=== PATIENT | female | born 1930 | race Caucasian/White ===

== ENCOUNTER 2018-03-03 20:13 | Inpatient (IN) | payer MEDICARE, OTHER ==
[~2018-03-03] VITALS: Ht 157.5 cm; Wt 81.6 kg
[2018-03-03 20:43] VITALS: BP 120/80
[2018-03-03] MEDS ORDERED: Sodium Chloride 500ML 500 ML IV ONE (20:45)
[2018-03-03] MEDS ORDERED: Isovue-300 100ml vial INJ PRN (20:45)
[2018-03-03 20:56] LABS: APPEARANCE,URINE CLOUDY; BILIRUBIN, URINE NEGATIVE (NEGATIVE); COLOR,URINE AMBER; GLUCOSE, URINE (UA) NEGATIVE (NEGATIVE); KETONES,URINE NEGATIVE (NEGATIVE); LEUKOCYTE ESTERASE ,URINE 3+ (NEGATIVE); NITRITE,URINE POSITIVE (NEGATIVE); PH,URINE 6 (4.5-8.0); PROTEIN,URINE 2+ (NEGATIVE); UROBILINOGEN,URINE NORMAL MG/DL (0.0-1.0)
[2018-03-03] MEDS ORDERED: dilTIAZem HCl 25mg/5ml Inj IVP ONE (21:00)
[2018-03-03 21:02] LABS: BASOPHILS % (AUTO) 1.3 % (0.0-2.0); EOSINOPHILS % (AUTO) 1.5 % (0.0-3.0); HEMATOCRIT 43.7 % (37.0-47.0); HEMOGLOBIN 14.8 G/DL (12.0-16.0); LYMPHOCYTES % (AUTO) 21.9 % (20.0-45.0); MEAN CORPUSCULAR VOLUME 91 FL (80-99); MONOCYTES % (AUTO) 6.6 % (1.0-10.0); NEUTROPHILS % (AUTO) 68.8 % (45.0-75.0); PLATELET COUNT 196 K/UL (150-450); RED BLOOD COUNT 4.79 M/UL (4.20-5.40); RED CELL DISTRIBUTION WIDTH 12.8 % (11.6-14.8); WHITE BLOOD COUNT 8.6 K/UL (4.8-10.8)
[2018-03-03 21:11] LABS: ANION GAP 9 mmol/L (5-15); BLOOD UREA NITROGEN 23 mg/dL (7-18); CARBON DIOXIDE 26 MMOL/L (21-32); CHLORIDE 102 MMOL/L (98-107); CREATININE 0.6 MG/DL (0.55-1.30); POTASSIUM 5.1 MMOL/L (3.5-5.1); SODIUM 137 MMOL/L (136-145)
[2018-03-03] MEDS ORDERED: cefTRIAXone 1 GM in NS 55 ML IVPB ONE (21:15)
[2018-03-03 21:26] LABS: ALANINE AMINOTRANSFERASE 13 U/L (12-78); ALBUMIN 2.9 G/DL (3.4-5.0); ALBUMIN/GLOBULIN RATIO 0.6 (1.0-2.7); ALKALINE PHOSPHATASE 104 U/L (46-116); ASPARTATE AMINO TRANSFERASE 34 U/L (15-37); BILIRUBIN,TOTAL 0.4 MG/DL (0.2-1.0); CKMB 1.2 NG/ML (0.0-3.6); CREATINE KINASE 90 U/L (26-308)
[2018-03-03] MEDS ORDERED: LEVOTHYROXINE200 MCG ORAL (21:30)
[2018-03-03] MEDS ORDERED: DIGOXIN250 MCG ORAL (21:33)
[2018-03-03] MEDS ORDERED: DIGOXIN0.125 MG/2 ORAL (21:33)
[2018-03-03] MEDS ORDERED: MAGNESIUM400 M1 PO (21:33)
[2018-03-03] MEDS ORDERED: ACETAMINOPHEN80 M2 PO (21:36)
[2018-03-03] MEDS ORDERED: METFORMIN HCL5000 GM ORAL (21:40)
[2018-03-03] MEDS ORDERED: REMERON30 M1 ORAL (21:40)
[2018-03-03] MEDS ORDERED: sodium ORAL (21:40)
[2018-03-03] MEDS ORDERED: SIMVASTATIN5 MG ORAL (21:41)
[2018-03-03] MEDS ORDERED: ABILIFY2 MG ORAL (21:41)
[2018-03-03] MEDS ORDERED: xeralto (21:42)
[2018-03-03] MEDS ORDERED: Morphine Sulfate 2mg/ml Inj IVP PRN (21:45)
[2018-03-03] MEDS ORDERED: Miralax 17gm pkt ORAL PRN (21:45)
[2018-03-03] MEDS ORDERED: Albuterol/Ipratropium 3ml neb HHN PRN (21:45)
[2018-03-03 21:53] VITALS: BP 150/70
--- NOTE | 2018-03-03 22:07 | Emergency Room Report ---
History of Present Illness General Chief Complaint: Chest Pain Source: Patient, EMS Present Illness HPI Patient is a 88-year-old female brought in by EMS after the reported near syncopal episode. The patient was noted to be standing the and subsequently became pale and began trembling. Patient did not lose consciousness. Patient was the noted have increased chills. The patient prior history of atrial fibrillation and CVA. She is anticoagulated with Xarelto. The patient is also taking digoxin for heart failure. Allergies: Coded Allergies: No Known Allergies (Unverified , 03/03/18) Patient History Past Medical History: see triage record Last Menstrual Period: UNK Reviewed Nursing Documentation: PMH: Agreed; PSxH: Agreed Nursing Documentation-PMH Past Medical History: No History, Except For Hx Cardiac Problems: Yes - pacemaker Hx Hypertension: Yes Hx Diabetes: Yes Hx Cerebrovascular Accident: Yes - no deficits Review of Systems All Other Systems: limited - by mental status Physical Exam Vital Signs Date Time Temp Pulse Resp B/P (MAP) Pulse Ox O2 Delivery O2 Flow Rate FiO2 03/03/18 20:08 99.1 89 16 140/86 98 Room Air 99.1 03/03/18 20:41 2.0 97 Sp02 EP Interpretation: reviewed, normal General Appearance: normal inspection, alert, Chronically Ill Head: atraumatic ENT: normal voice, other - poor dentition Neck: normal inspection, full range of motion, supple, no bony tend Respiratory: normal inspection, lungs clear, no respiratory distress, no retraction, crackles Cardiovascular #1: no edema, tachycardia, irregularly irregular Gastrointestinal: soft, no guarding, hernia - umbilical Genitourinary: no CVA tenderness Musculoskeletal: normal inspection, back normal, normal range of motion Neurologic: normal inspection, alert, responsive, speech normal Psychiatric: normal inspection, judgement/insight normal, mood/affect normal Skin: normal inspection, normal color, no rash Medical Decision Making Diagnostic Impression: Primary Impression: Severe sepsis Additional Impressions: Urinary tract infection Atrial fibrillation ER Course Patient presented for near syncope. Differential diagnosis included was not limited to sepsis, pulmonary embolism, I aortic aneurysm, incarcerated hernia among others.Because of complexity of patient's case laboratory testing and imaging studies were ordered. The patient was noted to have prior history of atrial fibrillation. I EKG interpreted by me showed atrial fibrillation with rapid ventricular response with a rate of 123. CT the head read by radiology showed atrophic changes without evident acute intracranial hemorrhage or mass effect there is a 13 mm right frontal meningioma noted. The urinalysis showed evidence of urinary tract infection. Patient was noted to have a the umbilical hernia. CT the abdomen pelvis was ordered to evaluate for bowel obstruction. The patient was given IV fluids as well as IV antibiotics. Dr. Kody Oropeza was contacted for inpatient management Labs Test 03/03/18 20:25 03/03/18 21:44 White Blood Count 8.6 K/UL (4.8-10.8) Red Blood Count 4.79 M/UL (4.20-5.40) Hemoglobin 14.8 G/DL (12.0-16.0) Hematocrit 43.7 % (37.0-47.0) Mean Corpuscular Volume 91 FL (80-99) Mean Corpuscular Hemoglobin 31.0 PG (27.0-31.0) Mean Corpuscular Hemoglobin Concent 34.0 G/DL (32.0-36.0) Red Cell Distribution Width 12.8 % (11.6-14.8) Platelet Count 196 K/UL (150-450) Mean Platelet Volume 7.5 FL (6.5-10.1) Neutrophils (%) (Auto) 68.8 % (45.0-75.0) Lymphocytes (%) (Auto) 21.9 % (20.0-45.0) Monocytes (%) (Auto) 6.6 % (1.0-10.0) Eosinophils (%) (Auto) 1.5 % (0.0-3.0) Basophils (%) (Auto) 1.3 % (0.0-2.0) Prothrombin Time 11.0 SEC (9.30-11.50) Prothromb Time International Ratio 1.0 (0.9-1.1) Activated Partial Thromboplast Time 28 SEC (23-33) Urine Color Elicia Urine Appearance Cloudy Urine pH 6 (4.5-8.0) Urine Specific [place] 1.015 (1.005-1.035) Urine Protein 2+ (NEGATIVE) Urine Glucose (UA) Negative (NEGATIVE) Urine Ketones Negative (NEGATIVE) Urine Blood 1+ (NEGATIVE) Urine Nitrite Positive (NEGATIVE) Urine Bilirubin Negative (NEGATIVE) Urine Ictotest Negative (NEGATIVE) Urine Urobilinogen Normal MG/DL (0.0-1.0) Urine Leukocyte Esterase 3+ (NEGATIVE) Urine RBC 10-15 /HPF (0 - 2) Urine WBC Tntc /HPF (0 - 2) Urine Squamous Epithelial Cells Few /LPF (NONE/OCC) Urine Bacteria Many /HPF (NONE) Sodium Level 137 MMOL/L (136-145) Potassium Level 5.1 MMOL/L (3.5-5.1) Chloride Level 102 MMOL/L (98-107) Carbon Dioxide Level 26 MMOL/L (21-32) Anion Gap 9 mmol/L (5-15) Blood Urea Nitrogen 23 mg/dL (7-18) Creatinine 0.6 MG/DL (0.55-1.30) Estimat Glomerular Filtration Rate mL/min (>60) Glucose Level 181 MG/DL (74-106) Calcium Level 9.0 MG/DL (8.5-10.1) Total Bilirubin 0.4 MG/DL (0.2-1.0) Aspartate Amino Transf (AST/SGOT) 34 U/L (15-37) Alanine Aminotransferase (ALT/SGPT) 13 U/L (12-78) Alkaline Phosphatase 104 U/L (46-116) Total Creatine Kinase 90 U/L (26-308) Creatine Kinase MB 1.2 NG/ML (0.0-3.6) Creatine Kinase MB Relative Index 1.3 Troponin I 0.013 ng/mL (0.000-0.056) Pro-B-Type Natriuretic Peptide 541 pg/mL (0-125) Total Protein 7.6 G/DL (6.4-8.2) Albumin 2.9 G/DL (3.4-5.0) Globulin 4.7 g/dL Albumin/Globulin Ratio 0.6 (1.0-2.7) Last Vital Signs Date Time Temp Pulse Resp B/P (MAP) Pulse Ox O2 Delivery O2 Flow Rate FiO2 03/03/18 21:53 97.5 97 18 150/70 Room Air 98 97.5 03/03/18 20:43 2.0 03/03/18 20:08 98 Status: improved Disposition: ADMITTED INPATIENT Condition: Serious Referrals: NON PHYSICIAN (PCP) Bipin Fallon MD Mar 03, 2018 22:07
[2018-03-03 23:00] VITALS: BP 118/81
[2018-03-04] VITALS: BP 130/78
[2018-03-04] MEDS: Heparin 5000 units/ml inj SUBQ SCH ×2 (00:15→09:31)
[2018-03-04] MEDS ORDERED: Vancomycin 1 GM in D5W 275 ML IVPB SCH (00:30)
[2018-03-04 04:00] VITALS: BP 133/68
[2018-03-04 07:35] LABS: BASOPHILS % (AUTO) 1.6 % (0.0-2.0); EOSINOPHILS % (AUTO) 2.6 % (0.0-3.0); HEMATOCRIT 39.9 % (37.0-47.0); HEMOGLOBIN 13.4 G/DL (12.0-16.0); LYMPHOCYTES % (AUTO) 26.2 % (20.0-45.0); MEAN CORPUSCULAR VOLUME 88 FL (80-99); MONOCYTES % (AUTO) 8.2 % (1.0-10.0); NEUTROPHILS % (AUTO) 61.3 % (45.0-75.0); PLATELET COUNT 188 K/UL (150-450); RED BLOOD COUNT 4.53 M/UL (4.20-5.40); RED CELL DISTRIBUTION WIDTH 12.6 % (11.6-14.8); WHITE BLOOD COUNT 5.4 K/UL (4.8-10.8)
[2018-03-04 07:49] LABS: ALANINE AMINOTRANSFERASE 24 U/L (12-78); ALBUMIN 2.6 G/DL (3.4-5.0); ALBUMIN/GLOBULIN RATIO 0.6 (1.0-2.7); ALKALINE PHOSPHATASE 87 U/L (46-116); ANION GAP 7 mmol/L (5-15); ASPARTATE AMINO TRANSFERASE 19 U/L (15-37); BILIRUBIN,TOTAL 0.3 MG/DL (0.2-1.0); BLOOD UREA NITROGEN 17 mg/dL (7-18); CALCIUM 8.5 MG/DL (8.5-10.1); CARBON DIOXIDE 25 MMOL/L (21-32); CHLORIDE 103 MMOL/L (98-107); CREATININE 0.6 MG/DL (0.55-1.30); SODIUM 135 MMOL/L (136-145)
[2018-03-04 08:00] VITALS: BP 139/66
--- NOTE | 2018-03-04 09:19 | Diagnostic Imaging Report ---
Indication: Abdominal pain Technique: Continuous helical transaxial imaging of the abdomen and pelvis was obtained from the lung bases to the pubic symphysis during intravenous contrast administration. Coronal 2-D reformats were also obtained. Study obtained in a Siemens sensation [address] Automatic Exposure Control was utilized. Total Dose length Product (DLP): 830.[address] Dose Index Volume (CTDIvol): 17.05 mGy Comparison: None Findings: The appendix is identified and appears normal. There is a large ventral hernia containing part of the transverse colon. There is no transition or evidence of bowel obstruction secondary to the hernia. No inflammation identified. Diverticula noted throughout the colon. No evidence of acute diverticulitis. Mild basilar atelectasis demonstrated. Suspected tiny gallstone. Left renal cyst noted. Arterial vascular calcifications are present. There is no free fluid or free air. Tiny focus of air in the urinary bladder noted may be from recent Rothman placement. Correlate clinically. Mild L4-5 anterolisthesis and degenerative disc disease in the lower lumbar spine noted. Lower lumbar facet hypertrophy noted. Pins noted in the left hip from a previous fracture. IMPRESSION: Large ventral hernia with part of the colon in the hernia sac. No obstruction or inflammation identified. Correlate clinically. Probable tiny gallstone. Normal appendix Other incidental findings as above The CT scanner at [facility] is accredited by the [employer] and the scans are performed using dose optimization techniques as appropriate to a performed exam including Automatic Exposure control.
--- NOTE | 2018-03-04 09:24 | Diagnostic Imaging Report ---
Indication: Headache Technique: Contiguous 5 mm thick transaxial imaging of the head obtained in a Siemens Sensation [address] scanner. Soft tissue and bone windows generated. Automatic Exposure Control was utilized. Total Dose length Product (DLP): 1420.[address] Dose Index Volume (CTDIvol): 70.38 mGy Comparison: none Findings: There is moderate prominence of the ventricles, basal cisterns, and cerebral sulci consistent with atrophy. Moderate, nonspecific, white matter hypoattenuation is noted throughout the brain consistent with chronic small vessel disease. There is a small focus of cystic encephalomalacia in the left caudate region. There is a 1.3 cm osseous focus projecting off the inner table of the right frontal bone consistent with a ossified meningioma. There is no midline shift, edema, acute hemorrhage, mass effect, or abnormal extra-axial fluid collections. Bones and extra osseous soft tissues are unremarkable. Impression: No acute intracranial bleed, mass effect or edema. 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 Moderate atrophy of the brain. 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 The CT scanner at [facility] is accredited by the [employer] and the scans are performed using dose optimization techniques as appropriate to a performed exam including Automatic Exposure control.
[2018-03-04] MEDS: Digoxin 0.125mg tab ORAL SCH (09:26)
[2018-03-04] MEDS: Magnesium Oxide 400mg tab ORAL SCH ×3 (09:26→18:06)
--- NOTE | 2018-03-04 10:34 | Diagnostic Imaging Report ---
Indication: Dyspnea Comparison: None A single view chest radiograph was obtained. Findings: Cardiomediastinal appearance is enlarged but within normal limits for age. The lung volumes are low which is a consideration also. There is a pacemaker on the left. The lungs are clear. Pulmonary vascularity is appropriate. The diaphragmatic contour is smooth and costophrenic angles are sharp. No pleural effusions are identified. The bones are unremarkable. Impression: No acute findings
--- NOTE | 2018-03-04 10:42 | Consultation ---
History of Present Illness General Chief Complaint: Chest Pain Present Illness HPI 88-year-old female brought in by EMS after the reported near syncopal episode, the pt has hx of schizophrenia and depression. the pt has depressed mood delusional and yells through the day. the pt is on remeron and abilify the pt is able to answer the questions and is irish speaking. the pt was discussed about her current condition the daughter was in the room and the meds will be resumed. Allergies: Coded Allergies: No Known Allergies (Unverified , 03/03/18) Medication History Scheduled Acetaminophen (Acetaminophen), 80 MG PO ONCE, (Reported) Aripiprazole* (Abilify*), 2 MG ORAL DAILY, (Reported) Digoxin* (Digoxin*), 0.125 MG ORAL DAILY, (Reported) Digoxin* (Digoxin*), 0.25 MG ORAL DAILY, (Reported) Levothyroxine Sodium* (Levothyroxine Sodium), 25 MG ORAL EVERY OTHER DAY, ( Reported) Levothyroxine Sodium* (Levothyroxine Sodium), 50 MG ORAL EVERY OTHER DAY, ( Reported) Magnesium Oxide (Magnesium), 420 MG PO THREE TIMES A DAY, (Reported) Simvastatin (Zocor), Unknown Dose ORAL BEDTIME, (Reported) [sodium ], 1 GM ORAL THREE TIMES A DAY, (Reported) Miscellaneous Medications Metformin Hcl (Metformin Hcl), 500 MG ORAL, (Reported) Mirtazapine (Remeron), 35 MG ORAL, (Reported) [xeralto], (Reported) [xeralto], Unknown Dose, (Reported) Patient History Limited by: medical condition History Provided By: Patient, Medical Record Healthcare decision maker Resuscitation status Full Code Advanced Directive on File No Past Medical/Surgical History Past Medical/Surgical History: (1) Pacemaker (2) Chronic anticoagulation (3) History of CVA (cerebrovascular accident) (4) Acute encephalopathy (5) Ventral hernia (6) Chest pain (7) Atrial fibrillation (8) Urinary tract infection (9) Severe sepsis (10) Hypothyroidism (11) Diabetes mellitus Review of Systems Psychiatric: Reports: prior hx, anxiety, depressed feelings, emotional problems Physical Exam General Appearance: no apparent distress, alert Neurologic: oriented x 3, responsive, depressed affect Last 24 Hour Vital Signs Date Time Temp Pulse Resp B/P (MAP) Pulse Ox O2 Delivery O2 Flow Rate FiO2 03/04/18 09:26 101 03/04/18 08:00 97.9 101 20 139/66 (90) 96 97.9 03/04/18 04:00 90 03/04/18 04:00 97.7 94 20 133/68 (89) 98 97.7 03/04/18 00:00 102 03/04/18 00:00 97.7 99 20 130/78 (95) 97 97.7 03/03/18 23:38 Room Air 03/03/18 23:00 98.2 102 18 118/81 (93) 97 98.2 03/03/18 22:41 97.5 97 18 120/70 98 Room Air 2.0 98 97.5 03/03/18 21:53 97.5 97 18 150/70 Room Air 98 97.5 03/03/18 20:55 120 120/80 03/03/18 20:43 98.1 120 30 120/80 Nasal Cannula 2.0 98 98.1 03/03/18 20:41 120 30 Nasal Cannula 2.0 97 03/03/18 20:08 99.1 89 16 140/86 98 Room Air 99.1 Intake and Output 03/03/18 03/04/18 19:00 07:00 Intake Total 975 ml Output Total 30 ml Balance 945 ml Intake IV Total 975 ml Output Urine Total 30 ml # Voids 1 Laboratory Tests Test 03/03/18 20:25 03/03/18 21:44 03/04/18 07:00 White Blood Count 8.6 K/UL (4.8-10.8) 5.4 K/UL (4.8-10.8) Red Blood Count 4.79 M/UL (4.20-5.40) 4.53 M/UL (4.20-5.40) Hemoglobin 14.8 G/DL (12.0-16.0) 13.4 G/DL (12.0-16.0) Hematocrit 43.7 % (37.0-47.0) 39.9 % (37.0-47.0) Mean Corpuscular Volume 91 FL (80-99) 88 FL (80-99) Mean Corpuscular Hemoglobin 31.0 PG (27.0-31.0) 29.6 PG (27.0-31.0) Mean Corpuscular Hemoglobin Concent 34.0 G/DL (32.0-36.0) 33.6 G/DL (32.0-36.0) Red Cell Distribution Width 12.8 % (11.6-14.8) 12.6 % (11.6-14.8) Platelet Count 196 K/UL (150-450) 188 K/UL (150-450) Mean Platelet Volume 7.5 FL (6.5-10.1) 7.9 FL (6.5-10.1) Neutrophils (%) (Auto) 68.8 % (45.0-75.0) 61.3 % (45.0-75.0) Lymphocytes (%) (Auto) 21.9 % (20.0-45.0) 26.2 % (20.0-45.0) Monocytes (%) (Auto) 6.6 % (1.0-10.0) 8.2 % (1.0-10.0) Eosinophils (%) (Auto) 1.5 % (0.0-3.0) 2.6 % (0.0-3.0) Basophils (%) (Auto) 1.3 % (0.0-2.0) 1.6 % (0.0-2.0) Prothrombin Time 11.0 SEC (9.30-11.50) Prothromb Time International Ratio 1.0 (0.9-1.1) Activated Partial Thromboplast Time 28 SEC (23-33) Urine Color Elicia Urine Appearance Cloudy Urine pH 6 (4.5-8.0) Urine Specific [place] 1.015 (1.005-1.035) Urine Protein 2+ (NEGATIVE) H Urine Glucose (UA) Negative (NEGATIVE) Urine Ketones Negative (NEGATIVE) Urine Blood 1+ (NEGATIVE) H Urine Nitrite Positive (NEGATIVE) H Urine Bilirubin Negative (NEGATIVE) Urine Ictotest Negative (NEGATIVE) Urine Urobilinogen Normal MG/DL (0.0-1.0) Urine Leukocyte Esterase 3+ (NEGATIVE) H Urine RBC 10-15 /HPF (0 - 2) H Urine WBC Tntc /HPF (0 - 2) H Urine Squamous Epithelial Cells Few /LPF (NONE/OCC) Urine Bacteria Many /HPF (NONE) H Sodium Level 137 MMOL/L (136-145) 135 MMOL/L (136-145) L Potassium Level 5.1 MMOL/L (3.5-5.1) 4.0 MMOL/L (3.5-5.1) Chloride Level 102 MMOL/L (98-107) 103 MMOL/L (98-107) Carbon Dioxide Level 26 MMOL/L (21-32) 25 MMOL/L (21-32) Anion Gap 9 mmol/L (5-15) 7 mmol/L (5-15) Blood Urea Nitrogen 23 mg/dL (7-18) H 17 mg/dL (7-18) Creatinine 0.6 MG/DL (0.55-1.30) 0.6 MG/DL (0.55-1.30) Estimat Glomerular Filtration Rate mL/min (>60) mL/min (>60) Glucose Level 181 MG/DL (74-106) H 164 MG/DL (74-106) H Lactic Acid Level 5.10 mmol/L (0.4-2.0) H 3.10 mmol/L (0.66-2.22) H Calcium Level 9.0 MG/DL (8.5-10.1) 8.5 MG/DL (8.5-10.1) Magnesium Level 1.4 MG/DL (1.8-2.4) L Total Bilirubin 0.4 MG/DL (0.2-1.0) 0.3 MG/DL (0.2-1.0) Aspartate Amino Transf (AST/SGOT) 34 U/L (15-37) 19 U/L (15-37) Alanine Aminotransferase (ALT/SGPT) 13 U/L (12-78) 24 U/L (12-78) Alkaline Phosphatase 104 U/L (46-116) 87 U/L (46-116) Total Creatine Kinase 90 U/L (26-308) Creatine Kinase MB 1.2 NG/ML (0.0-3.6) Creatine Kinase MB Relative Index 1.3 Troponin I 0.013 ng/mL (0.000-0.056) Pro-B-Type Natriuretic Peptide 541 pg/mL (0-125) H Total Protein 7.6 G/DL (6.4-8.2) 6.8 G/DL (6.4-8.2) Albumin 2.9 G/DL (3.4-5.0) L 2.6 G/DL (3.4-5.0) L Globulin 4.7 g/dL 4.2 g/dL Albumin/Globulin Ratio 0.6 (1.0-2.7) L 0.6 (1.0-2.7) L Height (Feet): 5 Height (Inches): 2.00 Weight (Pounds): 180 Medications Current Medications Medications (Trade) Dose Ordered Sig/Genaro Route PRN Reason Start Time Stop Time Status Last Admin Dose Admin Acetaminophen (Tylenol) 650 mg Q4H PRN ORAL fever 03/03/18 21:45 04/02/18 21:44 Albuterol/ Ipratropium (Albuterol/ Ipratropium) 3 ml EVERY 4 HOURS PRN HHN Shortness of Breath 03/03/18 21:45 03/08/18 21:44 Aripiprazole (Abilify) 2 mg QHS ORAL 03/04/18 21:00 04/03/18 20:59 Atorvastatin Calcium (Lipitor) 10 mg BEDTIME ORAL 03/04/18 21:00 04/03/18 20:59 Cefepime HCl 2 gm/ Dextrose 110 ml @ 220 mls/hr Q24H IV 03/04/18 09:00 03/11/18 08:59 Dextrose (Dextrose 50%) 25 ml Q30M PRN IV Hypoglycemia 03/04/18 08:45 04/03/18 08:44 Dextrose (Dextrose 50%) 50 ml Q30M PRN IV Hypoglycemia 03/04/18 08:45 04/03/18 08:44 Digoxin (Lanoxin) 0.125 mg DAILY ORAL 03/04/18 09:00 04/03/18 08:59 03/04/18 09:26 Heparin Sodium (Porcine) (Heparin 5000 units/ml) 5,000 units EVERY 12 HOURS SUBQ 03/03/18 23:15 04/02/18 23:14 03/04/18 09:31 Insulin Aspart (NovoLOG) BEFORE MEALS AND HS SUBQ 03/04/18 11:30 04/03/18 11:29 Iopamidol (Isovue-300 100ml) 100 ml NOW PRN INJ Radiology Procedure 03/03/18 20:45 Levothyroxine Sodium (Synthroid) 25 mcg EVERY OTHER DAY@0630 ORAL 03/05/18 06:30 04/04/18 06:29 Levothyroxine Sodium (Synthroid) 50 mcg EVERY OTHER DAY@0630 ORAL 03/04/18 06:30 04/03/18 06:29 03/04/18 06:06 Magnesium Oxide (Mag-Ox 400mg) 400 mg THREE TIMES A DAY ORAL 03/04/18 09:00 04/03/18 08:59 03/04/18 09:26 Magnesium Sulfate 100 ml @ 100 mls/hr ONCE IVPB 03/04/18 10:00 03/04/18 11:00 03/04/18 09:47 Mirtazapine (Remeron) 7.5 mg DAILY@1400 ORAL 03/04/18 14:00 04/03/18 13:59 Mirtazapine (Remeron) 30 mg BEDTIME ORAL 03/04/18 21:00 04/03/18 20:59 Morphine Sulfate (Morphine Sulfate) 2 mg EVERY 4 HOURS PRN IVP Moderate Pain (Pain Scale 4-6) 03/03/18 21:45 03/10/18 21:44 Ondansetron HCl (Zofran) 4 mg Q6H PRN IVP Nausea & Vomiting 03/03/18 21:45 04/02/18 21:44 Polyethylene Glycol (Miralax) 17 gm DAILYPRN PRN ORAL Constipation 03/03/18 21:45 04/02/18 21:44 Rivaroxaban (Xarelto) 15 mg QHS ORAL 03/04/18 21:00 04/03/18 20:59 Temazepam (Restoril) 15 mg HSPRN PRN ORAL Insomnia 03/03/18 21:45 03/10/18 21:44 Vancomycin HCl 1 gm/Dextrose 275 ml @ 183.3 mls/ hr Q24H IVPB 03/04/18 00:30 03/09/18 00:29 03/04/18 00:15 Assessment/Plan Problem List: (1) Acute encephalopathy ICD Codes: G93.40 - Encephalopathy, unspecified SNOMED: [id number], [id number] Assessment/Plan schizophrenia mdd remeron 7.5 mg @ 1200 remeron 15mg @ 300 abilify 2mg qhs Vikram Jurado MD Mar 04, 2018 10:42
[2018-03-04] MEDS: Cefepime HCl 2 GM in D5W 110 ML IV SCH (10:51)
--- NOTE | 2018-03-04 11:26 | Consultation ---
History of Present Illness General Date patient seen: Mar 04, 2018 Chief Complaint: Chest Pain Present Illness HPI 88-year-old female with hx of DM, hypothyroid, Afib, pacemaker, CVA on anticoagulation brought in by EMS after the reported near syncopal episode. The patient was noted to be standing then she became pale and began trembling. Patient did not lose consciousness. Patient was the noted have increased chills. She was thought to have sepsis by UTI causing generalized weakness. Allergies: Coded Allergies: No Known Allergies (Unverified , 03/03/18) Medication History Scheduled Acetaminophen (Acetaminophen), 80 MG PO ONCE, (Reported) Aripiprazole* (Abilify*), 2 MG ORAL DAILY, (Reported) Digoxin* (Digoxin*), 0.125 MG ORAL DAILY, (Reported) Digoxin* (Digoxin*), 0.25 MG ORAL DAILY, (Reported) Levothyroxine Sodium* (Levothyroxine Sodium), 25 MG ORAL EVERY OTHER DAY, ( Reported) Levothyroxine Sodium* (Levothyroxine Sodium), 50 MG ORAL EVERY OTHER DAY, ( Reported) Magnesium Oxide (Magnesium), 420 MG PO THREE TIMES A DAY, (Reported) Simvastatin (Zocor), Unknown Dose ORAL BEDTIME, (Reported) [sodium ], 1 GM ORAL THREE TIMES A DAY, (Reported) Miscellaneous Medications Metformin Hcl (Metformin Hcl), 500 MG ORAL, (Reported) Mirtazapine (Remeron), 35 MG ORAL, (Reported) [xeralto], (Reported) [xeralto], Unknown Dose, (Reported) Patient History Healthcare decision maker Resuscitation status Full Code Advanced Directive on File No Past Medical/Surgical History Past Medical/Surgical History: (1) Pacemaker (2) History of CVA (cerebrovascular accident) (3) Chronic anticoagulation (4) Diabetes mellitus (5) Hypothyroidism (6) Atrial fibrillation Review of Systems Constitutional: Reports: chills, weakness All Other Systems: negative except mentioned in HPI Physical Exam General Appearance: WD/WN Lines, tubes and drains: peripheral HEENT: normocephalic, atraumatic Neck: non-tender, normal alignment, supple Respiratory/Chest: chest wall non-tender, lungs clear Breasts: no masses Cardiovascular/Chest: normal rate, regular rhythm Abdomen: normal bowel sounds, non tender Extremities: normal range of motion, normal inspection Last 24 Hour Vital Signs Date Time Temp Pulse Resp B/P (MAP) Pulse Ox O2 Delivery O2 Flow Rate FiO2 03/04/18 09:26 101 03/04/18 08:00 97.9 101 20 139/66 (90) 96 97.9 03/04/18 07:30 89 03/04/18 04:00 90 03/04/18 04:00 97.7 94 20 133/68 (89) 98 97.7 03/04/18 00:00 102 03/04/18 00:00 97.7 99 20 130/78 (95) 97 97.7 03/03/18 23:38 Room Air 03/03/18 23:00 98.2 102 18 118/81 (93) 97 98.2 03/03/18 22:41 97.5 97 18 120/70 98 Room Air 2.0 98 97.5 03/03/18 21:53 97.5 97 18 150/70 Room Air 98 97.5 03/03/18 20:55 120 120/80 03/03/18 20:43 98.1 120 30 120/80 Nasal Cannula 2.0 98 98.1 03/03/18 20:41 120 30 Nasal Cannula 2.0 97 03/03/18 20:08 99.1 89 16 140/86 98 Room Air 99.1 Intake and Output 03/03/18 03/04/18 19:00 07:00 Intake Total 975 ml Output Total 30 ml Balance 945 ml Intake IV Total 975 ml Output Urine Total 30 ml # Voids 1 Laboratory Tests Test 03/03/18 20:25 03/03/18 21:44 03/04/18 07:00 White Blood Count 8.6 K/UL (4.8-10.8) 5.4 K/UL (4.8-10.8) Red Blood Count 4.79 M/UL (4.20-5.40) 4.53 M/UL (4.20-5.40) Hemoglobin 14.8 G/DL (12.0-16.0) 13.4 G/DL (12.0-16.0) Hematocrit 43.7 % (37.0-47.0) 39.9 % (37.0-47.0) Mean Corpuscular Volume 91 FL (80-99) 88 FL (80-99) Mean Corpuscular Hemoglobin 31.0 PG (27.0-31.0) 29.6 PG (27.0-31.0) Mean Corpuscular Hemoglobin Concent 34.0 G/DL (32.0-36.0) 33.6 G/DL (32.0-36.0) Red Cell Distribution Width 12.8 % (11.6-14.8) 12.6 % (11.6-14.8) Platelet Count 196 K/UL (150-450) 188 K/UL (150-450) Mean Platelet Volume 7.5 FL (6.5-10.1) 7.9 FL (6.5-10.1) Neutrophils (%) (Auto) 68.8 % (45.0-75.0) 61.3 % (45.0-75.0) Lymphocytes (%) (Auto) 21.9 % (20.0-45.0) 26.2 % (20.0-45.0) Monocytes (%) (Auto) 6.6 % (1.0-10.0) 8.2 % (1.0-10.0) Eosinophils (%) (Auto) 1.5 % (0.0-3.0) 2.6 % (0.0-3.0) Basophils (%) (Auto) 1.3 % (0.0-2.0) 1.6 % (0.0-2.0) Prothrombin Time 11.0 SEC (9.30-11.50) Prothromb Time International Ratio 1.0 (0.9-1.1) Activated Partial Thromboplast Time 28 SEC (23-33) Urine Color Elicia Urine Appearance Cloudy Urine pH 6 (4.5-8.0) Urine Specific [place] 1.015 (1.005-1.035) Urine Protein 2+ (NEGATIVE) H Urine Glucose (UA) Negative (NEGATIVE) Urine Ketones Negative (NEGATIVE) Urine Blood 1+ (NEGATIVE) H Urine Nitrite Positive (NEGATIVE) H Urine Bilirubin Negative (NEGATIVE) Urine Ictotest Negative (NEGATIVE) Urine Urobilinogen Normal MG/DL (0.0-1.0) Urine Leukocyte Esterase 3+ (NEGATIVE) H Urine RBC 10-15 /HPF (0 - 2) H Urine WBC Tntc /HPF (0 - 2) H Urine Squamous Epithelial Cells Few /LPF (NONE/OCC) Urine Bacteria Many /HPF (NONE) H Sodium Level 137 MMOL/L (136-145) 135 MMOL/L (136-145) L Potassium Level 5.1 MMOL/L (3.5-5.1) 4.0 MMOL/L (3.5-5.1) Chloride Level 102 MMOL/L (98-107) 103 MMOL/L (98-107) Carbon Dioxide Level 26 MMOL/L (21-32) 25 MMOL/L (21-32) Anion Gap 9 mmol/L (5-15) 7 mmol/L (5-15) Blood Urea Nitrogen 23 mg/dL (7-18) H 17 mg/dL (7-18) Creatinine 0.6 MG/DL (0.55-1.30) 0.6 MG/DL (0.55-1.30) Estimat Glomerular Filtration Rate mL/min (>60) mL/min (>60) Glucose Level 181 MG/DL (74-106) H 164 MG/DL (74-106) H Lactic Acid Level 5.10 mmol/L (0.4-2.0) H 3.10 mmol/L (0.66-2.22) H Calcium Level 9.0 MG/DL (8.5-10.1) 8.5 MG/DL (8.5-10.1) Magnesium Level 1.4 MG/DL (1.8-2.4) L Total Bilirubin 0.4 MG/DL (0.2-1.0) 0.3 MG/DL (0.2-1.0) Aspartate Amino Transf (AST/SGOT) 34 U/L (15-37) 19 U/L (15-37) Alanine Aminotransferase (ALT/SGPT) 13 U/L (12-78) 24 U/L (12-78) Alkaline Phosphatase 104 U/L (46-116) 87 U/L (46-116) Total Creatine Kinase 90 U/L (26-308) Creatine Kinase MB 1.2 NG/ML (0.0-3.6) Creatine Kinase MB Relative Index 1.3 Troponin I 0.013 ng/mL (0.000-0.056) Pro-B-Type Natriuretic Peptide 541 pg/mL (0-125) H Total Protein 7.6 G/DL (6.4-8.2) 6.8 G/DL (6.4-8.2) Albumin 2.9 G/DL (3.4-5.0) L 2.6 G/DL (3.4-5.0) L Globulin 4.7 g/dL 4.2 g/dL Albumin/Globulin Ratio 0.6 (1.0-2.7) L 0.6 (1.0-2.7) L Height (Feet): 5 Height (Inches): 2.00 Weight (Pounds): 180 Medications Current Medications Medications (Trade) Dose Ordered Sig/Genaro Route PRN Reason Start Time Stop Time Status Last Admin Dose Admin Acetaminophen (Tylenol) 650 mg Q4H PRN ORAL fever 03/03/18 21:45 04/02/18 21:44 Albuterol/ Ipratropium (Albuterol/ Ipratropium) 3 ml EVERY 4 HOURS PRN HHN Shortness of Breath 03/03/18 21:45 03/08/18 21:44 Aripiprazole (Abilify) 2 mg QHS ORAL 03/04/18 21:00 04/03/18 20:59 Atorvastatin Calcium (Lipitor) 10 mg BEDTIME ORAL 03/04/18 21:00 04/03/18 20:59 Cefepime HCl 2 gm/ Dextrose 110 ml @ 220 mls/hr Q24H IV 03/04/18 09:00 03/11/18 08:59 03/04/18 10:51 Dextrose (Dextrose 50%) 25 ml Q30M PRN IV Hypoglycemia 03/04/18 08:45 04/03/18 08:44 Dextrose (Dextrose 50%) 50 ml Q30M PRN IV Hypoglycemia 03/04/18 08:45 04/03/18 08:44 Digoxin (Lanoxin) 0.125 mg DAILY ORAL 03/04/18 09:00 04/03/18 08:59 03/04/18 09:26 Heparin Sodium (Porcine) (Heparin 5000 units/ml) 5,000 units EVERY 12 HOURS SUBQ 03/03/18 23:15 04/02/18 23:14 03/04/18 09:31 Insulin Aspart (NovoLOG) BEFORE MEALS AND HS SUBQ 03/04/18 11:30 04/03/18 11:29 Iopamidol (Isovue-300 100ml) 100 ml NOW PRN INJ Radiology Procedure 03/03/18 20:45 Levothyroxine Sodium (Synthroid) 25 mcg EVERY OTHER DAY@0630 ORAL 03/05/18 06:30 04/04/18 06:29 Levothyroxine Sodium (Synthroid) 50 mcg EVERY OTHER DAY@0630 ORAL 03/04/18 06:30 04/03/18 06:29 03/04/18 06:06 Magnesium Oxide (Mag-Ox 400mg) 400 mg THREE TIMES A DAY ORAL 03/04/18 09:00 04/03/18 08:59 03/04/18 09:26 Mirtazapine (Remeron) 7.5 mg 1200 ORAL 03/04/18 12:00 04/03/18 11:59 Mirtazapine (Remeron) 30 mg 1500 ORAL 03/04/18 15:00 04/03/18 14:59 Morphine Sulfate (Morphine Sulfate) 2 mg EVERY 4 HOURS PRN IVP Moderate Pain (Pain Scale 4-6) 03/03/18 21:45 03/10/18 21:44 Ondansetron HCl (Zofran) 4 mg Q6H PRN IVP Nausea & Vomiting 03/03/18 21:45 04/02/18 21:44 Polyethylene Glycol (Miralax) 17 gm DAILYPRN PRN ORAL Constipation 03/03/18 21:45 04/02/18 21:44 Rivaroxaban (Xarelto) 15 mg QHS ORAL 03/04/18 21:00 04/03/18 20:59 Temazepam (Restoril) 15 mg HSPRN PRN ORAL Insomnia 03/03/18 21:45 03/10/18 21:44 Vancomycin HCl 1 gm/Dextrose 275 ml @ 183.3 mls/ hr Q24H IVPB 03/04/18 00:30 03/09/18 00:29 03/04/18 00:15 Assessment/Plan Problem List: (1) Severe sepsis ICD Codes: A41.9 - Sepsis, unspecified organism; R65.20 - Severe sepsis without septic shock SNOMED: 24803350 (2) Acute encephalopathy ICD Codes: G93.40 - Encephalopathy, unspecified SNOMED: 04795774, 995199836 (3) Urinary tract infection ICD Codes: N39.0 - Urinary tract infection, site not specified SNOMED: 35642729 (4) Atrial fibrillation ICD Codes: I48.91 - Unspecified atrial fibrillation SNOMED: 92176621 (5) Hypothyroidism ICD Codes: E03.9 - Hypothyroidism, unspecified SNOMED: 54182679 (6) Chronic anticoagulation ICD 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 SNOMED: 819443732 (7) Ventral hernia ICD Codes: K43.9 - Ventral hernia without obstruction or gangrene SNOMED: 538040583 (8) Pacemaker ICD Codes: Z95.0 - Presence of cardiac pacemaker SNOMED: 889280648 (9) History of CVA (cerebrovascular accident) ICD Codes: Z86.73 - Personal history of transient ischemic attack (TIA), and cerebral infarction without residual deficits SNOMED: 204963352 (10) Diabetes mellitus ICD Codes: E11.9 - Type 2 diabetes mellitus without complications SNOMED: 72387165 Assessment/Plan telemetry monitoring urine cultures iv abx monitor heart rate continue digoxin respiratory therapy d/w surgeon about ventral hernia dvt prophylaxis Zane Peña MD Mar 04, 2018 11:26
[2018-03-04 12:00] VITALS: BP 115/64
[2018-03-04] MEDS: NovoLOG Insulin Flexpen SUBQ SCH ×3 (12:10→20:40)
--- NOTE | 2018-03-04 12:13 | Consultation ---
History of Present Illness General Date patient seen: Mar 04, 2018 Chief Complaint: Chest Pain Present Illness HPI 88 y /o F with hx of HTN, s/p PPM, CVA 06/2017 w. no deficits, Afib on Xarelto, CHF presents to ED on 03/03 with near syncopal episode; became pale and trembling. Did not lose consciousness. +chills. Lactic acidosis Afebrile no leukocytosis endorses urinary frequency, no dysuria Allergies: Coded Allergies: No Known Allergies (Unverified , 03/03/18) Medication History Scheduled Acetaminophen (Acetaminophen), 80 MG PO ONCE, (Reported) Aripiprazole* (Abilify*), 2 MG ORAL DAILY, (Reported) Digoxin* (Digoxin*), 0.125 MG ORAL DAILY, (Reported) Digoxin* (Digoxin*), 0.25 MG ORAL DAILY, (Reported) Levothyroxine Sodium* (Levothyroxine Sodium), 25 MG ORAL EVERY OTHER DAY, ( Reported) Levothyroxine Sodium* (Levothyroxine Sodium), 50 MG ORAL EVERY OTHER DAY, ( Reported) Magnesium Oxide (Magnesium), 420 MG PO THREE TIMES A DAY, (Reported) Simvastatin (Zocor), Unknown Dose ORAL BEDTIME, (Reported) [sodium ], 1 GM ORAL THREE TIMES A DAY, (Reported) Miscellaneous Medications Metformin Hcl (Metformin Hcl), 500 MG ORAL, (Reported) Mirtazapine (Remeron), 35 MG ORAL, (Reported) [xeralto], (Reported) [xeralto], Unknown Dose, (Reported) Patient History Healthcare decision maker Resuscitation status Full Code Advanced Directive on File No Patient History Narrative Pmhx: as above Shx: reviewed Fhx: non contributory Review of Systems All Other Systems: negative except mentioned in HPI Physical Exam Physical Exam Narrative General Appearance: WD/WN Lines, tubes and drains: peripheral HEENT: normocephalic, atraumatic Neck: non-tender, normal alignment, supple Respiratory/Chest: chest wall non-tender, lungs clear Cardiovascular/Chest: normal rate, regular rhythm Abdomen: normal bowel sounds, non tender Extremities: normal range of motion, normal inspection Last 24 Hour Vital Signs Date Time Temp Pulse Resp B/P (MAP) Pulse Ox O2 Delivery O2 Flow Rate FiO2 03/04/18 09:26 101 03/04/18 08:20 Room Air 03/04/18 08:00 97.9 101 20 139/66 (90) 96 97.9 03/04/18 07:30 89 03/04/18 04:00 90 03/04/18 04:00 97.7 94 20 133/68 (89) 98 97.7 03/04/18 00:00 102 03/04/18 00:00 97.7 99 20 130/78 (95) 97 97.7 03/03/18 23:38 Room Air 03/03/18 23:00 98.2 102 18 118/81 (93) 97 98.2 03/03/18 22:41 97.5 97 18 120/70 98 Room Air 2.0 98 97.5 03/03/18 21:53 97.5 97 18 150/70 Room Air 98 97.5 03/03/18 20:55 120 120/80 03/03/18 20:43 98.1 120 30 120/80 Nasal Cannula 2.0 98 98.1 03/03/18 20:41 120 30 Nasal Cannula 2.0 97 03/03/18 20:08 99.1 89 16 140/86 98 Room Air 99.1 Intake and Output 03/03/18 03/04/18 19:00 07:00 Intake Total 975 ml Output Total 30 ml Balance 945 ml Intake IV Total 975 ml Output Urine Total 30 ml # Voids 1 Laboratory Tests Test 03/03/18 20:25 03/03/18 21:44 03/04/18 07:00 White Blood Count 8.6 K/UL (4.8-10.8) 5.4 K/UL (4.8-10.8) Red Blood Count 4.79 M/UL (4.20-5.40) 4.53 M/UL (4.20-5.40) Hemoglobin 14.8 G/DL (12.0-16.0) 13.4 G/DL (12.0-16.0) Hematocrit 43.7 % (37.0-47.0) 39.9 % (37.0-47.0) Mean Corpuscular Volume 91 FL (80-99) 88 FL (80-99) Mean Corpuscular Hemoglobin 31.0 PG (27.0-31.0) 29.6 PG (27.0-31.0) Mean Corpuscular Hemoglobin Concent 34.0 G/DL (32.0-36.0) 33.6 G/DL (32.0-36.0) Red Cell Distribution Width 12.8 % (11.6-14.8) 12.6 % (11.6-14.8) Platelet Count 196 K/UL (150-450) 188 K/UL (150-450) Mean Platelet Volume 7.5 FL (6.5-10.1) 7.9 FL (6.5-10.1) Neutrophils (%) (Auto) 68.8 % (45.0-75.0) 61.3 % (45.0-75.0) Lymphocytes (%) (Auto) 21.9 % (20.0-45.0) 26.2 % (20.0-45.0) Monocytes (%) (Auto) 6.6 % (1.0-10.0) 8.2 % (1.0-10.0) Eosinophils (%) (Auto) 1.5 % (0.0-3.0) 2.6 % (0.0-3.0) Basophils (%) (Auto) 1.3 % (0.0-2.0) 1.6 % (0.0-2.0) Prothrombin Time 11.0 SEC (9.30-11.50) Prothromb Time International Ratio 1.0 (0.9-1.1) Activated Partial Thromboplast Time 28 SEC (23-33) Urine Color Elicia Urine Appearance Cloudy Urine pH 6 (4.5-8.0) Urine Specific [place] 1.015 (1.005-1.035) Urine Protein 2+ (NEGATIVE) H Urine Glucose (UA) Negative (NEGATIVE) Urine Ketones Negative (NEGATIVE) Urine Blood 1+ (NEGATIVE) H Urine Nitrite Positive (NEGATIVE) H Urine Bilirubin Negative (NEGATIVE) Urine Ictotest Negative (NEGATIVE) Urine Urobilinogen Normal MG/DL (0.0-1.0) Urine Leukocyte Esterase 3+ (NEGATIVE) H Urine RBC 10-15 /HPF (0 - 2) H Urine WBC Tntc /HPF (0 - 2) H Urine Squamous Epithelial Cells Few /LPF (NONE/OCC) Urine Bacteria Many /HPF (NONE) H Sodium Level 137 MMOL/L (136-145) 135 MMOL/L (136-145) L Potassium Level 5.1 MMOL/L (3.5-5.1) 4.0 MMOL/L (3.5-5.1) Chloride Level 102 MMOL/L (98-107) 103 MMOL/L (98-107) Carbon Dioxide Level 26 MMOL/L (21-32) 25 MMOL/L (21-32) Anion Gap 9 mmol/L (5-15) 7 mmol/L (5-15) Blood Urea Nitrogen 23 mg/dL (7-18) H 17 mg/dL (7-18) Creatinine 0.6 MG/DL (0.55-1.30) 0.6 MG/DL (0.55-1.30) Estimat Glomerular Filtration Rate mL/min (>60) mL/min (>60) Glucose Level 181 MG/DL (74-106) H 164 MG/DL (74-106) H Lactic Acid Level 5.10 mmol/L (0.4-2.0) H 3.10 mmol/L (0.66-2.22) H Calcium Level 9.0 MG/DL (8.5-10.1) 8.5 MG/DL (8.5-10.1) Magnesium Level 1.4 MG/DL (1.8-2.4) L Total Bilirubin 0.4 MG/DL (0.2-1.0) 0.3 MG/DL (0.2-1.0) Aspartate Amino Transf (AST/SGOT) 34 U/L (15-37) 19 U/L (15-37) Alanine Aminotransferase (ALT/SGPT) 13 U/L (12-78) 24 U/L (12-78) Alkaline Phosphatase 104 U/L (46-116) 87 U/L (46-116) Total Creatine Kinase 90 U/L (26-308) Creatine Kinase MB 1.2 NG/ML (0.0-3.6) Creatine Kinase MB Relative Index 1.3 Troponin I 0.013 ng/mL (0.000-0.056) Pro-B-Type Natriuretic Peptide 541 pg/mL (0-125) H Total Protein 7.6 G/DL (6.4-8.2) 6.8 G/DL (6.4-8.2) Albumin 2.9 G/DL (3.4-5.0) L 2.6 G/DL (3.4-5.0) L Globulin 4.7 g/dL 4.2 g/dL Albumin/Globulin Ratio 0.6 (1.0-2.7) L 0.6 (1.0-2.7) L Height (Feet): 5 Height (Inches): 2.00 Weight (Pounds): 180 Medications Current Medications Medications (Trade) Dose Ordered Sig/Genaro Route PRN Reason Start Time Stop Time Status Last Admin Dose Admin Acetaminophen (Tylenol) 650 mg Q4H PRN ORAL fever 03/03/18 21:45 04/02/18 21:44 Albuterol/ Ipratropium (Albuterol/ Ipratropium) 3 ml EVERY 4 HOURS PRN HHN Shortness of Breath 03/03/18 21:45 03/08/18 21:44 Aripiprazole (Abilify) 2 mg QHS ORAL 03/04/18 21:00 04/03/18 20:59 Atorvastatin Calcium (Lipitor) 10 mg BEDTIME ORAL 03/04/18 21:00 04/03/18 20:59 Cefepime HCl 2 gm/ Dextrose 110 ml @ 220 mls/hr Q24H IV 03/04/18 09:00 03/11/18 08:59 03/04/18 10:51 Dextrose (Dextrose 50%) 25 ml Q30M PRN IV Hypoglycemia 03/04/18 08:45 04/03/18 08:44 Dextrose (Dextrose 50%) 50 ml Q30M PRN IV Hypoglycemia 03/04/18 08:45 04/03/18 08:44 Digoxin (Lanoxin) 0.125 mg DAILY ORAL 03/04/18 09:00 04/03/18 08:59 03/04/18 09:26 Heparin Sodium (Porcine) (Heparin 5000 units/ml) 5,000 units EVERY 12 HOURS SUBQ 03/03/18 23:15 04/02/18 23:14 03/04/18 09:31 Insulin Aspart (NovoLOG) BEFORE MEALS AND HS SUBQ 03/04/18 11:30 04/03/18 11:29 Iopamidol (Isovue-300 100ml) 100 ml NOW PRN INJ Radiology Procedure 03/03/18 20:45 Levothyroxine Sodium (Synthroid) 25 mcg EVERY OTHER DAY@0630 ORAL 03/05/18 06:30 04/04/18 06:29 Levothyroxine Sodium (Synthroid) 50 mcg EVERY OTHER DAY@0630 ORAL 03/04/18 06:30 04/03/18 06:29 03/04/18 06:06 Magnesium Oxide (Mag-Ox 400mg) 400 mg THREE TIMES A DAY ORAL 03/04/18 09:00 04/03/18 08:59 03/04/18 09:26 Mirtazapine (Remeron) 7.5 mg 1200 ORAL 03/04/18 12:00 04/03/18 11:59 Mirtazapine (Remeron) 30 mg 1500 ORAL 03/04/18 15:00 04/03/18 14:59 Morphine Sulfate (Morphine Sulfate) 2 mg EVERY 4 HOURS PRN IVP Moderate Pain (Pain Scale 4-6) 03/03/18 21:45 03/10/18 21:44 Ondansetron HCl (Zofran) 4 mg Q6H PRN IVP Nausea & Vomiting 03/03/18 21:45 04/02/18 21:44 Polyethylene Glycol (Miralax) 17 gm DAILYPRN PRN ORAL Constipation 03/03/18 21:45 04/02/18 21:44 Rivaroxaban (Xarelto) 15 mg QHS ORAL 03/04/18 21:00 04/03/18 20:59 Temazepam (Restoril) 15 mg HSPRN PRN ORAL Insomnia 03/03/18 21:45 03/10/18 21:44 Vancomycin HCl 1 gm/Dextrose 275 ml @ 183.3 mls/ hr Q24H IVPB 03/04/18 00:30 03/09/18 00:29 03/04/18 00:15 Assessment/Plan Assessment/Plan Abx: Ceftriaxone x1 03/03 IV Vancomycin 03/04- Cefepime 03/04- Assessment: Probable Sepsis- r/o bacteremia UTI (+frequency) -u/a wbc tntc, nit +, leuk +3; ucx p -Bcx p Lactic acidosis, improving Afebrile No leukocytosis -CXR: no acute disease -CT head: No acute intracranial bleed, mass effect or edema. 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 Moderate atrophy of the brain. 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 -CT abd/p: Large ventral hernia with part of the colon in the hernia sac. No obstruction or inflammation identified. Correlate clinically. Probable tiny gallstone. Normal appendix Near syncopal episode HTN s/p PPM CVA 06/2017 w. no deficits Afib on Xarelto CHF Plan: -D/c IV Vancomycin #1 -Continue Cefepime #1 (abx d#2) pending urine culture -f/u cx -Monitor CBC/CMP, temperatures Thank you for this consultation. Will continue to follow along with you. Discussed with SAHARA. Celeste Brown M.D. Mar 04, 2018 12:13
--- NOTE | 2018-03-04 14:30 | Consultation ---
History of Present Illness General Date patient seen: Mar 04, 2018 Chief Complaint: Chest Pain Reason for Consultation: ventral hernia Present Illness HPI 88 year old female with multiple medical comorbidities presented with syncopal episode. Upon admission noted to have abdominal pain and ventral / umbilical hernia. CT performed during work up and noted ventral hernia with colonic contents in hernia sac. surgery called to evaluate. patient seen, chart reviewed, patient examined. family at bedside. states has had hernia for many years. over past few years hernia has become larger. not usually symptomatic. no n/v/f/c. no obstructive symptoms. Allergies: Coded Allergies: No Known Allergies (Unverified , 03/03/18) Medication History Scheduled Acetaminophen (Acetaminophen), 80 MG PO ONCE, (Reported) Aripiprazole* (Abilify*), 2 MG ORAL DAILY, (Reported) Digoxin* (Digoxin*), 0.125 MG ORAL DAILY, (Reported) Digoxin* (Digoxin*), 0.25 MG ORAL DAILY, (Reported) Levothyroxine Sodium* (Levothyroxine Sodium), 25 MG ORAL EVERY OTHER DAY, ( Reported) Levothyroxine Sodium* (Levothyroxine Sodium), 50 MG ORAL EVERY OTHER DAY, ( Reported) Magnesium Oxide (Magnesium), 420 MG PO THREE TIMES A DAY, (Reported) Simvastatin (Zocor), Unknown Dose ORAL BEDTIME, (Reported) [sodium ], 1 GM ORAL THREE TIMES A DAY, (Reported) Miscellaneous Medications Metformin Hcl (Metformin Hcl), 500 MG ORAL, (Reported) Mirtazapine (Remeron), 35 MG ORAL, (Reported) [xeralto], (Reported) [xeralto], Unknown Dose, (Reported) Patient History History Provided By: Patient, Family Member, Medical Record, PMD Healthcare decision maker Resuscitation status Full Code Advanced Directive on File No Past Medical/Surgical History Past Medical/Surgical History: (1) Pacemaker (2) Chronic anticoagulation (3) History of CVA (cerebrovascular accident) (4) Acute encephalopathy (5) Ventral hernia (6) Chest pain (7) Atrial fibrillation (8) Urinary tract infection (9) Severe sepsis (10) Hypothyroidism (11) Diabetes mellitus Review of Systems All Other Systems: negative except mentioned in HPI Physical Exam General Appearance: no apparent distress Lines, tubes and drains: peripheral HEENT: mucous membranes moist Neck: normal inspection Respiratory/Chest: normal breath sounds, no respiratory distress, no accessory muscle use Cardiovascular/Chest: normal peripheral pulses, normal rate Abdomen: soft, no organomegaly, no mass, tender, hernia Extremities: non-tender Skin Exam: warm/dry Neurologic: alert, oriented x 3, responsive Last 24 Hour Vital Signs Date Time Temp Pulse Resp B/P (MAP) Pulse Ox O2 Delivery O2 Flow Rate FiO2 03/04/18 12:00 97.3 92 20 115/64 (81) 95 97.3 03/04/18 09:26 101 03/04/18 08:20 Room Air 03/04/18 08:00 97.9 101 20 139/66 (90) 96 97.9 03/04/18 07:30 89 03/04/18 04:00 90 03/04/18 04:00 97.7 94 20 133/68 (89) 98 97.7 03/04/18 00:00 102 03/04/18 00:00 97.7 99 20 130/78 (95) 97 97.7 03/03/18 23:38 Room Air 03/03/18 23:00 98.2 102 18 118/81 (93) 97 98.2 03/03/18 22:41 97.5 97 18 120/70 98 Room Air 2.0 98 97.5 03/03/18 21:53 97.5 97 18 150/70 Room Air 98 97.5 03/03/18 20:55 120 120/80 03/03/18 20:43 98.1 120 30 120/80 Nasal Cannula 2.0 98 98.1 03/03/18 20:41 120 30 Nasal Cannula 2.0 97 03/03/18 20:08 99.1 89 16 140/86 98 Room Air 99.1 Intake and Output 03/03/18 03/04/18 18:59 06:59 Intake Total 975 ml Output Total 30 ml Balance 945 ml Intake IV Total 975 ml Output Urine Total 30 ml # Voids 1 Laboratory Tests Test 03/03/18 20:25 03/03/18 21:44 03/04/18 07:00 White Blood Count 8.6 K/UL (4.8-10.8) 5.4 K/UL (4.8-10.8) Red Blood Count 4.79 M/UL (4.20-5.40) 4.53 M/UL (4.20-5.40) Hemoglobin 14.8 G/DL (12.0-16.0) 13.4 G/DL (12.0-16.0) Hematocrit 43.7 % (37.0-47.0) 39.9 % (37.0-47.0) Mean Corpuscular Volume 91 FL (80-99) 88 FL (80-99) Mean Corpuscular Hemoglobin 31.0 PG (27.0-31.0) 29.6 PG (27.0-31.0) Mean Corpuscular Hemoglobin Concent 34.0 G/DL (32.0-36.0) 33.6 G/DL (32.0-36.0) Red Cell Distribution Width 12.8 % (11.6-14.8) 12.6 % (11.6-14.8) Platelet Count 196 K/UL (150-450) 188 K/UL (150-450) Mean Platelet Volume 7.5 FL (6.5-10.1) 7.9 FL (6.5-10.1) Neutrophils (%) (Auto) 68.8 % (45.0-75.0) 61.3 % (45.0-75.0) Lymphocytes (%) (Auto) 21.9 % (20.0-45.0) 26.2 % (20.0-45.0) Monocytes (%) (Auto) 6.6 % (1.0-10.0) 8.2 % (1.0-10.0) Eosinophils (%) (Auto) 1.5 % (0.0-3.0) 2.6 % (0.0-3.0) Basophils (%) (Auto) 1.3 % (0.0-2.0) 1.6 % (0.0-2.0) Prothrombin Time 11.0 SEC (9.30-11.50) Prothromb Time International Ratio 1.0 (0.9-1.1) Activated Partial Thromboplast Time 28 SEC (23-33) Urine Color Elicia Urine Appearance Cloudy Urine pH 6 (4.5-8.0) Urine Specific [place] 1.015 (1.005-1.035) Urine Protein 2+ (NEGATIVE) H Urine Glucose (UA) Negative (NEGATIVE) Urine Ketones Negative (NEGATIVE) Urine Blood 1+ (NEGATIVE) H Urine Nitrite Positive (NEGATIVE) H Urine Bilirubin Negative (NEGATIVE) Urine Ictotest Negative (NEGATIVE) Urine Urobilinogen Normal MG/DL (0.0-1.0) Urine Leukocyte Esterase 3+ (NEGATIVE) H Urine RBC 10-15 /HPF (0 - 2) H Urine WBC Tntc /HPF (0 - 2) H Urine Squamous Epithelial Cells Few /LPF (NONE/OCC) Urine Bacteria Many /HPF (NONE) H Sodium Level 137 MMOL/L (136-145) 135 MMOL/L (136-145) L Potassium Level 5.1 MMOL/L (3.5-5.1) 4.0 MMOL/L (3.5-5.1) Chloride Level 102 MMOL/L (98-107) 103 MMOL/L (98-107) Carbon Dioxide Level 26 MMOL/L (21-32) 25 MMOL/L (21-32) Anion Gap 9 mmol/L (5-15) 7 mmol/L (5-15) Blood Urea Nitrogen 23 mg/dL (7-18) H 17 mg/dL (7-18) Creatinine 0.6 MG/DL (0.55-1.30) 0.6 MG/DL (0.55-1.30) Estimat Glomerular Filtration Rate mL/min (>60) mL/min (>60) Glucose Level 181 MG/DL (74-106) H 164 MG/DL (74-106) H Lactic Acid Level 5.10 mmol/L (0.4-2.0) H 3.10 mmol/L (0.66-2.22) H Calcium Level 9.0 MG/DL (8.5-10.1) 8.5 MG/DL (8.5-10.1) Magnesium Level 1.4 MG/DL (1.8-2.4) L Total Bilirubin 0.4 MG/DL (0.2-1.0) 0.3 MG/DL (0.2-1.0) Aspartate Amino Transf (AST/SGOT) 34 U/L (15-37) 19 U/L (15-37) Alanine Aminotransferase (ALT/SGPT) 13 U/L (12-78) 24 U/L (12-78) Alkaline Phosphatase 104 U/L (46-116) 87 U/L (46-116) Total Creatine Kinase 90 U/L (26-308) Creatine Kinase MB 1.2 NG/ML (0.0-3.6) Creatine Kinase MB Relative Index 1.3 Troponin I 0.013 ng/mL (0.000-0.056) Pro-B-Type Natriuretic Peptide 541 pg/mL (0-125) H Total Protein 7.6 G/DL (6.4-8.2) 6.8 G/DL (6.4-8.2) Albumin 2.9 G/DL (3.4-5.0) L 2.6 G/DL (3.4-5.0) L Globulin 4.7 g/dL 4.2 g/dL Albumin/Globulin Ratio 0.6 (1.0-2.7) L 0.6 (1.0-2.7) L Height (Feet): 5 Height (Inches): 2.00 Weight (Pounds): 180 Medications Current Medications Medications (Trade) Dose Ordered Sig/Genaro Route PRN Reason Start Time Stop Time Status Last Admin Dose Admin Acetaminophen (Tylenol) 650 mg Q4H PRN ORAL fever 03/03/18 21:45 04/02/18 21:44 Albuterol/ Ipratropium (Albuterol/ Ipratropium) 3 ml EVERY 4 HOURS PRN HHN Shortness of Breath 03/03/18 21:45 03/08/18 21:44 Aripiprazole (Abilify) 2 mg BEDTIME ORAL 03/04/18 21:00 04/03/18 20:59 Atorvastatin Calcium (Lipitor) 10 mg BEDTIME ORAL 03/04/18 21:00 04/03/18 20:59 Cefepime HCl 2 gm/ Dextrose 110 ml @ 220 mls/hr Q24H IV 03/04/18 09:00 03/11/18 08:59 03/04/18 10:51 Dextrose (Dextrose 50%) 25 ml Q30M PRN IV Hypoglycemia 03/04/18 08:45 04/03/18 08:44 Dextrose (Dextrose 50%) 50 ml Q30M PRN IV Hypoglycemia 03/04/18 08:45 04/03/18 08:44 Digoxin (Lanoxin) 0.125 mg DAILY ORAL 03/04/18 09:00 04/03/18 08:59 03/04/18 09:26 Heparin Sodium (Porcine) (Heparin 5000 units/ml) 5,000 units EVERY 12 HOURS SUBQ 03/03/18 23:15 04/02/18 23:14 03/04/18 09:31 Insulin Aspart (NovoLOG) BEFORE MEALS AND HS SUBQ 03/04/18 11:30 04/03/18 11:29 03/04/18 12:10 Iopamidol (Isovue-300 100ml) 100 ml NOW PRN INJ Radiology Procedure 03/03/18 20:45 Levothyroxine Sodium (Synthroid) 25 mcg EVERY OTHER DAY@0630 ORAL 03/05/18 06:30 04/04/18 06:29 Levothyroxine Sodium (Synthroid) 50 mcg EVERY OTHER DAY@0630 ORAL 03/04/18 06:30 04/03/18 06:29 03/04/18 06:06 Magnesium Oxide (Mag-Ox 400mg) 400 mg THREE TIMES A DAY ORAL 03/04/18 09:00 04/03/18 08:59 03/04/18 12:07 Mirtazapine (Remeron) 7.5 mg 1200 ORAL 03/04/18 12:00 04/03/18 11:59 03/04/18 12:07 Mirtazapine (Remeron) 30 mg 1500 ORAL 03/04/18 15:00 04/03/18 14:59 Morphine Sulfate (Morphine Sulfate) 2 mg EVERY 4 HOURS PRN IVP Moderate Pain (Pain Scale 4-6) 03/03/18 21:45 03/10/18 21:44 Ondansetron HCl (Zofran) 4 mg Q6H PRN IVP Nausea & Vomiting 03/03/18 21:45 04/02/18 21:44 Polyethylene Glycol (Miralax) 17 gm DAILYPRN PRN ORAL Constipation 03/03/18 21:45 04/02/18 21:44 Rivaroxaban (Xarelto) 15 mg QHS ORAL 03/04/18 21:00 04/03/18 20:59 Temazepam (Restoril) 15 mg HSPRN PRN ORAL Insomnia 03/03/18 21:45 03/10/18 21:44 Assessment/Plan Problem List: (1) Ventral hernia Assessment & Plan: 88F with large ventral hernia near umbilicus. able to reduce some bowel contents. mild tenderness. chronic. passing flatus. no n/v /f/c. discussed findings with patient and family. discussed surgery vs no surgery at this time would not recommend surgery during hospital stay unless obstructive or incarcerated. do recommend elective repair upon discharge. discussed with patient and family. she will see her pcp upon d/c and discuss. thank you for this consultation. will follow with recs. ICD Codes: K43.9 - Ventral hernia without obstruction or gangrene SNOMED: [id number] Qualifiers: Qualified Codes: K43.9 - Ventral hernia without obstruction or gangrene Status: stable Kota Sanches Mar 04, 2018 14:30
[2018-03-04] MEDS ORDERED: D5W 275ml ONE (15:34)
[2018-03-04] MEDS ORDERED: NS 275ml ONE (15:34)
[2018-03-04] MEDS ORDERED: Tubing IV Secondary IV ONE (15:34)
[2018-03-04 16:00] VITALS: BP 125/78
[2018-03-04] MEDS: Levodopa/Carbidopa 25/100 tab ORAL SCH (18:06)
--- NOTE | 2018-03-04 18:15 | History & Physical ---
History and Physical History & Physicial Dictated for Int Med-Dr Oropeza [id number]. Ag Fonseca MD Mar 04, 2018 18:15
[2018-03-04 20:00] VITALS: BP 112/73
[2018-03-04] MEDS: Xarelto 10mg tab ORAL SCH (20:36)
[2018-03-04] MEDS: ARIPiprazole 2mg tab ORAL SCH (20:36)
[2018-03-04] MEDS ORDERED: ARIPiprazole 2mg tab ORAL SCH (21:00)
--- NOTE | 2018-03-04 23:30 | History and Physical Report ---
DATE OF ADMISSION: 03/03/2018 DATE OF VISIT: 03/04/2018. CHIEF COMPLAINT: The patient is an 88-year-old female, presents with chief complaint of "I almost fainted." HISTORY OF PRESENT ILLNESS: The patient has a history of atrial fibrillation. The patient also has a history of diabetes. The patient was apparently on the toilet yesterday. The patient began to shake. The patient was helped to the bed by her son. The patient became very pale. The patient denies loss of consciousness. The patient presented to [facility]. The patient is admitted for near syncopal episode. REVIEW OF SYSTEMS: CONSTITUTIONAL: The patient denies weight loss or weight gain. The patient denies fevers or chills. HEENT: The patient denies ear or throat pain. The patient denies headache. CARDIOVASCULAR: The patient denies palpitations or chest pain. CHEST: The patient denies wheeze or shortness of breath. ABDOMINAL: The patient denies nausea, vomiting, or constipation. GENITOURINARY: The patient denies dysuria or increased frequency of urination. NEUROMUSCULAR: The patient complains of near syncopal episode as above. The patient denies seizures or generalized weakness. PAST MEDICAL HISTORY: Significant for: 1. Type 2 diabetes. 2. Hypertension. 3. Parkinson disease. 4. Atrial fibrillation. 5. History of cerebrovascular accident in June 2017. 6. Paranoid schizophrenia. PAST SURGICAL HISTORY: Significant for: 1. Pacemaker implantation in June 2017. 2. Left hip fracture open reduction and internal fixation. CURRENT MEDICATIONS: 1. Abilify 2 mg p.o. daily. 2. Digoxin 0.125 mg p.o. daily. 3. Levoxyl 0.025 mg p.o. daily. 4. Metformin 500 mg p.o. twice daily. 5. Mirtazapine 30 mg p.o. at bedtime. 6. Simvastatin 5 mg p.o. at bedtime. 7. Xarelto 20 mg p.o. daily. ALLERGIES: No known drug allergies. SOCIAL HISTORY: The patient is a and lives with her adult son. The patient denies tobacco or alcohol use. PHYSICAL EXAMINATION: VITAL SIGNS: Temperature 97.9, respirations 20, pulse 101, and blood pressure 139/66. GENERAL: The patient is a well-developed and well-nourished female, in no apparent distress. HEENT: Eyes, pupils equal and responsive to light and accommodation. Extraocular movements are intact. NECK: Supple without lymphadenopathy. CHEST: Lungs are clear to auscultation bilaterally without wheezes or rales. CARDIOVASCULAR: Regular rate. S1 and S2 are normal without murmurs, rubs, or gallops. ABDOMEN: Soft, nontender, and nondistended. Positive bowel sounds. No evidence of hepatosplenomegaly. Currently, no rebound or guarding noted. EXTREMITIES: Negative for clubbing, cyanosis, or edema. RECTAL/GENITAL: Refused. NEUROLOGIC: Cranial nerves II to XII are grossly intact without focal deficits. Motor strength is 5/5 bilaterally. Deep tendon reflexes are 2+ plantar. LABORATORY STUDIES: WBC 8.6, hemoglobin 14.8, hematocrit 43.7, and platelets 196,000. Sodium 137, potassium 5.1, chloride 102, CO2 26, BUN 23, creatinine 0.6, and glucose 181. BNP elevated at 541. Urinalysis showed positive nitrite, 1+ blood, 2+ protein with 10 to 15 RBCs and WBCs too numerous to count. ASSESSMENT: This is an 88-year-old female. 1. Near syncopal episode. 2. Chest pain. 3. Urinary tract infection. 4. Diabetes type 2. 5. Hypertension. 6. Parkinson disease. 7. Atrial fibrillation. 8. Cerebrovascular disease. 9. Paranoid schizophrenia. TREATMENT: 1. Chest pain/near syncope. Cardiology consultation has been obtained with Dr. Herman Garcia. We will follow recommendation of Cardiology. 2. Urinary tract infection. An Infectious Disease consultation has been obtained with Dr. Brown. The patient has been started empirically on cefepime. A urine culture is pending. 3. Diabetes type 2. A NovoLog sliding scale has been instituted. 4. Hypertension. The patient has been started on clonidine p.r.n. 5. Parkinson disease. 6. Atrial fibrillation. Continue Xarelto as above. 7. Cerebrovascular accident. 8. Paranoid schizophrenia. Continue Abilify and mirtazapine as above. Ag Fonseca M.D. DR: SARAH JOB#: [id number] CC:
[2018-03-05] VITALS: BP 133/82
[2018-03-05 04:00] VITALS: BP 113/66
--- NOTE | 2018-03-05 05:22 | Pulmonology Progress Note ---
Assessment/Plan Problems: (1) Severe sepsis (2) Acute encephalopathy (3) Urinary tract infection (4) Atrial fibrillation (5) Hypothyroidism (6) Chronic anticoagulation (7) Ventral hernia (8) Pacemaker (9) History of CVA (cerebrovascular accident) (10) Diabetes mellitus Assessment/Plan feeling better heart rate controlled urine cultures still pending continue abx monitor heart rate dvt prophylaxis. Subjective ROS Limited/Unobtainable: No Constitutional: Reports: no symptoms HEENT: Repors: no symptoms Respiratory: Reports: no symptoms Allergies: Coded Allergies: No Known Allergies (Unverified , 03/03/18) Objective Last 24 Hour Vital Signs Date Time Temp Pulse Resp B/P (MAP) Pulse Ox O2 Delivery O2 Flow Rate FiO2 03/05/18 04:00 93 03/05/18 00:00 98.3 107 18 133/82 (99) 95 98.3 03/05/18 00:00 94 03/04/18 21:00 Room Air 03/04/18 20:00 98.0 100 18 112/73 (86) 96 98.0 03/04/18 20:00 103 03/04/18 16:03 91 03/04/18 16:00 98.4 96 20 125/78 (94) 98.4 03/04/18 12:00 97.3 92 20 115/64 (81) 95 97.3 03/04/18 11:25 96 03/04/18 09:26 101 03/04/18 08:20 Room Air 03/04/18 08:00 97.9 101 20 139/66 (90) 96 97.9 03/04/18 07:30 89 Intake and Output 03/04/18 03/05/18 19:00 07:00 Intake Total 800 ml Balance 800 ml Intake Oral 800 ml # Voids 2 Objective General Appearance: WD/WN HEENT: normocephalic, atraumatic Respiratory/Chest: chest wall non-tender, lungs clear, normal breath sounds Cardiovascular: normal peripheral pulses, normal rate, irregular rhythm Abdomen: normal bowel sounds, no organomegaly Extremities: no clubbing Skin: no lesions Laboratory Tests 03/04/18 07:00: White Blood Count 5.4, Red Blood Count 4.53, Hemoglobin 13.4, Hematocrit 39.9, Mean Corpuscular Volume 88, Mean Corpuscular Hemoglobin 29.6, Mean Corpuscular Hemoglobin Concent 33.6, Red Cell Distribution Width 12.6, Platelet Count 188, Mean Platelet Volume 7.9, Neutrophils (%) (Auto) 61.3, Lymphocytes (%) (Auto) 26.2, Monocytes (%) (Auto) 8.2, Eosinophils (%) (Auto) 2.6, Basophils (%) (Auto ) 1.6, Sodium Level 135L, Potassium Level 4.0, Chloride Level 103, Carbon Dioxide Level 25, Anion Gap 7, Blood Urea Nitrogen 17, Creatinine 0.6, Estimat Glomerular Filtration Rate , Glucose Level 164H, Calcium Level 8.5, Total Bilirubin 0.3, Aspartate Amino Transf (AST/SGOT) 19, Alanine Aminotransferase ( ALT/SGPT) 24, Alkaline Phosphatase 87, Total Protein 6.8, Albumin 2.6L, Globulin 4.2, Albumin/Globulin Ratio 0.6L Current Medications Medications (Trade) Dose Ordered Sig/Genaro Route PRN Reason Start Time Stop Time Status Last Admin Dose Admin Acetaminophen (Tylenol) 650 mg Q4H PRN ORAL fever 03/03/18 21:45 04/02/18 21:44 Albuterol/ Ipratropium (Albuterol/ Ipratropium) 3 ml EVERY 4 HOURS PRN HHN Shortness of Breath 03/03/18 21:45 03/08/18 21:44 Aripiprazole (Abilify) 2 mg BEDTIME ORAL 03/04/18 21:00 04/03/18 20:59 03/04/18 20:36 Atorvastatin Calcium (Lipitor) 10 mg BEDTIME ORAL 03/04/18 21:00 04/03/18 20:59 03/04/18 20:36 Carbidopa/Levodopa (Sinemet 25/100) 1 tab Q8HR ORAL 03/04/18 18:00 04/03/18 17:59 03/04/18 18:06 Cefepime HCl 2 gm/ Dextrose 110 ml @ 220 mls/hr Q24H IV 03/04/18 09:00 03/11/18 08:59 03/04/18 10:51 Dextrose (Dextrose 50%) 25 ml Q30M PRN IV Hypoglycemia 03/04/18 08:45 04/03/18 08:44 Dextrose (Dextrose 50%) 50 ml Q30M PRN IV Hypoglycemia 03/04/18 08:45 04/03/18 08:44 Digoxin (Lanoxin) 0.125 mg DAILY ORAL 03/04/18 09:00 04/03/18 08:59 03/04/18 09:26 Insulin Aspart (NovoLOG) BEFORE MEALS AND HS SUBQ 03/04/18 11:30 04/03/18 11:29 03/04/18 20:40 Iopamidol (Isovue-300 100ml) 100 ml NOW PRN INJ Radiology Procedure 03/03/18 20:45 Levothyroxine Sodium (Synthroid) 25 mcg EVERY OTHER DAY@0630 ORAL 03/05/18 06:30 04/04/18 06:29 Levothyroxine Sodium (Synthroid) 50 mcg EVERY OTHER DAY@30 ORAL 03/04/18 06:30 04/03/18 06:29 03/04/18 06:06 Magnesium Oxide (Mag-Ox 400mg) 400 mg THREE TIMES A DAY ORAL 03/04/18 09:00 04/03/18 08:59 03/04/18 18:06 Mirtazapine (Remeron) 7.5 mg 1200 ORAL 03/04/18 12:00 04/03/18 11:59 03/04/18 12:07 Mirtazapine (Remeron) 30 mg 1500 ORAL 03/04/18 15:00 04/03/18 14:59 03/04/18 15:22 Morphine Sulfate (Morphine Sulfate) 2 mg EVERY 4 HOURS PRN IVP Moderate Pain (Pain Scale 4-6) 03/03/18 21:45 03/10/18 21:44 Ondansetron HCl (Zofran) 4 mg Q6H PRN IVP Nausea & Vomiting 03/03/18 21:45 04/02/18 21:44 Polyethylene Glycol (Miralax) 17 gm DAILYPRN PRN ORAL Constipation 03/03/18 21:45 04/02/18 21:44 Rivaroxaban (Xarelto) 15 mg QHS ORAL 03/04/18 21:00 04/03/18 20:59 03/04/18 20:36 Temazepam (Restoril) 15 mg HSPRN PRN ORAL Insomnia 03/03/18 21:45 03/10/18 21:44 Zane Peña MD Mar 05, 2018 05:22
[2018-03-05] MEDS: Levodopa/Carbidopa 25/100 tab ORAL SCH ×3 (06:26→21:05)
[2018-03-05] MEDS: NovoLOG Insulin Flexpen SUBQ SCH ×4 (06:27→21:02)
[2018-03-05] MEDS ORDERED: Levothyroxine 25mcg tab ORAL SCH (06:30)
[2018-03-05 07:25] LABS: BASOPHILS % (AUTO) 1.3 % (0.0-2.0); EOSINOPHILS % (AUTO) 2.7 % (0.0-3.0); HEMATOCRIT 40.9 % (37.0-47.0); HEMOGLOBIN 13.8 G/DL (12.0-16.0); LYMPHOCYTES % (AUTO) 24.4 % (20.0-45.0); MEAN CORPUSCULAR VOLUME 87 FL (80-99); NEUTROPHILS % (AUTO) 62.6 % (45.0-75.0); PLATELET COUNT 199 K/UL (150-450); RED BLOOD COUNT 4.68 M/UL (4.20-5.40); RED CELL DISTRIBUTION WIDTH 12.7 % (11.6-14.8); WHITE BLOOD COUNT 5.3 K/UL (4.8-10.8)
[2018-03-05 07:34] LABS: ALANINE AMINOTRANSFERASE 22 U/L (12-78); ALBUMIN 2.6 G/DL (3.4-5.0); ALBUMIN/GLOBULIN RATIO 0.6 (1.0-2.7); ALKALINE PHOSPHATASE 82 U/L (46-116); ANION GAP 7 mmol/L (5-15); ASPARTATE AMINO TRANSFERASE 19 U/L (15-37); BILIRUBIN,TOTAL 0.4 MG/DL (0.2-1.0); BLOOD UREA NITROGEN 17 mg/dL (7-18); CALCIUM 8.4 MG/DL (8.5-10.1); CARBON DIOXIDE 28 MMOL/L (21-32); CHLORIDE 103 MMOL/L (98-107); CREATININE 0.6 MG/DL (0.55-1.30); PHOSPHORUS 3.8 MG/DL (2.5-4.9); POTASSIUM 4.1 MMOL/L (3.5-5.1); SODIUM 138 MMOL/L (136-145)
--- NOTE | 2018-03-05 07:34 | Infectious Diseases Prog Note ---
Assessment/Plan Assessment/Plan Abx: Ceftriaxone x1 03/03 IV Vancomycin 03/04- Cefepime 03/04- Assessment: Probable Sepsis- r/o bacteremia UTI (+frequency) -u/a wbc tntc, nit +, leuk +3; ucx p -Bcx p Lactic acidosis, improving Afebrile No leukocytosis -CXR: no acute disease -CT head: No acute intracranial bleed, mass effect or edema. 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 Moderate atrophy of the brain. 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 -CT abd/p: Large ventral hernia with part of the colon in the hernia sac. No obstruction or inflammation identified. Correlate clinically. Probable tiny gallstone. Normal appendix Near syncopal episode HTN s/p PPM CVA 06/2017 w. no deficits Afib on Xarelto CHF Plan: - Cefepime #2/3-5 - pending urine culture - No urine Cx resulted as of yet. - 03/04 SP IV Vancomycin #1 -f/u cx -Monitor CBC/CMP, temperatures Will continue to follow along with you. Subjective Allergies: Coded Allergies: No Known Allergies (Unverified , 03/03/18) Subjective Patient Afebrile No Leukocytosis JEANNETTE Objective Vital Signs Last 24 Hour Vital Signs Date Time Temp Pulse Resp B/P (MAP) Pulse Ox O2 Delivery O2 Flow Rate FiO2 03/05/18 04:00 93 03/05/18 04:00 98.3 85 20 113/66 (82) 96 98.3 03/05/18 00:00 98.3 107 18 133/82 (99) 95 98.3 03/05/18 00:00 94 03/04/18 21:00 Room Air 03/04/18 20:00 98.0 100 18 112/73 (86) 96 98.0 03/04/18 20:00 103 03/04/18 16:03 91 03/04/18 16:00 98.4 96 20 125/78 (94) 98.4 03/04/18 12:00 97.3 92 20 115/64 (81) 95 97.3 03/04/18 11:25 96 03/04/18 09:26 101 03/04/18 08:20 Room Air 03/04/18 08:00 97.9 101 20 139/66 (90) 96 97.9 Height (Feet): 5 Height (Inches): 2.00 Weight (Pounds): 180 Objective General Appearance: NAD HEENT: normocephalic, atraumatic, MMM, EOMI Respiratory/Chest: chest wall non-tender, lungs clear Cardiovascular/Chest: normal rate, regular rhythm Abdomen: normal bowel sounds, non tender, Nondistended Laboratory Tests Test 03/05/18 06:50 White Blood Count Pending Red Blood Count Pending Hemoglobin Pending Hematocrit Pending Mean Corpuscular Volume Pending Mean Corpuscular Hemoglobin Pending Mean Corpuscular Hemoglobin Concent Pending Red Cell Distribution Width Pending Platelet Count Pending Mean Platelet Volume Pending Neutrophils (%) (Auto) Pending Lymphocytes (%) (Auto) Pending Monocytes (%) (Auto) Pending Eosinophils (%) (Auto) Pending Basophils (%) (Auto) Pending Erythrocyte Sedimentation Rate Pending Sodium Level Pending Potassium Level Pending Chloride Level Pending Carbon Dioxide Level Pending Blood Urea Nitrogen Pending Creatinine Pending Estimat Glomerular Filtration Rate Pending Glucose Level Pending Calcium Level Pending Phosphorus Level Pending Magnesium Level Pending Total Bilirubin Pending Aspartate Amino Transf (AST/SGOT) Pending Alanine Aminotransferase (ALT/SGPT) Pending Alkaline Phosphatase Pending Troponin I Pending Pro-B-Type Natriuretic Peptide Pending Total Protein Pending Albumin Pending Globulin Pending Current Medications Medications (Trade) Dose Ordered Sig/Genaro Route PRN Reason Start Time Stop Time Status Last Admin Dose Admin Acetaminophen (Tylenol) 650 mg Q4H PRN ORAL fever 03/03/18 21:45 04/02/18 21:44 Albuterol/ Ipratropium (Albuterol/ Ipratropium) 3 ml EVERY 4 HOURS PRN HHN Shortness of Breath 03/03/18 21:45 03/08/18 21:44 Aripiprazole (Abilify) 2 mg BEDTIME ORAL 03/04/18 21:00 04/03/18 20:59 03/04/18 20:36 Atorvastatin Calcium (Lipitor) 10 mg BEDTIME ORAL 03/04/18 21:00 04/03/18 20:59 03/04/18 20:36 Carbidopa/Levodopa (Sinemet 25/100) 1 tab Q8HR ORAL 03/04/18 18:00 04/03/18 17:59 03/05/18 06:26 Cefepime HCl 2 gm/ Dextrose 110 ml @ 220 mls/hr Q24H IV 03/04/18 09:00 03/11/18 08:59 03/04/18 10:51 Dextrose (Dextrose 50%) 25 ml Q30M PRN IV Hypoglycemia 03/04/18 08:45 04/03/18 08:44 Dextrose (Dextrose 50%) 50 ml Q30M PRN IV Hypoglycemia 03/04/18 08:45 04/03/18 08:44 Digoxin (Lanoxin) 0.125 mg DAILY ORAL 03/04/18 09:00 04/03/18 08:59 03/04/18 09:26 Insulin Aspart (NovoLOG) BEFORE MEALS AND HS SUBQ 03/04/18 11:30 04/03/18 11:29 03/05/18 06:27 Iopamidol (Isovue-300 100ml) 100 ml NOW PRN INJ Radiology Procedure 03/03/18 20:45 Levothyroxine Sodium (Synthroid) 25 mcg EVERY OTHER DAY@0630 ORAL 03/05/18 06:30 04/04/18 06:29 03/05/18 06:26 Levothyroxine Sodium (Synthroid) 50 mcg EVERY OTHER DAY@0630 ORAL 03/04/18 06:30 04/03/18 06:29 03/04/18 06:06 Magnesium Oxide (Mag-Ox 400mg) 400 mg THREE TIMES A DAY ORAL 03/04/18 09:00 04/03/18 08:59 03/04/18 18:06 Mirtazapine (Remeron) 7.5 mg 1200 ORAL 03/04/18 12:00 04/03/18 11:59 03/04/18 12:07 Mirtazapine (Remeron) 30 mg 1500 ORAL 03/04/18 15:00 04/03/18 14:59 03/04/18 15:22 Morphine Sulfate (Morphine Sulfate) 2 mg EVERY 4 HOURS PRN IVP Moderate Pain (Pain Scale 4-6) 03/03/18 21:45 03/10/18 21:44 Ondansetron HCl (Zofran) 4 mg Q6H PRN IVP Nausea & Vomiting 03/03/18 21:45 04/02/18 21:44 Polyethylene Glycol (Miralax) 17 gm DAILYPRN PRN ORAL Constipation 03/03/18 21:45 04/02/18 21:44 Rivaroxaban (Xarelto) 15 mg QHS ORAL 03/04/18 21:00 04/03/18 20:59 03/04/18 20:36 Temazepam (Restoril) 15 mg HSPRN PRN ORAL Insomnia 03/03/18 21:45 03/10/18 21:44 Perry Aiken MD Mar 05, 2018 07:34
[2018-03-05 08:00] VITALS: BP 106/70
[2018-03-05] MEDS: Magnesium Oxide 400mg tab ORAL SCH ×3 (09:48→18:23)
[2018-03-05] MEDS: Digoxin 0.125mg tab ORAL SCH (09:48)
[2018-03-05] MEDS: Cefepime HCl 2 GM in D5W 110 ML IV SCH (09:48)
[2018-03-05 12:00] VITALS: BP 108/53
--- NOTE | 2018-03-05 13:26 | General Surgery Progress Note ---
General Surgery-Progress Note Subjective Additional Comments no acute events. comfortable. mild abdominal discomfort. no obstructive symptoms. no n/v/f/c. tolerating diet. passing flatus. Objective Last 24 Hour Vital Signs Date Time Temp Pulse Resp B/P (MAP) Pulse Ox O2 Delivery O2 Flow Rate FiO2 03/05/18 12:00 96.9 96 19 108/53 (71) 96 96.9 03/05/18 09:48 95 03/05/18 08:20 Room Air 03/05/18 08:00 97.7 95 18 106/70 (82) 95 97.7 03/05/18 07:55 97 03/05/18 04:00 93 03/05/18 04:00 98.3 85 20 113/66 (82) 96 98.3 03/05/18 00:00 98.3 107 18 133/82 (99) 95 98.3 03/05/18 00:00 94 03/04/18 21:00 Room Air 03/04/18 20:00 98.0 100 18 112/73 (86) 96 98.0 03/04/18 20:00 103 03/04/18 16:03 91 03/04/18 16:00 98.4 96 20 125/78 (94) 98.4 I&O Intake and Output 03/04/18 03/05/18 19:00 07:00 Intake Total 800 ml 100 ml Balance 800 ml 100 ml Intake Oral 800 ml 100 ml # Voids 2 Drains: none Cardiovascular: RSR Respiratory: clear Abdomen: soft, flat, other - ventral hernia reducible. bowel contents noted Extremities: no cyanosis Laboratory Tests Test 03/05/18 06:50 White Blood Count 5.3 K/UL (4.8-10.8) Red Blood Count 4.68 M/UL (4.20-5.40) Hemoglobin 13.8 G/DL (12.0-16.0) Hematocrit 40.9 % (37.0-47.0) Mean Corpuscular Volume 87 FL (80-99) Mean Corpuscular Hemoglobin 29.5 PG (27.0-31.0) Mean Corpuscular Hemoglobin Concent 33.8 G/DL (32.0-36.0) Red Cell Distribution Width 12.7 % (11.6-14.8) Platelet Count 199 K/UL (150-450) Mean Platelet Volume 8.6 FL (6.5-10.1) Neutrophils (%) (Auto) 62.6 % (45.0-75.0) Lymphocytes (%) (Auto) 24.4 % (20.0-45.0) Monocytes (%) (Auto) 9.0 % (1.0-10.0) Eosinophils (%) (Auto) 2.7 % (0.0-3.0) Basophils (%) (Auto) 1.3 % (0.0-2.0) Erythrocyte Sedimentation Rate 46 MM/HR (0-30) H Sodium Level 138 MMOL/L (136-145) Potassium Level 4.1 MMOL/L (3.5-5.1) Chloride Level 103 MMOL/L (98-107) Carbon Dioxide Level 28 MMOL/L (21-32) Anion Gap 7 mmol/L (5-15) Blood Urea Nitrogen 17 mg/dL (7-18) Creatinine 0.6 MG/DL (0.55-1.30) Estimat Glomerular Filtration Rate mL/min (>60) Glucose Level 148 MG/DL (74-106) H Calcium Level 8.4 MG/DL (8.5-10.1) L Phosphorus Level 3.8 MG/DL (2.5-4.9) Magnesium Level 1.7 MG/DL (1.8-2.4) L Total Bilirubin 0.4 MG/DL (0.2-1.0) Aspartate Amino Transf (AST/SGOT) 19 U/L (15-37) Alanine Aminotransferase (ALT/SGPT) 22 U/L (12-78) Alkaline Phosphatase 82 U/L (46-116) Troponin I 0.021 ng/mL (0.000-0.056) Pro-B-Type Natriuretic Peptide 497 pg/mL (0-125) H Total Protein 6.7 G/DL (6.4-8.2) Albumin 2.6 G/DL (3.4-5.0) L Globulin 4.1 g/dL Albumin/Globulin Ratio 0.6 (1.0-2.7) L Plan Problems: (1) Ventral hernia Assessment & Plan: 88F with large ventral hernia near umbilicus. able to reduce some bowel contents. mild tenderness. chronic. passing flatus. no n/v /f/c. discussed findings with patient and family. discussed surgery vs no surgery at this time would not recommend surgery during hospital stay unless obstructive or incarcerated. do recommend elective repair upon discharge. discussed with patient and family. she will see her pcp upon d/c and discuss. thank you for this consultation. will follow with recs. Kota Sanches Mar 05, 2018 13:26
--- NOTE | 2018-03-05 15:06 | Internal Med Progress Note ---
Subjective Date of Service: Mar 05, 2018 Physician Name Fonseca,Ag Attending Physician Kody Oropeza MD Current Medications Medications (Trade) Dose Ordered Sig/Genaro Route PRN Reason Start Time Stop Time Status Last Admin Dose Admin Acetaminophen (Tylenol) 650 mg Q4H PRN ORAL fever 03/03/18 21:45 04/02/18 21:44 Albuterol/ Ipratropium (Albuterol/ Ipratropium) 3 ml EVERY 4 HOURS PRN HHN Shortness of Breath 03/03/18 21:45 03/08/18 21:44 Aripiprazole (Abilify) 2 mg BEDTIME ORAL 03/04/18 21:00 04/03/18 20:59 03/04/18 20:36 Atorvastatin Calcium (Lipitor) 10 mg BEDTIME ORAL 03/04/18 21:00 04/03/18 20:59 03/04/18 20:36 Carbidopa/Levodopa (Sinemet 25/100) 1 tab Q8HR ORAL 03/04/18 18:00 04/03/18 17:59 03/05/18 13:43 Cefepime HCl 2 gm/ Dextrose 110 ml @ 220 mls/hr Q24H IV 03/04/18 09:00 03/11/18 08:59 03/05/18 09:48 Dextrose (Dextrose 50%) 25 ml Q30M PRN IV Hypoglycemia 03/04/18 08:45 04/03/18 08:44 Dextrose (Dextrose 50%) 50 ml Q30M PRN IV Hypoglycemia 03/04/18 08:45 04/03/18 08:44 Digoxin (Lanoxin) 0.125 mg DAILY ORAL 03/04/18 09:00 04/03/18 08:59 03/05/18 09:48 Insulin Aspart (NovoLOG) BEFORE MEALS AND HS SUBQ 03/04/18 11:30 04/03/18 11:29 03/05/18 12:35 Iopamidol (Isovue-300 100ml) 100 ml NOW PRN INJ Radiology Procedure 03/03/18 20:45 Levothyroxine Sodium (Synthroid) 25 mcg EVERY OTHER DAY@0630 ORAL 03/05/18 06:30 04/04/18 06:29 03/05/18 06:26 Levothyroxine Sodium (Synthroid) 50 mcg EVERY OTHER DAY@0630 ORAL 03/04/18 06:30 04/03/18 06:29 03/04/18 06:06 Magnesium Oxide (Mag-Ox 400mg) 400 mg THREE TIMES A DAY ORAL 03/04/18 09:00 04/03/18 08:59 03/05/18 12:41 Mirtazapine (Remeron) 7.5 mg Q24H ORAL 03/06/18 12:00 04/05/18 11:59 Mirtazapine (Remeron) 30 mg Q24H ORAL 03/05/18 15:00 04/04/18 14:59 Morphine Sulfate (Morphine Sulfate) 2 mg EVERY 4 HOURS PRN IVP Moderate Pain (Pain Scale 4-6) 03/03/18 21:45 03/10/18 21:44 Ondansetron HCl (Zofran) 4 mg Q6H PRN IVP Nausea & Vomiting 03/03/18 21:45 04/02/18 21:44 Polyethylene Glycol (Miralax) 17 gm DAILYPRN PRN ORAL Constipation 03/03/18 21:45 04/02/18 21:44 Rivaroxaban (Xarelto) 15 mg QHS ORAL 03/04/18 21:00 04/03/18 20:59 03/04/18 20:36 Temazepam (Restoril) 15 mg HSPRN PRN ORAL Insomnia 03/03/18 21:45 03/10/18 21:44 Allergies: Coded Allergies: No Known Allergies (Unverified , 03/03/18) ROS Limited/Unobtainable: No Constitutional: Reports: no symptoms HEENT: Reports: no symptoms Cardiovascular: Reports: chest pain Respiratory: Reports: no symptoms Gastrointestinal/Abdominal: Reports: no symptoms Genitourinary: Reports: no symptoms Neurologic/Psychiatric: Reports: no symptoms Subjective 88 YO F admitted with chest pain and near syncope. Await cardiolgy consult. Cover for Int Enrike-Dr Oropeza Objective Last Vital Signs Date Time Temp Pulse Resp B/P (MAP) Pulse Ox O2 Delivery O2 Flow Rate FiO2 03/05/18 12:00 96.9 96 19 108/53 (71) 96 96.9 03/05/18 08:20 Room Air 03/03/18 22:41 2.0 98 Laboratory Tests Test 03/05/18 06:50 White Blood Count 5.3 K/UL (4.8-10.8) Red Blood Count 4.68 M/UL (4.20-5.40) Hemoglobin 13.8 G/DL (12.0-16.0) Hematocrit 40.9 % (37.0-47.0) Mean Corpuscular Volume 87 FL (80-99) Mean Corpuscular Hemoglobin 29.5 PG (27.0-31.0) Mean Corpuscular Hemoglobin Concent 33.8 G/DL (32.0-36.0) Red Cell Distribution Width 12.7 % (11.6-14.8) Platelet Count 199 K/UL (150-450) Mean Platelet Volume 8.6 FL (6.5-10.1) Neutrophils (%) (Auto) 62.6 % (45.0-75.0) Lymphocytes (%) (Auto) 24.4 % (20.0-45.0) Monocytes (%) (Auto) 9.0 % (1.0-10.0) Eosinophils (%) (Auto) 2.7 % (0.0-3.0) Basophils (%) (Auto) 1.3 % (0.0-2.0) Erythrocyte Sedimentation Rate 46 MM/HR (0-30) H Sodium Level 138 MMOL/L (136-145) Potassium Level 4.1 MMOL/L (3.5-5.1) Chloride Level 103 MMOL/L (98-107) Carbon Dioxide Level 28 MMOL/L (21-32) Anion Gap 7 mmol/L (5-15) Blood Urea Nitrogen 17 mg/dL (7-18) Creatinine 0.6 MG/DL (0.55-1.30) Estimat Glomerular Filtration Rate mL/min (>60) Glucose Level 148 MG/DL (74-106) H Calcium Level 8.4 MG/DL (8.5-10.1) L Phosphorus Level 3.8 MG/DL (2.5-4.9) Magnesium Level 1.7 MG/DL (1.8-2.4) L Total Bilirubin 0.4 MG/DL (0.2-1.0) Aspartate Amino Transf (AST/SGOT) 19 U/L (15-37) Alanine Aminotransferase (ALT/SGPT) 22 U/L (12-78) Alkaline Phosphatase 82 U/L (46-116) Troponin I 0.021 ng/mL (0.000-0.056) Pro-B-Type Natriuretic Peptide 497 pg/mL (0-125) H Total Protein 6.7 G/DL (6.4-8.2) Albumin 2.6 G/DL (3.4-5.0) L Globulin 4.1 g/dL Albumin/Globulin Ratio 0.6 (1.0-2.7) L Microbiology Date/Time Source Procedure Growth Status 03/04/18 07:00 Blood Blood Culture - Preliminary NO GROWTH AFTER 24 HOURS Resulted 03/04/18 06:50 Blood Blood Culture - Preliminary NO GROWTH AFTER 24 HOURS Resulted 03/03/18 20:25 Blood Blood Culture - Preliminary NO GROWTH AFTER 24 HOURS Resulted 03/03/18 20:25 Blood Blood Culture - Preliminary NO GROWTH AFTER 24 HOURS Resulted 03/03/18 20:25 Urine,Clean Catch Urine Culture - Preliminary Gram Negative Iron Resulted Intake and Output 03/04/18 03/05/18 19:00 07:00 Intake Total 800 ml 100 ml Balance 800 ml 100 ml Intake Oral 800 ml 100 ml # Voids 2 Objective PHYSICAL EXAMINATION: VITAL SIGNS: Temperature 97.9, respirations 20, pulse 101, and blood pressure 139/66. GENERAL: The patient is a well-developed and well-nourished female, in no apparent distress. HEENT: Eyes, pupils equal and responsive to light and accommodation. Extraocular movements are intact. NECK: Supple without lymphadenopathy. CHEST: Lungs are clear to auscultation bilaterally without wheezes or rales. CARDIOVASCULAR: Regular rate. S1 and S2 are normal without murmurs, rubs, or gallops. ABDOMEN: Soft, nontender, and nondistended. Positive bowel sounds. No evidence of hepatosplenomegaly. Currently, no rebound or guarding noted. EXTREMITIES: Negative for clubbing, cyanosis, or edema. RECTAL/GENITAL: Refused. NEUROLOGIC: Cranial nerves II to XII are grossly intact without focal deficits. Motor strength is 5/5 bilaterally. Deep tendon reflexes are 2+ plantar. Assessment/Plan Problem List: (1) Paranoid schizophrenia (2) Parkinsons disease Assessment & Plan: Continue sinemet (3) HTN (hypertension) (4) Near syncope (5) Chest pain Assessment & Plan: Troponin neg. Await cardiology consult (6) Urinary tract infection Assessment & Plan: Gram neg iron. Await ID and sens. Continue cefepime for now (7) Diabetes mellitus Assessment & Plan: Continue novolog sliding scale (8) Hypothyroidism Assessment & Plan: Continue synthroid (9) Atrial fibrillation (10) History of CVA (cerebrovascular accident) Ag Fonseca MD Mar 05, 2018 15:06
[2018-03-05 16:00] VITALS: BP 127/66
--- NOTE | 2018-03-05 18:09 | Cardiac Electrophysiology PN ---
Subjective Subjective [id number] Objective Last 24 Hour Vital Signs Date Time Temp Pulse Resp B/P (MAP) Pulse Ox O2 Delivery O2 Flow Rate FiO2 03/05/18 16:00 96.3 96 19 127/66 (86) 96 96.3 03/05/18 15:48 99 03/05/18 12:00 96.9 96 19 108/53 (71) 96 96.9 03/05/18 11:55 88 03/05/18 09:48 95 03/05/18 08:20 Room Air 03/05/18 08:00 97.7 95 18 106/70 (82) 95 97.7 03/05/18 07:55 97 03/05/18 04:00 93 03/05/18 04:00 98.3 85 20 113/66 (82) 96 98.3 03/05/18 00:00 98.3 107 18 133/82 (99) 95 98.3 03/05/18 00:00 94 03/04/18 21:00 Room Air 03/04/18 20:00 98.0 100 18 112/73 (86) 96 98.0 03/04/18 20:00 103 Intake and Output 03/04/18 03/05/18 19:00 07:00 Intake Total 800 ml 100 ml Balance 800 ml 100 ml Intake Oral 800 ml 100 ml # Voids 2 Laboratory Tests Test 03/05/18 06:50 White Blood Count 5.3 K/UL (4.8-10.8) Red Blood Count 4.68 M/UL (4.20-5.40) Hemoglobin 13.8 G/DL (12.0-16.0) Hematocrit 40.9 % (37.0-47.0) Mean Corpuscular Volume 87 FL (80-99) Mean Corpuscular Hemoglobin 29.5 PG (27.0-31.0) Mean Corpuscular Hemoglobin Concent 33.8 G/DL (32.0-36.0) Red Cell Distribution Width 12.7 % (11.6-14.8) Platelet Count 199 K/UL (150-450) Mean Platelet Volume 8.6 FL (6.5-10.1) Neutrophils (%) (Auto) 62.6 % (45.0-75.0) Lymphocytes (%) (Auto) 24.4 % (20.0-45.0) Monocytes (%) (Auto) 9.0 % (1.0-10.0) Eosinophils (%) (Auto) 2.7 % (0.0-3.0) Basophils (%) (Auto) 1.3 % (0.0-2.0) Erythrocyte Sedimentation Rate 46 MM/HR (0-30) H Sodium Level 138 MMOL/L (136-145) Potassium Level 4.1 MMOL/L (3.5-5.1) Chloride Level 103 MMOL/L (98-107) Carbon Dioxide Level 28 MMOL/L (21-32) Anion Gap 7 mmol/L (5-15) Blood Urea Nitrogen 17 mg/dL (7-18) Creatinine 0.6 MG/DL (0.55-1.30) Estimat Glomerular Filtration Rate mL/min (>60) Glucose Level 148 MG/DL (74-106) H Calcium Level 8.4 MG/DL (8.5-10.1) L Phosphorus Level 3.8 MG/DL (2.5-4.9) Magnesium Level 1.7 MG/DL (1.8-2.4) L Total Bilirubin 0.4 MG/DL (0.2-1.0) Aspartate Amino Transf (AST/SGOT) 19 U/L (15-37) Alanine Aminotransferase (ALT/SGPT) 22 U/L (12-78) Alkaline Phosphatase 82 U/L (46-116) Troponin I 0.021 ng/mL (0.000-0.056) Pro-B-Type Natriuretic Peptide 497 pg/mL (0-125) H Total Protein 6.7 G/DL (6.4-8.2) Albumin 2.6 G/DL (3.4-5.0) L Globulin 4.1 g/dL Albumin/Globulin Ratio 0.6 (1.0-2.7) L Microbiology Date/Time Source Procedure Growth Status 03/04/18 07:00 Blood Blood Culture - Preliminary NO GROWTH AFTER 24 HOURS Resulted 03/04/18 06:50 Blood Blood Culture - Preliminary NO GROWTH AFTER 24 HOURS Resulted 03/03/18 20:25 Blood Blood Culture - Preliminary NO GROWTH AFTER 24 HOURS Resulted 03/03/18 20:25 Blood Blood Culture - Preliminary NO GROWTH AFTER 24 HOURS Resulted 03/03/18 20:25 Urine,Clean Catch Urine Culture - Preliminary Gram Negative Iron Resulted Herman Garcia MD Mar 05, 2018 18:09
[2018-03-05 20:00] VITALS: BP 130/81
[2018-03-05] MEDS: ARIPiprazole 2mg tab ORAL SCH (21:00)
[2018-03-05] MEDS: Xarelto 10mg tab ORAL SCH (21:01)
[2018-03-05] MEDS: Metoprolol 25mg tab ORAL SCH (21:01)
--- NOTE | 2018-03-05 22:02 | Consultation ---
DATE OF CONSULTATION: 03/05/2018 CARDIOLOGY CONSULTATION CONSULTING PHYSICIAN: Herman Garcia M.D. REFERRING PHYSICIAN: Kody Oropeza M.D. REASON FOR CONSULTATION: Atrial fibrillation, rapid ventricular response as well as evaluation of the patient's pacemaker. HISTORY OF PRESENT ILLNESS: The patient is an 88-year-old lady with history of hypertension and history of pacemaker about 10 years ago, who underwent a pacemaker generator change in June of this year at [facility] by Dr. Jonatan Gilbert. She is on [employer] pacemaker. The patient presented to the emergency room with abdominal pain as well as episodes of syncope. The patient was found to be in atrial fibrillation, rapid ventricular response, and was admitted to telemetry unit. The patient also because of abdominal pain, underwent a CT that showed ventral hernia, colonic contents in the hernia sac. The patient was evaluated by Dr. Sanches from surgical perspective as well. At the time of my evaluation, the patient is comfortable. She denies any chest pain, palpitation, or shortness of breath. REVIEW OF SYSTEMS: Review of systems was negative other than what was mentioned in the history of present illness. PAST MEDICAL HISTORY: 1. Hypertension. 2. History of atrial fibrillation. 3. History of CVA. 4. Status post Medtronic pacemaker. 5. Ventral hernia. 6. History of hypothyroidism. 7. Diabetes. FAMILY HISTORY: Noncontributory. SOCIAL HISTORY: She lives at home with her family. Does not smoke or drink alcohol. PHYSICAL EXAMINATION: VITAL SIGNS: Blood pressure is 127/66, pulse 96, respirations 18, and she is afebrile. HEAD AND NECK: Showed no JVD or carotid bruits. LUNGS: Clear. CARDIOVASCULAR: Irregular S1 and S2 with no gallop or murmur. Pacemaker in left subclavian intact. ABDOMEN: Soft. EXTREMITIES: No pitting edema. LABORATORY DATA: Her labs show white count of 5.2, hemoglobin 13.8, hematocrit of 41 and platelet count is 199,000. Sodium is 138, potassium 4.1. BUN of 17, creatinine 0.2. Troponin is negative. Lactic acid is 3.1 and INR is 1. ASSESSMENT AND PLAN: 1. Atrial fibrillation, rapid ventricular response. Heart rate is better at this point. She is on Xarelto 50 mg daily for anticoagulation purposes. The patient is on digoxin 0.125 mg daily, I will get digoxin level. I will add metoprolol 25 mg b.i.d. to her medical regimen if the blood pressure allows. 2. Hypertension, continue metoprolol. 3. Hypothyroidism, on Synthroid. 4. Hyperlipidemia, on Zocor. 5. Status post Medtronic pacemaker that was recently interrogated showed normal function. 6. History of CVA. 7. History of encephalopathy. 8. Ventral hernia. Thank you very much, Dr. Oropeza, for allowing me to participate in the care of this patient. Please do not hesitate to contact me for any questions regarding my evaluation. Herman Garcia M.D. DR: TRU JOB#: [id number] CC:
--- NOTE | 2018-03-05 23:41 | General Progress Note ---
Assessment/Plan Problem List: (1) Acute encephalopathy ICD Codes: G93.40 - Encephalopathy, unspecified SNOMED: 65727405, [id number] Assessment/Plan schizophrenia mdd remeron 7.5 mg @ 1200 remeron 15mg @ 300 abilify 2mg qhs Subjective Date patient seen: Mar 05, 2018 Neurologic/Psychiatric: Reports: anxiety, depressed, emotional problems Allergies: Coded Allergies: No Known Allergies (Unverified , 03/03/18) Objective Last 24 Hour Vital Signs Date Time Temp Pulse Resp B/P (MAP) Pulse Ox O2 Delivery O2 Flow Rate FiO2 03/05/18 21:01 96 127/66 03/05/18 21:00 Room Air 03/05/18 20:00 98.1 106 18 130/81 (97) 94 98.1 03/05/18 20:00 106 03/05/18 16:00 96.3 96 19 127/66 (86) 96 96.3 03/05/18 15:48 99 03/05/18 12:00 96.9 96 19 108/53 (71) 96 96.9 03/05/18 11:55 88 03/05/18 09:48 95 03/05/18 08:20 Room Air 03/05/18 08:00 97.7 95 18 106/70 (82) 95 97.7 03/05/18 07:55 97 03/05/18 04:00 93 03/05/18 04:00 98.3 85 20 113/66 (82) 96 98.3 03/05/18 00:00 98.3 107 18 133/82 (99) 95 98.3 03/05/18 00:00 94 Intake and Output 03/04/18 03/05/18 19:00 07:00 Intake Total 800 ml 100 ml Balance 800 ml 100 ml Intake Oral 800 ml 100 ml # Voids 2 Laboratory Tests 03/05/18 06:50: White Blood Count 5.3, Red Blood Count 4.68, Hemoglobin 13.8, Hematocrit 40.9, Mean Corpuscular Volume 87, Mean Corpuscular Hemoglobin 29.5, Mean Corpuscular Hemoglobin Concent 33.8, Red Cell Distribution Width 12.7, Platelet Count 199, Mean Platelet Volume 8.6, Neutrophils (%) (Auto) 62.6, Lymphocytes (%) (Auto) 24.4, Monocytes (%) (Auto) 9.0, Eosinophils (%) (Auto) 2.7, Basophils (%) (Auto ) 1.3, Erythrocyte Sedimentation Rate 46H, Sodium Level 138, Potassium Level 4.1 , Chloride Level 103, Carbon Dioxide Level 28, Anion Gap 7, Blood Urea Nitrogen 17, Creatinine 0.6, Estimat Glomerular Filtration Rate , Glucose Level 148H, Calcium Level 8.4L, Phosphorus Level 3.8, Magnesium Level 1.7L, Total Bilirubin 0.4, Aspartate Amino Transf (AST/SGOT) 19, Alanine Aminotransferase (ALT/SGPT) 22, Alkaline Phosphatase 82, Troponin I 0.021, Pro-B-Type Natriuretic Peptide 497H, Total Protein 6.7, Albumin 2.6L, Globulin 4.1, Albumin/Globulin Ratio 0.6L Height (Feet): 5 Height (Inches): 2.00 Weight (Pounds): 180 General Appearance: no apparent distress, alert Neurologic: depressed affect Vikram Jurado MD Mar 05, 2018 23:41
[2018-03-06] VITALS: BP 109/65
[2018-03-06 04:00] VITALS: BP 108/81
[2018-03-06] MEDS: Levodopa/Carbidopa 25/100 tab ORAL SCH (06:38)
[2018-03-06] MEDS: NovoLOG Insulin Flexpen SUBQ SCH ×2 (06:39→12:08)
[2018-03-06 07:59] LABS: BASOPHILS % (AUTO) 1.5 % (0.0-2.0); EOSINOPHILS % (AUTO) 2.8 % (0.0-3.0); HEMATOCRIT 41.2 % (37.0-47.0); HEMOGLOBIN 13.9 G/DL (12.0-16.0); LYMPHOCYTES % (AUTO) 27.3 % (20.0-45.0); MEAN CORPUSCULAR VOLUME 88 FL (80-99); MONOCYTES % (AUTO) 7.3 % (1.0-10.0); NEUTROPHILS % (AUTO) 61.1 % (45.0-75.0); PLATELET COUNT 193 K/UL (150-450); RED CELL DISTRIBUTION WIDTH 12.5 % (11.6-14.8); WHITE BLOOD COUNT 5.4 K/UL (4.8-10.8)
[2018-03-06 08:00] VITALS: BP 118/66
[2018-03-06 08:25] LABS: ANION GAP 7 mmol/L (5-15); BLOOD UREA NITROGEN 21 mg/dL (7-18); CALCIUM 8.7 MG/DL (8.5-10.1); CARBON DIOXIDE 28 MMOL/L (21-32); CHLORIDE 103 MMOL/L (98-107); CREATININE 0.5 MG/DL (0.55-1.30); SODIUM 138 MMOL/L (136-145)
[2018-03-06] MEDS: Digoxin 0.125mg tab ORAL SCH (09:53)
[2018-03-06] MEDS: Magnesium Oxide 400mg tab ORAL SCH ×2 (09:53→12:06)
[2018-03-06] MEDS: Cefepime HCl 2 GM in D5W 110 ML IV SCH (09:54)
[2018-03-06] MEDS: Metoprolol 25mg tab ORAL SCH (09:55)
[2018-03-06 12:00] VITALS: BP 132/88
--- NOTE | 2018-03-06 12:34 | Internal Med Progress Note ---
Subjective Date of Service: Mar 06, 2018 Physician Name Fonseca,Ag Attending Physician Kody Oropeza MD Current Medications Medications (Trade) Dose Ordered Sig/Genaro Route PRN Reason Start Time Stop Time Status Last Admin Dose Admin Acetaminophen (Tylenol) 650 mg Q4H PRN ORAL fever 03/03/18 21:45 04/02/18 21:44 Albuterol/ Ipratropium (Albuterol/ Ipratropium) 3 ml EVERY 4 HOURS PRN HHN Shortness of Breath 03/03/18 21:45 03/08/18 21:44 Aripiprazole (Abilify) 2 mg BEDTIME ORAL 03/04/18 21:00 04/03/18 20:59 03/05/18 21:00 Atorvastatin Calcium (Lipitor) 10 mg BEDTIME ORAL 03/04/18 21:00 04/03/18 20:59 03/05/18 21:00 Carbidopa/Levodopa (Sinemet 25/100) 1 tab Q8HR ORAL 03/04/18 18:00 04/03/18 17:59 03/06/18 06:38 Ceftriaxone Sodium 1 gm/ Sodium Chloride 55 ml @ 110 mls/hr Q24H IVPB 03/07/18 09:00 03/14/18 08:59 Dextrose (Dextrose 50%) 25 ml Q30M PRN IV Hypoglycemia 03/04/18 08:45 04/03/18 08:44 Dextrose (Dextrose 50%) 50 ml Q30M PRN IV Hypoglycemia 03/04/18 08:45 04/03/18 08:44 Digoxin (Lanoxin) 0.125 mg DAILY ORAL 03/04/18 09:00 04/03/18 08:59 03/06/18 09:53 Insulin Aspart (NovoLOG) BEFORE MEALS AND HS SUBQ 03/04/18 11:30 04/03/18 11:29 03/06/18 12:08 Iopamidol (Isovue-300 100ml) 100 ml NOW PRN INJ Radiology Procedure 03/03/18 20:45 Levothyroxine Sodium (Synthroid) 25 mcg EVERY OTHER DAY@0630 ORAL 03/05/18 06:30 04/04/18 06:29 03/05/18 06:26 Levothyroxine Sodium (Synthroid) 50 mcg EVERY OTHER DAY@0630 ORAL 03/04/18 06:30 04/03/18 06:29 03/06/18 06:38 Magnesium Oxide (Mag-Ox 400mg) 400 mg THREE TIMES A DAY ORAL 03/04/18 09:00 04/03/18 08:59 03/06/18 12:06 Metoprolol Tartrate (Lopressor) 25 mg Q12HR ORAL 03/05/18 21:00 04/04/18 20:59 03/06/18 09:55 Mirtazapine (Remeron) 7.5 mg Q24H ORAL 03/06/18 12:00 04/05/18 11:59 03/06/18 12:06 Mirtazapine (Remeron) 30 mg Q24H ORAL 03/05/18 15:00 04/04/18 14:59 03/05/18 15:21 Morphine Sulfate (Morphine Sulfate) 2 mg EVERY 4 HOURS PRN IVP Moderate Pain (Pain Scale 4-6) 03/03/18 21:45 03/10/18 21:44 Ondansetron HCl (Zofran) 4 mg Q6H PRN IVP Nausea & Vomiting 03/03/18 21:45 04/02/18 21:44 Polyethylene Glycol (Miralax) 17 gm DAILYPRN PRN ORAL Constipation 03/03/18 21:45 04/02/18 21:44 Rivaroxaban (Xarelto) 15 mg QHS ORAL 03/04/18 21:00 04/03/18 20:59 03/05/18 21:01 Temazepam (Restoril) 15 mg HSPRN PRN ORAL Insomnia 03/03/18 21:45 03/10/18 21:44 Allergies: Coded Allergies: No Known Allergies (Unverified , 03/03/18) ROS Limited/Unobtainable: No Constitutional: Reports: no symptoms HEENT: Reports: no symptoms Cardiovascular: Reports: no symptoms Respiratory: Reports: no symptoms Gastrointestinal/Abdominal: Reports: no symptoms Genitourinary: Reports: no symptoms Neurologic/Psychiatric: Reports: no symptoms Subjective 88 YO F admitted with chest pain and near syncope. Cover for Int Enrike-Dr Oropeza. Patient son wants to take patient home Objective Last Vital Signs Date Time Temp Pulse Resp B/P (MAP) Pulse Ox O2 Delivery O2 Flow Rate FiO2 03/06/18 09:55 96 118/66 03/06/18 08:20 Room Air 03/06/18 08:00 97.3 19 99 97.3 03/03/18 22:41 2.0 98 Laboratory Tests Test 03/06/18 06:15 White Blood Count 5.4 K/UL (4.8-10.8) Red Blood Count 4.70 M/UL (4.20-5.40) Hemoglobin 13.9 G/DL (12.0-16.0) Hematocrit 41.2 % (37.0-47.0) Mean Corpuscular Volume 88 FL (80-99) Mean Corpuscular Hemoglobin 29.5 PG (27.0-31.0) Mean Corpuscular Hemoglobin Concent 33.6 G/DL (32.0-36.0) Red Cell Distribution Width 12.5 % (11.6-14.8) Platelet Count 193 K/UL (150-450) Mean Platelet Volume 7.9 FL (6.5-10.1) Neutrophils (%) (Auto) 61.1 % (45.0-75.0) Lymphocytes (%) (Auto) 27.3 % (20.0-45.0) Monocytes (%) (Auto) 7.3 % (1.0-10.0) Eosinophils (%) (Auto) 2.8 % (0.0-3.0) Basophils (%) (Auto) 1.5 % (0.0-2.0) Sodium Level 138 MMOL/L (136-145) Potassium Level 4.0 MMOL/L (3.5-5.1) Chloride Level 103 MMOL/L (98-107) Carbon Dioxide Level 28 MMOL/L (21-32) Anion Gap 7 mmol/L (5-15) Blood Urea Nitrogen 21 mg/dL (7-18) H Creatinine 0.5 MG/DL (0.55-1.30) L Estimat Glomerular Filtration Rate mL/min (>60) Glucose Level 147 MG/DL (74-106) H Calcium Level 8.7 MG/DL (8.5-10.1) Microbiology Date/Time Source Procedure Growth Status 03/04/18 07:00 Blood Blood Culture - Preliminary NO GROWTH AFTER 48 HOURS Resulted 03/04/18 06:50 Blood Blood Culture - Preliminary NO GROWTH AFTER 48 HOURS Resulted 03/03/18 20:25 Blood Blood Culture - Preliminary NO GROWTH AFTER 48 HOURS Resulted 03/03/18 20:25 Blood Blood Culture - Preliminary NO GROWTH AFTER 48 HOURS Resulted 03/03/18 20:25 Urine,Clean Catch Urine Culture - Final Escherichia Coli Complete Intake and Output 03/05/18 03/06/18 19:00 07:00 Intake Total 420 ml Balance 420 ml Intake Oral 420 ml # Voids 4 3 # Bowel Movements 1 Objective PHYSICAL EXAMINATION: VITAL SIGNS: Temperature 97.9, respirations 20, pulse 101, and blood pressure 139/66. GENERAL: The patient is a well-developed and well-nourished female, in no apparent distress. HEENT: Eyes, pupils equal and responsive to light and accommodation. Extraocular movements are intact. NECK: Supple without lymphadenopathy. CHEST: Lungs are clear to auscultation bilaterally without wheezes or rales. CARDIOVASCULAR: Regular rate. S1 and S2 are normal without murmurs, rubs, or gallops. ABDOMEN: Soft, nontender, and nondistended. Positive bowel sounds. No evidence of hepatosplenomegaly. Currently, no rebound or guarding noted. EXTREMITIES: Negative for clubbing, cyanosis, or edema. RECTAL/GENITAL: Refused. NEUROLOGIC: Cranial nerves II to XII are grossly intact without focal deficits. Motor strength is 5/5 bilaterally. Deep tendon reflexes are 2+ plantar. Assessment/Plan Problem List: (1) Paranoid schizophrenia (2) Parkinsons disease Assessment & Plan: Continue sinemet (3) HTN (hypertension) Assessment & Plan: Add lopressor per cardiology (4) Near syncope (5) Chest pain Assessment & Plan: Troponin neg. See cardiology consult (6) Urinary tract infection Assessment & Plan: E. Coli. Continue ceftriaxone (7) Diabetes mellitus Assessment & Plan: Continue novolog sliding scale (8) Hypothyroidism Assessment & Plan: Continue synthroid (9) Atrial fibrillation (10) History of CVA (cerebrovascular accident) Status: stable Assessment/Plan D/C home. F/U PCP this week Ag Fonseca MD Mar 06, 2018 12:34
[2018-03-06] MEDS ORDERED: LOPRESSOR25 M1 ORAL (12:43)
[2018-03-06] MEDS ORDERED: CIPRO500 MG/51 PO (12:43)
--- NOTE | 2018-03-06 12:47 | General Surgery Progress Note ---
General Surgery-Progress Note Subjective Additional Comments no abdominal pain. no n/v/f/c. tolerating diet. Objective Last 24 Hour Vital Signs Date Time Temp Pulse Resp B/P (MAP) Pulse Ox O2 Delivery O2 Flow Rate FiO2 03/06/18 09:55 96 118/66 03/06/18 09:53 96 03/06/18 08:20 Room Air 03/06/18 08:00 97.3 96 19 118/66 (83) 99 97.3 03/06/18 04:00 98.5 87 20 108/81 (90) 97 98.5 03/06/18 04:00 93 03/06/18 00:00 102 03/06/18 00:00 98.0 87 18 109/65 (80) 96 98.0 03/05/18 21:01 96 127/66 03/05/18 21:00 Room Air 03/05/18 20:00 98.1 106 18 130/81 (97) 94 98.1 03/05/18 20:00 106 03/05/18 16:00 96.3 96 19 127/66 (86) 96 96.3 03/05/18 15:48 99 I&O Intake and Output 03/05/18 03/06/18 19:00 07:00 Intake Total 420 ml Balance 420 ml Intake Oral 420 ml # Voids 4 3 # Bowel Movements 1 Cardiovascular: RSR Respiratory: clear Abdomen: soft, distended, non-tender, present bowel sounds, other - ventral hernia reducible Extremities: no cyanosis Laboratory Tests Test 03/06/18 06:15 White Blood Count 5.4 K/UL (4.8-10.8) Red Blood Count 4.70 M/UL (4.20-5.40) Hemoglobin 13.9 G/DL (12.0-16.0) Hematocrit 41.2 % (37.0-47.0) Mean Corpuscular Volume 88 FL (80-99) Mean Corpuscular Hemoglobin 29.5 PG (27.0-31.0) Mean Corpuscular Hemoglobin Concent 33.6 G/DL (32.0-36.0) Red Cell Distribution Width 12.5 % (11.6-14.8) Platelet Count 193 K/UL (150-450) Mean Platelet Volume 7.9 FL (6.5-10.1) Neutrophils (%) (Auto) 61.1 % (45.0-75.0) Lymphocytes (%) (Auto) 27.3 % (20.0-45.0) Monocytes (%) (Auto) 7.3 % (1.0-10.0) Eosinophils (%) (Auto) 2.8 % (0.0-3.0) Basophils (%) (Auto) 1.5 % (0.0-2.0) Sodium Level 138 MMOL/L (136-145) Potassium Level 4.0 MMOL/L (3.5-5.1) Chloride Level 103 MMOL/L (98-107) Carbon Dioxide Level 28 MMOL/L (21-32) Anion Gap 7 mmol/L (5-15) Blood Urea Nitrogen 21 mg/dL (7-18) H Creatinine 0.5 MG/DL (0.55-1.30) L Estimat Glomerular Filtration Rate mL/min (>60) Glucose Level 147 MG/DL (74-106) H Calcium Level 8.7 MG/DL (8.5-10.1) Plan Problems: (1) Ventral hernia Assessment & Plan: 88F with large ventral hernia near umbilicus. able to reduce some bowel contents. mild tenderness. chronic. passing flatus. no n/v /f/c. discussed findings with patient and family. discussed surgery vs no surgery at this time would not recommend surgery during hospital stay unless obstructive or incarcerated. do recommend elective repair upon discharge. discussed with patient and family. she will see her pcp upon d/c and discuss. thank you for this consultation. will follow with recs. Kota Sanches Mar 06, 2018 12:47
[2018-03-07] MEDS ORDERED: cefTRIAXone 1 GM in NS 55 ML IVPB SCH (09:00)
--- NOTE | 2018-03-07 11:16 | Cardiology Report ---
APPROVED REPORT EXAM: Two-dimensional and M-mode echocardiogram with Doppler and color Doppler. INDICATION Left ventricular function M-Mode DIMENSIONS IVSd1.7 (0.7-1.1cm)Left Atrium (MM)3.8 (1.6-4.0cm) LVDd3.1 (3.5-5.6cm)Aortic Root2.7 (2.0-3.7cm) PWd1.2 (0.7-1.1cm)Aortic Cusp Exc.1.5 (1.5-2.0cm) LVDs1.8 (2.5-4.0cm) PWs2.2 cm Technically difficult study due to poor acoustic windows. Study quality precludes accurate assessment of regional wall motion. Normal left ventricular chamber size, systolic function and wall motion. Left ventricular ejection fraction estimated to be 60-65 %. Mild left ventricular hypertrophy. Anterior Echo-free space, may be due to pericardial fat or effusion. All other cardiac chamber sizes are within normal limits. Focal aortic valve sclerosis with adequate cusp excursion. Thickened mitral valve leaflets with reduced excursion. Heavy posterior mitral annulus and moderate aortic root calcification. Pulmonic valve not well visualized. Normal tricuspid valve structure. IVC dilated at 2.2 cm with physiological collapse, suggestive of increased RA pressure. A color flow and spectral Doppler study was performed and revealed: Mild aortic insufficiency. No mitral regurgitation. Mitral P1/2 time of 83 m/s is compatible with a mitral valve area of 1.4 cm2 Peak mitral valve diastolic gradient of 10 mmHg and a mean gradient of 3 mmHg. Mitral valve pressure gradient maybe underestimated due to A-Fib. Left ventricular diastolic function could not be determined due to A-Fib. Mild to moderate tricuspid regurgitation. Tricuspid systolic velocities suggests peak right ventricular systolic pressure of 39 mmHg, consistent with mild pulmonary hypertension. Trace pulmonic regurgitation present.
--- NOTE | 2018-03-07 11:29 | Discharge Summary ---
Discharge Summary Discharge Summary _ DATE OF ADMISSION: 03/03/2018 DATE OF DISCHARGE: 03/06/2018 REASON FOR ADMISSION: 88 years old female with past medical history of Parkinson disease, atrial fibrillation on anticoagulation etc. elbow, CVA no deficit,, pacemaker, hypertension, diabetes mellitus, hypothyroidism, schizophrenia, was brought by paramedics after reported near syncope episode. Patient was standing but subsequently became pale and trampolining patient did not lose her consciousness. Patient reported increased chills. Patient was tachycardic but afebrile on presentation. Laboratory workup revealed no leukocytosis, stable hemoglobin and hematocrit . Stable electrolytes Glucose 164. Lactic acid-5.1 EKG revealed atrial fibrillation with rapid ventricular response with heart rate 123. CT of the head revealed no evidence of acute intracranial pathology. It demonstrated old left caudate infarct. 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 Moderate atrophy of the brain with evidence of chronic small vessel disease involving white matter tracts. Urinalysis with evidence of UTI. Chest x-ray revealed no acute cardiopulmonary pathology. CT of the abdomen and pelvis revealed large ventral hernia with part of the colon in the hernia sac. No obstruction or inflammation. Normal appendix. Patient admitted with diagnoses of probable sepsis, urinary tract infection, atrial fibrillation with rapid ventricular response, large ventral hernia. CONSULTANTS: sales order coordinator Dr. Garcia pulmonary Dr. Peña ID specialist Dr. Monsalve surgery Dr. Sanches psychiatrist [facility] COURSE: Patient admitted to telemetry floor. Troponin was negative. [employer] closely follow. Heart rate was controlled with digoxin and beta jonelle was added to existing regimen Anticoagulation with Xarelto continued. Heart rate stabilized. Carotid duplex revealed mild 30% stenosis of right internal carotid artery and minimal 20% stenosis of left internal carotid artery. Echocardiogram revealed preserved ejection fraction of 60-65%, no evidence of wall motion abnormality, right ventricular systolic pressure of 39 , consistent with mild pulmonary hypertension. Evidence of [id number] tricuspid regurgitation. Blood pressure was managed with beta jonelle and remained stable. Statin was continued. Patient had a Medtronic pacemaker, which recently was interrogated and showed normal functioning. Levothyroxine was continued. Blood culture were negative. Urine culture revealed Escherichia coli. Patient was on antibiotics as per ID recommendation and complete the course with oral antibiotics at home. Lactic acidosis resolved. Afebrile, no leukocytosis. Supplemental oxygen provided as needed to keep pulse oximetry above 92%. Pulmonary toilet was on standby as needed. Surgeon closely followed for ventral hernia. Surgeon was able to reduce some bowel contents. Mild tenderness on examination noted, however chronic . No nausea, no vomiting, no fever, no chills. Patient able to pass flatus and had bowel movement. Findings were discussed with patient and family. At this time surgeon did not recommend surgery, unless obstructive or incarcerated. Surgeon recommended elective repair . Patient will see her primary care physician to further discuss plans regarding elective surgery. Blood sugar was managed with sliding scale of insulin and remained stable. Sinemet was continued. Fall precautions maintained. Bowel regimen instituted. Psychiatrist seen and evaluated patient, and diagnosed patient with schizophrenia and major depressive disorder. Psychiatric medication regimen was optimized. Patient clinically improved: heart rate stable, blood pressure stable. Near syncope episode was likely provoked by o urinary tract infection and possible recurrent episode of atrial fibrillation with rapid ventricular response. Patient was stable for discharge home. FINAL DIAGNOSES: Urinary tract infection with Escherichia coli Probable sepsis Lactic acidosis- resolved Atrial fibrillation with rapid ventricular response Ventral hernia Near syncope episode- likely secondary to infectious process/UTI and possible recurrent episode of atrial fibrillation with rapid ventricular response Hypertension Acute encephalopathy Hypothyroidism Hyperlipidemia Diabetes mellitus Status post Medtronic pacemaker placement ( recent interrogation showed normal functioning) History of CVA Paranoid schizophrenia Parkinson disease Major depressive disorder DISCHARGE MEDICATIONS: See Medication Reconciliation list. DISCHARGE INSTRUCTIONS: Patient was discharged home . Follow up with primary care provider in one week to discuss and refer - regarding elective surgery /hernia repair . I have been assigned to dictate discharge summary for this account. I was not involved in the patient's management. Elif Castillo NP Mar 07, 2018 11:29
--- NOTE | 2018-03-07 23:21 | General Progress Note ---
Assessment/Plan Problem List: (1) Acute encephalopathy ICD Codes: G93.40 - Encephalopathy, unspecified SNOMED: [id number], [id number] Status: stable, progressing Assessment/Plan schizophrenia mdd remeron 7.5 mg @ 1200 remeron 15mg @ 300 abilify 2mg qhs Subjective Date patient seen: Mar 06, 2018 Neurologic/Psychiatric: Reports: anxiety, depressed, emotional problems Allergies: Coded Allergies: No Known Allergies (Unverified , 03/03/18) Objective Height (Feet): 5 Height (Inches): 2.00 Weight (Pounds): 180 General Appearance: alert, agitated Vikram Jurado MD Mar 07, 2018 23:21
== END 2018-03-06 14:10 | disposition home or self-care (01) | DRG 872 ==
LOC: EDBD 20:13 → EMR 20:40 → 2E 21:15 → EDBEDREQ 21:25 → 2E 03-05 10:56
DX: A41.9 Sepsis, unspecified organism (principal); N39.0 Urinary tract infection, site not specified; G93.40 Encephalopathy, unspecified; F20.0 Paranoid schizophrenia; R65.20 Severe sepsis without septic shock; B96.20 Unspecified Escherichia coli [E. coli] as the cause of diseases classified elsewhere; E11.9 Type 2 diabetes mellitus without complications; I10 Essential (primary) hypertension; G20 Parkinson's disease; I48.91 Unspecified atrial fibrillation; Z86.73 Personal history of transient ischemic attack (TIA), and cerebral infarction without residual deficits; Z95.0 Presence of cardiac pacemaker; Z79.01 Long term (current) use of anticoagulants; Z79.84 Long term (current) use of oral hypoglycemic drugs; E03.9 Hypothyroidism, unspecified; K43.9 Ventral hernia without obstruction or gangrene; E78.5 Hyperlipidemia, unspecified; F32.9 Major depressive disorder, single episode, unspecified
CPT/HCPCS: 36415; 70450; 71045; 74177; 80048; 80053; 81003; 82550; 82553; 82962; 83605; 83735; 83880; 84100; 84484; 85025; 85610; 85651; 85730; 87040; 87086; 87181; 93005; 93306; 93880; 96365; 96375; 99285; J1815

== ENCOUNTER 2019-06-29 20:37 | Emergency (ER) | payer MEDICARE, MEDICAID ==
[~2019-06-29] VITALS: Ht 157.5 cm; Wt 59.0 kg
[~2019-06-29 20:37] MED LIST: ABILIFY2 MG ORAL; ACETAMINOPHEN80 M2 PO; CIPRO500 MG/51 PO; DIGOXIN0.125 MG/2 ORAL; DIGOXIN250 MCG ORAL; LEVOTHYROXINE200 MCG ORAL; LOPRESSOR25 M1 ORAL; MAGNESIUM400 M1 PO; METFORMIN HCL5000 GM ORAL; REMERON30 M1 ORAL; SIMVASTATIN5 MG ORAL; sodium ORAL; xeralto
[2019-06-29 20:52] VITALS: BP 120/81
--- NOTE | 2019-06-29 21:06 | NUR ---
ED Nurse Note: Patient was BIBA from [facility] due to G-tube malfunctioning. Per patient care associate pt's G-tube cloged up today at 1700. Patient presented with tracheastomy, AAO x0, VSS at this time, patient has 1 preassure ulcer on sacral area.
--- NOTE | 2019-06-29 21:15 | NUR ---
ED Nurse Note: House superviser was called regarding 20 F G tube.
--- NOTE | 2019-06-29 21:40 | NUR ---
ED Nurse Note: G-tube was replaced by Dr. Fallon. 18 F, patient tolerated procedure well.
[2019-06-29] MEDS ORDERED: levETIRAcetam 500mg/5ml Liquid NG ONE (22:15)
--- NOTE | 2019-06-29 22:17 | Diagnostic Imaging Report ---
Indication: Abdominal pain Comparison: None Single view of the abdomen obtained Findings: There is contrast via gastrostomy tube noted within the stomach lumen. There is no extravasation. The balloon of the gastrostomy is within the distal body of the stomach. IMPRESSION: Gastrostomy in good position. No extravasation.
[2019-06-29] MEDS ORDERED: Topiramate 100mg tab GT ONE (22:30)
[2019-06-29] MEDS ORDERED: dilTIAZem HCl 90mg tab GT ONE (22:45)
[2019-06-29] MEDS ORDERED: Lacosamide 50mg tablet ORAL ONE (22:45)
[2019-06-29] MEDS ORDERED: Topiramate 25mg tab GT ONE (23:00)
[2019-06-29 23:45] VITALS: BP 155/88
--- NOTE | 2019-06-29 23:45 | NUR ---
ED Nurse Note: Patient was transfered back to [facility] via [employer] private transportation with all belongings. Daughter and son by bed side. Patient AAO x0, VSS at this time, skin is warm to touch.
--- NOTE | 2019-07-02 08:54 | Emergency Room Report ---
History of Present Illness General Chief Complaint: Malfunctioning Gastric Tube Source: Patient, EMS Present Illness HPI Patient is an 89-year-old female who presented after malfunctioning of gastrostomy tube. Patient was sent in from nursing facility with ambulance. She was noted to have clogging of the jejunal portion of her GJ tube. Patient had been chronically debilitated after stroke. She is tracheostomy dependent but does not require ventilation. Chronically being given medications for seizures due to CVA. Followed by Dr. Oropeza. Patient had recent had procedure to unclog her J-tube. Per family no prior history of gastroparesis or difficulty with feeding Allergies: Coded Allergies: No Known Allergies (Unverified , 03/03/18) Patient History Past Medical History: see triage record Last Menstrual Period: na Reviewed Nursing Documentation: PMH: Agreed; PSxH: Agreed Nursing Documentation-PMH Past Medical History: No History, Except For Hx Hypertension: Yes Hx Pacemaker: Yes - L chest Hx Diabetes: Yes Hx Cancer: No Hx Gastrointestinal Problems: No Hx Neurological Problems: Yes Hx Cerebrovascular Accident: Yes - no deficits Hx Parkinson's Disease: Yes Hx Seizures: Yes Review of Systems All Other Systems: negative except mentioned in HPI Physical Exam Vital Signs Date Time Temp Pulse Resp B/P (MAP) Pulse Ox O2 Delivery O2 Flow Rate FiO2 06/29/19 20:28 97.9 83 17 120/81 (94) 97 Room Air Sp02 EP Interpretation: reviewed, normal General Appearance: Chronically Ill Head: atraumatic ENT: normal ENT inspection, hearing grossly normal, normal voice Neck: normal inspection, supple, no bony tend, tracheotomy Respiratory: normal inspection, lungs clear, normal breath sounds, no respiratory distress, no retraction, no wheezing Cardiovascular #1: regular rate, rhythm, no edema Gastrointestinal: non tender, soft, no guarding, no hernia, other - GJ tube in place. Neurologic: motor weakness, normal inspection Psychiatric: mood/affect normal Skin: no rash Medical Decision Making Diagnostic Impression: Primary Impression: Gastrostomy tube dependent ER Course Patient presented for G-tube replacement. I contacted the patient's primary care physician. GJ tube was removed with gentle axial traction.There is some minimal bleeding noted at the stoma. This was well controlled with brief direct pressure. Gastrostomy tube was replaced with sterile technique and secured at 4 cm. Post procedure x-ray showed adequate gastrostomy tube placement. Patient tolerated well without complications. The patient was discharged back to care home via ambulance. Patient was return for persistent vomiting, other concerns. Last Vital Signs Date Time Temp Pulse Resp B/P (MAP) Pulse Ox O2 Delivery O2 Flow Rate FiO2 06/29/19 23:45 97.9 17 155/88 97 Room Air 06/29/19 23:16 69 Status: improved Disposition: [facility] Condition: Stable Referrals: Kody Oropeza MD (PCP) Patient Instructions: Gastrostomy Tube Home Guide, Adult Bipin Fallon MD Jul 02, 2019 08:54
== END 2019-06-29 23:45 | disposition home or self-care (01) ==
LOC: EDBD 20:37 → EMR 20:45
DX: K94.23 Gastrostomy malfunction (principal); I10 Essential (primary) hypertension; Z95.0 Presence of cardiac pacemaker; E11.9 Type 2 diabetes mellitus without complications; Z86.73 Personal history of transient ischemic attack (TIA), and cerebral infarction without residual deficits; G20 Parkinson's disease; G40.909 Epilepsy, unspecified, not intractable, without status epilepticus
CPT/HCPCS: 74018; 82962; 99284

== ENCOUNTER 2020-01-01 16:38 | Inpatient (IN) | payer MEDICARE, MEDICAID ==
[~2020-01-01] VITALS: Ht 157.5 cm; Wt 76.3 kg
[2020-01-01 16:45] VITALS: BP 104/49
[2020-01-01 17:15] VITALS: BP 82/53
[2020-01-01] MEDS ORDERED: Omnipaque-300 100ml vial INJ PRN (17:15)
[2020-01-01] MEDS ORDERED: Cefepime HCl 2 GM in NS 110 ML IV ONE (17:15)
[2020-01-01] MEDS ORDERED: Vancomycin 1 GM in NS 275 ML IV ONE (17:15)
[2020-01-01] MEDS ORDERED: SYNTHROID100 MCG ORAL (17:20)
[2020-01-01] MEDS ORDERED: PACERONE100 MG ORAL (17:20)
[2020-01-01] MEDS ORDERED: SINEMET 25-1001 EAC1 ORAL (17:22)
[2020-01-01] MEDS ORDERED: LEVETIRACETAM500 MG ORAL (17:22)
[2020-01-01] MEDS ORDERED: MIDODRINE HCL10 MG ORAL (17:22)
[2020-01-01] MEDS ORDERED: METOCLOPRAMIDE H5 M1 ORAL (17:22)
[2020-01-01] MEDS ORDERED: ELIQUIS2.5 MG PO (17:22)
[2020-01-01] MEDS ORDERED: TOPIRAMATE100 MG ORAL (17:25)
[2020-01-01] MEDS ORDERED: VITAMIN C500 M1 ORAL (17:25)
[2020-01-01] MEDS ORDERED: SPIRONOLACTONE100 MG ORAL (17:25)
[2020-01-01] MEDS ORDERED: FAMOTIDINE20 MG ORAL (17:25)
[2020-01-01] MEDS ORDERED: VIMPAT150 MG PO (17:25)
[2020-01-01] MEDS ORDERED: SENNA LAXATIVE8.6 MG PO (17:25)
[2020-01-01] MEDS ORDERED: METOPROLOL TART25 MG ORAL (17:25)
[2020-01-01] MEDS ORDERED: CARDIZEM30 M1 PO (17:25)
[2020-01-01 17:28] LABS: BASOPHILS % (AUTO) 1.5 % (0.0-2.0); EOSINOPHILS % (AUTO) 3.9 % (0.0-3.0); HEMATOCRIT 40.2 % (37.0-47.0); HEMOGLOBIN 13.2 G/DL (12.0-16.0); LYMPHOCYTES % (AUTO) 14.9 % (20.0-45.0); MEAN CORPUSCULAR VOLUME 99 FL (80-99); MONOCYTES % (AUTO) 8.1 % (1.0-10.0); NEUTROPHILS % (AUTO) 71.6 % (45.0-75.0); RED BLOOD COUNT 4.08 M/UL (4.20-5.40); RED CELL DISTRIBUTION WIDTH 13.9 % (11.6-14.8); WHITE BLOOD COUNT 10.4 K/UL (4.8-10.8)
[2020-01-01 17:29] LABS: PLATELET COUNT 205 K/UL (150-450)
[2020-01-01] MEDS ORDERED: HIBICLENS118 ML TP (17:29)
[2020-01-01] MEDS ORDERED: ZINC50 M2 ORAL (17:29)
[2020-01-01] MEDS ORDERED: VIBRAMYCIN100 MG GT (17:29)
[2020-01-01] MEDS ORDERED: IPRATROPIU0.2 MG/1 M HHN (17:29)
[2020-01-01] MEDS ORDERED: HUMALOG100 UNIT/4 SUBQ (17:29)
[2020-01-01] MEDS ORDERED: NOVOLIN N100 UNIT/1 SUBQ (17:29)
[2020-01-01] MEDS ORDERED: ACIDOPHILUS1 EAC6 PO (17:29)
[2020-01-01 17:30] VITALS: BP 116/70
[2020-01-01 18:00] VITALS: BP 118/63
--- NOTE | 2020-01-01 18:02 | Emergency Room Report ---
History of Present Illness General Chief Complaint: Malfunctioning Gastric Tube Source: Medical Record, EMS Present Illness HPI 89-year-old female chronically trach/PEG dependent, DM, HTN, CVA, PD brought in by ambulance for concern of G-tube malfunction/infection. 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 EMS said that SNF called 911 secondary to malodorous discharge from the G-tube. They are unclear of when it was placed. The patient's symptoms were gradual onset, severity was moderate, duration since unknown amount of days. Quality: abdominal discomfort Past medical history: Respiratory failure, G-tube dependence, DM HTN CVA , Parkinsons Past surgical history: Trach/PEG Smoking: Unable to determine Alcohol use: Unable to determine Drug use: Unable to determine Review of systems: Limited secondary to patient's clinical status 14 point Review of Systems is otherwise negative except per HPI Physical Exam: GENERAL: Awake_alert_ nontoxic, Spo2 100 % on ventilator FiO2 35% normal Chronically ill-appearing EYES: Pupils reactive. Conjunctiva clear. ENT: External nose and ear appear normal. Oropharynx clear. Head atraumatic. NECK: No thyromegaly. No midline tenderness. Trach in place, c/d/i, no discharge or bleeding. LUNGS: Coarse breath sounds bilaterally. No stridor. No rales. No wheezes. CARDIAC: Regular rate and rhythm. Normal radial pulses bilaterally. No significant pedal edema. ABDOMEN: Soft, nontender, and nondistended. No rebound/guarding. No hepatosplenomegaly. G-tube in place, epigastrium with surrounding cellulitis and serosanguineous drainage. No palpable crepitus No hard or tender ventral hernia MSK: Poor muscle tone, contractures with rigidity in extremities. Extremities without asymmetric deformity or swelling. NEUROLOGIC: Awake. Does not follow commands for motor and sensory exam. No truncal ataxia. GCS 2-4-2, protecting airway, intact gag reflex. Withdraws to pain in extremities, groans and opens eyes to sternal rub. SKIN: Warm and dry. No cyanosis or urticaria present. - COORDINATION OF CARE Case was discussed with: Patient , Patient's Physician Any labs and imaging that were ordered were interpreted as part of the medical decision making: Medical Decision Making/Plan: Differential diagnosis includes sepsis / severe sepsis /septic shock , G-tube malfunction, intra-abdominal abscess cellulitis UTI, pneumonia , viral syndrome , gastroenteritis, emergent abdominal infection, among others. On arrival, patient had soft BP. No fever or compensatory tachcyardia. Here in the ED, she had a critical BP of 82/53mmHg (MAP42) which was repeated several times. Abdominal exam demonstrated G-tube with surrounding cellulitis and serosanguineous discharge. Abdominal examination is otherwise non- peritoneal but with mild discomfort on palpation of LUQ. Septic workup was therefore initiated due to concern for sepsis due to malfunctioning/infected G tube. CT showed abdominal distention. Also showed ventral abdominal wall hernia containing a portion of the transverse colon. : GSx was consulted. Dr Sanches reviewed patient's results and CT. Does not recommend acute surgical intervention at this time. Will follow as inpatient in case clinical situation changes. For now recommends admission to hospital. I suspect that patient will need replacement of her G tube as well. Labs otherwise show: UA 1+ leukocyte. Not overly convincing for urosepsis. CXR shows trach in place. No dense lobar pneumonia or effusion. No pneumothorax Sepsis bundle initiated on arrival secondary to hypotension. Blood cultures, lactate drawn. Within normal limits Lactate was not elevated , patient was given 30 cc/kg IV fluids by bolus. Empiric antibiotics were started. Vanco and cefepime Patient will be admitted to the hospital for further care and evaluation. I spoke with Dr. Kaiden Lawrence, and reviewed the patients presentation, workup, results, and treatment. They will admit the patient for further care and evaluation, and assume care of the patient at this time. - CRITICAL CARE STATEMENT - Critical care performed 45 minutes) Time is exclusive of separately billable procedures. Time includes: direct patient care, patient reassessment, coordination of patient care, review of patient's medical records, medical consultation, family consultation regarding treatment decisions and documentation of patient care. Organ systems at risk: Cardiac / Circulatory. Allergies: Coded Allergies: No Known Allergies (Unverified , 03/03/18) COVID-19 Screening Contact w/high risk pt: No Experienced COVID-19 symptoms?: No COVID-19 Testing performed MANAGER DEVELOPMENT: No Patient History Last Menstrual Period: na Nursing Documentation-PMH Past Medical History: No History, Except For Hx Hypertension: Yes Hx Pacemaker: Yes - L chest Hx Diabetes: Yes Hx Cancer: No Hx Gastrointestinal Problems: No Hx Neurological Problems: Yes Hx Cerebrovascular Accident: Yes - no deficits Hx Parkinson's Disease: Yes Hx Seizures: Yes Physical Exam Vital Signs Date Time Temp Pulse Resp B/P (MAP) Pulse Ox O2 Delivery O2 Flow Rate FiO2 01/01/20 16:31 96.1 84 20 115/70 (85) 96 Ambu-Bag 15.0 01/01/20 17:01 35 Sp02 EP Interpretation: reviewed, normal Medical Decision Making Diagnostic Impression: Primary Impression: Hypotension Additional Impressions: Malfunction of gastrostomy tube Cellulitis Ventral hernia Gastrostomy tube dependent History of CVA (cerebrovascular accident) HTN (hypertension) Pacemaker Paranoid schizophrenia Parkinsons disease Hypothyroidism Diabetes mellitus EKG Diagnostic Results PA Scribe Ama 12-lead EKG (interpreted by me) Time: 1737 Indication: Rhythm analysis Tracing visualized and Interpreted by me. Rhythm: A. fib Rate: 92 bpm QTc: 452 Morphology: No_significant_ST_elevations_or_depressions, No STEMI Impression: A. fib, PVC, nonspecific ST changes Rhythm Strip Diag. Results Rhythm Strip Time: 18:01 EP Interpretation: yes Rate: 76 Rhythm: no ectopy - afib w PVC Chest X-Ray Diagnostic Results Chest X-Ray Diagnostic Results : CHANDANA Serrato Chest X-Ray: Views: 1 view(s) Indication: Possible sepsis Findings: Normal heart size. Mediastinum normal. No infiltrate. Impression: Trach. No pneumothorax. No pneumonia The X-ray(s) were independently viewed and interpreted contemporaneously Electronically signed by Maria Ines clark DO CT/MRI/US Diagnostic Results CT/MRI/US Diagnostic Results : Impression CT Abdomen Pelvis w/Contrast IMPRESSION: Abdominal distention could be a combination of patient body habitus and the presence of a ventral abdominal wall hernia that contains a portion of the transverse colon. There are no findings of bowel obstruction, or acute inflammation. Reevaluation Time: 18:02 Last Vital Signs Date Time Temp Pulse Resp B/P (MAP) Pulse Ox O2 Delivery O2 Flow Rate FiO2 01/01/20 17:01 80 14 35 01/01/20 16:31 96.1 115/70 (85) 96 Ambu-Bag 15.0 Status: improved Disposition: ADMITTED INPATIENT Admit Decision Time: 18:02 Condition: Stable Referrals: NON PHYSICIAN (PCP) Maria Ines Mak D.O. Jan 01, 2020 18:02
[2020-01-01 18:17] LABS: INR 1.1 (0.9-1.1)
[2020-01-01 18:31] LABS: ANION GAP 2 mmol/L (5-15); BLOOD UREA NITROGEN 34 mg/dL (7-18); CALCIUM 10.1 MG/DL (8.5-10.1); CARBON DIOXIDE 37 MMOL/L (21-32); CHLORIDE 101 MMOL/L (98-107); CREATININE 0.8 MG/DL (0.55-1.30); POTASSIUM 3.8 MMOL/L (3.5-5.1); SODIUM 140 MMOL/L (136-145)
[2020-01-01 18:44] LABS: APPEARANCE,URINE CLEAR; BILIRUBIN, URINE NEGATIVE (NEGATIVE); COLOR,URINE PALE YELLOW; GLUCOSE, URINE (UA) NEGATIVE (NEGATIVE); KETONES,URINE NEGATIVE (NEGATIVE); LEUKOCYTE ESTERASE ,URINE 1+ (NEGATIVE); NITRITE,URINE NEGATIVE (NEGATIVE); PH,URINE 6.5 (4.5-8.0); PROTEIN,URINE 1+ (NEGATIVE); UROBILINOGEN,URINE NORMAL MG/DL (0.0-1.0)
[2020-01-01 18:49] LABS: ALANINE AMINOTRANSFERASE 7 U/L (12-78); ALBUMIN 2.3 G/DL (3.4-5.0); ALBUMIN/GLOBULIN RATIO 0.5 (1.0-2.7); ALKALINE PHOSPHATASE 105 U/L (46-116); ASPARTATE AMINO TRANSFERASE 27 U/L (15-37); BILIRUBIN,TOTAL 0.2 MG/DL (0.2-1.0); CKMB 1.7 NG/ML (0.0-3.6); CREATINE KINASE 29 U/L (26-308)
[2020-01-01 19:17] VITALS: BP 129/95
[2020-01-01 19:20] VITALS: BP 129/95
[2020-01-01] MEDS ORDERED: Ipratropium 0.02% Inh Soln 2.5ml UD HHN PRN (19:30)
--- NOTE | 2020-01-01 20:17 | Diagnostic Imaging Report ---
EXAM: CT Abdomen and Pelvis With Intravenous Contrast CLINICAL HISTORY: ABD DIST TECHNIQUE: Axial computed tomography images of the abdomen and pelvis with intravenous contrast. CTDI is 11.9 mGy and DLP is 578.9 mGy-cm. One or more of the following dose reduction techniques were used: automated exposure control, adjustment of the mA and/or kV according to patient size, use of iterative reconstruction technique. COMPARISON: 03/03/18 CT abd pel FINDINGS: Lung bases: Minimal atelectatic changes. Otherwise unremarkable.. No mass. No consolidation. ABDOMEN: Liver: Unremarkable. No mass. Gallbladder and bile ducts: Unremarkable. No calcified stones. No ductal dilation. Pancreas: Unremarkable. No mass. No ductal dilation. Spleen: Unremarkable. No splenomegaly. Adrenals: Unremarkable. No mass. Kidneys and ureters: Kidneys show an inferior pole 1.8 cm cyst that does not require follow-up imaging. No hydronephrosis or hydroureter. No radiopaque stones identified. Stomach and bowel: Again evident is a ventral abdominal wall hernia containing a portion of the transverse colon. The hernia sac is 4.2 cm transverse and 3.9 cm craniocaudal. There is interval presence of a tract from a now since removed percutaneous gastrostomy. There is moderate stool throughout the large bowel with scattered colonic diverticuli. No findings of acute diverticulitis. PELVIS: Appendix: No findings to suggest acute appendicitis. Bladder: Unremarkable. No mass. Reproductive: Uterus is atrophic. ABDOMEN and PELVIS: Intraperitoneal space: Unremarkable. No free air. No significant fluid collection. Bones/joints: Bones show degenerative changes in the spine and fixation screws in the left femoral neck, similar to prior. No acute fracture. No dislocation. Soft tissues: See above. Vasculature: Abdominal aorta shows calcifications. No abdominal aortic aneurysm. Lymph nodes: Unremarkable. No enlarged lymph nodes. Tubes, lines and devices: Lung bases show left chest pacemaker. IMPRESSION: Abdominal distention could be a combination of patient body habitus and the presence of a ventral abdominal wall hernia that contains a portion of the transverse colon. There are no findings of bowel obstruction, or acute inflammation.
[2020-01-01] MEDS ORDERED: Doxycycline Monohydrate 100mg ORAL SCH ×2 (21:00)
[2020-01-01] MEDS ORDERED: levETIRAcetam 500mg/5ml Liquid GT SCH (21:00)
[2020-01-01] MEDS ORDERED: LORazepam Inj 2mg/ml 1ml IV PRN (21:45)
[2020-01-01] MEDS ORDERED: Levodopa/Carbidopa 25/100 tab GT SCH (22:00)
[2020-01-01] MEDS ORDERED: Amiodarone 200mg tab GT SCH (22:00)
--- NOTE | 2020-01-01 23:06 | Diagnostic Imaging Report ---
EXAM: XR Abdomen, 2 Views CLINICAL HISTORY: NGT TECHNIQUE: Frontal view of the abdomen/pelvis with upright view of the abdomen. COMPARISON: No relevant prior studies available. FINDINGS: Intraperitoneal space: No free air. Gastrointestinal tract: Unremarkable. No dilation. Bones/joints: Unremarkable. Tubes, lines and devices: Enteric tube terminates in the left upper quadrant abdomen. Left chest wall to chamber pacemaker. IMPRESSION: No acute findings in the abdomen or pelvis shown by x-ray. Enteric tube terminates in the left upper quadrant abdomen.
[2020-01-02] VITALS: BP 117/69
[2020-01-02] MEDS ORDERED: Doxycycline Monohydrate 100mg ORAL SCH
[2020-01-02] MEDS: Metoclopramide 10mg/10ml Liq GT SCH ×5 (00:12→23:41)
[2020-01-02] MEDS: Levodopa/Carbidopa 25/100 tab GT SCH ×4 (00:12→23:41)
[2020-01-02] MEDS: Amiodarone 200mg tab GT SCH ×4 (00:12→23:41)
[2020-01-02] MEDS: levETIRAcetam 500mg/5ml Liquid GT SCH ×3 (00:15→20:30)
--- NOTE | 2020-01-02 01:32 | History and Physical ---
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 Per chart review, the SNF caregivers started to notice malodorous discharge from G-tube although they were not able to quantify time period. They then called 911 to have patient be taken to ED. The patient upon arrival to ED was hypotensive with MAP in 40s requiring fluid boluses and she did respond with SBP improved from 80s to 100s. The patient's G- tube site appeared to have surrounding cellulitis and antibiotics were given. A CT abdomen was done to evaluate for source of sepsis and this showed a ventral abdominal wall hernia that contained a portion of the transverse colon. Given this, Surgery Dr. Sanches was consulted who did not recommend acute surgical procedure. The patient was then admitted for further evaluation of malfunctioning G-tube as well as sepsis. The patient at baseline has advanced dementia, trach dependent, with PEG placement, and not able to meaningfully participate in interview or questioning. Unable to obtain review of systems, PMH, past surgical, family history, or social history due to advanced dementia Allergies: Coded Allergies: No Known Allergies (Unverified , 03/03/18) COVID-19 Screening Contact w/high risk pt: No Recent Travel to affected area: No Experienced COVID-19 symptoms?: No Medication History Scheduled Amiodarone Hcl* (Pacerone*), 100 MG ORAL EVERY 8 HOURS, (Reported) Ascorbic Acid* (Vitamin C*), 500 MG ORAL DAILY, (Reported) Carbidopa/Levodopa 25-100 Mg* (Sinemet 25-100 Mg Tablet*), 1 TAB ORAL THREE TIMES A DAY, (Reported) Diltiazem Hcl* (Cardizem*), 30 MG PO QID, (Reported) Doxycycline Hyclate* (Vibramycin*), 100 MG ORAL EVERY 12 HOURS, (Reported) Famotidine* (Pepcid 20mg tablet*), 20 MG ORAL DAILY, (Reported) Levetiracetam* (Levetiracetam*), 750 MG ORAL TWICE A DAY, (Reported) Levothyroxine Sodium* (Synthroid*), 100 MCG ORAL DAILY, (Reported) Metoclopramide Hcl* (Metoclopramide Hcl*), 5 MG ORAL EVERY 6 HOURS, (Reported) Metoprolol Tartrate* (Metoprolol Tartrate*), 25 MG ORAL EVERY 12 HOURS, ( Reported) Midodrine* (Proamatine*), 10 MG ORAL THREE TIMES A DAY, (Reported) Nph, Human Insulin Isophane* (Novolin N*), 24 SUBQ BID, (Reported) Spironolactone* (Spironolactone*), 100 MG ORAL DAILY, (Reported) Topiramate* (Topamax*), 200 MG ORAL DAILY, (Reported) Scheduled PRN Ipratropium [place] 0.5MG/2.5ML (Ipratropium [place] 0.5MG/2.5ML), 0.5 MG HHN Q6H PRN for Shortness of Breath, (Reported) Miscellaneous Medications Apixaban (Eliquis), 2.5 MG PO, (Reported) Chlorhexidine Gluconate* (Hibiclens*), 118 ML TP, (Reported) Insulin Lispro (Humalog), 0 SUBQ, (Reported) Lacosamide (Vimpat), 150 MG PO, (Reported) Lactobacillus Acidophilus (Acidophilus), 1 EACH PO, (Reported) Sennosides (Senna Laxative), 8.6 MG PO, (Reported) Zinc Amino Acid Chelate (Zinc), 50 MG ORAL, (Reported) Discontinued Medications Acetaminophen (Acetaminophen), 80 MG PO ONCE, (Reported) Discontinued Reason: MD discontinued med Aripiprazole* (Abilify*), 2 MG ORAL DAILY, (Reported) Discontinued Reason: MD discontinued med Ciprofloxacin (Cipro), 500 MG PO BID Discontinued Reason: MD discontinued med Digoxin* (Digoxin*), 0.125 MG ORAL DAILY, (Reported) Discontinued Reason: MD discontinued med Levothyroxine Sodium* (Levothyroxine Sodium), 25 MG ORAL EVERY OTHER DAY, ( Reported) Discontinued Reason: MD discontinued med Levothyroxine Sodium* (Levothyroxine Sodium), 50 MG ORAL EVERY OTHER DAY, ( Reported) Discontinued Reason: MD discontinued med Magnesium Oxide (Magnesium), 420 MG PO THREE TIMES A DAY, (Reported) Discontinued Reason: MD discontinued med Metformin Hcl (Metformin Hcl), 500 MG ORAL, (Reported) Discontinued Reason: MD discontinued med Metoprolol Tartrate (Metoprolol Tartrate), 25 MG ORAL Q12HR Discontinued Reason: MD discontinued med Mirtazapine (Remeron), 35 MG ORAL, (Reported) Discontinued Reason: MD discontinued med Simvastatin (Zocor), Unknown Dose ORAL BEDTIME, (Reported) Discontinued Reason: MD discontinued med [sodium ], 1 GM ORAL THREE TIMES A DAY, (Reported) Discontinued Reason: MD discontinued med [xeralto], (Reported) Discontinued Reason: MD discontinued med [xeralto], Unknown Dose, (Reported) Discontinued Reason: MD discontinued med Patient History Limited by: other - Severe dementia History Provided By: Medical Record, EMS Healthcare decision maker N Resuscitation status Advanced Directive on File Review of Systems ROS Narrative Unable to obtain given severe advanced dementia Physical Exam General Appearance: lethargic Lines, tubes and drains: peripheral, trach, gtube - surrounding granular tissue with erythema and indurated skin HEENT: normocephalic, atraumatic, anicteric, PERRL Neck: non-tender, normal alignment, supple, normal inspection Respiratory/Chest: lungs clear, normal breath sounds, no respiratory distress Cardiovascular/Chest: normal rate, no gallop/murmur, no JVD, irregularly irregular Abdomen: non tender, soft, feeding tube Genitourinary/Rectal: gray Extremities: normal inspection, no calf tenderness, no edema Skin Exam: normal pigmentation, warm/dry Neurologic: aphasia, other - does not respond meaningfully to caregivers. moves extremities spontaneously Musculoskeletal: atrophy Last 24 Hour Vital Signs Date Time Temp Pulse Resp B/P (MAP) Pulse Ox O2 Delivery O2 Flow Rate FiO2 01/02/20 00:38 87 14 35 01/02/20 00:00 97.7 70 18 117/69 (85) 100 01/02/20 00:00 Mechanical Ventilator 01/01/20 23:55 85 01/01/20 22:38 84 14 35 01/01/20 21:05 Mechanical Ventilator 15.0 01/01/20 21:03 74 18 35 01/01/20 20:50 97.0 69 19 122/90 100 Mechanical Ventilator 15.0 35 01/01/20 19:20 96.5 75 18 129/95 100 Mechanical Ventilator 35 01/01/20 19:17 73 19 129/95 100 Mechanical Ventilator 35 01/01/20 19:15 80 16 35 01/01/20 18:00 98.3 72 20 118/63 100 Mechanical Ventilator 35 01/01/20 17:30 79 18 116/70 99 Mechanical Ventilator 35 01/01/20 17:15 81 15 82/53 100 Mechanical Ventilator 35 01/01/20 17:05 81 15 Mechanical Ventilator 50 01/01/20 17:01 80 14 35 01/01/20 16:45 79 18 104/49 100 Mechanical Ventilator 100 01/01/20 16:31 96.1 84 20 115/70 (85) 96 Ambu-Bag 15.0 Intake and Output 01/01/20 01/02/20 19:00 07:00 Intake Total 2110 ml 2183.3 ml Output Total 30 ml Balance 2080 ml 2183.3 ml Intake IV Total 2110 ml 2183.3 ml Output Urine Total 30 ml # Voids 2 # Bowel Movements 2 Laboratory Tests Test 01/01/20 16:55 01/01/20 17:47 01/01/20 17:56 01/01/20 19:21 White Blood Count 10.4 K/UL (4.8-10.8) Red Blood Count 4.08 M/UL (4.20-5.40) L Hemoglobin 13.2 G/DL (12.0-16.0) Hematocrit 40.2 % (37.0-47.0) Mean Corpuscular Volume 99 FL (80-99) Mean Corpuscular Hemoglobin 32.3 PG (27.0-31.0) H Mean Corpuscular Hemoglobin Concent 32.7 G/DL (32.0-36.0) Red Cell Distribution Width 13.9 % (11.6-14.8) Platelet Count 205 K/UL (150-450) Mean Platelet Volume 7.5 FL (6.5-10.1) Neutrophils (%) (Auto) 71.6 % (45.0-75.0) Lymphocytes (%) (Auto) 14.9 % (20.0-45.0) L Monocytes (%) (Auto) 8.1 % (1.0-10.0) Eosinophils (%) (Auto) 3.9 % (0.0-3.0) H Basophils (%) (Auto) 1.5 % (0.0-2.0) Prothrombin Time 12.0 SEC (9.30-11.50) H Prothromb Time International Ratio 1.1 (0.9-1.1) Activated Partial Thromboplast Time 26 SEC (23-33) Sodium Level 140 MMOL/L (136-145) Potassium Level 3.8 MMOL/L (3.5-5.1) Chloride Level 101 MMOL/L (98-107) Carbon Dioxide Level 37 MMOL/L (21-32) H Anion Gap 2 mmol/L (5-15) L Blood Urea Nitrogen 34 mg/dL (7-18) H Creatinine 0.8 MG/DL (0.55-1.30) Estimat Glomerular Filtration Rate > 60 mL/min (>60) Glucose Level 133 MG/DL (74-106) H Lactic Acid Level 1.20 mmol/L (0.4-2.0) Calcium Level 10.1 MG/DL (8.5-10.1) Total Bilirubin 0.2 MG/DL (0.2-1.0) Aspartate Amino Transf (AST/SGOT) 27 U/L (15-37) Alanine Aminotransferase (ALT/SGPT) 7 U/L (12-78) L Alkaline Phosphatase 105 U/L (46-116) Total Creatine Kinase 29 U/L (26-308) Creatine Kinase MB 1.7 NG/ML (0.0-3.6) Creatine Kinase MB Relative Index 5.8 Troponin I 0.012 ng/mL (0.000-0.056) Total Protein 7.2 G/DL (6.4-8.2) Albumin 2.3 G/DL (3.4-5.0) L Globulin 4.9 g/dL Albumin/Globulin Ratio 0.5 (1.0-2.7) L Lipase 155 U/L (73-393) Thyroid Stimulating Hormone (TSH) 6.494 uiU/mL (0.358-3.740) Urine Color Pale yellow Urine Appearance Clear Urine pH 6.5 (4.5-8.0) Urine Specific [place] 1.010 (1.005-1.035) Urine Protein 1+ (NEGATIVE) H Urine Glucose (UA) Negative (NEGATIVE) Urine Ketones Negative (NEGATIVE) Urine Blood Negative (NEGATIVE) Urine Nitrite Negative (NEGATIVE) Urine Bilirubin Negative (NEGATIVE) Urine Urobilinogen Normal MG/DL (0.0-1.0) Urine Leukocyte Esterase 1+ (NEGATIVE) H Urine RBC 0-2 /HPF (0 - 2) Urine WBC 0-2 /HPF (0 - 2) Urine Squamous Epithelial Cells Occasional /LPF Urine Bacteria Occasional /HPF (NONE) POC Whole Blood Glucose 94 MG/DL (74-106) Microbiology Date/Time Source Procedure Growth Status 01/01/20 17:56 Nasopharynx SARS-CoV-2 RdRp Gene Assay - Final Complete Height (Feet): 5 Height (Inches): 2.00 Weight (Pounds): 145 Medications Current Medications Medications (Trade) Dose Ordered Sig/Genaro Route PRN Reason Start Time Stop Time Status Last Admin Dose Admin Amiodarone HCl (Cordarone) 100 mg Q8H GT 01/02/20 00:00 04/01/20 00:00 01/02/20 00:12 Apixaban (Eliquis) 2.5 mg BID GT 01/02/20 09:00 04/01/20 08:59 Ascorbic Acid (Vitamin C) 500 mg DAILY GT 01/02/20 09:00 02/01/20 08:59 Carbidopa/Levodopa (Sinemet 25/100) 1 tab Q8H GT 01/02/20 00:00 02/01/20 00:00 01/02/20 00:12 Cefepime HCl 1 gm/ Dextrose 55 ml @ 110 mls/hr Q12HR@0600,1800 IVPB 01/02/20 06:00 01/09/20 05:59 Dextrose (Dextrose 50%) 25 ml Q30M PRN IV Hypoglycemia 01/01/20 19:30 03/31/20 19:29 Dextrose (Dextrose 50%) 50 ml Q30M PRN IV Hypoglycemia 01/01/20 19:30 03/31/20 19:29 Doxycycline Monohydrate (Doxycycline Monohydrate) 100 mg EVERY 12 HOURS ORAL 01/02/20 00:00 01/09/20 00:00 01/02/20 00:15 Famotidine (Pepcid) 20 mg DAILY GT 01/02/20 09:00 04/01/20 08:59 Iohexol (OMNIPAQUE-300 100ml) 100 ml NOW PRN INJ Radiology Procedure 01/01/20 17:15 01/03/20 17:10 Ipratropium [place] (Atrovent) 500 mcg Q6H PRN HHN Shortness of Breath 01/01/20 19:30 01/06/20 19:29 Levetiracetam (Keppra) 750 mg Q12HR GT 01/02/20 00:00 02/01/20 00:00 01/02/20 00:15 Levothyroxine Sodium (Synthroid) 100 mcg DAILY GT 01/02/20 09:00 02/01/20 08:59 Lorazepam (Ativan 2mg/ml 1ml) 1 mg DAILY PRN IV seizure activity 01/01/20 21:45 01/08/20 21:44 Metoclopramide HCl (Reglan) 5 mg EVERY 6 HOURS GT 01/02/20 00:00 02/01/20 00:00 01/02/20 00:12 Metronidazole 100 ml @ 100 mls/hr Q8H IVPB 01/02/20 01:00 01/09/20 00:59 01/02/20 01:11 Midodrine (Pro-Amatine) 10 mg THREE TIMES A DAY ORAL 01/02/20 09:00 04/01/20 08:59 Topiramate (Topamax) 200 mg DAILY GT 01/02/20 09:00 02/01/20 08:59 Vancomycin HCl (Vanco pharmacy to dose) 1 ea DAILY PRN MISC Per rx protocol 01/01/20 19:30 01/31/20 19:29 Vancomycin HCl 750 mg/Sodium Chloride 275 ml @ 183.333 mls/hr Q24H IVPB 01/02/20 18:00 01/07/20 17:59 Assessment/Plan Problem List: (1) Sepsis ICD Codes: A41.9 - Sepsis, unspecified organism SNOMED: 89471245 (2) Hypotension ICD Codes: I95.9 - Hypotension, unspecified SNOMED: 18468270 (3) Malfunction of gastrostomy tube ICD Codes: K94.23 - Gastrostomy malfunction SNOMED: 331432274 (4) Hypothyroidism ICD Codes: E03.9 - Hypothyroidism, unspecified SNOMED: 49255090 (5) Diabetes mellitus ICD Codes: E11.9 - Type 2 diabetes mellitus without complications SNOMED: 88045977 (6) Pacemaker ICD Codes: Z95.0 - Presence of cardiac pacemaker SNOMED: 261280998 (7) Parkinsons disease ICD Codes: G20 - Parkinson's disease SNOMED: 16050476 (8) Paranoid schizophrenia ICD Codes: F20.0 - Paranoid schizophrenia SNOMED: 28298576 (9) History of CVA (cerebrovascular accident) ICD Codes: Z86.73 - Personal history of transient ischemic attack (TIA), and cerebral infarction without residual deficits SNOMED: 500892100 (10) Ventral hernia ICD Codes: K43.9 - Ventral hernia without obstruction or gangrene SNOMED: 930905877 (11) Cellulitis ICD Codes: L03.90 - Cellulitis, unspecified SNOMED: 258899841 Status: stable Assessment/Plan: This is an 89 year old chronically ill patient with severe dementia, dependent on trach and PEG, presenting for G-tube malfunction, but found to be hypotensive #Hypotension #Sepsis, possibly secondary to cellulitis at G-tube site vs intra-abdominal source vs pulmonary source given tracheostomy - aggressive IVF resuscitaiton - Vanc/Cefepime/Flagyl (01/01 - ) to cover for skin and soft tissue as well as intra-abdominal source. Patient at high risk for MRSA and pseudomonas - follow up blood culture, urine culture, respiratory culture - trend lactate - if does not improve may need to consider alternative etiologies of shock including adrenal insufficiency in old age, cardiogenic etiology - check AM cortisol, TSH - continue home midodrine - HOLD home diltiazem and metoprolol and spironolactone at this time - will consider consulting ID #G-tube malfunction: possibly exacerbated by surrounding local infection. unclear of when placed - GI Dr. Ya consulted, will evaluate patient in the morning #Atrial fibrillation: currently rate controlled - continue home eliquis and amiodarone. hold metoprolol/diltiazem given hypotension #Paranoid schizophrenia #Major depressive disorder #history of CVA #Advanced Parkinson's Dementia #history of seizures - continue home Carbidopa-Levodopa to prevent withdrawal/NMS - Consult Neurology to optimize regimen - continue home keppra - continue home Topiramate #Hypothyroidism - continue home synthroid #T2DM - sliding scale insulin #s/p [employer] pacemaker placement - continue monitoring, no indication to re-interrogate at this time #Abdominal hernia containing intestine - General Surgery Dr. Sanches consulted, appreciate recommendations I spent over 77 minutes on this case, and over 40 minutes of this was spent on direct patient care, coordinating with specialists/ED provider/nursing. I also spent 17 minutes reviewing the patient's medications, outside documentation, past documentation, imaging, Yomi Pretty M.D. Jan 02, 2020 01:32
[2020-01-02] MEDS ORDERED: LR 1000ml 1,000 ML IV SCH ×2 (02:00→02:15)
[2020-01-02] MEDS ORDERED: Midodrine 10mg tab ORAL ONE (02:45)
[2020-01-02 04:00] VITALS: BP 105/60
[2020-01-02 04:58] LABS: EOSINOPHILS % (AUTO) 2.6 % (0.0-3.0); HEMATOCRIT 37.2 % (37.0-47.0); MEAN CORPUSCULAR VOLUME 99 FL (80-99); MONOCYTES % (AUTO) 8.5 % (1.0-10.0); NEUTROPHILS % (AUTO) 69.9 % (45.0-75.0); PLATELET COUNT 199 K/UL (150-450); RED BLOOD COUNT 3.77 M/UL (4.20-5.40); RED CELL DISTRIBUTION WIDTH 13.2 % (11.6-14.8); WHITE BLOOD COUNT 8.9 K/UL (4.8-10.8)
[2020-01-02] MEDS: NovoLOG Insulin Flexpen SUBQ SCH ×4 (05:39→23:54)
[2020-01-02 05:41] LABS: ALANINE AMINOTRANSFERASE 8 U/L (12-78); ALBUMIN 2.1 G/DL (3.4-5.0); ALBUMIN/GLOBULIN RATIO 0.5 (1.0-2.7); ALKALINE PHOSPHATASE 85 U/L (46-116); ANION GAP 6 mmol/L (5-15); ASPARTATE AMINO TRANSFERASE 14 U/L (15-37); BILIRUBIN,TOTAL 0.3 MG/DL (0.2-1.0); BLOOD UREA NITROGEN 25 mg/dL (7-18); CALCIUM 9.3 MG/DL (8.5-10.1); CARBON DIOXIDE 31 MMOL/L (21-32); CHLORIDE 107 MMOL/L (98-107); CREATININE 0.7 MG/DL (0.55-1.30); POTASSIUM 3.5 MMOL/L (3.5-5.1); SODIUM 144 MMOL/L (136-145)
[2020-01-02] MEDS: Cefepime HCl 1 GM in D5W 55 ML IVPB SCH ×2 (05:45→16:33)
[2020-01-02] MEDS ORDERED: D5 1/2NS 1,000 ML IV SCH (06:30)
[2020-01-02 07:23] VITALS: BP 101/69
[2020-01-02] MEDS: Midodrine 10mg tab ORAL SCH ×3 (09:04→16:33)
[2020-01-02] MEDS: Ascorbic Acid 500mg tab GT SCH (09:05)
[2020-01-02] MEDS: Topiramate 100mg tab GT SCH (09:05)
[2020-01-02] MEDS: Eliquis 2.5mg tablet GT SCH ×2 (09:05→16:34)
--- NOTE | 2020-01-02 10:30 | Consultation ---
DATE OF CONSULTATION: 01/02/2020 CONSULTING PHYSICIAN: Biju Ya MD. CHIEF COMPLAINT: Malfunctioning G-tube. HISTORY OF PRESENT ILLNESS: Most of the history per chart. This is an 89-year-old female with numerous medical problems, which I will dictate in a second, who was brought from the [facility] with malfunction G-tube. In the ER, they placed a Rothman and patient had an NG tube and admitted to the hospital. PAST MEDICAL HISTORY: 1. History of dementia. 2. Parkinson disease. 3. CVA. 4. Dysphagia with G-tube. 5. Type 2 diabetes. 6. Hypertension. ALLERGIES: No known drug allergies. MEDICATIONS: Please see medication reconciliation list. SOCIAL HISTORY: Currently lives in a fpc. No history of tobacco, alcohol, or drug abuse. FAMILY HISTORY: Noncontributory. REVIEW OF SYSTEMS: Unable to obtain. PAST SURGICAL HISTORY: Pacemaker placement, right hip surgery. PHYSICAL EXAMINATION: VITAL SIGNS: Temperature is 98.1, pulse 99, respirations 14, blood pressure is 101/69. HEENT: Normocephalic, atraumatic. Sclerae anicteric. NECK: Supple. No evidence of obvious lymphadenopathy. CARDIOVASCULAR: Regular rate and rhythm. Plus S1 and S2. LUNGS: Clear to auscultation bilaterally. ABDOMEN: Positive bowel sounds. Soft and nontender. No rebound. No guarding. No peritoneal sign. EXTREMITIES: No cyanosis. No clubbing. LABORATORY DATA: Sodium is 144, potassium 3.5, BUN is 25, creatinine 0.7, glucose is 72. ASSESSMENT AND PLAN: This is an 89-year-old female with numerous medical problems as dictated above had a malfunctioning G-tube. I removed the Rothman at the bedside, placed a 20-[place] balloon type G-tube, inflated with 20 mL of water to inflate the balloon, and secured the G-tube. During the flush, the G-tube care was flushing without any complication. Our recommendations to remove the NG tube, start G-tube feeding. of 1.2 at 60 mL an hour goal. We will consider changing to Glucerna if the blood sugars are elevated. I want to thank, Dr. Cameron, for this kind referral. Biju Dakotah Ya DR: EDWARD JOB#: [id number] CC: Gina Cameron M.D.; Fax#: [phone]
[2020-01-02 12:00] VITALS: BP 96/54
--- NOTE | 2020-01-02 12:15 | Consultation ---
DATE OF CONSULTATION: 01/02/2020 PULMONARY CONSULTATION CONSULTING PHYSICIAN: Harvinder Woodward MD. HISTORY OF PRESENT ILLNESS: This is an 89-year-old correction resident with dementia, Parkinson's, and previous CVA as well as chronic trach and vent dependency, hypertension, and diabetes, who was brought to the hospital yesterday with concerns about G-tube malfunction. Apparently, at the SNF, the caregivers have noted a malodorous discharge. The patient was brought to the hospital. She was hypotensive. She received fluids. She was found to have cellulitis at the G-tube site and was given antibiotics. The patient is also found to have a ventral abdominal wall hernia and Surgery was consulted. PAST MEDICAL HISTORY: Dementia, Parkinson's, previous CVA, chronic trach, chronic gastrostomy tube, diabetes mellitus, and hypertension. HOME MEDICATIONS: Include amiodarone, Sinemet, Cardizem, Pepcid, Keppra, Synthroid, metoprolol, midodrine, NPH, Aldactone, and Topamax. She is also on Eliquis. REVIEW OF SYSTEMS: Not obtainable. PHYSICAL EXAMINATION: GENERAL: Reveals an elderly female. VITAL SIGNS: Blood pressure is 101/60, heart rate 94, respirations 16. O2 saturation 99% on 35% FiO2 on assist-control mechanical ventilation. NECK: Tracheostomy site is clean. CHEST: Clear breath sounds. ABDOMEN: Soft. G-tube site is noted. LABORATORY DATA: Lab testing shows normal CBC and BMP with a BUN of 25. Magnesium 1.7. Albumin is 2.1. IMPRESSION: 1. Moderate malnutrition. 2. G-tube site cellulitis. 3. Chronic tracheostomy. 4. Chronic respiratory failure. 5. Dementia. 6. Parkinson's. 7. Diabetes mellitus. 8. Hypertension. DISCUSSION: Admit to the hospital. Agree with broad-spectrum antibiotics. Surgical evaluation noted. We will continue AC mode. GI evaluation noted. Continue Eliquis. We will follow carefully. IV fluids. Harvinder Woodward M.D. DR: JESSICA JOB#: [id number] CC:
--- NOTE | 2020-01-02 13:07 | Consultation ---
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 Came to [facility] department for evaluation which time had a CT with abdominal distention. Surgery called to evaluate and assist with care. Patient seen, patient evaluated, chart reviewed. Ventral hernia with bowel contents identified on CT. Patient is awake alert but not unable to provide history or cooperate with exam. She does respond to painful stimuli though. Allergies: Coded Allergies: No Known Allergies (Unverified , 03/03/18) Medication History Scheduled Amiodarone Hcl* (Pacerone*), 100 MG ORAL EVERY 8 HOURS, (Reported) Ascorbic Acid* (Vitamin C*), 500 MG ORAL DAILY, (Reported) Carbidopa/Levodopa 25-100 Mg* (Sinemet 25-100 Mg Tablet*), 1 TAB ORAL THREE TIMES A DAY, (Reported) Diltiazem Hcl* (Cardizem*), 30 MG PO QID, (Reported) Doxycycline Hyclate* (Vibramycin*), 100 MG ORAL EVERY 12 HOURS, (Reported) Famotidine* (Pepcid 20mg tablet*), 20 MG ORAL DAILY, (Reported) Levetiracetam* (Levetiracetam*), 750 MG ORAL TWICE A DAY, (Reported) Levothyroxine Sodium* (Synthroid*), 100 MCG ORAL DAILY, (Reported) Metoclopramide Hcl* (Metoclopramide Hcl*), 5 MG ORAL EVERY 6 HOURS, (Reported) Metoprolol Tartrate* (Metoprolol Tartrate*), 25 MG ORAL EVERY 12 HOURS, ( Reported) Midodrine* (Proamatine*), 10 MG ORAL THREE TIMES A DAY, (Reported) Nph, Human Insulin Isophane* (Novolin N*), 24 SUBQ BID, (Reported) Spironolactone* (Spironolactone*), 100 MG ORAL DAILY, (Reported) Topiramate* (Topamax*), 200 MG ORAL DAILY, (Reported) Scheduled PRN Ipratropium [place] 0.5MG/2.5ML (Ipratropium [place] 0.5MG/2.5ML), 0.5 MG HHN Q6H PRN for Shortness of Breath, (Reported) Miscellaneous Medications Apixaban (Eliquis), 2.5 MG PO, (Reported) Chlorhexidine Gluconate* (Hibiclens*), 118 ML TP, (Reported) Insulin Lispro (Humalog), 0 SUBQ, (Reported) Lacosamide (Vimpat), 150 MG PO, (Reported) Lactobacillus Acidophilus (Acidophilus), 1 EACH PO, (Reported) Sennosides (Senna Laxative), 8.6 MG PO, (Reported) Zinc Amino Acid Chelate (Zinc), 50 MG ORAL, (Reported) Discontinued Medications Acetaminophen (Acetaminophen), 80 MG PO ONCE, (Reported) Discontinued Reason: MD discontinued med Aripiprazole* (Abilify*), 2 MG ORAL DAILY, (Reported) Discontinued Reason: MD discontinued med Ciprofloxacin (Cipro), 500 MG PO BID Discontinued Reason: MD discontinued med Digoxin* (Digoxin*), 0.125 MG ORAL DAILY, (Reported) Discontinued Reason: MD discontinued med Levothyroxine Sodium* (Levothyroxine Sodium), 25 MG ORAL EVERY OTHER DAY, ( Reported) Discontinued Reason: MD discontinued med Levothyroxine Sodium* (Levothyroxine Sodium), 50 MG ORAL EVERY OTHER DAY, ( Reported) Discontinued Reason: MD discontinued med Magnesium Oxide (Magnesium), 420 MG PO THREE TIMES A DAY, (Reported) Discontinued Reason: MD discontinued med Metformin Hcl (Metformin Hcl), 500 MG ORAL, (Reported) Discontinued Reason: MD discontinued med Metoprolol Tartrate (Metoprolol Tartrate), 25 MG ORAL Q12HR Discontinued Reason: MD discontinued med Mirtazapine (Remeron), 35 MG ORAL, (Reported) Discontinued Reason: MD discontinued med Simvastatin (Zocor), Unknown Dose ORAL BEDTIME, (Reported) Discontinued Reason: MD discontinued med [sodium ], 1 GM ORAL THREE TIMES A DAY, (Reported) Discontinued Reason: MD discontinued med [xeralto], (Reported) Discontinued Reason: MD discontinued med [xeralto], Unknown Dose, (Reported) Discontinued Reason: MD discontinued med Patient History Limited by: medical condition History Provided By: Medical Record, PMD Healthcare decision maker N Resuscitation status Advanced Directive on File Past Medical/Surgical History Past Medical/Surgical History: (1) Chronic anticoagulation (2) Near syncope (3) Sepsis (4) Sepsis (5) Acute encephalopathy (6) Cellulitis (7) Hypotension (8) Malfunction of gastrostomy tube (9) Ventral hernia (10) Parkinsons disease (11) Paranoid schizophrenia (12) HTN (hypertension) (13) Pacemaker (14) History of CVA (cerebrovascular accident) (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 (16) Chest pain (17) Hypothyroidism (18) Diabetes mellitus Review of Systems ROS Narrative Limited given patient's baseline medical condition Physical Exam General Appearance: no apparent distress, alert Lines, tubes and drains: peripheral HEENT: normocephalic, atraumatic Neck: trach Respiratory/Chest: decreased breath sounds, on vent Cardiovascular/Chest: normal rate, regular rhythm Abdomen: soft, distended, hernia - Reducible, feeding tube - Cellulitis, other Extremities: non-tender, normal capillary refill, trace edema Skin Exam: warm/dry Neurologic: alert Last 24 Hour Vital Signs Date Time Temp Pulse Resp B/P (MAP) Pulse Ox O2 Delivery O2 Flow Rate FiO2 01/02/20 12:16 89 01/02/20 12:00 35.0 01/02/20 12:00 97.7 80 14 96/54 (68) 99 01/02/20 12:00 35.0 01/02/20 11:29 73 14 35 01/02/20 09:26 100 23 35 01/02/20 08:47 89 01/02/20 08:00 35.0 01/02/20 08:00 Mechanical Ventilator 01/02/20 07:23 98.1 99 14 101/69 (80) 99 01/02/20 07:15 88 15 35 01/02/20 05:10 98 16 35 01/02/20 04:00 35.0 01/02/20 04:00 Mechanical Ventilator 01/02/20 04:00 97.3 76 15 105/60 (75) 100 01/02/20 03:28 89 01/02/20 03:15 96 15 35 01/02/20 00:38 87 14 35 01/02/20 00:00 97.7 70 18 117/69 (85) 100 01/02/20 00:00 35.0 01/02/20 00:00 Mechanical Ventilator 01/01/20 23:55 85 01/01/20 22:38 84 14 35 01/01/20 21:05 Mechanical Ventilator 15.0 01/01/20 21:03 74 18 35 01/01/20 20:50 97.0 69 19 122/90 100 Mechanical Ventilator 15.0 35 01/01/20 19:20 96.5 75 18 129/95 100 Mechanical Ventilator 35 01/01/20 19:17 73 19 129/95 100 Mechanical Ventilator 35 01/01/20 19:15 80 16 35 01/01/20 18:00 98.3 72 20 118/63 100 Mechanical Ventilator 35 01/01/20 17:30 79 18 116/70 99 Mechanical Ventilator 35 01/01/20 17:15 81 15 82/53 100 Mechanical Ventilator 35 01/01/20 17:05 81 15 Mechanical Ventilator 50 01/01/20 17:01 80 14 35 01/01/20 16:45 79 18 104/49 100 Mechanical Ventilator 100 01/01/20 16:31 96.1 84 20 115/70 (85) 96 Ambu-Bag 15.0 Intake and Output 01/01/20 01/02/20 19:00 07:00 Intake Total 2110 ml 2338.3 ml Output Total 30 ml Balance 2080 ml 2338.3 ml Intake IV Total 2110 ml 2338.3 ml Output Urine Total 30 ml # Voids 6 # Bowel Movements 6 Laboratory Tests Test 01/01/20 16:55 01/01/20 17:47 01/01/20 17:56 01/01/20 19:21 White Blood Count 10.4 K/UL (4.8-10.8) Red Blood Count 4.08 M/UL (4.20-5.40) L Hemoglobin 13.2 G/DL (12.0-16.0) Hematocrit 40.2 % (37.0-47.0) Mean Corpuscular Volume 99 FL (80-99) Mean Corpuscular Hemoglobin 32.3 PG (27.0-31.0) H Mean Corpuscular Hemoglobin Concent 32.7 G/DL (32.0-36.0) Red Cell Distribution Width 13.9 % (11.6-14.8) Platelet Count 205 K/UL (150-450) Mean Platelet Volume 7.5 FL (6.5-10.1) Neutrophils (%) (Auto) 71.6 % (45.0-75.0) Lymphocytes (%) (Auto) 14.9 % (20.0-45.0) L Monocytes (%) (Auto) 8.1 % (1.0-10.0) Eosinophils (%) (Auto) 3.9 % (0.0-3.0) H Basophils (%) (Auto) 1.5 % (0.0-2.0) Prothrombin Time 12.0 SEC (9.30-11.50) H Prothromb Time International Ratio 1.1 (0.9-1.1) Activated Partial Thromboplast Time 26 SEC (23-33) Sodium Level 140 MMOL/L (136-145) Potassium Level 3.8 MMOL/L (3.5-5.1) Chloride Level 101 MMOL/L (98-107) Carbon Dioxide Level 37 MMOL/L (21-32) H Anion Gap 2 mmol/L (5-15) L Blood Urea Nitrogen 34 mg/dL (7-18) H Creatinine 0.8 MG/DL (0.55-1.30) Estimat Glomerular Filtration Rate > 60 mL/min (>60) Glucose Level 133 MG/DL (74-106) H Lactic Acid Level 1.20 mmol/L (0.4-2.0) Calcium Level 10.1 MG/DL (8.5-10.1) Total Bilirubin 0.2 MG/DL (0.2-1.0) Aspartate Amino Transf (AST/SGOT) 27 U/L (15-37) Alanine Aminotransferase (ALT/SGPT) 7 U/L (12-78) L Alkaline Phosphatase 105 U/L (46-116) Total Creatine Kinase 29 U/L (26-308) Creatine Kinase MB 1.7 NG/ML (0.0-3.6) Creatine Kinase MB Relative Index 5.8 Troponin I 0.012 ng/mL (0.000-0.056) Total Protein 7.2 G/DL (6.4-8.2) Albumin 2.3 G/DL (3.4-5.0) L Globulin 4.9 g/dL Albumin/Globulin Ratio 0.5 (1.0-2.7) L Lipase 155 U/L (73-393) Thyroid Stimulating Hormone (TSH) 6.494 uiU/mL (0.358-3.740) Urine Color Pale yellow Urine Appearance Clear Urine pH 6.5 (4.5-8.0) Urine Specific [place] 1.010 (1.005-1.035) Urine Protein 1+ (NEGATIVE) H Urine Glucose (UA) Negative (NEGATIVE) Urine Ketones Negative (NEGATIVE) Urine Blood Negative (NEGATIVE) Urine Nitrite Negative (NEGATIVE) Urine Bilirubin Negative (NEGATIVE) Urine Urobilinogen Normal MG/DL (0.0-1.0) Urine Leukocyte Esterase 1+ (NEGATIVE) H Urine RBC 0-2 /HPF (0 - 2) Urine WBC 0-2 /HPF (0 - 2) Urine Squamous Epithelial Cells Occasional /LPF Urine Bacteria Occasional /HPF (NONE) POC Whole Blood Glucose 94 MG/DL (74-106) Test 01/02/20 03:35 01/02/20 05:37 01/02/20 06:23 01/02/20 12:08 White Blood Count 8.9 K/UL (4.8-10.8) Red Blood Count 3.77 M/UL (4.20-5.40) L Hemoglobin 12.0 G/DL (12.0-16.0) Hematocrit 37.2 % (37.0-47.0) Mean Corpuscular Volume 99 FL (80-99) Mean Corpuscular Hemoglobin 31.9 PG (27.0-31.0) H Mean Corpuscular Hemoglobin Concent 32.3 G/DL (32.0-36.0) Red Cell Distribution Width 13.2 % (11.6-14.8) Platelet Count 199 K/UL (150-450) Mean Platelet Volume 7.1 FL (6.5-10.1) Neutrophils (%) (Auto) 69.9 % (45.0-75.0) Lymphocytes (%) (Auto) 18.0 % (20.0-45.0) L Monocytes (%) (Auto) 8.5 % (1.0-10.0) Eosinophils (%) (Auto) 2.6 % (0.0-3.0) Basophils (%) (Auto) 1.0 % (0.0-2.0) Prothrombin Time 11.4 SEC (9.30-11.50) Prothromb Time International Ratio 1.0 (0.9-1.1) Activated Partial Thromboplast Time 26 SEC (23-33) Sodium Level 144 MMOL/L (136-145) Potassium Level 3.5 MMOL/L (3.5-5.1) Chloride Level 107 MMOL/L (98-107) Carbon Dioxide Level 31 MMOL/L (21-32) Anion Gap 6 mmol/L (5-15) Blood Urea Nitrogen 25 mg/dL (7-18) H Creatinine 0.7 MG/DL (0.55-1.30) Estimat Glomerular Filtration Rate > 60 mL/min (>60) Glucose Level 72 MG/DL (74-106) L Lactic Acid Level 1.10 mmol/L (0.4-2.0) Calcium Level 9.3 MG/DL (8.5-10.1) Magnesium Level 1.7 MG/DL (1.8-2.4) L Total Bilirubin 0.3 MG/DL (0.2-1.0) Aspartate Amino Transf (AST/SGOT) 14 U/L (15-37) L Alanine Aminotransferase (ALT/SGPT) 8 U/L (12-78) L Alkaline Phosphatase 85 U/L (46-116) Pro-B-Type Natriuretic Peptide 795 pg/mL (0-125) H Total Protein 6.7 G/DL (6.4-8.2) Albumin 2.1 G/DL (3.4-5.0) L Globulin 4.6 g/dL Albumin/Globulin Ratio 0.5 (1.0-2.7) L Free Thyroxine 1.26 NG/DL (0.76-1.46) Cortisol AM Sample Pending POC Whole Blood Glucose Pending Pending 163 MG/DL (74-106) H Microbiology Date/Time Source Procedure Growth Status 01/01/20 17:56 Nasopharynx SARS-CoV-2 RdRp Gene Assay - Final Complete 01/01/20 17:56 Indwelling Cath Urine Culture - Preliminary NO GROWTH Resulted Height (Feet): 5 Height (Inches): 2.00 Weight (Pounds): 145 Medications Current Medications Medications (Trade) Dose Ordered Sig/Genaro Route PRN Reason Start Time Stop Time Status Last Admin Dose Admin Amiodarone HCl (Cordarone) 100 mg Q8H GT 01/02/20 00:00 04/01/20 00:00 01/02/20 09:03 Apixaban (Eliquis) 2.5 mg BID GT 01/02/20 09:00 04/01/20 08:59 01/02/20 09:05 Ascorbic Acid (Vitamin C) 500 mg DAILY GT 01/02/20 09:00 02/01/20 08:59 01/02/20 09:05 Carbidopa/Levodopa (Sinemet 25/100) 1 tab Q8H GT 01/02/20 00:00 02/01/20 00:00 01/02/20 09:04 Cefepime HCl 1 gm/ Dextrose 55 ml @ 110 mls/hr Q12HR@0600,1800 IVPB 01/02/20 06:00 01/09/20 05:59 01/02/20 05:45 Dextrose (Dextrose 50%) 25 ml Q30M PRN IV Hypoglycemia 01/01/20 19:30 03/31/20 19:29 01/02/20 05:43 Dextrose (Dextrose 50%) 50 ml Q30M PRN IV Hypoglycemia 01/01/20 19:30 03/31/20 19:29 Famotidine (Pepcid) 20 mg DAILY GT 01/02/20 09:00 04/01/20 08:59 01/02/20 09:04 Insulin Aspart (NovoLOG) Q6H SUBQ 01/02/20 06:00 04/01/20 05:59 01/02/20 12:12 Iohexol (OMNIPAQUE-300 100ml) 100 ml NOW PRN INJ Radiology Procedure 01/01/20 17:15 01/03/20 17:10 Ipratropium [place] (Atrovent) 500 mcg Q6H PRN HHN Shortness of Breath 01/01/20 19:30 01/06/20 19:29 Levetiracetam (Keppra) 750 mg Q12HR GT 01/02/20 00:00 02/01/20 00:00 01/02/20 09:06 Levothyroxine Sodium (Synthroid) 100 mcg DAILY GT 01/02/20 09:00 02/01/20 08:59 01/02/20 09:05 Lorazepam (Ativan 2mg/ml 1ml) 1 mg DAILY PRN IV seizure activity 01/01/20 21:45 01/08/20 21:44 Metoclopramide HCl (Reglan) 5 mg EVERY 6 HOURS GT 01/02/20 00:00 02/01/20 00:00 01/02/20 12:10 Metronidazole 100 ml @ 100 mls/hr Q8H IVPB 01/02/20 01:00 01/09/20 00:59 01/02/20 09:07 Midodrine (Pro-Amatine) 10 mg THREE TIMES A DAY ORAL 01/02/20 09:00 04/01/20 08:59 01/02/20 12:09 Topiramate (Topamax) 200 mg DAILY GT 01/02/20 09:00 02/01/20 08:59 01/02/20 09:05 Vancomycin HCl (Vanco pharmacy to dose) 1 ea DAILY PRN MISC Per rx protocol 01/01/20 19:30 01/31/20 19:29 Vancomycin HCl 750 mg/Sodium Chloride 275 ml @ 183.333 mls/hr Q24H IVPB 01/02/20 18:00 01/07/20 17:59 Assessment/Plan Problem List: (1) Sepsis ICD Codes: A41.9 - Sepsis, unspecified organism SNOMED: 07877826 (2) Acute encephalopathy ICD Codes: G93.40 - Encephalopathy, unspecified SNOMED: 21784316, 029732494 (3) Cellulitis ICD Codes: L03.90 - Cellulitis, unspecified SNOMED: 850079839 (4) Hypotension ICD Codes: I95.9 - Hypotension, unspecified SNOMED: 40451181 (5) Malfunction of gastrostomy tube ICD Codes: K94.23 - Gastrostomy malfunction SNOMED: 614647074 (6) Ventral hernia Assessment & Plan: 89-year-old female identified to have a large ventral hernia with bowel contents. Abdominal distention. G-tube site cellulitis malfunction. Patient is alert and responds to painful stimuli but she is unable to verbalize or give history or participate in exam I have reviewed the CT personally and discussed the care plan with emergency department physician and medical teams. I was able to easily reduce the hernia at bedside. It is a [place] hernia with bowel contents even considerably loss of domain. Patient is having multiple bowel movements and is not obstructed. She is not incarcerated No acute surgical intervention recommended for her hernia as is chronic and given her age and condition high risk Okay for tube feeds G-tube site evaluated silver nitrate applied Continue with local wound care Antibiotics per infectious disease We will follow with her abdominal examinations recommendations Thank you for let me participate in patient's care Liver: Unremarkable. No mass. Gallbladder and bile ducts: Unremarkable. No calcified stones. No ductal dilation. Pancreas: Unremarkable. No mass. No ductal dilation. Spleen: Unremarkable. No splenomegaly. Adrenals: Unremarkable. No mass. Kidneys and ureters: Kidneys show an inferior pole 1.8 cm cyst that does not require follow-up imaging. No hydronephrosis or hydroureter. No radiopaque stones identified. Stomach and bowel: Again evident is a ventral abdominal wall hernia containing a portion of the transverse colon. The hernia sac is 4.2 cm transverse and 3.9 cm craniocaudal. There is interval presence of a tract from a now since removed percutaneous gastrostomy. There is moderate stool throughout the large bowel with scattered colonic diverticuli. No findings of acute diverticulitis. PELVIS: Appendix: No findings to suggest acute appendicitis. Bladder: Unremarkable. No mass. Reproductive: Uterus is atrophic. ABDOMEN and PELVIS: Intraperitoneal space: Unremarkable. No free air. No significant fluid collection. Bones/joints: Bones show degenerative changes in the spine and fixation screws in the left femoral neck, similar to prior. No acute fracture. No dislocation. Soft tissues: See above. Vasculature: Abdominal aorta shows calcifications. No abdominal aortic aneurysm. Lymph nodes: Unremarkable. No enlarged lymph nodes. Tubes, lines and devices: Lung bases show left chest pacemaker. IMPRESSION: Abdominal distention could be a combination of patient body habitus and the presence of a ventral abdominal wall hernia that contains a portion of the transverse colon. There are no findings of bowel obstruction, or acute inflammation. . ICD Codes: K43.9 - Ventral hernia without obstruction or gangrene SNOMED: 236670477 (7) Parkinsons disease ICD Codes: G20 - Parkinson's disease SNOMED: 19666303 (8) Paranoid schizophrenia ICD Codes: F20.0 - Paranoid schizophrenia SNOMED: 18728885 (9) HTN (hypertension) ICD Codes: I10 - Essential (primary) hypertension SNOMED: 56903666 (10) Pacemaker ICD Codes: Z95.0 - Presence of cardiac pacemaker SNOMED: 572957807 (11) History of CVA (cerebrovascular accident) ICD Codes: Z86.73 - Personal history of transient ischemic attack (TIA), and cerebral infarction without residual deficits SNOMED: 364085917 (12) Gastrostomy tube dependent ICD Codes: Z93.1 - Gastrostomy status SNOMED: 556257053, 422563471 (13) Sepsis ICD Codes: A41.9 - Sepsis, unspecified organism SNOMED: 77215998 (14) Chronic anticoagulation ICD 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
[2020-01-02] MEDS ORDERED: Zinc Oxide Oint 2oz TOPIC PRN (14:30)
--- NOTE | 2020-01-02 15:21 | Diagnostic Imaging Report ---
Indication: Cough Technique: One view of the chest Comparison: 03/03/2018 Findings: Interim tracheostomy placement. Left chest pacemaker again demonstrated. There is some atelectasis at the left lateral lung base. There may be a small amount of pleural fluid on the left. Lungs and pleural spaces are otherwise clear. Impression: Left lateral basilar atelectasis and possible small left pleural effusion
[2020-01-02 16:00] VITALS: BP 136/84
[2020-01-02] MEDS ORDERED: METOPROLOL TART50 M1 ORAL (17:44)
[2020-01-02] MEDS ORDERED: PRO-AMATINE10 MG ORAL (17:47)
[2020-01-02] MEDS: Vancomycin 750mg/NS 275ml IVPB SCH ×2 (18:36)
[2020-01-02 20:00] VITALS: BP 112/59
[2020-01-03] VITALS: BP 119/65
[2020-01-03] MEDS ORDERED: METOPROLOL TART25 MG ORAL (00:17)
[2020-01-03] MEDS ORDERED: CALCIUM500 M3 PO (00:17)
[2020-01-03 04:00] VITALS: BP 115/59
[2020-01-03 05:00] LABS: ALANINE AMINOTRANSFERASE 11 U/L (12-78); ALBUMIN 1.9 G/DL (3.4-5.0); ANION GAP 6 mmol/L (5-15); ASPARTATE AMINO TRANSFERASE 16 U/L (15-37); BILIRUBIN,TOTAL 0.4 MG/DL (0.2-1.0); BLOOD UREA NITROGEN 22 mg/dL (7-18); CALCIUM 8.6 MG/DL (8.5-10.1); CARBON DIOXIDE 30 MMOL/L (21-32); CHLORIDE 109 MMOL/L (98-107); CREATININE 0.8 MG/DL (0.55-1.30); POTASSIUM 3.2 MMOL/L (3.5-5.1); SODIUM 144 MMOL/L (136-145)
[2020-01-03] MEDS: Cefepime HCl 1 GM in D5W 55 ML IVPB SCH ×2 (05:22→17:44)
[2020-01-03] MEDS: Metoclopramide 10mg/10ml Liq GT SCH ×4 (05:22→23:09)
[2020-01-03 05:39] LABS: ALKALINE PHOSPHATASE 82 U/L (46-116)
[2020-01-03] MEDS: NovoLOG Insulin Flexpen SUBQ SCH ×4 (06:00→23:11)
[2020-01-03 08:00] VITALS: BP 101/74
[2020-01-03] MEDS: Levodopa/Carbidopa 25/100 tab GT SCH ×3 (08:38→23:09)
[2020-01-03] MEDS: Amiodarone 200mg tab GT SCH ×3 (08:38→23:10)
[2020-01-03] MEDS: Eliquis 2.5mg tablet GT SCH ×2 (08:38→17:43)
[2020-01-03] MEDS: levETIRAcetam 500mg/5ml Liquid GT SCH ×2 (08:39→20:03)
[2020-01-03] MEDS: Midodrine 10mg tab ORAL SCH ×3 (08:39→17:44)
[2020-01-03] MEDS: Ascorbic Acid 500mg tab GT SCH (08:39)
[2020-01-03] MEDS: Topiramate 100mg tab GT SCH (08:39)
--- NOTE | 2020-01-03 08:43 | General Progress Note ---
Assessment/Plan Status: stable Assessment/Plan: 1. History of dementia. 2. Parkinson disease. 3. CVA. 4. Dysphagia with G-tube. 5. Type 2 diabetes. 6. Hypertension. GT has been changed and now functioning GTF monitor for residuals abx per ID monitor for labs Subjective ROS Limited/Unobtainable: No Allergies: Coded Allergies: No Known Allergies (Unverified , 03/03/18) Objective Last 24 Hour Vital Signs Date Time Temp Pulse Resp B/P (MAP) Pulse Ox O2 Delivery O2 Flow Rate FiO2 01/03/20 07:20 98 18 35 01/03/20 05:01 95 18 35 01/03/20 04:00 98.3 80 14 115/59 (77) 100 01/03/20 04:00 35.0 01/03/20 04:00 Mechanical Ventilator 01/03/20 03:40 87 01/03/20 02:59 80 15 35 01/03/20 00:36 87 14 35 01/03/20 00:00 Mechanical Ventilator 01/03/20 00:00 98.0 80 14 119/65 (83) 99 01/02/20 23:27 81 01/02/20 22:49 86 14 35 01/02/20 20:48 87 23 35 01/02/20 20:00 97.6 70 14 112/59 (76) 99 01/02/20 20:00 35.0 01/02/20 20:00 Mechanical Ventilator 01/02/20 19:34 74 01/02/20 19:30 73 14 35 01/02/20 16:56 87 01/02/20 16:45 82 19 35 01/02/20 16:00 35.0 01/02/20 16:00 98.1 85 14 136/84 (101) 99 01/02/20 16:00 Mechanical Ventilator 01/02/20 15:06 78 18 35 01/02/20 13:14 82 16 35 01/02/20 12:16 89 01/02/20 12:00 Mechanical Ventilator 01/02/20 12:00 35.0 01/02/20 12:00 97.7 80 14 96/54 (68) 99 01/02/20 12:00 35.0 01/02/20 11:29 73 14 35 01/02/20 09:26 100 23 35 01/02/20 08:47 89 Intake and Output 01/02/20 01/03/20 19:00 07:00 Intake Total 1436.666 ml 868.334 ml Output Total 500 ml 160 ml Balance 936.666 ml 708.334 ml Intake Free Water 50 ml 50 ml IV Total 846.666 ml 338.334 ml Tube Feeding 340 ml 480 ml Other 200 ml Output Urine Total 500 ml 160 ml # Voids 4 # Bowel Movements 4 4 Laboratory Tests 01/02/20 12:08: POC Whole Blood Glucose 163H 01/02/20 17:51: POC Whole Blood Glucose 229H 01/02/20 23:45: POC Whole Blood Glucose 219H 01/03/20 03:50: Sodium Level 144, Potassium Level 3.2L, Chloride Level 109H, Carbon Dioxide Level 30, Anion Gap 6, Blood Urea Nitrogen 22H, Creatinine 0.8, Estimat Glomerular Filtration Rate > 60, Glucose Level 176#H, Calcium Level 8.6, Total Bilirubin 0.4, Aspartate Amino Transf (AST/SGOT) 16, Alanine Aminotransferase ( ALT/SGPT) 11L, Alkaline Phosphatase 82, Total Protein 5.9L, Albumin 1.9L, Globulin 4.0 01/03/20 05:25: POC Whole Blood Glucose [Pending] Height (Feet): 5 Height (Inches): 2.00 Weight (Pounds): 158 General Appearance: lethargic EENT: normal ENT inspection Neck: supple Cardiovascular: normal rate Respiratory/Chest: decreased breath sounds Abdomen: hypoactive bowel sounds Extremities: non-tender Biju Ya MD Jan 03, 2020 08:43
--- NOTE | 2020-01-03 09:00 | General Progress Note ---
Assessment/Plan Status: stable Assessment/Plan: This is an 89 year old chronically ill patient with severe dementia, dependent on trach and PEG, presented for G-tube malfunction, found to have sepsis d/t G- tube site cellulitis #Sepsis d/t G-tube site cellulitis - aggressive IVF resuscitaiton - continue Vanc/Cefepime/Flagyl (01/01 - ) - ID recs appreciated - Surgery recs appreciated - continue to hold home diltiazem and metoprolol and spironolactone, currently normotensive #G-tube malfunction, replace by GI - Ok to use new G-tube #Hypokalemia - replace and monitor daily daily #Chronic respiratory failure - currently on vent - Pulm recs appreciated #Atrial fibrillation: currently rate controlled - continue home Eliquis and amiodarone. hold metoprolol/diltiazem as above #Paranoid schizophrenia #Major depressive disorder #history of CVA #Advanced Parkinson's Dementia #history of seizures - continue home Carbidopa-Levodopa to prevent withdrawal/NMS - Consult Neurology to optimize regimen - continue home Keppra - continue home Topiramate #Hypothyroidism - continue home Synthroid #T2DM - sliding scale insulin #s/p [employer] pacemaker placement - continue monitoring, no indication to re-interrogate at this time #Abdominal hernia containing intestine - General Surgery Dr. Sanches consulted, appreciate recommendations I spent over 35 minutes on this case, and 20 minutes of this was spent on direct patient care, coordinating with specialists/RN I spent an additional 35 minutes on review of medical records including prior outside hospital records, consult notes, progress notes, procedures, imaging, labs, hemodynamics, and other clinical documentation. Subjective Date patient seen: Jan 03, 2020 Time patient seen: 07:22 ROS Limited/Unobtainable: Yes Allergies: Coded Allergies: No Known Allergies (Unverified , 03/03/18) Subjective Follow up sepsis due to PEG site cellulitis and PEG malfunction No acute events overnight per RN Patient nonverbal Objective Last 24 Hour Vital Signs Date Time Temp Pulse Resp B/P (MAP) Pulse Ox O2 Delivery O2 Flow Rate FiO2 01/03/20 07:20 98 18 35 01/03/20 05:01 95 18 35 01/03/20 04:00 98.3 80 14 115/59 (77) 100 01/03/20 04:00 35.0 01/03/20 04:00 Mechanical Ventilator 01/03/20 03:40 87 01/03/20 02:59 80 15 35 01/03/20 00:36 87 14 35 01/03/20 00:00 Mechanical Ventilator 01/03/20 00:00 98.0 80 14 119/65 (83) 99 01/02/20 23:27 81 01/02/20 22:49 86 14 35 01/02/20 20:48 87 23 35 01/02/20 20:00 97.6 70 14 112/59 (76) 99 01/02/20 20:00 35.0 01/02/20 20:00 Mechanical Ventilator 01/02/20 19:34 74 01/02/20 19:30 73 14 35 01/02/20 16:56 87 01/02/20 16:45 82 19 35 01/02/20 16:00 35.0 01/02/20 16:00 98.1 85 14 136/84 (101) 99 01/02/20 16:00 Mechanical Ventilator 01/02/20 15:06 78 18 35 01/02/20 13:14 82 16 35 01/02/20 12:16 89 01/02/20 12:00 Mechanical Ventilator 01/02/20 12:00 35.0 01/02/20 12:00 97.7 80 14 96/54 (68) 99 01/02/20 12:00 35.0 01/02/20 11:29 73 14 35 01/02/20 09:26 100 23 35 Intake and Output 01/02/20 01/03/20 19:00 07:00 Intake Total 1436.666 ml 868.334 ml Output Total 500 ml 160 ml Balance 936.666 ml 708.334 ml Intake Free Water 50 ml 50 ml IV Total 846.666 ml 338.334 ml Tube Feeding 340 ml 480 ml Other 200 ml Output Urine Total 500 ml 160 ml # Voids 4 # Bowel Movements 4 4 Laboratory Tests 01/02/20 12:08: POC Whole Blood Glucose 163H 01/02/20 17:51: POC Whole Blood Glucose 229H 01/02/20 23:45: POC Whole Blood Glucose 219H 01/03/20 03:50: Sodium Level 144, Potassium Level 3.2L, Chloride Level 109H, Carbon Dioxide Level 30, Anion Gap 6, Blood Urea Nitrogen 22H, Creatinine 0.8, Estimat Glomerular Filtration Rate > 60, Glucose Level 176#H, Calcium Level 8.6, Total Bilirubin 0.4, Aspartate Amino Transf (AST/SGOT) 16, Alanine Aminotransferase ( ALT/SGPT) 11L, Alkaline Phosphatase 82, Total Protein 5.9L, Albumin 1.9L, Globulin 4.0 01/03/20 05:25: POC Whole Blood Glucose [Pending] Height (Feet): 5 Height (Inches): 2.00 Weight (Pounds): 158 General Appearance: lethargic Neck: normal alignment, supple Cardiovascular: normal rate, regular rhythm Respiratory/Chest: lungs clear, normal breath sounds Abdomen: non tender, soft Keyon Mistry MD Jan 03, 2020 09:00
[2020-01-03] MEDS ORDERED: NS 275ml ONE ×2 (09:50→14:00)
--- NOTE | 2020-01-03 10:36 | Pulmonology Progress Note ---
Subjective ROS Limited/Unobtainable: Yes Interval Events: None new Constitutional: Reports: no symptoms HEENT: Repors: no symptoms Respiratory: Reports: no symptoms Allergies: Coded Allergies: No Known Allergies (Unverified , 03/03/18) Objective Last 24 Hour Vital Signs Date Time Temp Pulse Resp B/P (MAP) Pulse Ox O2 Delivery O2 Flow Rate FiO2 01/03/20 09:06 87 14 35 01/03/20 07:20 98 18 35 01/03/20 05:01 95 18 35 01/03/20 04:00 98.3 80 14 115/59 (77) 100 01/03/20 04:00 35.0 01/03/20 04:00 Mechanical Ventilator 01/03/20 03:40 87 01/03/20 02:59 80 15 35 01/03/20 00:36 87 14 35 01/03/20 00:00 Mechanical Ventilator 01/03/20 00:00 98.0 80 14 119/65 (83) 99 01/02/20 23:27 81 01/02/20 22:49 86 14 35 01/02/20 20:48 87 23 35 01/02/20 20:00 97.6 70 14 112/59 (76) 99 01/02/20 20:00 35.0 01/02/20 20:00 Mechanical Ventilator 01/02/20 19:34 74 01/02/20 19:30 73 14 35 01/02/20 16:56 87 01/02/20 16:45 82 19 35 01/02/20 16:00 35.0 01/02/20 16:00 98.1 85 14 136/84 (101) 99 01/02/20 16:00 Mechanical Ventilator 01/02/20 15:06 78 18 35 01/02/20 13:14 82 16 35 01/02/20 12:16 89 01/02/20 12:00 Mechanical Ventilator 01/02/20 12:00 35.0 01/02/20 12:00 97.7 80 14 96/54 (68) 99 01/02/20 12:00 35.0 01/02/20 11:29 73 14 35 Intake and Output 01/02/20 01/03/20 19:00 07:00 Intake Total 1436.666 ml 868.334 ml Output Total 500 ml 160 ml Balance 936.666 ml 708.334 ml Intake Free Water 50 ml 50 ml IV Total 846.666 ml 338.334 ml Tube Feeding 340 ml 480 ml Other 200 ml Output Urine Total 500 ml 160 ml # Voids 4 # Bowel Movements 4 4 General Appearance: no acute distress Respiratory: chest wall non-tender, lungs clear Cardiovascular: normal peripheral pulses, normal rate Abdomen: normal bowel sounds Microbiology Date/Time Source Procedure Growth Status 01/01/20 17:30 Blood Blood Culture - Preliminary NO GROWTH AFTER 24 HOURS Resulted 01/01/20 16:55 Blood Blood Culture - Preliminary NO GROWTH AFTER 24 HOURS Resulted 01/01/20 17:56 Nasal Nares MRSA Culture - Final NO METHICILLIN RESISTANT STAPH AUREUS... Complete 01/01/20 17:56 Nasopharynx SARS-CoV-2 RdRp Gene Assay - Final Complete 01/01/20 17:56 Indwelling Cath Urine Culture - Preliminary NO GROWTH AFTER 24 HOURS Resulted 01/01/20 17:56 Rectum - Final NO CARBAPENEM-RESISTANT ENTEROBACTERI... Complete 01/01/20 17:56 Rectum VRE Culture - Final NO VANCOMYCIN RESISTANT ENTEROCOCCUS ... Complete Laboratory Tests 01/02/20 12:08: POC Whole Blood Glucose 163H 01/02/20 17:51: POC Whole Blood Glucose 229H 01/02/20 23:45: POC Whole Blood Glucose 219H 01/03/20 03:50: Sodium Level 144, Potassium Level 3.2L, Chloride Level 109H, Carbon Dioxide Level 30, Anion Gap 6, Blood Urea Nitrogen 22H, Creatinine 0.8, Estimat Glomerular Filtration Rate > 60, Glucose Level 176#H, Calcium Level 8.6, Total Bilirubin 0.4, Aspartate Amino Transf (AST/SGOT) 16, Alanine Aminotransferase ( ALT/SGPT) 11L, Alkaline Phosphatase 82, Total Protein 5.9L, Albumin 1.9L, Globulin 4.0 01/03/20 05:25: POC Whole Blood Glucose [Pending] Current Medications Medications (Trade) Dose Ordered Sig/Genaro Route PRN Reason Start Time Stop Time Status Last Admin Dose Admin Amiodarone HCl (Cordarone) 100 mg Q8H GT 01/02/20 00:00 04/01/20 00:00 01/03/20 08:38 Apixaban (Eliquis) 2.5 mg BID GT 01/02/20 09:00 04/01/20 08:59 01/03/20 08:38 Ascorbic Acid (Vitamin C) 500 mg DAILY GT 01/02/20 09:00 02/01/20 08:59 01/03/20 08:39 Carbidopa/Levodopa (Sinemet 25/100) 1 tab Q8H GT 01/02/20 00:00 02/01/20 00:00 01/03/20 08:38 Cefepime HCl 1 gm/ Dextrose 55 ml @ 110 mls/hr Q12HR@0600,1800 IVPB 01/02/20 06:00 01/09/20 05:59 01/03/20 05:22 Dextrose (Dextrose 50%) 25 ml Q30M PRN IV Hypoglycemia 01/01/20 19:30 03/31/20 19:29 01/02/20 05:43 Dextrose (Dextrose 50%) 50 ml Q30M PRN IV Hypoglycemia 01/01/20 19:30 03/31/20 19:29 Famotidine (Pepcid) 20 mg DAILY GT 01/02/20 09:00 04/01/20 08:59 01/03/20 08:39 Insulin Aspart (NovoLOG) Q6H SUBQ 01/02/20 06:00 04/01/20 05:59 01/02/20 23:54 Iohexol (OMNIPAQUE-300 100ml) 100 ml NOW PRN INJ Radiology Procedure 01/01/20 17:15 01/03/20 17:10 Ipratropium Bone [place] (Atrovent) 500 mcg Q6H PRN HHN Shortness of Breath 01/01/20 19:30 01/06/20 19:29 Levetiracetam (Keppra) 750 mg Q12HR GT 01/02/20 00:00 02/01/20 00:00 01/03/20 08:39 Levothyroxine Sodium (Synthroid) 100 mcg DAILY GT 01/02/20 09:00 02/01/20 08:59 01/03/20 08:39 Lorazepam (Ativan 2mg/ml 1ml) 1 mg DAILY PRN IV seizure activity 01/01/20 21:45 01/08/20 21:44 Metoclopramide HCl (Reglan) 5 mg EVERY 6 HOURS GT 01/02/20 00:00 02/01/20 00:00 01/03/20 05:22 Metronidazole 100 ml @ 100 mls/hr Q8H IVPB 01/02/20 01:00 01/09/20 00:59 01/03/20 08:39 Midodrine (Pro-Amatine) 10 mg THREE TIMES A DAY ORAL 01/02/20 09:00 04/01/20 08:59 01/03/20 08:39 Potassium Chloride (K-Dur) 40 meq Q4H ORAL 01/03/20 07:00 01/03/20 11:01 01/03/20 06:43 Topiramate (Topamax) 200 mg DAILY GT 01/02/20 09:00 02/01/20 08:59 01/03/20 08:39 Vancomycin HCl (Vanco pharmacy to dose) 1 ea DAILY PRN MISC Per rx protocol 01/01/20 19:30 01/31/20 19:29 Vancomycin HCl 750 mg/Sodium Chloride 275 ml @ 183.333 mls/hr Q24H IVPB 01/02/20 18:00 01/07/20 17:59 01/02/20 18:36 Zinc Oxide (Zinc Oxide) 1 applic THREE TIMES A DAY PRN TOPIC g tube site wound 01/02/20 14:30 04/01/20 14:29 Assessment/Plan Assessment/Plan IMPRESSION: 1. Moderate malnutrition. 2. G-tube site cellulitis. 3. Chronic tracheostomy. 4. Chronic respiratory failure. 5. Dementia. 6. Parkinson's. 7. Diabetes mellitus. 8. Hypertension. DISCUSSION: Continue broad-spectrum antibiotics. Surgical evaluation noted. I will continue AC mode. GI evaluation noted. Continue Eliquis. I will follow carefully. IV fluids. Dakotah Villegas Omar Syed MD Jan 03, 2020 10:36
--- NOTE | 2020-01-03 11:13 | Diagnostic Imaging Report ---
Indication: Abdominal pain Technique: Supine view of the abdomen Comparison: 01/01/2020 Findings: Previously demonstrated nasogastric tube is no longer evident. There is a gastrostomy tube now present. Bowel gas pattern is unremarkable. There is evidence of prior left hip surgery. Impression: No acute process. Findings as noted
[2020-01-03] MEDS ORDERED: NS 250 ML IVPB ONE (11:30)
[2020-01-03 12:00] VITALS: BP 97/61
[2020-01-03] MEDS ORDERED: Tubing IV Secondary IV ONE (14:00)
[2020-01-03 16:00] VITALS: BP 94/60
[2020-01-03] MEDS: Vancomycin 750mg/NS 275ml IVPB SCH ×2 (17:44)
[2020-01-03 20:00] VITALS: BP 104/63
--- NOTE | 2020-01-03 20:24 | Infectious Diseases Prog Note ---
Assessment/Plan Assessment/Plan Full consult dictated: A) 1) g-tube infection/cellulitis, sepsis, hypotension, ? shock, ? sacral cellulitis 2) pmh noted 3) allergies - nkda P) 1) vancomycin, cefepime, flagyl 2) check cultures, labs 3) d/w primary team and surgery 4) thank you Subjective Constitutional: Denies: fever HEENT: Reports: congestion Respiratory: Reports: shortness of breath Gastrointestinal/Abdominal: Denies: nausea, vomiting, diarrhea Allergies: Coded Allergies: No Known Allergies (Unverified , 03/03/18) Objective Last 24 Hour Vital Signs Date Time Temp Pulse Resp B/P (MAP) Pulse Ox O2 Delivery O2 Flow Rate FiO2 01/03/20 18:44 73 18 35 01/03/20 17:30 81 19 35 01/03/20 16:00 98.2 70 14 94/60 (71) 100 01/03/20 16:00 35.0 01/03/20 16:00 67 01/03/20 16:00 Mechanical Ventilator 01/03/20 15:18 70 15 35 01/03/20 12:44 75 14 35 01/03/20 12:00 Mechanical Ventilator 01/03/20 12:00 35.0 01/03/20 12:00 74 01/03/20 12:00 97.7 80 14 97/61 (73) 100 01/03/20 11:03 69 15 35 01/03/20 09:06 87 14 35 01/03/20 08:00 35.0 01/03/20 08:00 106 01/03/20 08:00 97.7 98 14 101/74 (83) 100 01/03/20 08:00 Mechanical Ventilator 01/03/20 07:20 98 18 35 01/03/20 05:01 95 18 35 01/03/20 04:00 98.3 80 14 115/59 (77) 100 01/03/20 04:00 35.0 01/03/20 04:00 Mechanical Ventilator 01/03/20 03:40 87 01/03/20 02:59 80 15 35 01/03/20 00:36 87 14 35 01/03/20 00:00 Mechanical Ventilator 01/03/20 00:00 98.0 80 14 119/65 (83) 99 01/02/20 23:27 81 01/02/20 22:49 86 14 35 01/02/20 20:48 87 23 35 Height (Feet): 5 Height (Inches): 2.00 Weight (Pounds): 158 General Appearance: no acute distress HEENT: atraumatic, no JVD, status post trach Respiratory/Chest: crackles/rales, rhonchi - bilaterally Cardiovascular: normal rate, regular rhythm Microbiology Date/Time Source Procedure Growth Status 01/01/20 17:30 Blood Blood Culture - Preliminary NO GROWTH AFTER 24 HOURS Resulted 01/01/20 16:55 Blood Blood Culture - Preliminary NO GROWTH AFTER 24 HOURS Resulted 01/01/20 17:56 Nasal Nares MRSA Culture - Final NO METHICILLIN RESISTANT STAPH AUREUS... Complete 01/01/20 17:56 Nasopharynx SARS-CoV-2 RdRp Gene Assay - Final Complete 01/01/20 17:56 Indwelling Cath Urine Culture - Preliminary NO GROWTH AFTER 24 HOURS Resulted 01/01/20 17:56 Rectum - Final NO CARBAPENEM-RESISTANT ENTEROBACTERI... Complete 01/01/20 17:56 Rectum VRE Culture - Final NO VANCOMYCIN RESISTANT ENTEROCOCCUS ... Complete Laboratory Tests Test 01/02/20 23:45 01/03/20 03:50 01/03/20 05:25 01/03/20 11:39 POC Whole Blood Glucose 219 MG/DL (74-106) H Pending Pending Sodium Level 144 MMOL/L (136-145) Potassium Level 3.2 MMOL/L (3.5-5.1) L Chloride Level 109 MMOL/L (98-107) H Carbon Dioxide Level 30 MMOL/L (21-32) Anion Gap 6 mmol/L (5-15) Blood Urea Nitrogen 22 mg/dL (7-18) H Creatinine 0.8 MG/DL (0.55-1.30) Estimat Glomerular Filtration Rate > 60 mL/min (>60) Glucose Level 176 MG/DL (74-106) #H Calcium Level 8.6 MG/DL (8.5-10.1) Total Bilirubin 0.4 MG/DL (0.2-1.0) Aspartate Amino Transf (AST/SGOT) 16 U/L (15-37) Alanine Aminotransferase (ALT/SGPT) 11 U/L (12-78) L Alkaline Phosphatase 82 U/L (46-116) Total Protein 5.9 G/DL (6.4-8.2) L Albumin 1.9 G/DL (3.4-5.0) L Globulin 4.0 g/dL Test 01/03/20 17:15 01/03/20 17:38 Vancomycin Level Trough 7.5 ug/mL (5.0-12.0) POC Whole Blood Glucose 228 MG/DL (74-106) H Current Medications Medications (Trade) Dose Ordered Sig/Genaro Route PRN Reason Start Time Stop Time Status Last Admin Dose Admin Amiodarone HCl (Cordarone) 100 mg Q8H GT 01/02/20 00:00 04/01/20 00:00 01/03/20 16:08 Apixaban (Eliquis) 2.5 mg BID GT 01/02/20 09:00 04/01/20 08:59 01/03/20 17:43 Ascorbic Acid (Vitamin C) 500 mg DAILY GT 01/02/20 09:00 02/01/20 08:59 01/03/20 08:39 Carbidopa/Levodopa (Sinemet 25/100) 1 tab Q8H GT 01/02/20 00:00 02/01/20 00:00 01/03/20 16:08 Cefepime HCl 1 gm/ Dextrose 55 ml @ 110 mls/hr Q12HR@0600,1800 IVPB 01/02/20 06:00 01/09/20 05:59 01/03/20 17:44 Dextrose (Dextrose 50%) 25 ml Q30M PRN IV Hypoglycemia 01/01/20 19:30 03/31/20 19:29 01/02/20 05:43 Dextrose (Dextrose 50%) 50 ml Q30M PRN IV Hypoglycemia 01/01/20 19:30 03/31/20 19:29 Famotidine (Pepcid) 20 mg DAILY GT 01/02/20 09:00 04/01/20 08:59 01/03/20 08:39 Insulin Aspart (NovoLOG) Q6H SUBQ 01/02/20 06:00 04/01/20 05:59 01/03/20 17:47 Ipratropium Pelican (Atrovent) 500 mcg Q6H PRN HHN Shortness of Breath 01/01/20 19:30 01/06/20 19:29 Levetiracetam (Keppra) 750 mg Q12HR GT 01/02/20 00:00 02/01/20 00:00 01/03/20 08:39 Levothyroxine Sodium (Synthroid) 100 mcg DAILY GT 01/02/20 09:00 02/01/20 08:59 01/03/20 08:39 Lorazepam (Ativan 2mg/ml 1ml) 1 mg DAILY PRN IV seizure activity 01/01/20 21:45 01/08/20 21:44 Metoclopramide HCl (Reglan) 5 mg EVERY 6 HOURS GT 01/02/20 00:00 02/01/20 00:00 01/03/20 17:43 Metronidazole 100 ml @ 100 mls/hr Q8H IVPB 01/02/20 01:00 01/09/20 00:59 01/03/20 16:09 Midodrine (Pro-Amatine) 10 mg THREE TIMES A DAY ORAL 01/02/20 09:00 04/01/20 08:59 01/03/20 17:44 Topiramate (Topamax) 200 mg DAILY GT 01/02/20 09:00 02/01/20 08:59 01/03/20 08:39 Vancomycin HCl (Vanco pharmacy to dose) 1 ea DAILY PRN MISC Per rx protocol 01/01/20 19:30 01/31/20 19:29 Vancomycin/Sodium Chloride 275 ml @ 183.333 mls/hr Q24H IVPB 01/04/20 12:00 01/09/20 11:59 Zinc Oxide (Zinc Oxide) 1 applic THREE TIMES A DAY PRN TOPIC g tube site wound 01/02/20 14:30 04/01/20 14:29 Chanda Pop MD Jan 03, 2020 20:24
--- NOTE | 2020-01-03 22:00 | Consultation ---
DATE OF CONSULTATION: 01/03/2020 INFECTIOUS DISEASE CONSULTATION CONSULTING PHYSICIAN: Chanda Pop MD. ATTENDING PHYSICIAN: Gina Cameron MD. REFERRING PHYSICIAN: Gina Cameron MD and Fede Ta MD. REASON FOR CONSULTATION: Possible sepsis shock, low blood pressure, G-tube site infection with abdominal wall cellulitis. CHIEF COMPLAINT: Patient's chief complaint coming into the hospital is sepsis, low blood pressure. HISTORY OF PRESENT ILLNESS: This 89-year-old female has trach and vent. Patient came in with low blood pressure and possible sepsis shock. Workup showed the following. Patient had a chest x-ray with atelectasis. Blood and urine culture so far negative. CT scan of the abdomen and pelvis showed abdominal distention and ventral abdominal wall hernia. Patient was seen by Surgery and the ventral hernia was reduced. It was noted the patient had G-tube malfunction and likely G-tube infection with abdominal wall cellulitis or G-tube cellulitis. Infectious Disease consultation is requested. Patient was empirically started on Vanco, cefepime, and Flagyl. Blood and urine cultures negative to date. Followup chest x-ray has been ordered. MAR was noted. Orders noted. Notes and records were reviewed. Case was discussed with Primary and Surgery. Patient is on Vanco, cefepime, Flagyl. REVIEW OF SYSTEMS: CONSTITUTIONAL: She has no fevers. HEAD AND NECK: She has a trach. PULMONARY: She is on a vent. CARDIAC: No pressors currently. She did come in with low blood pressure. She also had tachycardia. SKIN: No rash. GASTROINTESTINAL: No nausea, vomiting, or diarrhea. She has dysphagia, G-tube. GENITOURINARY: I think she has a Rothman, but I am not 100% clear on that. NEUROLOGIC: No seizures, poorly responsive, generalized weakness. review of systems is otherwise limited. PAST MEDICAL HISTORY: Patient has a past medical history of dementia, Parkinson's, CVA, trach, respiratory failure, vent, dysphagia, G-tube, diabetes, and hypertension. She has history of hypothyroidism. ALLERGIES: She has no known drug allergies. No antibiotic allergies. SOCIAL HISTORY: Negative for smoking, alcohol, drug abuse. FAMILY HISTORY: Noncontributory. Negative for tuberculosis or cancer. MEDICATIONS: Upon reviewing the MAR, she is on following medications. She is on Vanco, zinc oxide, apixaban, ascorbic acid, famotidine, levothyroxine, midodrine, topiramate, cefepime, Flagyl, insulin, metoclopramide, abx, amiodarone, carbidopa, lorazepam. Outside medications noted and reonciliated. PHYSICAL EXAMINATION: VITAL SIGNS: Temperature is 98.2, pulse rate 73, respiratory rate 18, blood pressure 94/60, saturation 100% FiO2 35%. Heart rate has been as high as 106 and blood pressure was in the 80s initially, still low in the 94 range systolically. GENERAL: Lethargic, weak. HEAD AND NECK: Trach intact. Normocephalic. No icterus. HEART: Regular. No obvious gallop or murmur. ABDOMEN: Soft. Positive bowel sounds. Per surgery notes and exam, patient did have G-tube infection and abdominal wall cellulitis. LUNGS: Bilateral rhonchi. No definite rales. SKIN: Sacral redness, possible cellulitis. No other rash. MUSCULOSKELETAL: No effusions. Legs are without cellulitis. PERIPHERAL VASCULAR: No gangrene or cyanosis. GENITOURINARY: She has possible Rothman, I am not 100% clear. LINE SITES: Without phlebitis. NEUROLOGIC: Generalized weakness, poorly responsive. LABORATORY DATA: As follows: White count 8.9, hemoglobin 12.0. Creatinine 0.7. LFTs were noted and unremarkable. UA had 0 to 2 white cells. Cultures, urine and blood cultures are negative. COVID testing is negative. Chest x-ray initially showed atelectasis only with possible effusion. CT scan of the abdomen and pelvis showed abdominal distention, ventral abdominal wall hernia. No evidence of bowel obstruction. It has been noted and reviewed. ASSESSMENT AND PLAN: 1. Patient comes in with and possible sepsis shock with low blood pressure systolic in the 80s. Source is unclear at this time. Patient did have a G-tube site infection and cellulitis and had a ventral hernia that was reduced. Patient also could have sacral cellulitis unclear at this time. At this time, I will continue Vanco, cefepime, and Flagyl for MRSA gram-negative and anaerobic coverage. Continue vancomycin and cefepime and Flagyl for G-tube site infection, some abdominal cellulitis, and possible sacral cellulitis. Check final blood cultures and urine culture. Check followup chest x-ray. Monitor sepsis status. Blood pressure seems to be improved, but still on the low side and also monitor G-tube site infection and cellulitis. Continue wound care protocol. Patient also looks like being followed by Surgery for wound care and skin care. Looks like patient's G-tube was changed and now functioning. 2. Dysphagia, G-tube. 3. Trach, vent, respiratory failure. 4. Parkinson's. 5. Dementia. 6. CVA. 7. Diabetes. 8. Hypertension. 9. Blood pressure and blood sugar treatment per primary care team. 10. Hypothyroidism. 11. No known drug allergies. 12. Social history is negative. 13. Family history is noncontributory. 14. MAR was noted. 15. Case was discussed with RN. 16. Case was discussed with primary care team and Surgery. 17. Continue treatment per primary consultants. 18. Skin care protocol. 19. Orders were noted and entered. 20. Vent care per Pulmonary Medicine. Chanda Pop M.D. DR: JERARDO JOB#: [id number] CC: MIRIAM
[2020-01-04] VITALS: BP 105/66
[2020-01-04 04:00] VITALS: BP 102/67
[2020-01-04] MEDS: Metoclopramide 10mg/10ml Liq GT SCH ×3 (05:11→17:16)
[2020-01-04] MEDS: Cefepime HCl 1 GM in D5W 55 ML IVPB SCH ×2 (05:11→17:18)
[2020-01-04] MEDS: NovoLOG Insulin Flexpen SUBQ SCH ×3 (05:12→17:52)
[2020-01-04 05:35] LABS: BASOPHILS % (AUTO) 1.3 % (0.0-2.0); EOSINOPHILS % (AUTO) 3.2 % (0.0-3.0); HEMATOCRIT 36.2 % (37.0-47.0); HEMOGLOBIN 11.4 G/DL (12.0-16.0); LYMPHOCYTES % (AUTO) 21.1 % (20.0-45.0); MEAN CORPUSCULAR VOLUME 101 FL (80-99); MONOCYTES % (AUTO) 13.6 % (1.0-10.0); NEUTROPHILS % (AUTO) 60.7 % (45.0-75.0); PLATELET COUNT 175 K/UL (150-450); RED CELL DISTRIBUTION WIDTH 13.9 % (11.6-14.8); WHITE BLOOD COUNT 5.8 K/UL (4.8-10.8)
[2020-01-04 05:37] LABS: ANION GAP 7 mmol/L (5-15); BLOOD UREA NITROGEN 23 mg/dL (7-18); CALCIUM 8.6 MG/DL (8.5-10.1); CARBON DIOXIDE 25 MMOL/L (21-32); CHLORIDE 112 MMOL/L (98-107); CREATININE 0.8 MG/DL (0.55-1.30); SODIUM 144 MMOL/L (136-145)
[2020-01-04 08:00] VITALS: BP 109/64
[2020-01-04] MEDS: Midodrine 10mg tab ORAL SCH ×3 (08:04→17:17)
[2020-01-04] MEDS: Levodopa/Carbidopa 25/100 tab GT SCH ×2 (08:04→17:17)
[2020-01-04] MEDS: Ascorbic Acid 500mg tab GT SCH (08:04)
[2020-01-04] MEDS: Amiodarone 200mg tab GT SCH ×2 (08:04→17:17)
[2020-01-04] MEDS: Topiramate 100mg tab GT SCH (08:05)
[2020-01-04] MEDS: Eliquis 2.5mg tablet GT SCH ×2 (08:05→17:16)
[2020-01-04] MEDS: levETIRAcetam 500mg/5ml Liquid GT SCH ×2 (08:06→21:55)
--- NOTE | 2020-01-04 09:14 | Diagnostic Imaging Report ---
Indication: Shortness of breath Technique: One view of the chest Comparison: 01/01/2020 Findings: Increasing pleural fluid is seen on the left. The lungs and right pleural space are otherwise clear. Left chest pacemaker, tracheostomy again demonstrated. Impression: Increasing left pleural effusion, since prior exam of 3 days earlier
--- NOTE | 2020-01-04 09:29 | Surgery Progress Note ---
Surgery Progress Note Subjective Additional Comments no acute events Objective Last 24 Hour Vital Signs Date Time Temp Pulse Resp B/P (MAP) Pulse Ox O2 Delivery O2 Flow Rate FiO2 01/04/20 09:00 84 01/04/20 08:47 77 16 35 01/04/20 08:00 98.1 82 14 109/64 (79) 100 01/04/20 08:00 Mechanical Ventilator 01/04/20 08:00 35.0 01/04/20 06:54 75 21 35 01/04/20 04:54 81 18 35 01/04/20 04:00 Mechanical Ventilator 01/04/20 04:00 98.7 76 14 102/67 (79) 100 01/04/20 04:00 35.0 01/04/20 03:30 87 01/04/20 03:07 79 20 35 01/04/20 01:01 80 24 35 01/04/20 00:00 98.1 84 14 105/66 (79) 100 01/04/20 00:00 Mechanical Ventilator 01/03/20 23:27 79 01/03/20 23:00 80 16 35 01/03/20 20:45 70 22 35 01/03/20 20:00 Mechanical Ventilator 01/03/20 20:00 98.2 76 14 104/63 (77) 100 01/03/20 20:00 35.0 01/03/20 19:00 71 01/03/20 18:44 73 18 35 01/03/20 17:30 81 19 35 01/03/20 16:00 98.2 70 14 94/60 (71) 100 01/03/20 16:00 35.0 01/03/20 16:00 67 01/03/20 16:00 Mechanical Ventilator 01/03/20 15:18 70 15 35 01/03/20 12:44 75 14 35 01/03/20 12:00 Mechanical Ventilator 01/03/20 12:00 35.0 01/03/20 12:00 74 01/03/20 12:00 97.7 80 14 97/61 (73) 100 01/03/20 11:03 69 15 35 I&O Intake and Output 01/03/20 01/04/20 19:00 07:00 Intake Total 810 ml 975 ml Output Total 400 ml 250 ml Balance 410 ml 725 ml Intake Free Water 300 ml 150 ml IV Total 155 ml Tube Feeding 510 ml 670 ml Output Urine Total 400 ml 250 ml # Bowel Movements 2 2 Dressing: other Wound: other Cardiovascular: RSR Respiratory: decreased breath sounds Abdomen: soft, non-tender, present bowel sounds Extremities: edema, no cyanosis Laboratory Tests Test 01/03/20 11:39 01/03/20 17:15 01/03/20 17:38 01/03/20 23:08 POC Whole Blood Glucose Pending 228 MG/DL (74-106) H 243 MG/DL (74-106) H Vancomycin Level Trough 7.5 ug/mL (5.0-12.0) Test 01/04/20 03:35 01/04/20 05:10 White Blood Count 5.8 K/UL (4.8-10.8) Red Blood Count 3.60 M/UL (4.20-5.40) L Hemoglobin 11.4 G/DL (12.0-16.0) L Hematocrit 36.2 % (37.0-47.0) L Mean Corpuscular Volume 101 FL (80-99) H Mean Corpuscular Hemoglobin 31.8 PG (27.0-31.0) H Mean Corpuscular Hemoglobin Concent 31.6 G/DL (32.0-36.0) L Red Cell Distribution Width 13.9 % (11.6-14.8) Platelet Count 175 K/UL (150-450) Mean Platelet Volume 7.8 FL (6.5-10.1) Neutrophils (%) (Auto) 60.7 % (45.0-75.0) Lymphocytes (%) (Auto) 21.1 % (20.0-45.0) Monocytes (%) (Auto) 13.6 % (1.0-10.0) H Eosinophils (%) (Auto) 3.2 % (0.0-3.0) H Basophils (%) (Auto) 1.3 % (0.0-2.0) Sodium Level 144 MMOL/L (136-145) Potassium Level 4.0 MMOL/L (3.5-5.1) Chloride Level 112 MMOL/L (98-107) H Carbon Dioxide Level 25 MMOL/L (21-32) Anion Gap 7 mmol/L (5-15) Blood Urea Nitrogen 23 mg/dL (7-18) H Creatinine 0.8 MG/DL (0.55-1.30) Estimat Glomerular Filtration Rate > 60 mL/min (>60) Glucose Level 241 MG/DL (74-106) H Calcium Level 8.6 MG/DL (8.5-10.1) Phosphorus Level 2.0 MG/DL (2.5-4.9) L Magnesium Level 1.8 MG/DL (1.8-2.4) POC Whole Blood Glucose 244 MG/DL (74-106) H Plan Problems: (1) Sepsis (2) Acute encephalopathy (3) Cellulitis (4) Hypotension (5) Malfunction of gastrostomy tube (6) Ventral hernia Assessment & Plan: 89-year-old female identified to have a large ventral hernia with bowel contents. Abdominal distention. G-tube site cellulitis malfunction. Patient is alert and responds to painful stimuli but she is unable to verbalize or give history or participate in exam I have reviewed the CT personally and discussed the care plan with emergency department physician and medical teams. I was able to easily reduce the hernia at bedside. It is a widemouth hernia with bowel contents even considerably loss of domain. Patient is having multiple bowel movements and is not obstructed. She is not incarcerated No acute surgical intervention recommended for her hernia as is chronic and given her age and condition high risk Okay for tube feeds G-tube site evaluated silver nitrate applied Continue with local wound care Antibiotics per infectious disease We will follow with her abdominal examinations recommendations Thank you for let me participate in patient's care Liver: Unremarkable. No mass. Gallbladder and bile ducts: Unremarkable. No calcified stones. No ductal dilation. Pancreas: Unremarkable. No mass. No ductal dilation. Spleen: Unremarkable. No splenomegaly. Adrenals: Unremarkable. No mass. Kidneys and ureters: Kidneys show an inferior pole 1.8 cm cyst that does not require follow-up imaging. No hydronephrosis or hydroureter. No radiopaque stones identified. Stomach and bowel: Again evident is a ventral abdominal wall hernia containing a portion of the transverse colon. The hernia sac is 4.2 cm transverse and 3.9 cm craniocaudal. There is interval presence of a tract from a now since removed percutaneous gastrostomy. There is moderate stool throughout the large bowel with scattered colonic diverticuli. No findings of acute diverticulitis. PELVIS: Appendix: No findings to suggest acute appendicitis. Bladder: Unremarkable. No mass. Reproductive: Uterus is atrophic. ABDOMEN and PELVIS: Intraperitoneal space: Unremarkable. No free air. No significant fluid collection. Bones/joints: Bones show degenerative changes in the spine and fixation screws in the left femoral neck, similar to prior. No acute fracture. No dislocation. Soft tissues: See above. Vasculature: Abdominal aorta shows calcifications. No abdominal aortic aneurysm. Lymph nodes: Unremarkable. No enlarged lymph nodes. Tubes, lines and devices: Lung bases show left chest pacemaker. IMPRESSION: Abdominal distention could be a combination of patient body habitus and the presence of a ventral abdominal wall hernia that contains a portion of the transverse colon. There are no findings of bowel obstruction, or acute inflammation. . 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 Kota Sanches Jan 04, 2020 09:29
--- NOTE | 2020-01-04 09:30 | Surgery Progress Note ---
Surgery Progress Note Subjective Additional Comments kub noted hernia reduced comfortable +BM tolerating diet Objective Last 24 Hour Vital Signs Date Time Temp Pulse Resp B/P (MAP) Pulse Ox O2 Delivery O2 Flow Rate FiO2 01/04/20 09:00 84 01/04/20 08:47 77 16 35 01/04/20 08:00 98.1 82 14 109/64 (79) 100 01/04/20 08:00 Mechanical Ventilator 01/04/20 08:00 35.0 01/04/20 06:54 75 21 35 01/04/20 04:54 81 18 35 01/04/20 04:00 Mechanical Ventilator 01/04/20 04:00 98.7 76 14 102/67 (79) 100 01/04/20 04:00 35.0 01/04/20 03:30 87 01/04/20 03:07 79 20 35 01/04/20 01:01 80 24 35 01/04/20 00:00 98.1 84 14 105/66 (79) 100 01/04/20 00:00 Mechanical Ventilator 01/03/20 23:27 79 01/03/20 23:00 80 16 35 01/03/20 20:45 70 22 35 01/03/20 20:00 Mechanical Ventilator 01/03/20 20:00 98.2 76 14 104/63 (77) 100 01/03/20 20:00 35.0 01/03/20 19:00 71 01/03/20 18:44 73 18 35 01/03/20 17:30 81 19 35 01/03/20 16:00 98.2 70 14 94/60 (71) 100 01/03/20 16:00 35.0 01/03/20 16:00 67 01/03/20 16:00 Mechanical Ventilator 01/03/20 15:18 70 15 35 01/03/20 12:44 75 14 35 01/03/20 12:00 Mechanical Ventilator 01/03/20 12:00 35.0 01/03/20 12:00 74 01/03/20 12:00 97.7 80 14 97/61 (73) 100 01/03/20 11:03 69 15 35 I&O Intake and Output 01/03/20 01/04/20 19:00 07:00 Intake Total 810 ml 975 ml Output Total 400 ml 250 ml Balance 410 ml 725 ml Intake Free Water 300 ml 150 ml IV Total 155 ml Tube Feeding 510 ml 670 ml Output Urine Total 400 ml 250 ml # Bowel Movements 2 2 Cardiovascular: RSR Respiratory: decreased breath sounds Abdomen: soft, non-tender, present bowel sounds, other, non-distended Extremities: no edema, no tenderness, no cyanosis Laboratory Tests Test 01/03/20 11:39 01/03/20 17:15 01/03/20 17:38 01/03/20 23:08 POC Whole Blood Glucose Pending 228 MG/DL (74-106) H 243 MG/DL (74-106) H Vancomycin Level Trough 7.5 ug/mL (5.0-12.0) Test 01/04/20 03:35 01/04/20 05:10 White Blood Count 5.8 K/UL (4.8-10.8) Red Blood Count 3.60 M/UL (4.20-5.40) L Hemoglobin 11.4 G/DL (12.0-16.0) L Hematocrit 36.2 % (37.0-47.0) L Mean Corpuscular Volume 101 FL (80-99) H Mean Corpuscular Hemoglobin 31.8 PG (27.0-31.0) H Mean Corpuscular Hemoglobin Concent 31.6 G/DL (32.0-36.0) L Red Cell Distribution Width 13.9 % (11.6-14.8) Platelet Count 175 K/UL (150-450) Mean Platelet Volume 7.8 FL (6.5-10.1) Neutrophils (%) (Auto) 60.7 % (45.0-75.0) Lymphocytes (%) (Auto) 21.1 % (20.0-45.0) Monocytes (%) (Auto) 13.6 % (1.0-10.0) H Eosinophils (%) (Auto) 3.2 % (0.0-3.0) H Basophils (%) (Auto) 1.3 % (0.0-2.0) Sodium Level 144 MMOL/L (136-145) Potassium Level 4.0 MMOL/L (3.5-5.1) Chloride Level 112 MMOL/L (98-107) H Carbon Dioxide Level 25 MMOL/L (21-32) Anion Gap 7 mmol/L (5-15) Blood Urea Nitrogen 23 mg/dL (7-18) H Creatinine 0.8 MG/DL (0.55-1.30) Estimat Glomerular Filtration Rate > 60 mL/min (>60) Glucose Level 241 MG/DL (74-106) H Calcium Level 8.6 MG/DL (8.5-10.1) Phosphorus Level 2.0 MG/DL (2.5-4.9) L Magnesium Level 1.8 MG/DL (1.8-2.4) POC Whole Blood Glucose 244 MG/DL (74-106) H Plan Problems: (1) Sepsis (2) Acute encephalopathy (3) Cellulitis (4) Hypotension (5) Malfunction of gastrostomy tube (6) Ventral hernia Assessment & Plan: 89-year-old female identified to have a large ventral hernia with bowel contents. Abdominal distention. G-tube site cellulitis malfunction. Patient is alert and responds to painful stimuli but she is unable to verbalize or give history or participate in exam I have reviewed the CT personally and discussed the care plan with emergency department physician and medical teams. I was able to easily reduce the hernia at bedside. It is a wid[place] hernia with bowel contents even considerably loss of domain. Patient is having multiple bowel movements and is not obstructed. She is not incarcerated No acute surgical intervention recommended for her hernia as is chronic and given her age and condition high risk Okay for tube feeds G-tube site evaluated silver nitrate applied Continue with local wound care Antibiotics per infectious disease We will follow with her abdominal examinations recommendations Thank you for let me participate in patient's care KUB noted improving +BM no acute surgical intervention planned Liver: Unremarkable. No mass. Gallbladder and bile ducts: Unremarkable. No calcified stones. No ductal dilation. Pancreas: Unremarkable. No mass. No ductal dilation. Spleen: Unremarkable. No splenomegaly. Adrenals: Unremarkable. No mass. Kidneys and ureters: Kidneys show an inferior pole 1.8 cm cyst that does not require follow-up imaging. No hydronephrosis or hydroureter. No radiopaque stones identified. Stomach and bowel: Again evident is a ventral abdominal wall hernia containing a portion of the transverse colon. The hernia sac is 4.2 cm transverse and 3.9 cm craniocaudal. There is interval presence of a tract from a now since removed percutaneous gastrostomy. There is moderate stool throughout the large bowel with scattered colonic diverticuli. No findings of acute diverticulitis. PELVIS: Appendix: No findings to suggest acute appendicitis. Bladder: Unremarkable. No mass. Reproductive: Uterus is atrophic. ABDOMEN and PELVIS: Intraperitoneal space: Unremarkable. No free air. No significant fluid collection. Bones/joints: Bones show degenerative changes in the spine and fixation screws in the left femoral neck, similar to prior. No acute fracture. No dislocation. Soft tissues: See above. Vasculature: Abdominal aorta shows calcifications. No abdominal aortic aneurysm. Lymph nodes: Unremarkable. No enlarged lymph nodes. Tubes, lines and devices: Lung bases show left chest pacemaker. IMPRESSION: Abdominal distention could be a combination of patient body habitus and the presence of a ventral abdominal wall hernia that contains a portion of the transverse colon. There are no findings of bowel obstruction, or acute inflammation. . 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
--- NOTE | 2020-01-04 09:50 | General Progress Note ---
Assessment/Plan Status: stable Assessment/Plan: 1. History of dementia. 2. Parkinson disease. 3. CVA. 4. Dysphagia with G-tube. 5. Type 2 diabetes. 6. Hypertension. GT has been changed and now functioning with min discharge GTF monitor for residuals abx per ID monitor for labs Subjective ROS Limited/Unobtainable: No Allergies: Coded Allergies: No Known Allergies (Unverified , 03/03/18) Objective Last 24 Hour Vital Signs Date Time Temp Pulse Resp B/P (MAP) Pulse Ox O2 Delivery O2 Flow Rate FiO2 01/04/20 09:00 84 01/04/20 08:47 77 16 35 01/04/20 08:00 98.1 82 14 109/64 (79) 100 01/04/20 08:00 Mechanical Ventilator 01/04/20 08:00 35.0 01/04/20 06:54 75 21 35 01/04/20 04:54 81 18 35 01/04/20 04:00 Mechanical Ventilator 01/04/20 04:00 98.7 76 14 102/67 (79) 100 01/04/20 04:00 35.0 01/04/20 03:30 87 01/04/20 03:07 79 20 35 01/04/20 01:01 80 24 35 01/04/20 00:00 98.1 84 14 105/66 (79) 100 01/04/20 00:00 Mechanical Ventilator 01/03/20 23:27 79 01/03/20 23:00 80 16 35 01/03/20 20:45 70 22 35 01/03/20 20:00 Mechanical Ventilator 01/03/20 20:00 98.2 76 14 104/63 (77) 100 01/03/20 20:00 35.0 01/03/20 19:00 71 01/03/20 18:44 73 18 35 01/03/20 17:30 81 19 35 01/03/20 16:00 98.2 70 14 94/60 (71) 100 01/03/20 16:00 35.0 01/03/20 16:00 67 01/03/20 16:00 Mechanical Ventilator 01/03/20 15:18 70 15 35 01/03/20 12:44 75 14 35 01/03/20 12:00 Mechanical Ventilator 01/03/20 12:00 35.0 01/03/20 12:00 74 01/03/20 12:00 97.7 80 14 97/61 (73) 100 01/03/20 11:03 69 15 35 Intake and Output 01/03/20 01/04/20 19:00 07:00 Intake Total 810 ml 975 ml Output Total 400 ml 250 ml Balance 410 ml 725 ml Intake Free Water 300 ml 150 ml IV Total 155 ml Tube Feeding 510 ml 670 ml Output Urine Total 400 ml 250 ml # Bowel Movements 2 2 Laboratory Tests 01/03/20 11:39: POC Whole Blood Glucose [Pending] 01/03/20 17:15: Vancomycin Level Trough 7.5 01/03/20 17:38: POC Whole Blood Glucose 228H 01/03/20 23:08: POC Whole Blood Glucose 243H 01/04/20 03:35: White Blood Count 5.8, Red Blood Count 3.60L, Hemoglobin 11.4L, Hematocrit 36.2L , Mean Corpuscular Volume 101H, Mean Corpuscular Hemoglobin 31.8H, Mean Corpuscular Hemoglobin Concent 31.6L, Red Cell Distribution Width 13.9, Platelet Count 175, Mean Platelet Volume 7.8, Neutrophils (%) (Auto) 60.7, Lymphocytes (%) (Auto) 21.1, Monocytes (%) (Auto) 13.6H, Eosinophils (%) (Auto) 3.2H, Basophils (%) (Auto) 1.3, Sodium Level 144, Potassium Level 4.0, Chloride Level 112H, Carbon Dioxide Level 25, Anion Gap 7, Blood Urea Nitrogen 23H, Creatinine 0.8, Estimat Glomerular Filtration Rate > 60, Glucose Level 241H, Calcium Level 8.6, Phosphorus Level 2.0L, Magnesium Level 1.8 01/04/20 05:10: POC Whole Blood Glucose 244H Height (Feet): 5 Height (Inches): 2.00 Weight (Pounds): 163 General Appearance: no apparent distress EENT: normal ENT inspection Neck: supple Cardiovascular: normal rate Respiratory/Chest: decreased breath sounds Abdomen: normal bowel sounds, non tender, soft Extremities: non-tender Biju Ya MD Jan 04, 2020 09:50
--- NOTE | 2020-01-04 10:23 | General Progress Note ---
Assessment/Plan Status: stable Assessment/Plan: This is an 89 year old chronically ill patient with severe dementia, dependent on trach and PEG, presented for G-tube malfunction, found to have sepsis d/t G- tube site cellulitis #Sepsis d/t G-tube site cellulitis - aggressive IVF resuscitaiton - continue Vanc/Cefepime/Flagyl (01/01 - ) - ID recs appreciated - Surgery recs appreciated - continue to hold home diltiazem and metoprolol and spironolactone, currently normotensive #G-tube malfunction, replace by GI - Ok to use new G-tube #Hypokalemia - replace and monitor daily daily #Chronic respiratory failure - currently on vent - Pulm recs appreciated, will discuss vent weaning #Atrial fibrillation: currently rate controlled - continue home Eliquis and amiodarone. hold metoprolol/diltiazem as above #Paranoid schizophrenia #Major depressive disorder #history of CVA #Advanced Parkinson's Dementia #history of seizures - continue home Carbidopa-Levodopa to prevent withdrawal/NMS - Consult Neurology to optimize regimen - continue home Keppra - continue home Topiramate #Hypothyroidism - continue home Synthroid #T2DM - sliding scale insulin #s/p [employer] pacemaker placement - continue monitoring, no indication to re-interrogate at this time #Abdominal hernia containing intestine - General Surgery Dr. Sanches consulted, appreciate recommendations I spent over 37 minutes on this case, and 20 minutes of this was spent on direct patient care, coordinating with specialists/RN Subjective Date patient seen: Jan 04, 2020 Time patient seen: 07:11 ROS Limited/Unobtainable: Yes Allergies: Coded Allergies: No Known Allergies (Unverified , 03/03/18) Subjective Follow up sepsis due to PEG site cellulitis and PEG malfunction No acute events overnight per RN Patient nonverbal Family requesting to have vent weaning Objective Last 24 Hour Vital Signs Date Time Temp Pulse Resp B/P (MAP) Pulse Ox O2 Delivery O2 Flow Rate FiO2 01/04/20 09:00 84 01/04/20 08:47 77 16 35 01/04/20 08:00 98.1 82 14 109/64 (79) 100 01/04/20 08:00 Mechanical Ventilator 01/04/20 08:00 35.0 01/04/20 06:54 75 21 35 01/04/20 04:54 81 18 35 01/04/20 04:00 Mechanical Ventilator 01/04/20 04:00 98.7 76 14 102/67 (79) 100 01/04/20 04:00 35.0 01/04/20 03:30 87 01/04/20 03:07 79 20 35 01/04/20 01:01 80 24 35 01/04/20 00:00 98.1 84 14 105/66 (79) 100 01/04/20 00:00 Mechanical Ventilator 01/03/20 23:27 79 01/03/20 23:00 80 16 35 01/03/20 20:45 70 22 35 01/03/20 20:00 Mechanical Ventilator 01/03/20 20:00 98.2 76 14 104/63 (77) 100 01/03/20 20:00 35.0 01/03/20 19:00 71 01/03/20 18:44 73 18 35 01/03/20 17:30 81 19 35 01/03/20 16:00 98.2 70 14 94/60 (71) 100 01/03/20 16:00 35.0 01/03/20 16:00 67 01/03/20 16:00 Mechanical Ventilator 01/03/20 15:18 70 15 35 01/03/20 12:44 75 14 35 01/03/20 12:00 Mechanical Ventilator 01/03/20 12:00 35.0 01/03/20 12:00 74 01/03/20 12:00 97.7 80 14 97/61 (73) 100 01/03/20 11:03 69 15 35 Intake and Output 01/03/20 01/04/20 19:00 07:00 Intake Total 810 ml 975 ml Output Total 400 ml 250 ml Balance 410 ml 725 ml Intake Free Water 300 ml 150 ml IV Total 155 ml Tube Feeding 510 ml 670 ml Output Urine Total 400 ml 250 ml # Bowel Movements 2 2 Laboratory Tests 01/03/20 11:39: POC Whole Blood Glucose [Pending] 01/03/20 17:15: Vancomycin Level Trough 7.5 01/03/20 17:38: POC Whole Blood Glucose 228H 01/03/20 23:08: POC Whole Blood Glucose 243H 01/04/20 03:35: White Blood Count 5.8, Red Blood Count 3.60L, Hemoglobin 11.4L, Hematocrit 36.2L , Mean Corpuscular Volume 101H, Mean Corpuscular Hemoglobin 31.8H, Mean Corpuscular Hemoglobin Concent 31.6L, Red Cell Distribution Width 13.9, Platelet Count 175, Mean Platelet Volume 7.8, Neutrophils (%) (Auto) 60.7, Lymphocytes (%) (Auto) 21.1, Monocytes (%) (Auto) 13.6H, Eosinophils (%) (Auto) 3.2H, Basophils (%) (Auto) 1.3, Sodium Level 144, Potassium Level 4.0, Chloride Level 112H, Carbon Dioxide Level 25, Anion Gap 7, Blood Urea Nitrogen 23H, Creatinine 0.8, Estimat Glomerular Filtration Rate > 60, Glucose Level 241H, Calcium Level 8.6, Phosphorus Level 2.0L, Magnesium Level 1.8 01/04/20 05:10: POC Whole Blood Glucose 244H Height (Feet): 5 Height (Inches): 2.00 Weight (Pounds): 163 General Appearance: lethargic, confused Neck: normal alignment, supple Cardiovascular: normal rate, regular rhythm Respiratory/Chest: lungs clear, normal breath sounds, no respiratory distress, no accessory muscle use Keyon Mistry MD Jan 04, 2020 10:23
[2020-01-04] MEDS: Vancomycin 1.25gm/NS Premix q24h IVPB SCH (11:12)
[2020-01-04 11:57] VITALS: BP 124/69
[2020-01-04 16:00] VITALS: BP 112/67
--- NOTE | 2020-01-04 17:36 | Pulmonology Progress Note ---
Subjective ROS Limited/Unobtainable: Yes Interval Events: None new Constitutional: Denies: fever HEENT: Repors: no symptoms Respiratory: Reports: no symptoms Gastrointestinal/Abdominal: Denies: nausea, vomiting, diarrhea Allergies: Coded Allergies: No Known Allergies (Unverified , 03/03/18) Objective Last 24 Hour Vital Signs Date Time Temp Pulse Resp B/P (MAP) Pulse Ox O2 Delivery O2 Flow Rate FiO2 01/04/20 17:13 86 17 35 01/04/20 16:53 84 01/04/20 16:00 78 01/04/20 12:37 86 01/04/20 12:00 83 01/04/20 12:00 35.0 01/04/20 11:57 97.7 84 14 124/69 (87) 100 01/04/20 09:00 84 01/04/20 08:47 77 16 35 01/04/20 08:00 98.1 82 14 109/64 (79) 100 01/04/20 08:00 Mechanical Ventilator 01/04/20 08:00 35.0 01/04/20 06:54 75 21 35 01/04/20 04:54 81 18 35 01/04/20 04:00 Mechanical Ventilator 01/04/20 04:00 98.7 76 14 102/67 (79) 100 01/04/20 04:00 35.0 01/04/20 03:30 87 01/04/20 03:07 79 20 35 01/04/20 01:01 80 24 35 01/04/20 00:00 98.1 84 14 105/66 (79) 100 01/04/20 00:00 Mechanical Ventilator 01/03/20 23:27 79 01/03/20 23:00 80 16 35 01/03/20 20:45 70 22 35 01/03/20 20:00 Mechanical Ventilator 01/03/20 20:00 98.2 76 14 104/63 (77) 100 01/03/20 20:00 35.0 01/03/20 19:00 71 01/03/20 18:44 73 18 35 Intake and Output 01/03/20 01/04/20 19:00 07:00 Intake Total 810 ml 975 ml Output Total 400 ml 250 ml Balance 410 ml 725 ml Intake Free Water 300 ml 150 ml IV Total 155 ml Tube Feeding 510 ml 670 ml Output Urine Total 400 ml 250 ml # Bowel Movements 2 2 General Appearance: no acute distress Respiratory: chest wall non-tender, lungs clear Cardiovascular: normal peripheral pulses, normal rate Abdomen: normal bowel sounds Microbiology Date/Time Source Procedure Growth Status 01/01/20 17:56 Nasal Nares MRSA Culture - Final NO METHICILLIN RESISTANT STAPH AUREUS... Complete 01/01/20 17:56 Nasopharynx SARS-CoV-2 RdRp Gene Assay - Final Complete 01/01/20 17:56 Indwelling Cath Urine Culture - Final NO GROWTH AFTER 48 HOURS Complete 01/01/20 17:56 Rectum - Final NO CARBAPENEM-RESISTANT ENTEROBACTERI... Complete 01/01/20 17:56 Rectum VRE Culture - Final NO VANCOMYCIN RESISTANT ENTEROCOCCUS ... Complete Laboratory Tests 01/03/20 17:38: POC Whole Blood Glucose 228H 01/03/20 23:08: POC Whole Blood Glucose 243H 01/04/20 03:35: White Blood Count 5.8, Red Blood Count 3.60L, Hemoglobin 11.4L, Hematocrit 36.2L , Mean Corpuscular Volume 101H, Mean Corpuscular Hemoglobin 31.8H, Mean Corpuscular Hemoglobin Concent 31.6L, Red Cell Distribution Width 13.9, Platelet Count 175, Mean Platelet Volume 7.8, Neutrophils (%) (Auto) 60.7, Lymphocytes (%) (Auto) 21.1, Monocytes (%) (Auto) 13.6H, Eosinophils (%) (Auto) 3.2H, Basophils (%) (Auto) 1.3, Sodium Level 144, Potassium Level 4.0, Chloride Level 112H, Carbon Dioxide Level 25, Anion Gap 7, Blood Urea Nitrogen 23H, Creatinine 0.8, Estimat Glomerular Filtration Rate > 60, Glucose Level 241H, Calcium Level 8.6, Phosphorus Level 2.0L, Magnesium Level 1.8 01/04/20 05:10: POC Whole Blood Glucose 244H 01/04/20 11:14: POC Whole Blood Glucose 214H 01/04/20 12:14: Arterial Blood pH 7.365, Arterial Blood Partial Pressure CO2 44.3, Arterial Blood Partial Pressure O2 97.7, Arterial Blood HCO3 24.7, Arterial Blood Oxygen Saturation 96.7, Arterial Blood Base Excess -0.8, Wolfgang Test Positive Current Medications Medications (Trade) Dose Ordered Sig/Genaro Route PRN Reason Start Time Stop Time Status Last Admin Dose Admin Amiodarone HCl (Cordarone) 100 mg Q8H GT 01/02/20 00:00 04/01/20 00:00 01/04/20 17:17 Apixaban (Eliquis) 2.5 mg BID GT 01/02/20 09:00 04/01/20 08:59 01/04/20 17:16 Ascorbic Acid (Vitamin C) 500 mg DAILY GT 01/02/20 09:00 02/01/20 08:59 01/04/20 08:04 Carbidopa/Levodopa (Sinemet 25/100) 1 tab Q8H GT 01/02/20 00:00 02/01/20 00:00 01/04/20 17:17 Cefepime HCl 1 gm/ Dextrose 55 ml @ 110 mls/hr Q12HR@0600,1800 IVPB 01/02/20 06:00 01/09/20 05:59 01/04/20 17:18 Dextrose (Dextrose 50%) 25 ml Q30M PRN IV Hypoglycemia 01/01/20 19:30 03/31/20 19:29 01/02/20 05:43 Dextrose (Dextrose 50%) 50 ml Q30M PRN IV Hypoglycemia 01/01/20 19:30 03/31/20 19:29 Famotidine (Pepcid) 20 mg DAILY GT 01/02/20 09:00 04/01/20 08:59 01/04/20 08:05 Insulin Aspart (NovoLOG) Q6H SUBQ 01/02/20 06:00 04/01/20 05:59 01/04/20 11:29 Ipratropium [place] (Atrovent) 500 mcg Q6H PRN HHN Shortness of Breath 01/01/20 19:30 01/06/20 19:29 Levetiracetam (Keppra) 750 mg Q12HR GT 01/02/20 00:00 02/01/20 00:00 01/04/20 08:06 Levothyroxine Sodium (Synthroid) 100 mcg DAILY GT 01/02/20 09:00 02/01/20 08:59 01/04/20 08:05 Lorazepam (Ativan 2mg/ml 1ml) 1 mg DAILY PRN IV seizure activity 01/01/20 21:45 01/08/20 21:44 Metoclopramide HCl (Reglan) 5 mg EVERY 6 HOURS GT 01/02/20 00:00 02/01/20 00:00 01/04/20 17:16 Metronidazole 100 ml @ 100 mls/hr Q8H IVPB 01/02/20 01:00 01/09/20 00:59 01/04/20 17:17 Midodrine (Pro-Amatine) 10 mg THREE TIMES A DAY ORAL 01/02/20 09:00 04/01/20 08:59 01/04/20 17:17 Topiramate (Topamax) 200 mg DAILY GT 01/02/20 09:00 02/01/20 08:59 01/04/20 08:05 Vancomycin HCl (Vanco pharmacy to dose) 1 ea DAILY PRN MISC Per rx protocol 01/01/20 19:30 01/31/20 19:29 Vancomycin/Sodium Chloride 275 ml @ 183.333 mls/hr Q24H IVPB 01/04/20 12:00 01/09/20 11:59 01/04/20 11:12 Zinc Oxide (Zinc Oxide) 1 applic THREE TIMES A DAY PRN TOPIC g tube site wound 01/02/20 14:30 04/01/20 14:29 Assessment/Plan Assessment/Plan IMPRESSION: 1. Moderate malnutrition. 2. G-tube site cellulitis. 3. Chronic tracheostomy. 4. Chronic respiratory failure. 5. Dementia. 6. Parkinson's. 7. Diabetes mellitus. 8. Hypertension. DISCUSSION: Continue broad-spectrum antibiotics. Surgical evaluation noted. I will continue AC mode. Attempt to wean. GI evaluation noted. Continue Eliquis. I will follow carefully. IV fluids. Dakotah Villegas Omar Syed MD Jan 04, 2020 17:36
[2020-01-04 20:00] VITALS: BP 113/71
[2020-01-05] VITALS: BP 121/65
[2020-01-05] MEDS: Metoclopramide 10mg/10ml Liq GT SCH ×5 (00:24→23:22)
[2020-01-05] MEDS: Levodopa/Carbidopa 25/100 tab GT SCH ×4 (00:24→23:22)
[2020-01-05] MEDS: Amiodarone 200mg tab GT SCH ×4 (00:25→23:22)
[2020-01-05] MEDS: NovoLOG Insulin Flexpen SUBQ SCH ×5 (00:27→23:25)
[2020-01-05 04:00] VITALS: BP 113/58
[2020-01-05] MEDS: Cefepime HCl 1 GM in D5W 55 ML IVPB SCH ×2 (06:11→17:19)
--- NOTE | 2020-01-05 06:39 | General Progress Note ---
Assessment/Plan Status: stable Assessment/Plan: 1. History of dementia. 2. Parkinson disease. 3. CVA. 4. Dysphagia with G-tube. 5. Type 2 diabetes. 6. Hypertension. GT has been changed and now functioning with min discharge GTF monitor for residuals abx per ID monitor for labs Subjective ROS Limited/Unobtainable: No Allergies: Coded Allergies: No Known Allergies (Unverified , 03/03/18) Objective Last 24 Hour Vital Signs Date Time Temp Pulse Resp B/P (MAP) Pulse Ox O2 Delivery O2 Flow Rate FiO2 01/05/20 05:08 89 20 35 01/05/20 04:00 Mechanical Ventilator 01/05/20 04:00 35.0 01/05/20 04:00 96 01/05/20 03:08 70 15 35 01/05/20 00:54 71 15 35 01/05/20 00:00 35.0 01/05/20 00:00 98.8 65 18 121/65 (83) 100 01/05/20 00:00 Mechanical Ventilator 01/04/20 23:28 81 01/04/20 23:08 78 21 35 01/04/20 20:59 83 17 35 01/04/20 20:00 98.5 62 15 113/71 (85) 98 01/04/20 20:00 Mechanical Ventilator 01/04/20 20:00 35.0 01/04/20 19:32 64 01/04/20 18:55 75 18 35 01/04/20 18:55 100 Mechanical Ventilator 35 01/04/20 17:13 86 17 35 01/04/20 16:53 84 01/04/20 16:00 78 01/04/20 16:00 Mechanical Ventilator 01/04/20 16:00 97.8 88 14 112/67 (82) 100 01/04/20 16:00 35.0 01/04/20 12:37 86 01/04/20 12:00 83 01/04/20 12:00 35.0 01/04/20 12:00 Trach Collar 01/04/20 11:57 97.7 84 14 124/69 (87) 100 01/04/20 10:50 100 Cool Aerosol 8.0 35 01/04/20 09:00 84 01/04/20 08:47 77 16 35 01/04/20 08:00 98.1 82 14 109/64 (79) 100 01/04/20 08:00 Mechanical Ventilator 01/04/20 08:00 35.0 01/04/20 06:54 75 21 35 Intake and Output 01/04/20 01/05/20 19:00 07:00 Intake Total 1130.000 ml 410 ml Balance 1130.000 ml 410 ml Intake Free Water 40 ml 40 ml IV Total 530.000 ml 100 ml Tube Feeding 410 ml 270 ml Other 150 ml # Voids 4 # Bowel Movements 4 3 Laboratory Tests 01/04/20 11:14: POC Whole Blood Glucose 214H 01/04/20 12:14: Arterial Blood pH 7.365, Arterial Blood Partial Pressure CO2 44.3, Arterial Blood Partial Pressure O2 97.7, Arterial Blood HCO3 24.7, Arterial Blood Oxygen Saturation 96.7, Arterial Blood Base Excess -0.8, Wolfgang Test Positive 01/04/20 17:48: POC Whole Blood Glucose 222H 01/05/20 00:20: POC Whole Blood Glucose [Pending] 01/05/20 06:05: POC Whole Blood Glucose [Pending] Height (Feet): 5 Height (Inches): 2.00 Weight (Pounds): 160 General Appearance: lethargic EENT: normal ENT inspection Neck: supple Cardiovascular: normal rate Respiratory/Chest: decreased breath sounds Abdomen: normal bowel sounds, non tender, soft Extremities: non-tender Biju Ya MD Jan 05, 2020 06:39
[2020-01-05 08:00] VITALS: BP 112/60
[2020-01-05] MEDS: Topiramate 100mg tab GT SCH (08:58)
[2020-01-05] MEDS: Eliquis 2.5mg tablet GT SCH ×2 (08:58→17:18)
[2020-01-05] MEDS: levETIRAcetam 500mg/5ml Liquid GT SCH ×2 (08:58→20:19)
[2020-01-05] MEDS: Midodrine 10mg tab ORAL SCH ×3 (08:59→17:19)
[2020-01-05] MEDS: Ascorbic Acid 500mg tab GT SCH (08:59)
[2020-01-05] MEDS ORDERED: NS 275ml ONE (09:51)
[2020-01-05] MEDS ORDERED: Tubing IV Secondary IV ONE (09:51)
--- NOTE | 2020-01-05 10:19 | Pulmonology Progress Note ---
Subjective ROS Limited/Unobtainable: No Interval Events: None new Constitutional: Denies: fever HEENT: Repors: no symptoms Respiratory: Reports: no symptoms Gastrointestinal/Abdominal: Denies: nausea, vomiting, diarrhea Allergies: Coded Allergies: No Known Allergies (Unverified , 03/03/18) Objective Last 24 Hour Vital Signs Date Time Temp Pulse Resp B/P (MAP) Pulse Ox O2 Delivery O2 Flow Rate FiO2 01/05/20 06:40 98 Mechanical Ventilator 35 01/05/20 06:40 98 17 35 01/05/20 05:08 89 20 35 01/05/20 04:00 Mechanical Ventilator 01/05/20 04:00 98.9 60 20 113/58 (76) 100 01/05/20 04:00 35.0 01/05/20 04:00 96 01/05/20 03:08 70 15 35 01/05/20 00:54 71 15 35 01/05/20 00:00 35.0 01/05/20 00:00 98.8 65 18 121/65 (83) 100 01/05/20 00:00 Mechanical Ventilator 01/04/20 23:28 81 01/04/20 23:08 78 21 35 01/04/20 20:59 83 17 35 01/04/20 20:00 98.5 62 15 113/71 (85) 98 01/04/20 20:00 Mechanical Ventilator 01/04/20 20:00 35.0 01/04/20 19:32 64 01/04/20 18:55 75 18 35 01/04/20 18:55 100 Mechanical Ventilator 35 01/04/20 17:13 86 17 35 01/04/20 16:53 84 01/04/20 16:00 78 01/04/20 16:00 Mechanical Ventilator 01/04/20 16:00 97.8 88 14 112/67 (82) 100 01/04/20 16:00 35.0 01/04/20 12:37 86 01/04/20 12:00 83 01/04/20 12:00 35.0 01/04/20 12:00 Trach Collar 01/04/20 11:57 97.7 84 14 124/69 (87) 100 01/04/20 10:50 100 Cool Aerosol 8.0 35 Intake and Output 01/04/20 01/05/20 19:00 07:00 Intake Total 1130.000 ml 410 ml Balance 1130.000 ml 410 ml Intake Free Water 40 ml 40 ml IV Total 530.000 ml 100 ml Tube Feeding 410 ml 270 ml Other 150 ml # Voids 4 # Bowel Movements 4 3 General Appearance: no acute distress Respiratory: chest wall non-tender, lungs clear Cardiovascular: normal peripheral pulses, normal rate Abdomen: normal bowel sounds Microbiology Date/Time Source Procedure Growth Status 01/04/20 10:00 Stool Clostridium difficile Toxin Assay - Final Complete Laboratory Tests 01/04/20 11:14: POC Whole Blood Glucose 214H 01/04/20 12:14: Arterial Blood pH 7.365, Arterial Blood Partial Pressure CO2 44.3, Arterial Blood Partial Pressure O2 97.7, Arterial Blood HCO3 24.7, Arterial Blood Oxygen Saturation 96.7, Arterial Blood Base Excess -0.8, Wolfgang Test Positive 01/04/20 17:48: POC Whole Blood Glucose 222H 01/05/20 00:20: POC Whole Blood Glucose [Pending] 01/05/20 06:05: POC Whole Blood Glucose [Pending] Current Medications Medications (Trade) Dose Ordered Sig/Genaro Route PRN Reason Start Time Stop Time Status Last Admin Dose Admin Amiodarone HCl (Cordarone) 100 mg Q8H GT 01/02/20 00:00 04/01/20 00:00 01/05/20 08:57 Apixaban (Eliquis) 2.5 mg BID GT 01/02/20 09:00 04/01/20 08:59 01/05/20 08:58 Ascorbic Acid (Vitamin C) 500 mg DAILY GT 01/02/20 09:00 02/01/20 08:59 01/05/20 08:59 Carbidopa/Levodopa (Sinemet 25/100) 1 tab Q8H GT 01/02/20 00:00 02/01/20 00:00 01/05/20 08:58 Cefepime HCl 1 gm/ Dextrose 55 ml @ 110 mls/hr Q12HR@0600,1800 IVPB 01/02/20 06:00 01/09/20 05:59 01/05/20 06:11 Dextrose (Dextrose 50%) 25 ml Q30M PRN IV Hypoglycemia 01/01/20 19:30 03/31/20 19:29 01/02/20 05:43 Dextrose (Dextrose 50%) 50 ml Q30M PRN IV Hypoglycemia 01/01/20 19:30 03/31/20 19:29 Famotidine (Pepcid) 20 mg DAILY GT 01/02/20 09:00 04/01/20 08:59 01/05/20 08:58 Insulin Aspart (NovoLOG) Q6H SUBQ 01/02/20 06:00 04/01/20 05:59 01/05/20 06:08 Ipratropium [place] (Atrovent) 500 mcg Q6H PRN HHN Shortness of Breath 01/01/20 19:30 01/06/20 19:29 Levetiracetam (Keppra) 750 mg Q12HR GT 01/02/20 00:00 02/01/20 00:00 01/05/20 08:58 Levothyroxine Sodium (Synthroid) 100 mcg DAILY GT 01/02/20 09:00 02/01/20 08:59 01/05/20 08:58 Lorazepam (Ativan 2mg/ml 1ml) 1 mg DAILY PRN IV seizure activity 01/01/20 21:45 01/08/20 21:44 Metoclopramide HCl (Reglan) 5 mg EVERY 6 HOURS GT 01/02/20 00:00 02/01/20 00:00 01/05/20 06:12 Metronidazole 100 ml @ 100 mls/hr Q8H IVPB 01/02/20 01:00 01/09/20 00:59 01/05/20 08:59 Midodrine (Pro-Amatine) 10 mg THREE TIMES A DAY ORAL 01/02/20 09:00 04/01/20 08:59 01/05/20 08:59 Topiramate (Topamax) 200 mg DAILY GT 01/02/20 09:00 02/01/20 08:59 01/05/20 08:58 Vancomycin HCl (Vanco pharmacy to dose) 1 ea DAILY PRN MISC Per rx protocol 01/01/20 19:30 01/31/20 19:29 Vancomycin/Sodium Chloride 275 ml @ 183.333 mls/hr Q24H IVPB 01/04/20 12:00 01/09/20 11:59 01/04/20 11:12 Zinc Oxide (Zinc Oxide) 1 applic THREE TIMES A DAY PRN TOPIC g tube site wound 01/02/20 14:30 04/01/20 14:29 01/04/20 19:17 Assessment/Plan Assessment/Plan IMPRESSION: 1. Moderate malnutrition. 2. G-tube site cellulitis. 3. Chronic tracheostomy. 4. Chronic respiratory failure. 5. Dementia. 6. Parkinson's. 7. Diabetes mellitus. 8. Hypertension. DISCUSSION: Continue broad-spectrum antibiotics. Surgical evaluation noted. I will continue AC mode. Attempt to wean. GI evaluation noted. Continue Eliquis. I will follow carefully. IV fluids. Harvinder Woodward M.D. Harvinder Woodward MD Jan 05, 2020 10:19
--- NOTE | 2020-01-05 11:57 | General Progress Note ---
Assessment/Plan Status: stable Assessment/Plan: This is an 89 year old chronically ill patient with severe dementia, dependent on trach and PEG, presented for G-tube malfunction, found to have sepsis d/t G- tube site cellulitis #Sepsis d/t G-tube site cellulitis - S/p IVF resuscitation - continue Vanc/Cefepime/Flagyl (01/01 - ) - ID recs appreciated - Surgery recs appreciated - continue to hold home diltiazem and metoprolol and spironolactone, currently normotensive #G-tube malfunction, replace by GI - Ok to use new G-tube #Hypokalemia - replace and monitor daily daily #Chronic respiratory failure - currently on vent, weaning as per Dr. Woodward #Atrial fibrillation: currently rate controlled - continue home Eliquis and amiodarone. hold metoprolol/diltiazem as above #Paranoid schizophrenia #Major depressive disorder #history of CVA #Advanced Parkinson's Dementia #history of seizures - continue home Carbidopa-Levodopa to prevent withdrawal/NMS - Consult Neurology to optimize regimen - continue home Keppra - continue home Topiramate #Hypothyroidism - continue home Synthroid #T2DM - sliding scale insulin #s/p Medtr[employer] pacemaker placement - continue monitoring, no indication to re-interrogate at this time #Abdominal hernia containing intestine - General Surgery Dr. Sanches consulted, appreciate recommendations I spent 36 minutes on this case, and 20 minutes of this was spent on direct patient care, coordinating with specialists/RN Subjective Date patient seen: Jan 05, 2020 Time patient seen: 09:00 ROS Limited/Unobtainable: Yes Allergies: Coded Allergies: No Known Allergies (Unverified , 03/03/18) Subjective Follow up sepsis due to PEG site cellulitis and PEG malfunction No acute events overnight per RN Patient nonverbal Vent weaning being attempted by Pulm Objective Last 24 Hour Vital Signs Date Time Temp Pulse Resp B/P (MAP) Pulse Ox O2 Delivery O2 Flow Rate FiO2 01/05/20 11:28 103 01/05/20 10:27 107 01/05/20 09:25 98 20 35 01/05/20 06:40 98 Mechanical Ventilator 35 01/05/20 06:40 98 17 35 01/05/20 05:08 89 20 35 01/05/20 04:00 Mechanical Ventilator 01/05/20 04:00 98.9 60 20 113/58 (76) 100 01/05/20 04:00 35.0 01/05/20 04:00 96 01/05/20 03:08 70 15 35 01/05/20 00:54 71 15 35 01/05/20 00:00 35.0 01/05/20 00:00 98.8 65 18 121/65 (83) 100 01/05/20 00:00 Mechanical Ventilator 01/04/20 23:28 81 01/04/20 23:08 78 21 35 01/04/20 20:59 83 17 35 01/04/20 20:00 98.5 62 15 113/71 (85) 98 01/04/20 20:00 Mechanical Ventilator 01/04/20 20:00 35.0 01/04/20 19:32 64 01/04/20 18:55 75 18 35 01/04/20 18:55 100 Mechanical Ventilator 35 01/04/20 17:13 86 17 35 01/04/20 16:53 84 01/04/20 16:00 78 01/04/20 16:00 Mechanical Ventilator 01/04/20 16:00 97.8 88 14 112/67 (82) 100 01/04/20 16:00 35.0 01/04/20 12:37 86 01/04/20 12:00 83 01/04/20 12:00 35.0 01/04/20 12:00 Trach Collar 01/04/20 11:57 97.7 84 14 124/69 (87) 100 Intake and Output 01/04/20 01/05/20 19:00 07:00 Intake Total 1130.000 ml 410 ml Balance 1130.000 ml 410 ml Intake Free Water 40 ml 40 ml IV Total 530.000 ml 100 ml Tube Feeding 410 ml 270 ml Other 150 ml # Voids 4 # Bowel Movements 4 3 Laboratory Tests 01/04/20 12:14: Arterial Blood pH 7.365, Arterial Blood Partial Pressure CO2 44.3, Arterial Blood Partial Pressure O2 97.7, Arterial Blood HCO3 24.7, Arterial Blood Oxygen Saturation 96.7, Arterial Blood Base Excess -0.8, Wolfgang Test Positive 01/04/20 17:48: POC Whole Blood Glucose 222H 01/05/20 00:20: POC Whole Blood Glucose [Pending] 01/05/20 06:05: POC Whole Blood Glucose [Pending] Height (Feet): 5 Height (Inches): 2.00 Weight (Pounds): 160 General Appearance: no apparent distress, lethargic Neck: normal alignment, supple Cardiovascular: normal rate, regular rhythm Respiratory/Chest: lungs clear, normal breath sounds, no respiratory distress Abdomen: non tender, soft Keyon Mistry MD Jan 05, 2020 11:57
[2020-01-05 12:00] VITALS: BP 105/57
[2020-01-05] MEDS: Vancomycin 1.25gm/NS Premix q24h IVPB SCH (12:44)
--- NOTE | 2020-01-05 14:00 | Surgery Progress Note ---
Surgery Progress Note Subjective Additional Comments comfortable stable no n/v/f/c labs improved g tube site stable dressings going well Objective Last 24 Hour Vital Signs Date Time Temp Pulse Resp B/P (MAP) Pulse Ox O2 Delivery O2 Flow Rate FiO2 01/05/20 13:00 86 01/05/20 11:28 103 01/05/20 10:27 107 01/05/20 09:25 98 20 35 01/05/20 08:00 101 01/05/20 08:00 98.1 90 14 112/60 (77) 100 01/05/20 06:40 98 Mechanical Ventilator 35 01/05/20 06:40 98 17 35 01/05/20 05:08 89 20 35 01/05/20 04:00 Mechanical Ventilator 01/05/20 04:00 98.9 60 20 113/58 (76) 100 01/05/20 04:00 35.0 01/05/20 04:00 96 01/05/20 03:08 70 15 35 01/05/20 00:54 71 15 35 01/05/20 00:00 35.0 01/05/20 00:00 98.8 65 18 121/65 (83) 100 01/05/20 00:00 Mechanical Ventilator 01/04/20 23:28 81 01/04/20 23:08 78 21 35 01/04/20 20:59 83 17 35 01/04/20 20:00 98.5 62 15 113/71 (85) 98 01/04/20 20:00 Mechanical Ventilator 01/04/20 20:00 35.0 01/04/20 19:32 64 01/04/20 18:55 75 18 35 01/04/20 18:55 100 Mechanical Ventilator 35 01/04/20 17:13 86 17 35 01/04/20 16:53 84 01/04/20 16:00 78 01/04/20 16:00 Mechanical Ventilator 01/04/20 16:00 97.8 88 14 112/67 (82) 100 01/04/20 16:00 35.0 I&O Intake and Output 01/04/20 01/05/20 19:00 07:00 Intake Total 1130.000 ml 410 ml Balance 1130.000 ml 410 ml Intake Free Water 40 ml 40 ml IV Total 530.000 ml 100 ml Tube Feeding 410 ml 270 ml Other 150 ml # Voids 4 # Bowel Movements 4 3 Dressing: other Wound: other Cardiovascular: RSR Respiratory: decreased breath sounds Abdomen: soft, non-tender, present bowel sounds, other, non-distended Extremities: no edema, no tenderness, no cyanosis Laboratory Tests Test 01/04/20 17:48 01/05/20 00:20 01/05/20 06:05 01/05/20 11:41 POC Whole Blood Glucose 222 MG/DL (74-106) H Pending Pending Arterial Blood pH 7.413 (7.350-7.450) Arterial Blood Partial Pressure CO2 38.2 mmHg (35.0-45.0) Arterial Blood Partial Pressure O2 113.0 mmHg (75.0-100.0) H Arterial Blood HCO3 23.8 mmol/L (22.0-26.0) Arterial Blood Oxygen Saturation 98.0 % (95-100) Arterial Blood Base Excess -0.5 (-2-2) Wolfgang Test Positive Test 01/05/20 12:41 POC Whole Blood Glucose Pending Plan Problems: (1) Sepsis (2) Acute encephalopathy (3) Cellulitis (4) Hypotension (5) Malfunction of gastrostomy tube (6) Ventral hernia Assessment & Plan: 89-year-old female identified to have a large ventral hernia with bowel contents. Abdominal distention. G-tube site cellulitis malfunction. Patient is alert and responds to painful stimuli but she is unable to verbalize or give history or participate in exam I have reviewed the CT personally and discussed the care plan with emergency department physician and medical teams. I was able to easily reduce the hernia at bedside. It is a [place] hernia with bowel contents even considerably loss of domain. Patient is having multiple bowel movements and is not obstructed. She is not incarcerated No acute surgical intervention recommended for her hernia as is chronic and given her age and condition high risk Okay for tube feeds G-tube site evaluated silver nitrate applied Continue with local wound care Antibiotics per infectious disease We will follow with her abdominal examinations recommendations Thank you for let me participate in patient's care KUB noted improving +BM no acute surgical intervention planned Liver: Unremarkable. No mass. Gallbladder and bile ducts: Unremarkable. No calcified stones. No ductal dilation. Pancreas: Unremarkable. No mass. No ductal dilation. Spleen: Unremarkable. No splenomegaly. Adrenals: Unremarkable. No mass. Kidneys and ureters: Kidneys show an inferior pole 1.8 cm cyst that does not require follow-up imaging. No hydronephrosis or hydroureter. No radiopaque stones identified. Stomach and bowel: Again evident is a ventral abdominal wall hernia containing a portion of the transverse colon. The hernia sac is 4.2 cm transverse and 3.9 cm craniocaudal. There is interval presence of a tract from a now since removed percutaneous gastrostomy. There is moderate stool throughout the large bowel with scattered colonic diverticuli. No findings of acute diverticulitis. PELVIS: Appendix: No findings to suggest acute appendicitis. Bladder: Unremarkable. No mass. Reproductive: Uterus is atrophic. ABDOMEN and PELVIS: Intraperitoneal space: Unremarkable. No free air. No significant fluid collection. Bones/joints: Bones show degenerative changes in the spine and fixation screws in the left femoral neck, similar to prior. No acute fracture. No dislocation. Soft tissues: See above. Vasculature: Abdominal aorta shows calcifications. No abdominal aortic aneurysm. Lymph nodes: Unremarkable. No enlarged lymph nodes. Tubes, lines and devices: Lung bases show left chest pacemaker. IMPRESSION: Abdominal distention could be a combination of patient body habitus and the presence of a ventral abdominal wall hernia that contains a portion of the transverse colon. There are no findings of bowel obstruction, or acute inflammation. . DAILY ESTIMATED NEEDS: Needs based on Critical care, wound/ 56.5kg abw 22-28 kcals/kg 8022-0987 total kcals 1.25-2 g protein/kg 70-113 g total protein 25-30 mL/kg 9359-6862 total fluid mLs NUTRITION DIAGNOSIS: * Increased kcal/prot needs R/T wound healing as evidenced by pt admitted w/ skin breakdown, including partial thickness wounds at R and L gluteal clefts. * Swallowing difficulty R/T dysphagia, respiratory status as evidenced by pt is trach/vent dep, PEG dep, admitted for GT malfunction, s/p GT replacement. CURRENT TF:Glucerna 1.2 @ 60ml/hr x 22 hrs ENTERAL NUTRITION RECOMMENDATIONS: Glucerna 1.2 @ 60ml/hr x 22 hrs to provide 1320ml, 1584kcal, 79g prot, 1063ml free water * Maintain current TF order, cont to increase to goal. 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
[2020-01-05 16:00] VITALS: BP 98/49
--- NOTE | 2020-01-05 17:48 | Infectious Diseases Prog Note ---
Assessment/Plan Assessment/Plan ASSESSMENT AND PLAN: 1. g-tube infection/cellulitis/abdominal wall cellulitis, ? sepsis, low bp better, ? aspiration pna/hcap, effusion - vancomycin, cefepime and flagyl - day # 4/7 - g-tube infection/cellulitis better - ? thoracentesis - monitor labs and chest x-ray 2. Dysphagia, G-tube, ventral hernia - reduced 3. Trach, vent, respiratory failure. 4. Parkinson's. 5. Dementia. 6. CVA. 7. Diabetes. 8. Hypertension. 9. Blood pressure and blood sugar treatment per primary care team. 10. Hypothyroidism. 11. No known drug allergies. 12. Social history is negative. 13. Family history is noncontributory. 14. MAR was noted. 15. Case was discussed with RN. 16. Case was discussed with primary care team and Surgery. 17. Continue treatment per primary consultants. 18. Skin care protocol. 19. Orders were noted and entered. 20. Vent care per Pulmonary Medicine. Subjective Constitutional: Reports: other - + trach and vent ; Denies: fever HEENT: Reports: congestion Respiratory: Reports: shortness of breath Cardiovascular: Reports: other - no pressors Gastrointestinal/Abdominal: Denies: nausea, vomiting, diarrhea Genitourinary: Reports: other - no gray Neurologic: Reports: weakness, other - no sz Psychiatric: Reports: other - NA Skin: Denies: rash Hematologic: Denies: bleeding Musculoskeletal: Reports: other - NA Allergies: Coded Allergies: No Known Allergies (Unverified , 03/03/18) Objective Last 24 Hour Vital Signs Date Time Temp Pulse Resp B/P (MAP) Pulse Ox O2 Delivery O2 Flow Rate FiO2 01/05/20 17:22 83 18 35 01/05/20 16:00 108 01/05/20 15:40 88 01/05/20 13:00 86 01/05/20 12:00 Trach Collar 01/05/20 12:00 35 01/05/20 12:00 108 01/05/20 12:00 98.2 100 14 105/57 (73) 100 01/05/20 11:28 103 01/05/20 10:30 35 01/05/20 10:27 107 01/05/20 09:25 98 20 35 01/05/20 08:00 35 01/05/20 08:00 Mechanical Ventilator 01/05/20 08:00 101 01/05/20 08:00 98.1 90 14 112/60 (77) 100 01/05/20 06:40 98 Mechanical Ventilator 35 01/05/20 06:40 98 17 35 01/05/20 05:08 89 20 35 01/05/20 04:00 Mechanical Ventilator 01/05/20 04:00 98.9 60 20 113/58 (76) 100 01/05/20 04:00 35.0 01/05/20 04:00 96 01/05/20 03:08 70 15 35 01/05/20 00:54 71 15 35 01/05/20 00:00 35.0 01/05/20 00:00 98.8 65 18 121/65 (83) 100 01/05/20 00:00 Mechanical Ventilator 01/04/20 23:28 81 01/04/20 23:08 78 21 35 01/04/20 20:59 83 17 35 01/04/20 20:00 98.5 62 15 113/71 (85) 98 01/04/20 20:00 Mechanical Ventilator 01/04/20 20:00 35.0 01/04/20 19:32 64 01/04/20 18:55 75 18 35 01/04/20 18:55 100 Mechanical Ventilator 35 Height (Feet): 5 Height (Inches): 2.00 Weight (Pounds): 160 General Appearance: no acute distress HEENT: normocephalic, atraumatic, anicteric, no JVD, status post trach Respiratory/Chest: crackles/rales, rhonchi - bilaterally Cardiovascular: normal rate, regular rhythm, no gallop/murmur, no JVD Abdomen: normal bowel sounds, soft, non tender, no organomegaly, non distended Genitourinary: other - no gray Extremities: no cyanosis Skin: no rash Neurologic/Psychiatric: account leader II-XII grossly normal, alert, responsive Lymphatic: no neck adenopathy Musculoskeletal: no effusion Procedure: XRAY Chest 1v Chest x-ray - 01/04/20 - Indication: Shortness of breath Technique: One view of the chest Comparison: 01/01/2020 Findings: Increasing pleural fluid is seen on the left. The lungs and right pleural space are otherwise clear. Left chest pacemaker, tracheostomy again demonstrated. Impression: Increasing left pleural effusion, since prior exam of 3 days earlier Microbiology Date/Time Source Procedure Growth Status 01/01/20 17:30 Blood Blood Culture - Preliminary NO GROWTH AFTER 72 HOURS Resulted 01/01/20 17:56 Nasal Nares MRSA Culture - Final NO METHICILLIN RESISTANT STAPH AUREUS... Complete 01/04/20 10:00 Stool Clostridium difficile Toxin Assay - Final Complete 01/01/20 17:56 Indwelling Cath Urine Culture - Final NO GROWTH AFTER 48 HOURS Complete 01/01/20 17:56 Rectum - Final NO CARBAPENEM-RESISTANT ENTEROBACTERI... Complete Microbiology Date/Time Source Procedure Growth Status 01/04/20 10:00 Stool Clostridium difficile Toxin Assay - Final Complete Labs Test 01/02/20 17:51 01/02/20 23:45 01/03/20 03:50 01/03/20 05:25 POC Whole Blood Glucose 229 MG/DL (74-106) 219 MG/DL (74-106) Sodium Level 144 MMOL/L (136-145) Potassium Level 3.2 MMOL/L (3.5-5.1) Chloride Level 109 MMOL/L (98-107) Carbon Dioxide Level 30 MMOL/L (21-32) Anion Gap 6 mmol/L (5-15) Blood Urea Nitrogen 22 mg/dL (7-18) Creatinine 0.8 MG/DL (0.55-1.30) Estimat Glomerular Filtration Rate > 60 mL/min (>60) Glucose Level 176 MG/DL (74-106) Calcium Level 8.6 MG/DL (8.5-10.1) Total Bilirubin 0.4 MG/DL (0.2-1.0) Aspartate Amino Transf (AST/SGOT) 16 U/L (15-37) Alanine Aminotransferase (ALT/SGPT) 11 U/L (12-78) Alkaline Phosphatase 82 U/L (46-116) Total Protein 5.9 G/DL (6.4-8.2) Albumin 1.9 G/DL (3.4-5.0) Globulin 4.0 g/dL Test 01/03/20 11:39 01/03/20 17:15 01/03/20 17:38 01/03/20 23:08 Vancomycin Level Trough 7.5 ug/mL (5.0-12.0) POC Whole Blood Glucose 228 MG/DL (74-106) 243 MG/DL (74-106) Test 01/04/20 03:35 01/04/20 05:10 01/04/20 11:14 01/04/20 12:14 White Blood Count 5.8 K/UL (4.8-10.8) Red Blood Count 3.60 M/UL (4.20-5.40) Hemoglobin 11.4 G/DL (12.0-16.0) Hematocrit 36.2 % (37.0-47.0) Mean Corpuscular Volume 101 FL (80-99) Mean Corpuscular Hemoglobin 31.8 PG (27.0-31.0) Mean Corpuscular Hemoglobin Concent 31.6 G/DL (32.0-36.0) Red Cell Distribution Width 13.9 % (11.6-14.8) Platelet Count 175 K/UL (150-450) Mean Platelet Volume 7.8 FL (6.5-10.1) Neutrophils (%) (Auto) 60.7 % (45.0-75.0) Lymphocytes (%) (Auto) 21.1 % (20.0-45.0) Monocytes (%) (Auto) 13.6 % (1.0-10.0) Eosinophils (%) (Auto) 3.2 % (0.0-3.0) Basophils (%) (Auto) 1.3 % (0.0-2.0) Sodium Level 144 MMOL/L (136-145) Potassium Level 4.0 MMOL/L (3.5-5.1) Chloride Level 112 MMOL/L (98-107) Carbon Dioxide Level 25 MMOL/L (21-32) Anion Gap 7 mmol/L (5-15) Blood Urea Nitrogen 23 mg/dL (7-18) Creatinine 0.8 MG/DL (0.55-1.30) Estimat Glomerular Filtration Rate > 60 mL/min (>60) Glucose Level 241 MG/DL (74-106) Calcium Level 8.6 MG/DL (8.5-10.1) Phosphorus Level 2.0 MG/DL (2.5-4.9) Magnesium Level 1.8 MG/DL (1.8-2.4) POC Whole Blood Glucose 244 MG/DL (74-106) 214 MG/DL (74-106) Arterial Blood pH 7.365 (7.350-7.450) Arterial Blood Partial Pressure CO2 44.3 mmHg (35.0-45.0) Arterial Blood Partial Pressure O2 97.7 mmHg (75.0-100.0) Arterial Blood HCO3 24.7 mmol/L (22.0-26.0) Arterial Blood Oxygen Saturation 96.7 % (95-100) Arterial Blood Base Excess -0.8 (-2-2) Wolfgang Test Positive Test 01/04/20 17:48 01/05/20 00:20 01/05/20 06:05 01/05/20 11:41 POC Whole Blood Glucose 222 MG/DL (74-106) Arterial Blood pH 7.413 (7.350-7.450) Arterial Blood Partial Pressure CO2 38.2 mmHg (35.0-45.0) Arterial Blood Partial Pressure O2 113.0 mmHg (75.0-100.0) Arterial Blood HCO3 23.8 mmol/L (22.0-26.0) Arterial Blood Oxygen Saturation 98.0 % (95-100) Arterial Blood Base Excess -0.5 (-2-2) Wolfgang Test Positive Test 01/05/20 12:41 01/05/20 16:58 POC Whole Blood Glucose 261 MG/DL (74-106) Laboratory Tests Test 01/04/20 17:48 01/05/20 00:20 01/05/20 06:05 01/05/20 11:41 POC Whole Blood Glucose 222 MG/DL (74-106) H Pending Pending Arterial Blood pH 7.413 (7.350-7.450) Arterial Blood Partial Pressure CO2 38.2 mmHg (35.0-45.0) Arterial Blood Partial Pressure O2 113.0 mmHg (75.0-100.0) H Arterial Blood HCO3 23.8 mmol/L (22.0-26.0) Arterial Blood Oxygen Saturation 98.0 % (95-100) Arterial Blood Base Excess -0.5 (-2-2) Wolfgang Test Positive Test 01/05/20 12:41 01/05/20 16:58 POC Whole Blood Glucose Pending 261 MG/DL (74-106) H Current Medications Medications (Trade) Dose Ordered Sig/Genaro Route PRN Reason Start Time Stop Time Status Last Admin Dose Admin Amiodarone HCl (Cordarone) 100 mg Q8H GT 01/02/20 00:00 04/01/20 00:00 01/05/20 16:49 Apixaban (Eliquis) 2.5 mg BID GT 01/02/20 09:00 04/01/20 08:59 01/05/20 17:18 Ascorbic Acid (Vitamin C) 500 mg DAILY GT 01/02/20 09:00 02/01/20 08:59 01/05/20 08:59 Carbidopa/Levodopa (Sinemet 25/100) 1 tab Q8H GT 01/02/20 00:00 02/01/20 00:00 01/05/20 16:49 Cefepime HCl 1 gm/ Dextrose 55 ml @ 110 mls/hr Q12HR@0600,1800 IVPB 01/02/20 06:00 01/09/20 05:59 01/05/20 17:19 Dextrose (Dextrose 50%) 25 ml Q30M PRN IV Hypoglycemia 01/01/20 19:30 03/31/20 19:29 01/02/20 05:43 Dextrose (Dextrose 50%) 50 ml Q30M PRN IV Hypoglycemia 01/01/20 19:30 03/31/20 19:29 Famotidine (Pepcid) 20 mg DAILY GT 01/02/20 09:00 04/01/20 08:59 01/05/20 08:58 Insulin Aspart (NovoLOG) Q6H SUBQ 01/02/20 06:00 04/01/20 05:59 01/05/20 17:20 Ipratropium [place] (Atrovent) 500 mcg Q6H PRN HHN Shortness of Breath 01/01/20 19:30 01/06/20 19:29 Levetiracetam (Keppra) 750 mg Q12HR GT 01/02/20 00:00 02/01/20 00:00 01/05/20 08:58 Levothyroxine Sodium (Synthroid) 100 mcg DAILY GT 01/02/20 09:00 02/01/20 08:59 01/05/20 08:58 Lorazepam (Ativan 2mg/ml 1ml) 1 mg DAILY PRN IV seizure activity 01/01/20 21:45 01/08/20 21:44 Metoclopramide HCl (Reglan) 5 mg EVERY 6 HOURS GT 01/02/20 00:00 02/01/20 00:00 01/05/20 17:18 Metronidazole 100 ml @ 100 mls/hr Q8H IVPB 01/02/20 01:00 01/09/20 00:59 01/05/20 16:49 Midodrine (Pro-Amatine) 10 mg THREE TIMES A DAY ORAL 01/02/20 09:00 04/01/20 08:59 01/05/20 17:19 Topiramate (Topamax) 200 mg DAILY GT 01/02/20 09:00 02/01/20 08:59 01/05/20 08:58 Vancomycin HCl (Vanco pharmacy to dose) 1 ea DAILY PRN MISC Per rx protocol 01/01/20 19:30 01/31/20 19:29 Vancomycin/Sodium Chloride 275 ml @ 183.333 mls/hr Q24H IVPB 01/04/20 12:00 01/09/20 11:59 01/05/20 12:44 Zinc Oxide (Zinc Oxide) 1 applic THREE TIMES A DAY PRN TOPIC g tube site wound 01/02/20 14:30 04/01/20 14:29 01/04/20 19:17 Chanda Pop MD Jan 05, 2020 17:48
[2020-01-05 20:00] VITALS: BP 115/62
[2020-01-06] VITALS: BP 124/70
[2020-01-06 04:00] VITALS: BP 102/55
[2020-01-06 04:33] LABS: BASOPHILS % (AUTO) 1.4 % (0.0-2.0); EOSINOPHILS % (AUTO) 1.5 % (0.0-3.0); HEMOGLOBIN 11.8 G/DL (12.0-16.0); LYMPHOCYTES % (AUTO) 19.3 % (20.0-45.0); MEAN CORPUSCULAR VOLUME 99 FL (80-99); MONOCYTES % (AUTO) 11.4 % (1.0-10.0); NEUTROPHILS % (AUTO) 66.5 % (45.0-75.0); PLATELET COUNT 182 K/UL (150-450); RED BLOOD COUNT 3.75 M/UL (4.20-5.40); RED CELL DISTRIBUTION WIDTH 13.5 % (11.6-14.8); WHITE BLOOD COUNT 7.5 K/UL (4.8-10.8)
[2020-01-06 04:37] LABS: ALANINE AMINOTRANSFERASE 7 U/L (12-78); ALBUMIN 1.9 G/DL (3.4-5.0); ALBUMIN/GLOBULIN RATIO 0.4 (1.0-2.7); ALKALINE PHOSPHATASE 120 U/L (46-116); ANION GAP 7 mmol/L (5-15); ASPARTATE AMINO TRANSFERASE 19 U/L (15-37); BILIRUBIN,TOTAL 0.2 MG/DL (0.2-1.0); BLOOD UREA NITROGEN 19 mg/dL (7-18); CALCIUM 8.6 MG/DL (8.5-10.1); CARBON DIOXIDE 28 MMOL/L (21-32); CHLORIDE 106 MMOL/L (98-107); CREATININE 0.6 MG/DL (0.55-1.30); POTASSIUM 3.5 MMOL/L (3.5-5.1); SODIUM 141 MMOL/L (136-145)
[2020-01-06] MEDS: Metoclopramide 10mg/10ml Liq GT SCH ×4 (05:31→23:08)
[2020-01-06] MEDS: Cefepime HCl 1 GM in D5W 55 ML IVPB SCH ×2 (05:31→17:47)
[2020-01-06] MEDS: NovoLOG Insulin Flexpen SUBQ SCH ×4 (05:33→23:09)
[2020-01-06 08:00] VITALS: BP 103/56
[2020-01-06] MEDS: levETIRAcetam 500mg/5ml Liquid GT SCH ×2 (09:30→20:21)
[2020-01-06] MEDS: Midodrine 10mg tab ORAL SCH ×3 (09:30→17:47)
[2020-01-06] MEDS: Ascorbic Acid 500mg tab GT SCH (09:30)
[2020-01-06] MEDS: Eliquis 2.5mg tablet GT SCH ×2 (09:32→17:47)
[2020-01-06] MEDS: Topiramate 100mg tab GT SCH (09:33)
[2020-01-06] MEDS: Amiodarone 200mg tab GT SCH ×3 (09:36→23:08)
[2020-01-06] MEDS: Levodopa/Carbidopa 25/100 tab GT SCH ×3 (09:39→23:07)
[2020-01-06 12:00] VITALS: BP 115/55
--- NOTE | 2020-01-06 12:47 | Pulmonology Progress Note ---
Subjective ROS Limited/Unobtainable: No Interval Events: None new Constitutional: Reports: other - + trach and vent ; Denies: fever HEENT: Repors: no symptoms Respiratory: Reports: no symptoms Gastrointestinal/Abdominal: Denies: nausea, vomiting, diarrhea Psychiatric: Reports: other - NA Skin: Denies: rash Musculoskeletal: Reports: other - NA Allergies: Coded Allergies: No Known Allergies (Unverified , 03/03/18) Objective Last 24 Hour Vital Signs Date Time Temp Pulse Resp B/P (MAP) Pulse Ox O2 Delivery O2 Flow Rate FiO2 01/06/20 08:00 98.9 89 23 103/56 (72) 100 01/06/20 08:00 Mechanical Ventilator 01/06/20 08:00 85 01/06/20 08:00 35 01/06/20 07:28 100 Mechanical Ventilator 35 01/06/20 07:24 86 20 35 01/06/20 05:05 95 21 35 01/06/20 04:00 35 01/06/20 04:00 98.2 92 14 102/55 (71) 100 01/06/20 04:00 Mechanical Ventilator 01/06/20 03:45 87 19 35 01/06/20 03:40 81 01/06/20 01:25 90 19 35 01/06/20 00:00 Mechanical Ventilator 01/06/20 00:00 98.2 80 14 124/70 (88) 100 01/06/20 00:00 35 01/06/20 00:00 80 01/05/20 23:14 81 20 35 01/05/20 21:38 82 22 35 01/05/20 20:00 Mechanical Ventilator 01/05/20 20:00 86 01/05/20 20:00 98.1 80 14 115/62 (79) 100 01/05/20 19:30 100 Mechanical Ventilator 35 01/05/20 19:27 83 17 35 01/05/20 17:50 Mechanical Ventilator 01/05/20 17:30 35 01/05/20 17:22 83 18 35 01/05/20 16:00 Trach Collar 01/05/20 16:00 98.2 86 14 98/49 (65) 100 01/05/20 16:00 108 01/05/20 16:00 35 01/05/20 15:40 88 01/05/20 13:00 86 Intake and Output 01/05/20 01/06/20 19:00 07:00 Intake Total 815 ml 1175 ml Output Total 1500 ml 300 ml Balance -685 ml 875 ml Intake Free Water 100 ml 300 ml IV Total 55 ml 155 ml Tube Feeding 660 ml 720 ml Output Urine Total 1500 ml 300 ml General Appearance: no acute distress Respiratory: chest wall non-tender, lungs clear Cardiovascular: normal peripheral pulses, normal rate Abdomen: normal bowel sounds Microbiology Date/Time Source Procedure Growth Status 01/04/20 10:00 Stool Clostridium difficile Toxin Assay - Final Complete Laboratory Tests 01/05/20 16:58: POC Whole Blood Glucose 261H 01/05/20 23:15: POC Whole Blood Glucose [Pending] 01/06/20 02:50: White Blood Count 7.5, Red Blood Count 3.75L, Hemoglobin 11.8L, Hematocrit 37.0 , Mean Corpuscular Volume 99, Mean Corpuscular Hemoglobin 31.5H, Mean Corpuscular Hemoglobin Concent 32.0, Red Cell Distribution Width 13.5, Platelet Count 182, Mean Platelet Volume 7.4, Neutrophils (%) (Auto) 66.5, Lymphocytes (% ) (Auto) 19.3L, Monocytes (%) (Auto) 11.4H, Eosinophils (%) (Auto) 1.5, Basophils (%) (Auto) 1.4, Sodium Level 141, Potassium Level 3.5, Chloride Level 106, Carbon Dioxide Level 28, Anion Gap 7, Blood Urea Nitrogen 19H, Creatinine 0.6, Estimat Glomerular Filtration Rate > 60, Glucose Level 267H, Calcium Level 8.6, Total Bilirubin 0.2, Aspartate Amino Transf (AST/SGOT) 19, Alanine Aminotransferase (ALT/SGPT) 7L, Alkaline Phosphatase 120H, Total Protein 6.3L, Albumin 1.9L, Globulin 4.4, Albumin/Globulin Ratio 0.4L 01/06/20 05:29: POC Whole Blood Glucose 251H 01/06/20 11:10: Vancomycin Level Trough [Pending] Current Medications Medications (Trade) Dose Ordered Sig/Genaro Route PRN Reason Start Time Stop Time Status Last Admin Dose Admin Amiodarone HCl (Cordarone) 100 mg Q8H GT 01/02/20 00:00 04/01/20 00:00 01/06/20 09:36 Apixaban (Eliquis) 2.5 mg BID GT 01/02/20 09:00 04/01/20 08:59 01/06/20 09:32 Ascorbic Acid (Vitamin C) 500 mg DAILY GT 01/02/20 09:00 02/01/20 08:59 01/06/20 09:30 Carbidopa/Levodopa (Sinemet 25/100) 1 tab Q8H GT 01/02/20 00:00 02/01/20 00:00 01/06/20 09:39 Cefepime HCl 1 gm/ Dextrose 55 ml @ 110 mls/hr Q12HR@0600,1800 IVPB 01/02/20 06:00 01/09/20 05:59 01/06/20 05:31 Dextrose (Dextrose 50%) 25 ml Q30M PRN IV Hypoglycemia 01/01/20 19:30 03/31/20 19:29 01/02/20 05:43 Dextrose (Dextrose 50%) 50 ml Q30M PRN IV Hypoglycemia 01/01/20 19:30 03/31/20 19:29 Famotidine (Pepcid) 20 mg DAILY GT 01/02/20 09:00 04/01/20 08:59 01/06/20 09:30 Insulin Aspart (NovoLOG) Q6H SUBQ 01/02/20 06:00 04/01/20 05:59 01/06/20 05:33 Ipratropium [place] (Atrovent) 500 mcg Q6H PRN HHN Shortness of Breath 01/01/20 19:30 01/06/20 19:29 Levetiracetam (Keppra) 750 mg Q12HR GT 01/02/20 00:00 02/01/20 00:00 01/06/20 09:30 Levothyroxine Sodium (Synthroid) 100 mcg DAILY GT 01/02/20 09:00 02/01/20 08:59 01/06/20 09:30 Lorazepam (Ativan 2mg/ml 1ml) 1 mg DAILY PRN IV seizure activity 01/01/20 21:45 01/08/20 21:44 Metoclopramide HCl (Reglan) 5 mg EVERY 6 HOURS GT 01/02/20 00:00 02/01/20 00:00 01/06/20 05:31 Metronidazole 100 ml @ 100 mls/hr Q8H IVPB 01/02/20 01:00 01/09/20 00:59 01/06/20 09:30 Midodrine (Pro-Amatine) 10 mg THREE TIMES A DAY ORAL 01/02/20 09:00 04/01/20 08:59 01/06/20 09:30 Topiramate (Topamax) 200 mg DAILY GT 01/02/20 09:00 02/01/20 08:59 01/06/20 09:33 Vancomycin HCl (Vanco pharmacy to dose) 1 ea DAILY PRN MISC Per rx protocol 01/01/20 19:30 01/31/20 19:29 Vancomycin/Sodium Chloride 275 ml @ 183.333 mls/hr Q24H IVPB 01/04/20 12:00 01/09/20 11:59 01/05/20 12:44 Zinc Oxide (Zinc Oxide) 1 applic THREE TIMES A DAY PRN TOPIC g tube site wound 01/02/20 14:30 04/01/20 14:29 01/04/20 19:17 Assessment/Plan Assessment/Plan Pulmonary Progress Note Subjective ROS Limited/Unobtainable: No Interval Events: None new Constitutional: Denies: fever HEENT: Repors: no symptoms Respiratory: Reports: no symptoms Gastrointestinal/Abdominal: Denies: nausea, vomiting, diarrhea Allergies: Coded Allergies: No Known Allergies (Unverified , 03/03/18) Objective Vital Signs Noted General Appearance: no acute distress Respiratory: chest wall non-tender, lungs clear Cardiovascular: normal peripheral pulses, normal rate Abdomen: normal bowel sounds Microbiology Date/Time Source Procedure Growth Status 01/04/20 10:00 Stool Clostridium difficile Toxin Assay - Final Complete Laboratory Tests noted Assessment/Plan IMPRESSION: 1. Moderate malnutrition. 2. G-tube site cellulitis. 3. Chronic tracheostomy. 4. Chronic respiratory failure. 5. Dementia. 6. Parkinson's. 7. Diabetes mellitus. 8. Hypertension. DISCUSSION: Broad-spectrum antibiotics per ID Surgical evaluation noted. Continue current Ventilator settings Attempt to wean. GI evaluation noted. On Eliquis. Perry Shanks MD Jan 06, 2020 12:47
[2020-01-06] MEDS: Vancomycin 1.25gm/NS Premix q24h IVPB SCH (13:28)
--- NOTE | 2020-01-06 14:30 | General Progress Note ---
Assessment/Plan Status: stable Assessment/Plan: This is an 89 year old chronically ill patient with severe dementia, dependent on trach and PEG, presented for G-tube malfunction, found to have sepsis d/t G- tube site cellulitis #Sepsis d/t G-tube site cellulitis - S/p IVF resuscitation - continue Vanc/Cefepime/Flagyl (01/01 - ) - ID recs appreciated - Surgery recs appreciated - continue to hold home diltiazem and metoprolol and spironolactone, currently normotensive #G-tube malfunction, replace by GI - Ok to use new G-tube #Hypokalemia - replace and monitor daily daily #Chronic respiratory failure - currently on vent, weaning as per Dr. Woodward #Atrial fibrillation: currently rate controlled - continue home Eliquis and amiodarone. hold metoprolol/diltiazem as above #Paranoid schizophrenia #Major depressive disorder #history of CVA #Advanced Parkinson's Dementia #history of seizures - continue home Carbidopa-Levodopa to prevent withdrawal/NMS - Consult Neurology to optimize regimen - continue home Keppra - continue home Topiramate - restarted Vimpat #Hypothyroidism - continue home Synthroid #T2DM, uncontrolled - Started NPH 20 units bid #s/p Medtronic pacemaker placement - continue monitoring, no indication to re-interrogate at this time #Abdominal hernia containing intestine - Seen by Surgery Subjective Date patient seen: Jan 06, 2020 Time patient seen: 14:29 ROS Limited/Unobtainable: Yes Allergies: Coded Allergies: No Known Allergies (Unverified , 03/03/18) Subjective Follow up sepsis due to PEG site cellulitis and PEG malfunction No acute events overnight per RN Patient nonverbal Vent weaning Objective Last 24 Hour Vital Signs Date Time Temp Pulse Resp B/P (MAP) Pulse Ox O2 Delivery O2 Flow Rate FiO2 01/06/20 10:45 96 01/06/20 09:24 90 19 35 01/06/20 08:00 98.9 89 23 103/56 (72) 100 01/06/20 08:00 Mechanical Ventilator 01/06/20 08:00 85 01/06/20 08:00 35 01/06/20 07:28 100 Mechanical Ventilator 35 01/06/20 07:24 86 20 35 01/06/20 05:05 95 21 35 01/06/20 04:00 35 01/06/20 04:00 98.2 92 14 102/55 (71) 100 01/06/20 04:00 Mechanical Ventilator 01/06/20 03:45 87 19 35 01/06/20 03:40 81 01/06/20 01:25 90 19 35 01/06/20 00:00 Mechanical Ventilator 01/06/20 00:00 98.2 80 14 124/70 (88) 100 01/06/20 00:00 35 01/06/20 00:00 80 01/05/20 23:14 81 20 35 01/05/20 21:38 82 22 35 01/05/20 20:00 Mechanical Ventilator 01/05/20 20:00 86 01/05/20 20:00 98.1 80 14 115/62 (79) 100 01/05/20 19:30 100 Mechanical Ventilator 35 01/05/20 19:27 83 17 35 01/05/20 17:50 Mechanical Ventilator 01/05/20 17:30 35 01/05/20 17:22 83 18 35 01/05/20 16:00 Trach Collar 01/05/20 16:00 98.2 86 14 98/49 (65) 100 01/05/20 16:00 108 01/05/20 16:00 35 01/05/20 15:40 88 Intake and Output 01/05/20 01/06/20 19:00 07:00 Intake Total 815 ml 1175 ml Output Total 1500 ml 300 ml Balance -685 ml 875 ml Intake Free Water 100 ml 300 ml IV Total 55 ml 155 ml Tube Feeding 660 ml 720 ml Output Urine Total 1500 ml 300 ml Laboratory Tests 01/05/20 16:58: POC Whole Blood Glucose 261H 01/05/20 23:15: POC Whole Blood Glucose [Pending] 01/06/20 02:50: White Blood Count 7.5, Red Blood Count 3.75L, Hemoglobin 11.8L, Hematocrit 37.0 , Mean Corpuscular Volume 99, Mean Corpuscular Hemoglobin 31.5H, Mean Corpuscular Hemoglobin Concent 32.0, Red Cell Distribution Width 13.5, Platelet Count 182, Mean Platelet Volume 7.4, Neutrophils (%) (Auto) 66.5, Lymphocytes (% ) (Auto) 19.3L, Monocytes (%) (Auto) 11.4H, Eosinophils (%) (Auto) 1.5, Basophils (%) (Auto) 1.4, Sodium Level 141, Potassium Level 3.5, Chloride Level 106, Carbon Dioxide Level 28, Anion Gap 7, Blood Urea Nitrogen 19H, Creatinine 0.6, Estimat Glomerular Filtration Rate > 60, Glucose Level 267H, Calcium Level 8.6, Total Bilirubin 0.2, Aspartate Amino Transf (AST/SGOT) 19, Alanine Aminotransferase (ALT/SGPT) 7L, Alkaline Phosphatase 120H, Total Protein 6.3L, Albumin 1.9L, Globulin 4.4, Albumin/Globulin Ratio 0.4L 01/06/20 05:29: POC Whole Blood Glucose 251H 01/06/20 11:10: Vancomycin Level Trough 11.0 01/06/20 13:19: POC Whole Blood Glucose [Pending] Height (Feet): 5 Height (Inches): 2.00 Weight (Pounds): 162 General Appearance: lethargic, confused Neck: normal alignment, supple Respiratory/Chest: lungs clear, normal breath sounds Abdomen: non tender, soft Keyon Mistry MD Jan 06, 2020 14:30
[2020-01-06 16:00] VITALS: BP 102/72
--- NOTE | 2020-01-06 18:27 | Surgery Progress Note ---
Surgery Progress Note Subjective Additional Comments siddhartha cute events Objective Last 24 Hour Vital Signs Date Time Temp Pulse Resp B/P (MAP) Pulse Ox O2 Delivery O2 Flow Rate FiO2 01/06/20 16:11 35 01/06/20 16:11 77 01/06/20 16:00 Mechanical Ventilator 01/06/20 16:00 97.5 85 27 102/72 (82) 99 01/06/20 14:55 89 01/06/20 12:30 92 01/06/20 12:00 Mechanical Ventilator 01/06/20 12:00 91 01/06/20 12:00 98.2 93 28 115/55 (75) 100 01/06/20 12:00 35 01/06/20 10:45 96 01/06/20 09:24 90 19 35 01/06/20 08:00 98.9 89 23 103/56 (72) 100 01/06/20 08:00 Mechanical Ventilator 01/06/20 08:00 85 01/06/20 08:00 35 01/06/20 07:28 100 Mechanical Ventilator 35 01/06/20 07:24 86 20 35 01/06/20 05:05 95 21 35 01/06/20 04:00 35 01/06/20 04:00 98.2 92 14 102/55 (71) 100 01/06/20 04:00 Mechanical Ventilator 01/06/20 03:45 87 19 35 01/06/20 03:40 81 01/06/20 01:25 90 19 35 01/06/20 00:00 Mechanical Ventilator 01/06/20 00:00 98.2 80 14 124/70 (88) 100 01/06/20 00:00 35 01/06/20 00:00 80 01/05/20 23:14 81 20 35 01/05/20 21:38 82 22 35 01/05/20 20:00 Mechanical Ventilator 01/05/20 20:00 86 01/05/20 20:00 98.1 80 14 115/62 (79) 100 01/05/20 19:30 100 Mechanical Ventilator 35 01/05/20 19:27 83 17 35 I&O Intake and Output 01/05/20 01/06/20 19:00 07:00 Intake Total 815 ml 1175 ml Output Total 1500 ml 300 ml Balance -685 ml 875 ml Intake Free Water 100 ml 300 ml IV Total 55 ml 155 ml Tube Feeding 660 ml 720 ml Output Urine Total 1500 ml 300 ml Dressing: other Wound: other Drains: other Cardiovascular: RSR Respiratory: decreased breath sounds Abdomen: soft, non-tender, present bowel sounds Extremities: no cyanosis Laboratory Tests Test 01/05/20 23:15 01/06/20 02:50 01/06/20 05:29 01/06/20 11:10 POC Whole Blood Glucose Pending 251 MG/DL (74-106) H White Blood Count 7.5 K/UL (4.8-10.8) Red Blood Count 3.75 M/UL (4.20-5.40) L Hemoglobin 11.8 G/DL (12.0-16.0) L Hematocrit 37.0 % (37.0-47.0) Mean Corpuscular Volume 99 FL (80-99) Mean Corpuscular Hemoglobin 31.5 PG (27.0-31.0) H Mean Corpuscular Hemoglobin Concent 32.0 G/DL (32.0-36.0) Red Cell Distribution Width 13.5 % (11.6-14.8) Platelet Count 182 K/UL (150-450) Mean Platelet Volume 7.4 FL (6.5-10.1) Neutrophils (%) (Auto) 66.5 % (45.0-75.0) Lymphocytes (%) (Auto) 19.3 % (20.0-45.0) L Monocytes (%) (Auto) 11.4 % (1.0-10.0) H Eosinophils (%) (Auto) 1.5 % (0.0-3.0) Basophils (%) (Auto) 1.4 % (0.0-2.0) Sodium Level 141 MMOL/L (136-145) Potassium Level 3.5 MMOL/L (3.5-5.1) Chloride Level 106 MMOL/L (98-107) Carbon Dioxide Level 28 MMOL/L (21-32) Anion Gap 7 mmol/L (5-15) Blood Urea Nitrogen 19 mg/dL (7-18) H Creatinine 0.6 MG/DL (0.55-1.30) Estimat Glomerular Filtration Rate > 60 mL/min (>60) Glucose Level 267 MG/DL (74-106) H Calcium Level 8.6 MG/DL (8.5-10.1) Total Bilirubin 0.2 MG/DL (0.2-1.0) Aspartate Amino Transf (AST/SGOT) 19 U/L (15-37) Alanine Aminotransferase (ALT/SGPT) 7 U/L (12-78) L Alkaline Phosphatase 120 U/L (46-116) H Total Protein 6.3 G/DL (6.4-8.2) L Albumin 1.9 G/DL (3.4-5.0) L Globulin 4.4 g/dL Albumin/Globulin Ratio 0.4 (1.0-2.7) L Vancomycin Level Trough 11.0 ug/mL (5.0-12.0) Test 01/06/20 13:19 01/06/20 17:40 POC Whole Blood Glucose Pending 220 MG/DL (74-106) H Plan Problems: (1) Sepsis (2) Acute encephalopathy (3) Cellulitis (4) Hypotension (5) Malfunction of gastrostomy tube (6) Ventral hernia Assessment & Plan: 89-year-old female identified to have a large ventral hernia with bowel contents. Abdominal distention. G-tube site cellulitis malfunction. Patient is alert and responds to painful stimuli but she is unable to verbalize or give history or participate in exam I have reviewed the CT personally and discussed the care plan with emergency department physician and medical teams. I was able to easily reduce the hernia at bedside. It is a wid[place] hernia with bowel contents even considerably loss of domain. Patient is having multiple bowel movements and is not obstructed. She is not incarcerated No acute surgical intervention recommended for her hernia as is chronic and given her age and condition high risk Okay for tube feeds G-tube site evaluated silver nitrate applied Continue with local wound care Antibiotics per infectious disease We will follow with her abdominal examinations recommendations Thank you for let me participate in patient's care KUB noted improving +BM no acute surgical intervention planned Liver: Unremarkable. No mass. Gallbladder and bile ducts: Unremarkable. No calcified stones. No ductal dilation. Pancreas: Unremarkable. No mass. No ductal dilation. Spleen: Unremarkable. No splenomegaly. Adrenals: Unremarkable. No mass. Kidneys and ureters: Kidneys show an inferior pole 1.8 cm cyst that does not require follow-up imaging. No hydronephrosis or hydroureter. No radiopaque stones identified. Stomach and bowel: Again evident is a ventral abdominal wall hernia containing a portion of the transverse colon. The hernia sac is 4.2 cm transverse and 3.9 cm craniocaudal. There is interval presence of a tract from a now since removed percutaneous gastrostomy. There is moderate stool throughout the large bowel with scattered colonic diverticuli. No findings of acute diverticulitis. PELVIS: Appendix: No findings to suggest acute appendicitis. Bladder: Unremarkable. No mass. Reproductive: Uterus is atrophic. ABDOMEN and PELVIS: Intraperitoneal space: Unremarkable. No free air. No significant fluid collection. Bones/joints: Bones show degenerative changes in the spine and fixation screws in the left femoral neck, similar to prior. No acute fracture. No dislocation. Soft tissues: See above. Vasculature: Abdominal aorta shows calcifications. No abdominal aortic aneurysm. Lymph nodes: Unremarkable. No enlarged lymph nodes. Tubes, lines and devices: Lung bases show left chest pacemaker. IMPRESSION: Abdominal distention could be a combination of patient body habitus and the presence of a ventral abdominal wall hernia that contains a portion of the transverse colon. There are no findings of bowel obstruction, or acute inflammation. . DAILY ESTIMATED NEEDS: Needs based on Critical care, wound/ 56.5kg abw 22-28 kcals/kg 9599-0451 total kcals 1.25-2 g protein/kg 70-113 g total protein 25-30 mL/kg 7108-1589 total fluid mLs NUTRITION DIAGNOSIS: * Increased kcal/prot needs R/T wound healing as evidenced by pt admitted w/ skin breakdown, including partial thickness wounds at R and L gluteal clefts. * Swallowing difficulty R/T dysphagia, respiratory status as evidenced by pt is trach/vent dep, PEG dep, admitted for GT malfunction, s/p GT replacement. CURRENT TF:Glucerna 1.2 @ 60ml/hr x 22 hrs ENTERAL NUTRITION RECOMMENDATIONS: Glucerna 1.2 @ 60ml/hr x 22 hrs to provide 1320ml, 1584kcal, 79g prot, 1063ml free water * Maintain current TF order, cont to increase to goal. 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
[2020-01-06 20:00] VITALS: BP 106/63
[2020-01-06] MEDS: Lacosamide 50mg tablet ORAL SCH (20:21)
[2020-01-06] MEDS: Insulin NPH SUBQ SCH (20:22)
[2020-01-07] VITALS: BP 133/83
[2020-01-07 04:00] VITALS: BP 132/59
[2020-01-07] MEDS: Metoclopramide 10mg/10ml Liq GT SCH ×4 (05:10→23:29)
[2020-01-07] MEDS: Cefepime HCl 1 GM in D5W 55 ML IVPB SCH ×2 (05:10→17:18)
[2020-01-07] MEDS: NovoLOG Insulin Flexpen SUBQ SCH ×4 (05:13→23:31)
[2020-01-07 08:00] VITALS: BP 111/73
[2020-01-07] MEDS: Eliquis 2.5mg tablet GT SCH ×2 (08:59→17:17)
[2020-01-07] MEDS: levETIRAcetam 500mg/5ml Liquid GT SCH ×2 (08:59→20:12)
[2020-01-07] MEDS: Levodopa/Carbidopa 25/100 tab GT SCH ×3 (08:59→23:28)
[2020-01-07] MEDS: Amiodarone 200mg tab GT SCH ×3 (08:59→23:28)
[2020-01-07] MEDS: Ascorbic Acid 500mg tab GT SCH (09:00)
[2020-01-07] MEDS: Topiramate 100mg tab GT SCH (09:00)
[2020-01-07] MEDS: Midodrine 10mg tab ORAL SCH ×3 (09:01→17:18)
[2020-01-07] MEDS: Lacosamide 50mg tablet ORAL SCH ×2 (09:01→20:12)
[2020-01-07] MEDS: Insulin NPH SUBQ SCH ×2 (09:03→21:47)
--- NOTE | 2020-01-07 09:29 | Diagnostic Imaging Report ---
EXAM: XR Chest, 1 View CLINICAL HISTORY: INFECT TECHNIQUE: Frontal view of the chest. COMPARISON: 01/04/20 FINDINGS: Lungs: There is unchanged mild left basilar infiltrate indeterminate between atelectasis and pneumonia. Pleural space: There is unchanged mild left pleural effusion. No pneumothorax. Heart: Unremarkable. No cardiomegaly. Mediastinum: Unremarkable. Bones/joints: Unremarkable. Tubes, lines and devices: There is a tracheostomy tube and left subclavian cardiac leads in unchanged position. IMPRESSION: There is unchanged small left pleural effusion and mild left basilar infiltrate indeterminate between atelectasis and pneumonia.
--- NOTE | 2020-01-07 11:10 | Surgery Progress Note ---
Surgery Progress Note Subjective Additional Comments no acute events comfortable appearing no n/v/f/c labs reviewed Objective Last 24 Hour Vital Signs Date Time Temp Pulse Resp B/P (MAP) Pulse Ox O2 Delivery O2 Flow Rate FiO2 01/07/20 08:23 95 01/07/20 04:42 85 21 35 01/07/20 04:00 98.0 73 22 132/59 (83) 99 01/07/20 04:00 35 01/07/20 04:00 Mechanical Ventilator 01/07/20 03:47 76 01/07/20 02:49 74 16 35 01/07/20 00:37 80 18 35 01/07/20 00:00 35 01/07/20 00:00 Mechanical Ventilator 01/07/20 00:00 98.4 84 22 133/83 (100) 100 01/06/20 23:46 77 01/06/20 23:10 90 21 35 01/06/20 21:10 35 01/06/20 20:50 82 21 35 01/06/20 20:00 10.0 35 01/06/20 20:00 98.2 83 22 106/63 (77) 100 01/06/20 20:00 Mechanical Ventilator 01/06/20 19:23 88 01/06/20 18:46 100 Cool Aerosol 8.0 35 01/06/20 18:46 78 01/06/20 16:11 35 01/06/20 16:11 77 01/06/20 16:00 Mechanical Ventilator 01/06/20 16:00 97.5 85 27 102/72 (82) 99 01/06/20 14:55 89 01/06/20 12:30 92 01/06/20 12:00 Mechanical Ventilator 01/06/20 12:00 91 01/06/20 12:00 98.2 93 28 115/55 (75) 100 01/06/20 12:00 35 I&O Intake and Output 01/06/20 01/07/20 19:00 07:00 Intake Total 1180 ml 1170 ml Output Total 300 ml 380 ml Balance 880 ml 790 ml Intake Free Water 100 ml 300 ml IV Total 210 ml Tube Feeding 720 ml 660 ml Other 360 ml Output Urine Total 300 ml 380 ml # Voids 1 Cardiovascular: RSR Respiratory: decreased breath sounds Abdomen: soft, non-tender, present bowel sounds Extremities: no tenderness, no cyanosis Laboratory Tests Test 01/06/20 13:19 01/06/20 17:40 01/06/20 20:19 01/06/20 22:46 POC Whole Blood Glucose Pending 220 MG/DL (74-106) H Pending Pending Test 01/07/20 05:09 01/07/20 09:02 POC Whole Blood Glucose 249 MG/DL (74-106) H 199 MG/DL (74-106) H Plan Problems: (1) Sepsis (2) Acute encephalopathy (3) Cellulitis (4) Hypotension (5) Malfunction of gastrostomy tube (6) Ventral hernia Assessment & Plan: 89-year-old female identified to have a large ventral hernia with bowel contents. Abdominal distention. G-tube site cellulitis malfunction. Patient is alert and responds to painful stimuli but she is unable to verbalize or give history or participate in exam I have reviewed the CT personally and discussed the care plan with emergency department physician and medical teams. I was able to easily reduce the hernia at bedside. It is a [place] hernia with bowel contents even considerably loss of domain. Patient is having multiple bowel movements and is not obstructed. She is not incarcerated No acute surgical intervention recommended for her hernia as is chronic and given her age and condition high risk Okay for tube feeds G-tube site evaluated silver nitrate applied Continue with local wound care Antibiotics per infectious disease We will follow with her abdominal examinations recommendations Thank you for let me participate in patient's care KUB noted improving +BM no acute surgical intervention planned Liver: Unremarkable. No mass. Gallbladder and bile ducts: Unremarkable. No calcified stones. No ductal dilation. Pancreas: Unremarkable. No mass. No ductal dilation. Spleen: Unremarkable. No splenomegaly. Adrenals: Unremarkable. No mass. Kidneys and ureters: Kidneys show an inferior pole 1.8 cm cyst that does not require follow-up imaging. No hydronephrosis or hydroureter. No radiopaque stones identified. Stomach and bowel: Again evident is a ventral abdominal wall hernia containing a portion of the transverse colon. The hernia sac is 4.2 cm transverse and 3.9 cm craniocaudal. There is interval presence of a tract from a now since removed percutaneous gastrostomy. There is moderate stool throughout the large bowel with scattered colonic diverticuli. No findings of acute diverticulitis. PELVIS: Appendix: No findings to suggest acute appendicitis. Bladder: Unremarkable. No mass. Reproductive: Uterus is atrophic. ABDOMEN and PELVIS: Intraperitoneal space: Unremarkable. No free air. No significant fluid collection. Bones/joints: Bones show degenerative changes in the spine and fixation screws in the left femoral neck, similar to prior. No acute fracture. No dislocation. Soft tissues: See above. Vasculature: Abdominal aorta shows calcifications. No abdominal aortic aneurysm. Lymph nodes: Unremarkable. No enlarged lymph nodes. Tubes, lines and devices: Lung bases show left chest pacemaker. IMPRESSION: Abdominal distention could be a combination of patient body habitus and the presence of a ventral abdominal wall hernia that contains a portion of the transverse colon. There are no findings of bowel obstruction, or acute inflammation. . DAILY ESTIMATED NEEDS: Needs based on Critical care, wound/ 56.5kg abw 22-28 kcals/kg 8792-7746 total kcals 1.25-2 g protein/kg 70-113 g total protein 25-30 mL/kg 9569-8268 total fluid mLs NUTRITION DIAGNOSIS: * Increased kcal/prot needs R/T wound healing as evidenced by pt admitted w/ skin breakdown, including partial thickness wounds at R and L gluteal clefts. * Swallowing difficulty R/T dysphagia, respiratory status as evidenced by pt is trach/vent dep, PEG dep, admitted for GT malfunction, s/p GT replacement. CURRENT TF:Glucerna 1.2 @ 60ml/hr x 22 hrs ENTERAL NUTRITION RECOMMENDATIONS: Glucerna 1.2 @ 60ml/hr x 22 hrs to provide 1320ml, 1584kcal, 79g prot, 1063ml free water * Maintain current TF order, cont to increase to goal. 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
[2020-01-07 12:00] VITALS: BP 111/77
[2020-01-07] MEDS: Vancomycin 1.25gm/NS Premix q24h IVPB SCH (12:49)
[2020-01-07 13:22] LABS: ANION GAP 6 mmol/L (5-15); BLOOD UREA NITROGEN 20 mg/dL (7-18); CALCIUM 8.4 MG/DL (8.5-10.1); CARBON DIOXIDE 31 MMOL/L (21-32); CHLORIDE 105 MMOL/L (98-107); CREATININE 0.6 MG/DL (0.55-1.30); POTASSIUM 3.8 MMOL/L (3.5-5.1); SODIUM 142 MMOL/L (136-145)
--- NOTE | 2020-01-07 13:27 | Pulmonology Progress Note ---
Subjective ROS Limited/Unobtainable: No Interval Events: None new Constitutional: Reports: other - + trach and vent ; Denies: fever HEENT: Repors: no symptoms Respiratory: Reports: no symptoms Gastrointestinal/Abdominal: Denies: nausea, vomiting, diarrhea Psychiatric: Reports: other - NA Skin: Denies: rash Musculoskeletal: Reports: other - NA Allergies: Coded Allergies: No Known Allergies (Unverified , 03/03/18) Objective Last 24 Hour Vital Signs Date Time Temp Pulse Resp B/P (MAP) Pulse Ox O2 Delivery O2 Flow Rate FiO2 01/07/20 08:23 95 01/07/20 04:42 85 21 35 01/07/20 04:00 98.0 73 22 132/59 (83) 99 01/07/20 04:00 35 01/07/20 04:00 Mechanical Ventilator 01/07/20 03:47 76 01/07/20 02:49 74 16 35 01/07/20 00:37 80 18 35 01/07/20 00:00 35 01/07/20 00:00 Mechanical Ventilator 01/07/20 00:00 98.4 84 22 133/83 (100) 100 01/06/20 23:46 77 01/06/20 23:10 90 21 35 01/06/20 21:10 35 01/06/20 20:50 82 21 35 01/06/20 20:00 10.0 35 01/06/20 20:00 98.2 83 22 106/63 (77) 100 01/06/20 20:00 Mechanical Ventilator 01/06/20 19:23 88 01/06/20 18:46 100 Cool Aerosol 8.0 35 01/06/20 18:46 78 01/06/20 16:11 35 01/06/20 16:11 77 01/06/20 16:00 Mechanical Ventilator 01/06/20 16:00 97.5 85 27 102/72 (82) 99 01/06/20 14:55 89 Intake and Output 01/06/20 01/07/20 19:00 07:00 Intake Total 1180 ml 1170 ml Output Total 300 ml 380 ml Balance 880 ml 790 ml Intake Free Water 100 ml 300 ml IV Total 210 ml Tube Feeding 720 ml 660 ml Other 360 ml Output Urine Total 300 ml 380 ml # Voids 1 General Appearance: no acute distress Respiratory: chest wall non-tender, lungs clear Cardiovascular: normal peripheral pulses, normal rate Abdomen: normal bowel sounds Laboratory Tests 01/06/20 17:40: POC Whole Blood Glucose 220H 01/06/20 20:19: POC Whole Blood Glucose [Pending] 01/06/20 22:46: POC Whole Blood Glucose [Pending] 01/07/20 05:09: POC Whole Blood Glucose 249H 01/07/20 09:02: POC Whole Blood Glucose 199H 01/07/20 12:40: Sodium Level 142, Potassium Level 3.8, Chloride Level 105, Carbon Dioxide Level 31, Anion Gap 6, Blood Urea Nitrogen 20H, Creatinine 0.6, Estimat Glomerular Filtration Rate > 60, Glucose Level 223H, Calcium Level 8.4L 01/07/20 12:47: POC Whole Blood Glucose [Pending] Current Medications Medications (Trade) Dose Ordered Sig/Genaro Route PRN Reason Start Time Stop Time Status Last Admin Dose Admin Amiodarone HCl (Cordarone) 100 mg Q8H GT 01/02/20 00:00 04/01/20 00:00 01/07/20 08:59 Apixaban (Eliquis) 2.5 mg BID GT 01/02/20 09:00 04/01/20 08:59 01/07/20 08:59 Ascorbic Acid (Vitamin C) 500 mg DAILY GT 01/02/20 09:00 02/01/20 08:59 01/07/20 09:00 Carbidopa/Levodopa (Sinemet 25/100) 1 tab Q8H GT 01/02/20 00:00 02/01/20 00:00 01/07/20 08:59 Cefepime HCl 1 gm/ Dextrose 55 ml @ 110 mls/hr Q12HR@0600,1800 IVPB 01/02/20 06:00 01/09/20 05:59 01/07/20 05:10 Dextrose (Dextrose 50%) 25 ml Q30M PRN IV Hypoglycemia 01/01/20 19:30 03/31/20 19:29 01/02/20 05:43 Dextrose (Dextrose 50%) 50 ml Q30M PRN IV Hypoglycemia 01/01/20 19:30 03/31/20 19:29 Famotidine (Pepcid) 20 mg DAILY GT 01/02/20 09:00 04/01/20 08:59 01/07/20 09:00 Insulin Aspart (NovoLOG) Q6H SUBQ 01/02/20 06:00 04/01/20 05:59 01/07/20 12:51 Insulin Human NPH (Humulin N) 20 units Q12HR SUBQ 01/06/20 21:00 04/05/20 20:59 01/07/20 09:03 Lacosamide (Vimpat) 50 mg Q12HR ORAL 01/06/20 21:00 04/05/20 20:59 01/07/20 09:01 Levetiracetam (Keppra) 750 mg Q12HR GT 01/02/20 00:00 02/01/20 00:00 01/07/20 08:59 Levothyroxine Sodium (Synthroid) 100 mcg DAILY GT 01/02/20 09:00 02/01/20 08:59 01/07/20 09:00 Loperamide HCl (Imodium) 2 mg Q4H PRN ORAL Diarrhea 01/07/20 12:15 02/06/20 12:14 Lorazepam (Ativan 2mg/ml 1ml) 1 mg DAILY PRN IV seizure activity 01/01/20 21:45 01/08/20 21:44 Metoclopramide HCl (Reglan) 5 mg EVERY 6 HOURS GT 01/02/20 00:00 02/01/20 00:00 01/07/20 12:48 Metronidazole 100 ml @ 100 mls/hr Q8H IVPB 01/02/20 01:00 01/09/20 00:59 01/07/20 09:01 Midodrine (Pro-Amatine) 10 mg THREE TIMES A DAY ORAL 01/02/20 09:00 04/01/20 08:59 01/07/20 12:52 Spironolactone (Aldactone) 50 mg DAILY ORAL 01/08/20 09:00 02/07/20 08:59 Topiramate (Topamax) 200 mg DAILY GT 01/02/20 09:00 02/01/20 08:59 01/07/20 09:00 Vancomycin HCl (Vanco pharmacy to dose) 1 ea DAILY PRN MISC Per rx protocol 01/01/20 19:30 01/31/20 19:29 Vancomycin/Sodium Chloride 275 ml @ 183.333 mls/hr Q24H IVPB 01/04/20 12:00 01/09/20 11:59 01/07/20 12:49 Zinc Oxide (Zinc Oxide) 1 applic THREE TIMES A DAY PRN TOPIC g tube site wound 01/02/20 14:30 04/01/20 14:29 01/04/20 19:17 Assessment/Plan Assessment/Plan Pulmonary Progress Note Subjective ROS Limited/Unobtainable: No Interval Events: None new Constitutional: Denies: fever HEENT: Repors: no symptoms Respiratory: Reports: no symptoms Gastrointestinal/Abdominal: Denies: nausea, vomiting, diarrhea Allergies: Coded Allergies: No Known Allergies (Unverified , 03/03/18) Objective Vital Signs Noted General Appearance: no acute distress Respiratory: chest wall non-tender, lungs clear Cardiovascular: normal peripheral pulses, normal rate Abdomen: normal bowel sounds Microbiology Date/Time Source Procedure Growth Status 01/04/20 10:00 Stool Clostridium difficile Toxin Assay - Final Complete Laboratory Tests noted Assessment/Plan IMPRESSION: 1. Moderate malnutrition. 2. G-tube site cellulitis. 3. Chronic tracheostomy. 4. Chronic respiratory failure. 5. Dementia. 6. Parkinson's. 7. Diabetes mellitus. 8. Hypertension. DISCUSSION: Broad-spectrum antibiotics per ID Surgical evaluation noted. Continue current Ventilator settings Attempt to wean. GI evaluation noted. On Eliquis. Perry Shansk MD Jan 07, 2020 13:27
--- NOTE | 2020-01-07 13:40 | General Progress Note ---
Assessment/Plan Status: stable Assessment/Plan: This is an 89 year old chronically ill patient with severe dementia, dependent on trach and PEG, presented for G-tube malfunction, found to have sepsis d/t G- tube site cellulitis #Sepsis d/t G-tube site cellulitis - S/p IVF resuscitation - continue Vanc/Cefepime/Flagyl (01/01 - ), to end on 01/08 - ID recs appreciated - Surgery recs appreciated - resumed Aldactone #G-tube malfunction, replace by GI - Ok to use new G-tube #Hypokalemia - replace and monitor daily LABS #Chronic respiratory failure - vent weaning per pulm #Atrial fibrillation: currently rate controlled - continue home Eliquis and amiodarone. hold metoprolol/diltiazem as above #Paranoid schizophrenia #Major depressive disorder #history of CVA #Advanced Parkinson's Dementia #history of seizures - continue home Carbidopa-Levodopa to prevent withdrawal/NMS - Consult Neurology to optimize regimen - continue home Keppra - continue home Topiramate - restarted Vimpat #Hypothyroidism - continue home Synthroid #T2DM, uncontrolled - Started NPH 20 units bid #s/p Medtronic pacemaker placement - continue monitoring, no indication to re-interrogate at this time #Abdominal hernia containing intestine - Seen by Surgery #Diarrhea, C. difficile negative - trial of Imodium Subjective Date patient seen: Jan 07, 2020 Time patient seen: 13:15 ROS Limited/Unobtainable: Yes Allergies: Coded Allergies: No Known Allergies (Unverified , 03/03/18) Subjective Follow up sepsis due to PEG site cellulitis and PEG malfunction No acute events overnight per RN Intermittent diarrhea per RN Objective Last 24 Hour Vital Signs Date Time Temp Pulse Resp B/P (MAP) Pulse Ox O2 Delivery O2 Flow Rate FiO2 01/07/20 08:23 95 01/07/20 04:42 85 21 35 01/07/20 04:00 98.0 73 22 132/59 (83) 99 01/07/20 04:00 35 01/07/20 04:00 Mechanical Ventilator 01/07/20 03:47 76 01/07/20 02:49 74 16 35 01/07/20 00:37 80 18 35 01/07/20 00:00 35 01/07/20 00:00 Mechanical Ventilator 01/07/20 00:00 98.4 84 22 133/83 (100) 100 01/06/20 23:46 77 01/06/20 23:10 90 21 35 01/06/20 21:10 35 01/06/20 20:50 82 21 35 01/06/20 20:00 10.0 35 01/06/20 20:00 98.2 83 22 106/63 (77) 100 01/06/20 20:00 Mechanical Ventilator 01/06/20 19:23 88 01/06/20 18:46 100 Cool Aerosol 8.0 35 01/06/20 18:46 78 01/06/20 16:11 35 01/06/20 16:11 77 01/06/20 16:00 Mechanical Ventilator 01/06/20 16:00 97.5 85 27 102/72 (82) 99 01/06/20 14:55 89 Intake and Output 01/06/20 01/07/20 19:00 07:00 Intake Total 1180 ml 1170 ml Output Total 300 ml 380 ml Balance 880 ml 790 ml Intake Free Water 100 ml 300 ml IV Total 210 ml Tube Feeding 720 ml 660 ml Other 360 ml Output Urine Total 300 ml 380 ml # Voids 1 Laboratory Tests 01/06/20 17:40: POC Whole Blood Glucose 220H 01/06/20 20:19: POC Whole Blood Glucose [Pending] 01/06/20 22:46: POC Whole Blood Glucose [Pending] 01/07/20 05:09: POC Whole Blood Glucose 249H 01/07/20 09:02: POC Whole Blood Glucose 199H 01/07/20 12:40: Sodium Level 142, Potassium Level 3.8, Chloride Level 105, Carbon Dioxide Level 31, Anion Gap 6, Blood Urea Nitrogen 20H, Creatinine 0.6, Estimat Glomerular Filtration Rate > 60, Glucose Level 223H, Calcium Level 8.4L 01/07/20 12:47: POC Whole Blood Glucose [Pending] Height (Feet): 5 Height (Inches): 2.00 Weight (Pounds): 169 General Appearance: no apparent distress, alert Cardiovascular: normal rate, regular rhythm Respiratory/Chest: lungs clear, normal breath sounds Abdomen: non tender, soft Keyon Mistry MD Jan 07, 2020 13:40
--- NOTE | 2020-01-07 15:48 | Infectious Diseases Prog Note ---
Assessment/Plan Assessment/Plan ASSESSMENT AND PLAN: 1. g-tube infection/cellulitis/abdominal wall cellulitis, ? sepsis, low bp better, ? aspiration pna/hcap, effusion - vancomycin, cefepime and flagyl - day # 6/7 - g-tube infection/cellulitis better - ? thoracentesis - monitor labs and chest x-ray 2. Dysphagia, G-tube, ventral hernia - reduced 3. Trach, vent, respiratory failure. 4. Parkinson's. 5. Dementia. 6. CVA. 7. Diabetes. 8. Hypertension. 9. Blood pressure and blood sugar treatment per primary care team. 10. Hypothyroidism. 11. No known drug allergies. 12. Social history is negative. 13. Family history is noncontributory. 14. MAR was noted. 15. Case was discussed with RN. 16. Case was discussed with primary care team and Surgery. 17. Continue treatment per primary consultants. 18. Skin care protocol. 19. Orders were noted and entered. 20. Vent care per Pulmonary Medicine. Subjective Constitutional: Reports: fatigue; Denies: fever HEENT: Denies: congestion Respiratory: Denies: shortness of breath Gastrointestinal/Abdominal: Denies: nausea, vomiting, diarrhea Genitourinary: Reports: other - no gray Neurologic: Denies: headache Psychiatric: Denies: depression Skin: Denies: rash Hematologic: Denies: bleeding Musculoskeletal: Denies: pain Allergies: Coded Allergies: No Known Allergies (Unverified , 03/03/18) Objective Last 24 Hour Vital Signs Date Time Temp Pulse Resp B/P (MAP) Pulse Ox O2 Delivery O2 Flow Rate FiO2 01/07/20 15:34 92 01/07/20 13:21 89 01/07/20 12:00 98.4 91 14 111/77 (88) 100 01/07/20 12:00 Trach Collar 01/07/20 12:00 98 01/07/20 12:00 35 01/07/20 10:55 98 01/07/20 08:30 96 01/07/20 08:23 95 01/07/20 08:00 112 01/07/20 08:00 97.9 113 14 111/73 (86) 100 01/07/20 08:00 Trach Collar 01/07/20 08:00 35 01/07/20 07:03 100 Mechanical Ventilator 35 01/07/20 07:02 89 16 35 01/07/20 07:00 35 01/07/20 04:42 85 21 35 01/07/20 04:00 98.0 73 22 132/59 (83) 99 01/07/20 04:00 35 01/07/20 04:00 Mechanical Ventilator 01/07/20 03:47 76 01/07/20 02:49 74 16 35 01/07/20 00:37 80 18 35 01/07/20 00:00 35 01/07/20 00:00 Mechanical Ventilator 01/07/20 00:00 98.4 84 22 133/83 (100) 100 01/06/20 23:46 77 01/06/20 23:10 90 21 35 01/06/20 21:10 35 01/06/20 20:50 82 21 35 01/06/20 20:00 10.0 35 01/06/20 20:00 98.2 83 22 106/63 (77) 100 01/06/20 20:00 Mechanical Ventilator 01/06/20 19:23 88 01/06/20 18:46 100 Cool Aerosol 8.0 35 01/06/20 18:46 78 01/06/20 16:11 35 01/06/20 16:11 77 01/06/20 16:00 Mechanical Ventilator 01/06/20 16:00 97.5 85 27 102/72 (82) 99 Height (Feet): 5 Height (Inches): 2.00 Weight (Pounds): 169 General Appearance: no acute distress HEENT: normocephalic, atraumatic, anicteric, mucous membranes moist Respiratory/Chest: crackles/rales, rhonchi - bilaterally, other - + trach and vent Cardiovascular: normal rate, regular rhythm, no gallop/murmur Abdomen: normal bowel sounds, soft, non tender, no organomegaly, non distended , other - g-tube site - small drainage, no cellulitis, d/w RN Genitourinary: other - no gray Extremities: no cyanosis Skin: no rash Neurologic/Psychiatric: other - lethargic, weak, on vent Lymphatic: no neck adenopathy Musculoskeletal: no effusion Procedure: XRAY Chest 1v Chest x-ray - 01/04/20 - Indication: Shortness of breath Technique: One view of the chest Comparison: 01/01/2020 Findings: Increasing pleural fluid is seen on the left. The lungs and right pleural space are otherwise clear. Left chest pacemaker, tracheostomy again demonstrated. Impression: Increasing left pleural effusion, since prior exam of 3 days earlier Chest x-ray - 01/07/20 - COMPARISON: 01/04/20 FINDINGS: Lungs: There is unchanged mild left basilar infiltrate indeterminate between atelectasis and pneumonia. Pleural space: There is unchanged mild left pleural effusion. No pneumothorax. Heart: Unremarkable. No cardiomegaly. Mediastinum: Unremarkable. Bones/joints: Unremarkable. Tubes, lines and devices: There is a tracheostomy tube and left subclavian cardiac leads in unchanged position. IMPRESSION: There is unchanged small left pleural effusion and mild left basilar infiltrate indeterminate between atelectasis and pneumonia. Microbiology Date/Time Source Procedure Growth Status 01/01/20 17:30 Blood Blood Culture - Final NO GROWTH AFTER 5 DAYS Complete 01/01/20 17:56 Nasal Nares MRSA Culture - Final NO METHICILLIN RESISTANT STAPH AUREUS... Complete 01/04/20 10:00 Stool Clostridium difficile Toxin Assay - Final Complete 01/01/20 17:56 Indwelling Cath Urine Culture - Final NO GROWTH AFTER 48 HOURS Complete 01/01/20 17:56 Rectum - Final NO CARBAPENEM-RESISTANT ENTEROBACTERI... Complete Labs Test 01/04/20 17:48 01/05/20 00:20 01/05/20 06:05 01/05/20 11:41 POC Whole Blood Glucose 222 MG/DL (74-106) Arterial Blood pH 7.413 (7.350-7.450) Arterial Blood Partial Pressure CO2 38.2 mmHg (35.0-45.0) Arterial Blood Partial Pressure O2 113.0 mmHg (75.0-100.0) Arterial Blood HCO3 23.8 mmol/L (22.0-26.0) Arterial Blood Oxygen Saturation 98.0 % (95-100) Arterial Blood Base Excess -0.5 (-2-2) Wolfgang Test Positive Test 01/05/20 12:41 01/05/20 16:58 01/05/20 23:15 01/06/20 02:50 POC Whole Blood Glucose 261 MG/DL (74-106) White Blood Count 7.5 K/UL (4.8-10.8) Red Blood Count 3.75 M/UL (4.20-5.40) Hemoglobin 11.8 G/DL (12.0-16.0) Hematocrit 37.0 % (37.0-47.0) Mean Corpuscular Volume 99 FL (80-99) Mean Corpuscular Hemoglobin 31.5 PG (27.0-31.0) Mean Corpuscular Hemoglobin Concent 32.0 G/DL (32.0-36.0) Red Cell Distribution Width 13.5 % (11.6-14.8) Platelet Count 182 K/UL (150-450) Mean Platelet Volume 7.4 FL (6.5-10.1) Neutrophils (%) (Auto) 66.5 % (45.0-75.0) Lymphocytes (%) (Auto) 19.3 % (20.0-45.0) Monocytes (%) (Auto) 11.4 % (1.0-10.0) Eosinophils (%) (Auto) 1.5 % (0.0-3.0) Basophils (%) (Auto) 1.4 % (0.0-2.0) Sodium Level 141 MMOL/L (136-145) Potassium Level 3.5 MMOL/L (3.5-5.1) Chloride Level 106 MMOL/L (98-107) Carbon Dioxide Level 28 MMOL/L (21-32) Anion Gap 7 mmol/L (5-15) Blood Urea Nitrogen 19 mg/dL (7-18) Creatinine 0.6 MG/DL (0.55-1.30) Estimat Glomerular Filtration Rate > 60 mL/min (>60) Glucose Level 267 MG/DL (74-106) Calcium Level 8.6 MG/DL (8.5-10.1) Total Bilirubin 0.2 MG/DL (0.2-1.0) Aspartate Amino Transf (AST/SGOT) 19 U/L (15-37) Alanine Aminotransferase (ALT/SGPT) 7 U/L (12-78) Alkaline Phosphatase 120 U/L (46-116) Total Protein 6.3 G/DL (6.4-8.2) Albumin 1.9 G/DL (3.4-5.0) Globulin 4.4 g/dL Albumin/Globulin Ratio 0.4 (1.0-2.7) Test 01/06/20 05:29 01/06/20 11:10 01/06/20 13:19 01/06/20 17:40 POC Whole Blood Glucose 251 MG/DL (74-106) 220 MG/DL (74-106) Vancomycin Level Trough 11.0 ug/mL (5.0-12.0) Test 01/06/20 20:19 01/06/20 22:46 01/07/20 05:09 01/07/20 09:02 POC Whole Blood Glucose 249 MG/DL (74-106) 199 MG/DL (74-106) Test 01/07/20 12:40 01/07/20 12:47 Sodium Level 142 MMOL/L (136-145) Potassium Level 3.8 MMOL/L (3.5-5.1) Chloride Level 105 MMOL/L (98-107) Carbon Dioxide Level 31 MMOL/L (21-32) Anion Gap 6 mmol/L (5-15) Blood Urea Nitrogen 20 mg/dL (7-18) Creatinine 0.6 MG/DL (0.55-1.30) Estimat Glomerular Filtration Rate > 60 mL/min (>60) Glucose Level 223 MG/DL (74-106) Calcium Level 8.4 MG/DL (8.5-10.1) Laboratory Tests Test 01/06/20 17:40 01/06/20 20:19 01/06/20 22:46 01/07/20 05:09 POC Whole Blood Glucose 220 MG/DL (74-106) H Pending Pending 249 MG/DL (74-106) H Test 01/07/20 09:02 01/07/20 12:40 01/07/20 12:47 POC Whole Blood Glucose 199 MG/DL (74-106) H Pending Sodium Level 142 MMOL/L (136-145) Potassium Level 3.8 MMOL/L (3.5-5.1) Chloride Level 105 MMOL/L (98-107) Carbon Dioxide Level 31 MMOL/L (21-32) Anion Gap 6 mmol/L (5-15) Blood Urea Nitrogen 20 mg/dL (7-18) H Creatinine 0.6 MG/DL (0.55-1.30) Estimat Glomerular Filtration Rate > 60 mL/min (>60) Glucose Level 223 MG/DL (74-106) H Calcium Level 8.4 MG/DL (8.5-10.1) L Current Medications Medications (Trade) Dose Ordered Sig/Genaro Route PRN Reason Start Time Stop Time Status Last Admin Dose Admin Amiodarone HCl (Cordarone) 100 mg Q8H GT 01/02/20 00:00 04/01/20 00:00 01/07/20 08:59 Apixaban (Eliquis) 2.5 mg BID GT 01/02/20 09:00 04/01/20 08:59 01/07/20 08:59 Ascorbic Acid (Vitamin C) 500 mg DAILY GT 01/02/20 09:00 02/01/20 08:59 01/07/20 09:00 Carbidopa/Levodopa (Sinemet 25/100) 1 tab Q8H GT 01/02/20 00:00 02/01/20 00:00 01/07/20 08:59 Cefepime HCl 1 gm/ Dextrose 55 ml @ 110 mls/hr Q12HR@0600,1800 IVPB 01/02/20 06:00 01/09/20 05:59 01/07/20 05:10 Dextrose (Dextrose 50%) 25 ml Q30M PRN IV Hypoglycemia 01/01/20 19:30 03/31/20 19:29 01/02/20 05:43 Dextrose (Dextrose 50%) 50 ml Q30M PRN IV Hypoglycemia 01/01/20 19:30 03/31/20 19:29 Famotidine (Pepcid) 20 mg DAILY GT 01/02/20 09:00 04/01/20 08:59 01/07/20 09:00 Insulin Aspart (NovoLOG) Q6H SUBQ 01/02/20 06:00 04/01/20 05:59 01/07/20 12:51 Insulin Human NPH (Humulin N) 20 units Q12HR SUBQ 01/06/20 21:00 04/05/20 20:59 01/07/20 09:03 Lacosamide (Vimpat) 50 mg Q12HR ORAL 01/06/20 21:00 04/05/20 20:59 01/07/20 09:01 Levetiracetam (Keppra) 750 mg Q12HR GT 01/02/20 00:00 02/01/20 00:00 01/07/20 08:59 Levothyroxine Sodium (Synthroid) 100 mcg DAILY GT 01/02/20 09:00 02/01/20 08:59 01/07/20 09:00 Loperamide HCl (Imodium) 2 mg Q4H PRN ORAL Diarrhea 01/07/20 12:15 02/06/20 12:14 Lorazepam (Ativan 2mg/ml 1ml) 1 mg DAILY PRN IV seizure activity 01/01/20 21:45 01/08/20 21:44 Metoclopramide HCl (Reglan) 5 mg EVERY 6 HOURS GT 01/02/20 00:00 02/01/20 00:00 01/07/20 12:48 Metronidazole 100 ml @ 100 mls/hr Q8H IVPB 01/02/20 01:00 01/09/20 00:59 01/07/20 09:01 Midodrine (Pro-Amatine) 10 mg THREE TIMES A DAY ORAL 01/02/20 09:00 04/01/20 08:59 01/07/20 12:52 Spironolactone (Aldactone) 50 mg DAILY ORAL 01/08/20 09:00 02/07/20 08:59 Topiramate (Topamax) 200 mg DAILY GT 01/02/20 09:00 02/01/20 08:59 01/07/20 09:00 Vancomycin HCl (Vanco pharmacy to dose) 1 ea DAILY PRN MISC Per rx protocol 01/01/20 19:30 01/31/20 19:29 Vancomycin/Sodium Chloride 275 ml @ 183.333 mls/hr Q24H IVPB 01/04/20 12:00 01/09/20 11:59 01/07/20 12:49 Zinc Oxide (Zinc Oxide) 1 applic THREE TIMES A DAY PRN TOPIC g tube site wound 01/02/20 14:30 04/01/20 14:29 01/04/20 19:17 Chanda Pop MD Jan 07, 2020 15:48
[2020-01-07 16:00] VITALS: BP 114/64
[2020-01-07 19:49] VITALS: BP 102/52
[2020-01-08] VITALS: BP 112/50
[2020-01-08 04:00] VITALS: BP 126/79
[2020-01-08] MEDS: Cefepime HCl 1 GM in D5W 55 ML IVPB SCH ×2 (05:11→18:09)
[2020-01-08] MEDS: Metoclopramide 10mg/10ml Liq GT SCH ×4 (05:11→23:07)
[2020-01-08] MEDS: NovoLOG Insulin Flexpen SUBQ SCH ×4 (05:14→23:09)
[2020-01-08 06:43] LABS: BASOPHILS % (AUTO) 1.2 % (0.0-2.0); EOSINOPHILS % (AUTO) 1.6 % (0.0-3.0); HEMATOCRIT 36.6 % (37.0-47.0); HEMOGLOBIN 11.8 G/DL (12.0-16.0); LYMPHOCYTES % (AUTO) 16.5 % (20.0-45.0); MEAN CORPUSCULAR VOLUME 98 FL (80-99); MONOCYTES % (AUTO) 8.5 % (1.0-10.0); NEUTROPHILS % (AUTO) 72.1 % (45.0-75.0); PLATELET COUNT 205 K/UL (150-450); RED BLOOD COUNT 3.73 M/UL (4.20-5.40); RED CELL DISTRIBUTION WIDTH 13.7 % (11.6-14.8); WHITE BLOOD COUNT 7.5 K/UL (4.8-10.8)
[2020-01-08 07:09] LABS: ALANINE AMINOTRANSFERASE 13 U/L (12-78); ALBUMIN 1.8 G/DL (3.4-5.0); ALBUMIN/GLOBULIN RATIO 0.4 (1.0-2.7); ALKALINE PHOSPHATASE 123 U/L (46-116); ANION GAP 5 mmol/L (5-15); ASPARTATE AMINO TRANSFERASE 20 U/L (15-37); BILIRUBIN,TOTAL 0.2 MG/DL (0.2-1.0); BLOOD UREA NITROGEN 20 mg/dL (7-18); CALCIUM 8.5 MG/DL (8.5-10.1); CARBON DIOXIDE 30 MMOL/L (21-32); CHLORIDE 106 MMOL/L (98-107); CREATININE 0.6 MG/DL (0.55-1.30); SODIUM 141 MMOL/L (136-145)
[2020-01-08 08:00] VITALS: BP 124/77
[2020-01-08] MEDS: Amiodarone 200mg tab GT SCH ×3 (08:21→23:07)
[2020-01-08] MEDS: levETIRAcetam 500mg/5ml Liquid GT SCH ×2 (08:22→20:17)
[2020-01-08] MEDS: Eliquis 2.5mg tablet GT SCH ×2 (08:22→18:08)
[2020-01-08] MEDS: Levodopa/Carbidopa 25/100 tab GT SCH ×3 (08:22→23:11)
[2020-01-08] MEDS: Ascorbic Acid 500mg tab GT SCH (08:23)
[2020-01-08] MEDS: Topiramate 100mg tab GT SCH (08:23)
[2020-01-08] MEDS: Spironolactone 50mg tab ORAL SCH (08:24)
[2020-01-08] MEDS: Lacosamide 50mg tablet ORAL SCH ×2 (08:24→20:17)
[2020-01-08] MEDS: Midodrine 10mg tab ORAL SCH ×3 (08:24→18:09)
[2020-01-08] MEDS: Insulin NPH SUBQ SCH ×2 (09:24→21:23)
--- NOTE | 2020-01-08 09:45 | General Progress Note ---
Assessment/Plan Problem List: (1) Sepsis ICD Codes: A41.9 - Sepsis, unspecified organism SNOMED: 40714618 (2) Acute encephalopathy ICD Codes: G93.40 - Encephalopathy, unspecified SNOMED: 16430798, 257497887 (3) Cellulitis ICD Codes: L03.90 - Cellulitis, unspecified SNOMED: 235480655 (4) Hypotension ICD Codes: I95.9 - Hypotension, unspecified SNOMED: 07008117 (5) Malfunction of gastrostomy tube ICD Codes: K94.23 - Gastrostomy malfunction SNOMED: 455690435 (6) Ventral hernia ICD Codes: K43.9 - Ventral hernia without obstruction or gangrene SNOMED: 078652611 (7) Parkinsons disease ICD Codes: G20 - Parkinson's disease SNOMED: 07939822 (8) Paranoid schizophrenia ICD Codes: F20.0 - Paranoid schizophrenia SNOMED: 63181525 (9) HTN (hypertension) ICD Codes: I10 - Essential (primary) hypertension SNOMED: 85632828 (10) Pacemaker ICD Codes: Z95.0 - Presence of cardiac pacemaker SNOMED: 919449286 (11) History of CVA (cerebrovascular accident) ICD Codes: Z86.73 - Personal history of transient ischemic attack (TIA), and cerebral infarction without residual deficits SNOMED: 445081074 (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 #Sepsis d/t G-tube site cellulitis - S/p IVF resuscitation - continue Vanc/Cefepime/Flagyl (01/01 - ), to end on 01/08 - ID recs appreciated - Surgery recs appreciated - resumed Aldactone #G-tube malfunction, replace by GI - Ok to use new G-tube #Hypokalemia -imbruing - replace and monitor daily LABS #Chronic respiratory failure - improving - vent weaning per pulm #Atrial fibrillation: currently rate controlled - continue home Eliquis and amiodarone. hold metoprolol/diltiazem as above #Paranoid schizophrenia #Major depressive disorder #history of CVA #Advanced Parkinson's Dementia #history of seizures - continue home Carbidopa-Levodopa to prevent withdrawal/NMS - Consult Neurology to optimize regimen - continue home Keppra - continue home Topiramate - restarted Vimpat #Hypothyroidism - continue home Synthroid #T2DM, uncontrolled - Started NPH 20 units bid #s/p Medtronic pacemaker placement - continue monitoring, no indication to re-interrogate at this time #Abdominal hernia containing intestine - Seen by Surgery #Diarrhea, C. difficile negative - trial of Imodium I spent 35 minutes on this patient with 19 minutes on care coordination and counseling. Discussed with all consultants, RNs and pharmacy. Reviewed imaging Subjective Date patient seen: Jan 08, 2020 Time patient seen: 08:30 ROS Limited/Unobtainable: Yes - on vent, dementia Allergies: Coded Allergies: No Known Allergies (Unverified , 03/03/18) Subjective Reviewd vent settings. Responsive to touch and voice. No obvious pain. Objective Last 24 Hour Vital Signs Date Time Temp Pulse Resp B/P (MAP) Pulse Ox O2 Delivery O2 Flow Rate FiO2 01/08/20 07:17 91 20 35 01/08/20 07:17 100 Mechanical Ventilator 35 01/08/20 05:16 94 20 35 01/08/20 04:00 97.8 89 18 126/79 (95) 100 01/08/20 04:00 35 01/08/20 04:00 Mechanical Ventilator 01/08/20 03:42 84 01/08/20 02:41 82 20 35 01/08/20 00:45 79 17 35 01/08/20 00:00 97.9 74 18 112/50 (70) 100 01/08/20 00:00 Mechanical Ventilator 01/08/20 00:00 35 01/07/20 23:33 81 01/07/20 22:44 86 21 35 01/07/20 21:03 96 24 35 01/07/20 20:00 35 01/07/20 20:00 Mechanical Ventilator 01/07/20 19:49 97.7 76 17 102/52 (69) 100 01/07/20 19:22 70 01/07/20 19:08 100 Mechanical Ventilator 35 01/07/20 19:08 87 26 35 01/07/20 17:30 Mechanical Ventilator 01/07/20 17:30 35 01/07/20 17:00 91 20 35 01/07/20 16:00 Trach Collar 01/07/20 16:00 86 01/07/20 16:00 35 01/07/20 16:00 98.8 85 14 114/64 (81) 100 01/07/20 15:34 92 01/07/20 13:21 89 01/07/20 12:00 98.4 91 14 111/77 (88) 100 01/07/20 12:00 Trach Collar 01/07/20 12:00 98 01/07/20 12:00 35 01/07/20 10:55 98 Intake and Output 01/07/20 01/08/20 19:00 07:00 Intake Total 1020 ml 1060 ml Output Total 800 ml Balance 220 ml 1060 ml Intake Free Water 300 ml 300 ml IV Total 100 ml Tube Feeding 720 ml 660 ml Output Urine Total 800 ml # Voids 3 # Bowel Movements 1 1 Laboratory Tests 01/07/20 12:40: Sodium Level 142, Potassium Level 3.8, Chloride Level 105, Carbon Dioxide Level 31, Anion Gap 6, Blood Urea Nitrogen 20H, Creatinine 0.6, Estimat Glomerular Filtration Rate > 60, Glucose Level 223H, Calcium Level 8.4L 01/07/20 12:47: POC Whole Blood Glucose [Pending] 01/07/20 17:12: POC Whole Blood Glucose 166H 01/07/20 19:45: POC Whole Blood Glucose [Pending] 01/07/20 23:28: POC Whole Blood Glucose [Pending] 01/08/20 05:13: POC Whole Blood Glucose [Pending] 01/08/20 06:21: White Blood Count 7.5, Red Blood Count 3.73L, Hemoglobin 11.8L, Hematocrit 36.6L , Mean Corpuscular Volume 98, Mean Corpuscular Hemoglobin 31.5H, Mean Corpuscular Hemoglobin Concent 32.1, Red Cell Distribution Width 13.7, Platelet Count 205, Mean Platelet Volume 7.6, Neutrophils (%) (Auto) 72.1, Lymphocytes (% ) (Auto) 16.5L, Monocytes (%) (Auto) 8.5, Eosinophils (%) (Auto) 1.6, Basophils (%) (Auto) 1.2, Sodium Level 141, Potassium Level 4.0, Chloride Level 106, Carbon Dioxide Level 30, Anion Gap 5, Blood Urea Nitrogen 20H, Creatinine 0.6, Estimat Glomerular Filtration Rate > 60, Glucose Level 236H, Calcium Level 8.5, Total Bilirubin 0.2, Aspartate Amino Transf (AST/SGOT) 20, Alanine Aminotransferase (ALT/SGPT) 13, Alkaline Phosphatase 123H, Total Protein 6.3L, Albumin 1.8L, Globulin 4.5, Albumin/Globulin Ratio 0.4L 01/08/20 08:33: POC Whole Blood Glucose [Pending] Height (Feet): 5 Height (Inches): 2.00 Weight (Pounds): 167 General Appearance: no apparent distress, lethargic, confused, obese Neck: supple Cardiovascular: normal peripheral pulses, normal rate, regular rhythm, no gallop/murmur, no JVD Respiratory/Chest: lungs clear, normal breath sounds, no respiratory distress, no accessory muscle use Abdomen: soft, no organomegaly, no mass - g, other - g-tibe in place Extremities: non-tender, normal inspection, other - bruising Edema: no edema noted Arm (L), no edema noted Arm (R), no edema noted Leg (L), no edema noted Leg (R), no edema noted Pedal (L), no edema noted Pedal (R), no edema noted Generalized Neurologic: responsive, motor weakness, disoriented Roly López M.D. Jan 08, 2020 09:45
--- NOTE | 2020-01-08 09:50 | General Progress Note ---
Assessment/Plan Status: stable Assessment/Plan: 1. History of dementia. 2. Parkinson disease. 3. CVA. 4. Dysphagia with G-tube. 5. Type 2 diabetes. 6. Hypertension. GT has been changed and now functioning with min discharge GTF monitor for residuals abx per ID monitor for labs Subjective ROS Limited/Unobtainable: No Allergies: Coded Allergies: No Known Allergies (Unverified , 03/03/18) Objective Last 24 Hour Vital Signs Date Time Temp Pulse Resp B/P (MAP) Pulse Ox O2 Delivery O2 Flow Rate FiO2 01/08/20 07:17 91 20 35 01/08/20 07:17 100 Mechanical Ventilator 35 01/08/20 05:16 94 20 35 01/08/20 04:00 97.8 89 18 126/79 (95) 100 01/08/20 04:00 35 01/08/20 04:00 Mechanical Ventilator 01/08/20 03:42 84 01/08/20 02:41 82 20 35 01/08/20 00:45 79 17 35 01/08/20 00:00 97.9 74 18 112/50 (70) 100 01/08/20 00:00 Mechanical Ventilator 01/08/20 00:00 35 01/07/20 23:33 81 01/07/20 22:44 86 21 35 01/07/20 21:03 96 24 35 01/07/20 20:00 35 01/07/20 20:00 Mechanical Ventilator 01/07/20 19:49 97.7 76 17 102/52 (69) 100 01/07/20 19:22 70 01/07/20 19:08 100 Mechanical Ventilator 35 01/07/20 19:08 87 26 35 01/07/20 17:30 Mechanical Ventilator 01/07/20 17:30 35 01/07/20 17:00 91 20 35 01/07/20 16:00 Trach Collar 01/07/20 16:00 86 01/07/20 16:00 35 01/07/20 16:00 98.8 85 14 114/64 (81) 100 01/07/20 15:34 92 01/07/20 13:21 89 01/07/20 12:00 98.4 91 14 111/77 (88) 100 01/07/20 12:00 Trach Collar 01/07/20 12:00 98 01/07/20 12:00 35 01/07/20 10:55 98 Intake and Output 01/07/20 01/08/20 19:00 07:00 Intake Total 1020 ml 1060 ml Output Total 800 ml Balance 220 ml 1060 ml Intake Free Water 300 ml 300 ml IV Total 100 ml Tube Feeding 720 ml 660 ml Output Urine Total 800 ml # Voids 3 # Bowel Movements 1 1 Laboratory Tests 01/07/20 12:40: Sodium Level 142, Potassium Level 3.8, Chloride Level 105, Carbon Dioxide Level 31, Anion Gap 6, Blood Urea Nitrogen 20H, Creatinine 0.6, Estimat Glomerular Filtration Rate > 60, Glucose Level 223H, Calcium Level 8.4L 01/07/20 12:47: POC Whole Blood Glucose [Pending] 01/07/20 17:12: POC Whole Blood Glucose 166H 01/07/20 19:45: POC Whole Blood Glucose [Pending] 01/07/20 23:28: POC Whole Blood Glucose [Pending] 01/08/20 05:13: POC Whole Blood Glucose [Pending] 01/08/20 06:21: White Blood Count 7.5, Red Blood Count 3.73L, Hemoglobin 11.8L, Hematocrit 36.6L , Mean Corpuscular Volume 98, Mean Corpuscular Hemoglobin 31.5H, Mean Corpuscular Hemoglobin Concent 32.1, Red Cell Distribution Width 13.7, Platelet Count 205, Mean Platelet Volume 7.6, Neutrophils (%) (Auto) 72.1, Lymphocytes (% ) (Auto) 16.5L, Monocytes (%) (Auto) 8.5, Eosinophils (%) (Auto) 1.6, Basophils (%) (Auto) 1.2, Sodium Level 141, Potassium Level 4.0, Chloride Level 106, Carbon Dioxide Level 30, Anion Gap 5, Blood Urea Nitrogen 20H, Creatinine 0.6, Estimat Glomerular Filtration Rate > 60, Glucose Level 236H, Calcium Level 8.5, Total Bilirubin 0.2, Aspartate Amino Transf (AST/SGOT) 20, Alanine Aminotransferase (ALT/SGPT) 13, Alkaline Phosphatase 123H, Total Protein 6.3L, Albumin 1.8L, Globulin 4.5, Albumin/Globulin Ratio 0.4L 01/08/20 08:33: POC Whole Blood Glucose [Pending] Height (Feet): 5 Height (Inches): 2.00 Weight (Pounds): 167 General Appearance: no apparent distress EENT: PERRL/EOMI Neck: supple Cardiovascular: normal rate Respiratory/Chest: decreased breath sounds Abdomen: normal bowel sounds, non tender, soft Extremities: non-tender Biju Ya MD Jan 08, 2020 09:50
[2020-01-08 12:00] VITALS: BP 116/71
[2020-01-08] MEDS: Vancomycin 1.25gm/NS Premix q24h IVPB SCH (12:51)
--- NOTE | 2020-01-08 14:41 | Surgery Progress Note ---
Surgery Progress Note Subjective Additional Comments no acute events exam stable cxr noted Objective Last 24 Hour Vital Signs Date Time Temp Pulse Resp B/P (MAP) Pulse Ox O2 Delivery O2 Flow Rate FiO2 01/08/20 13:40 77 01/08/20 12:00 82 01/08/20 12:00 Mechanical Ventilator 01/08/20 12:00 98.6 96 14 116/71 (86) 100 01/08/20 10:50 86 01/08/20 09:00 35 01/08/20 08:00 Mechanical Ventilator 01/08/20 08:00 101 01/08/20 08:00 35 01/08/20 08:00 98.4 96 14 124/77 (93) 100 01/08/20 07:17 91 20 35 01/08/20 07:17 100 Mechanical Ventilator 35 01/08/20 05:16 94 20 35 01/08/20 04:00 97.8 89 18 126/79 (95) 100 01/08/20 04:00 35 01/08/20 04:00 Mechanical Ventilator 01/08/20 03:42 84 01/08/20 02:41 82 20 35 01/08/20 00:45 79 17 35 01/08/20 00:00 97.9 74 18 112/50 (70) 100 01/08/20 00:00 Mechanical Ventilator 01/08/20 00:00 35 01/07/20 23:33 81 01/07/20 22:44 86 21 35 01/07/20 21:03 96 24 35 01/07/20 20:00 35 01/07/20 20:00 Mechanical Ventilator 01/07/20 19:49 97.7 76 17 102/52 (69) 100 01/07/20 19:22 70 01/07/20 19:08 100 Mechanical Ventilator 35 01/07/20 19:08 87 26 35 01/07/20 17:30 Mechanical Ventilator 01/07/20 17:30 35 01/07/20 17:00 91 20 35 01/07/20 16:00 Trach Collar 01/07/20 16:00 86 01/07/20 16:00 35 01/07/20 16:00 98.8 85 14 114/64 (81) 100 01/07/20 15:34 92 I&O Intake and Output 01/07/20 01/08/20 19:00 07:00 Intake Total 1020 ml 1060 ml Output Total 800 ml Balance 220 ml 1060 ml Intake Free Water 300 ml 300 ml IV Total 100 ml Tube Feeding 720 ml 660 ml Output Urine Total 800 ml # Voids 3 # Bowel Movements 1 1 Cardiovascular: RSR Respiratory: decreased breath sounds Abdomen: soft, non-tender, present bowel sounds Extremities: no cyanosis Laboratory Tests Test 01/07/20 17:12 01/07/20 19:45 01/07/20 23:28 01/08/20 05:13 POC Whole Blood Glucose 166 MG/DL (74-106) H Pending Pending Pending Test 01/08/20 06:21 01/08/20 08:33 01/08/20 12:18 White Blood Count 7.5 K/UL (4.8-10.8) Red Blood Count 3.73 M/UL (4.20-5.40) L Hemoglobin 11.8 G/DL (12.0-16.0) L Hematocrit 36.6 % (37.0-47.0) L Mean Corpuscular Volume 98 FL (80-99) Mean Corpuscular Hemoglobin 31.5 PG (27.0-31.0) H Mean Corpuscular Hemoglobin Concent 32.1 G/DL (32.0-36.0) Red Cell Distribution Width 13.7 % (11.6-14.8) Platelet Count 205 K/UL (150-450) Mean Platelet Volume 7.6 FL (6.5-10.1) Neutrophils (%) (Auto) 72.1 % (45.0-75.0) Lymphocytes (%) (Auto) 16.5 % (20.0-45.0) L Monocytes (%) (Auto) 8.5 % (1.0-10.0) Eosinophils (%) (Auto) 1.6 % (0.0-3.0) Basophils (%) (Auto) 1.2 % (0.0-2.0) Sodium Level 141 MMOL/L (136-145) Potassium Level 4.0 MMOL/L (3.5-5.1) Chloride Level 106 MMOL/L (98-107) Carbon Dioxide Level 30 MMOL/L (21-32) Anion Gap 5 mmol/L (5-15) Blood Urea Nitrogen 20 mg/dL (7-18) H Creatinine 0.6 MG/DL (0.55-1.30) Estimat Glomerular Filtration Rate > 60 mL/min (>60) Glucose Level 236 MG/DL (74-106) H Calcium Level 8.5 MG/DL (8.5-10.1) Total Bilirubin 0.2 MG/DL (0.2-1.0) Aspartate Amino Transf (AST/SGOT) 20 U/L (15-37) Alanine Aminotransferase (ALT/SGPT) 13 U/L (12-78) Alkaline Phosphatase 123 U/L (46-116) H Total Protein 6.3 G/DL (6.4-8.2) L Albumin 1.8 G/DL (3.4-5.0) L Globulin 4.5 g/dL Albumin/Globulin Ratio 0.4 (1.0-2.7) L POC Whole Blood Glucose Pending Pending Plan Problems: (1) Sepsis (2) Acute encephalopathy (3) Cellulitis (4) Hypotension (5) Malfunction of gastrostomy tube (6) Ventral hernia Assessment & Plan: 89-year-old female identified to have a large ventral hernia with bowel contents. Abdominal distention. G-tube site cellulitis malfunction. Patient is alert and responds to painful stimuli but she is unable to verbalize or give history or participate in exam I have reviewed the CT personally and discussed the care plan with emergency department physician and medical teams. I was able to easily reduce the hernia at bedside. It is a [place] hernia with bowel contents even considerably loss of domain. Patient is having multiple bowel movements and is not obstructed. She is not incarcerated No acute surgical intervention recommended for her hernia as is chronic and given her age and condition high risk Okay for tube feeds G-tube site evaluated silver nitrate applied Continue with local wound care Antibiotics per infectious disease We will follow with her abdominal examinations recommendations Thank you for let me participate in patient's care KUB noted improving +BM no acute surgical intervention planned Liver: Unremarkable. No mass. Gallbladder and bile ducts: Unremarkable. No calcified stones. No ductal dilation. Pancreas: Unremarkable. No mass. No ductal dilation. Spleen: Unremarkable. No splenomegaly. Adrenals: Unremarkable. No mass. Kidneys and ureters: Kidneys show an inferior pole 1.8 cm cyst that does not require follow-up imaging. No hydronephrosis or hydroureter. No radiopaque stones identified. Stomach and bowel: Again evident is a ventral abdominal wall hernia containing a portion of the transverse colon. The hernia sac is 4.2 cm transverse and 3.9 cm craniocaudal. There is interval presence of a tract from a now since removed percutaneous gastrostomy. There is moderate stool throughout the large bowel with scattered colonic diverticuli. No findings of acute diverticulitis. PELVIS: Appendix: No findings to suggest acute appendicitis. Bladder: Unremarkable. No mass. Reproductive: Uterus is atrophic. ABDOMEN and PELVIS: Intraperitoneal space: Unremarkable. No free air. No significant fluid collection. Bones/joints: Bones show degenerative changes in the spine and fixation screws in the left femoral neck, similar to prior. No acute fracture. No dislocation. Soft tissues: See above. Vasculature: Abdominal aorta shows calcifications. No abdominal aortic aneurysm. Lymph nodes: Unremarkable. No enlarged lymph nodes. Tubes, lines and devices: Lung bases show left chest pacemaker. IMPRESSION: Abdominal distention could be a combination of patient body habitus and the presence of a ventral abdominal wall hernia that contains a portion of the transverse colon. There are no findings of bowel obstruction, or acute inflammation. . DAILY ESTIMATED NEEDS: Needs based on Critical care, wound/ 56.5kg abw 22-28 kcals/kg 8015-5846 total kcals 1.25-2 g protein/kg 70-113 g total protein 25-30 mL/kg 7349-2806 total fluid mLs NUTRITION DIAGNOSIS: * Increased kcal/prot needs R/T wound healing as evidenced by pt admitted w/ skin breakdown, including partial thickness wounds at R and L gluteal clefts. * Swallowing difficulty R/T dysphagia, respiratory status as evidenced by pt is trach/vent dep, PEG dep, admitted for GT malfunction, s/p GT replacement. CURRENT TF:Glucerna 1.2 @ 60ml/hr x 22 hrs ENTERAL NUTRITION RECOMMENDATIONS: Glucerna 1.2 @ 60ml/hr x 22 hrs to provide 1320ml, 1584kcal, 79g prot, 1063ml free water * Maintain current TF order, cont to increase to goal. 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
--- NOTE | 2020-01-08 15:24 | Pulmonology Progress Note ---
Subjective ROS Limited/Unobtainable: No Interval Events: None new Constitutional: Reports: fatigue; Denies: fever HEENT: Repors: no symptoms Respiratory: Reports: no symptoms Gastrointestinal/Abdominal: Denies: nausea, vomiting, diarrhea Psychiatric: Denies: depression Skin: Denies: rash Musculoskeletal: Denies: pain Allergies: Coded Allergies: No Known Allergies (Unverified , 03/03/18) Objective Last 24 Hour Vital Signs Date Time Temp Pulse Resp B/P (MAP) Pulse Ox O2 Delivery O2 Flow Rate FiO2 01/08/20 15:05 83 01/08/20 13:40 77 01/08/20 12:00 82 01/08/20 12:00 Mechanical Ventilator 01/08/20 12:00 98.6 96 14 116/71 (86) 100 01/08/20 10:50 86 01/08/20 09:00 35 01/08/20 08:00 Mechanical Ventilator 01/08/20 08:00 101 01/08/20 08:00 35 01/08/20 08:00 98.4 96 14 124/77 (93) 100 01/08/20 07:17 91 20 35 01/08/20 07:17 100 Mechanical Ventilator 35 01/08/20 05:16 94 20 35 01/08/20 04:00 97.8 89 18 126/79 (95) 100 01/08/20 04:00 35 01/08/20 04:00 Mechanical Ventilator 01/08/20 03:42 84 01/08/20 02:41 82 20 35 01/08/20 00:45 79 17 35 01/08/20 00:00 97.9 74 18 112/50 (70) 100 01/08/20 00:00 Mechanical Ventilator 01/08/20 00:00 35 01/07/20 23:33 81 01/07/20 22:44 86 21 35 01/07/20 21:03 96 24 35 01/07/20 20:00 35 01/07/20 20:00 Mechanical Ventilator 01/07/20 19:49 97.7 76 17 102/52 (69) 100 01/07/20 19:22 70 01/07/20 19:08 100 Mechanical Ventilator 35 01/07/20 19:08 87 26 35 01/07/20 17:30 Mechanical Ventilator 01/07/20 17:30 35 01/07/20 17:00 91 20 35 01/07/20 16:00 Trach Collar 01/07/20 16:00 86 01/07/20 16:00 35 01/07/20 16:00 98.8 85 14 114/64 (81) 100 01/07/20 15:34 92 Intake and Output 01/07/20 01/08/20 19:00 07:00 Intake Total 1020 ml 1060 ml Output Total 800 ml Balance 220 ml 1060 ml Intake Free Water 300 ml 300 ml IV Total 100 ml Tube Feeding 720 ml 660 ml Output Urine Total 800 ml # Voids 3 # Bowel Movements 1 1 General Appearance: no acute distress Respiratory: chest wall non-tender, lungs clear Cardiovascular: normal peripheral pulses, normal rate Abdomen: normal bowel sounds Laboratory Tests 01/07/20 17:12: POC Whole Blood Glucose 166H 01/07/20 19:45: POC Whole Blood Glucose [Pending] 01/07/20 23:28: POC Whole Blood Glucose [Pending] 01/08/20 05:13: POC Whole Blood Glucose [Pending] 01/08/20 06:21: White Blood Count 7.5, Red Blood Count 3.73L, Hemoglobin 11.8L, Hematocrit 36.6L , Mean Corpuscular Volume 98, Mean Corpuscular Hemoglobin 31.5H, Mean Corpuscular Hemoglobin Concent 32.1, Red Cell Distribution Width 13.7, Platelet Count 205, Mean Platelet Volume 7.6, Neutrophils (%) (Auto) 72.1, Lymphocytes (% ) (Auto) 16.5L, Monocytes (%) (Auto) 8.5, Eosinophils (%) (Auto) 1.6, Basophils (%) (Auto) 1.2, Sodium Level 141, Potassium Level 4.0, Chloride Level 106, Carbon Dioxide Level 30, Anion Gap 5, Blood Urea Nitrogen 20H, Creatinine 0.6, Estimat Glomerular Filtration Rate > 60, Glucose Level 236H, Calcium Level 8.5, Total Bilirubin 0.2, Aspartate Amino Transf (AST/SGOT) 20, Alanine Aminotransferase (ALT/SGPT) 13, Alkaline Phosphatase 123H, Total Protein 6.3L, Albumin 1.8L, Globulin 4.5, Albumin/Globulin Ratio 0.4L 01/08/20 08:33: POC Whole Blood Glucose [Pending] 01/08/20 12:18: POC Whole Blood Glucose [Pending] Current Medications Medications (Trade) Dose Ordered Sig/Genaro Route PRN Reason Start Time Stop Time Status Last Admin Dose Admin Amiodarone HCl (Cordarone) 100 mg Q8H GT 01/02/20 00:00 04/01/20 00:00 01/08/20 08:21 Apixaban (Eliquis) 2.5 mg BID GT 01/02/20 09:00 04/01/20 08:59 01/08/20 08:22 Ascorbic Acid (Vitamin C) 500 mg DAILY GT 01/02/20 09:00 02/01/20 08:59 01/08/20 08:23 Carbidopa/Levodopa (Sinemet 25/100) 1 tab Q8H GT 01/02/20 00:00 02/01/20 00:00 01/08/20 08:22 Cefepime HCl 1 gm/ Dextrose 55 ml @ 110 mls/hr Q12HR@0600,1800 IVPB 01/02/20 06:00 01/09/20 05:59 01/08/20 05:11 Dextrose (Dextrose 50%) 25 ml Q30M PRN IV Hypoglycemia 01/01/20 19:30 03/31/20 19:29 01/02/20 05:43 Dextrose (Dextrose 50%) 50 ml Q30M PRN IV Hypoglycemia 01/01/20 19:30 03/31/20 19:29 Famotidine (Pepcid) 20 mg DAILY GT 01/02/20 09:00 04/01/20 08:59 01/08/20 08:22 Insulin Aspart (NovoLOG) Q6H SUBQ 01/02/20 06:00 04/01/20 05:59 01/08/20 12:20 Insulin Human NPH (Humulin N) 20 units Q12HR SUBQ 01/06/20 21:00 04/05/20 20:59 01/08/20 09:24 Lacosamide (Vimpat) 50 mg Q12HR ORAL 01/06/20 21:00 04/05/20 20:59 01/08/20 08:24 Levetiracetam (Keppra) 750 mg Q12HR GT 01/02/20 00:00 02/01/20 00:00 01/08/20 08:22 Levothyroxine Sodium (Synthroid) 100 mcg DAILY GT 01/02/20 09:00 02/01/20 08:59 01/08/20 08:23 Loperamide HCl (Imodium) 2 mg Q4H PRN ORAL Diarrhea 01/07/20 12:15 02/06/20 12:14 Lorazepam (Ativan 2mg/ml 1ml) 1 mg DAILY PRN IV seizure activity 01/01/20 21:45 01/08/20 21:44 Metoclopramide HCl (Reglan) 5 mg EVERY 6 HOURS GT 01/02/20 00:00 02/01/20 00:00 01/08/20 12:19 Metronidazole 100 ml @ 100 mls/hr Q8H IVPB 01/02/20 01:00 01/09/20 00:59 01/08/20 08:23 Midodrine (Pro-Amatine) 10 mg THREE TIMES A DAY ORAL 01/02/20 09:00 04/01/20 08:59 01/08/20 12:21 Spironolactone (Aldactone) 50 mg DAILY ORAL 01/08/20 09:00 02/07/20 08:59 01/08/20 08:24 Topiramate (Topamax) 200 mg DAILY GT 01/02/20 09:00 02/01/20 08:59 01/08/20 08:23 Vancomycin HCl (Vanco pharmacy to dose) 1 ea DAILY PRN MISC Per rx protocol 01/01/20 19:30 01/31/20 19:29 Vancomycin/Sodium Chloride 275 ml @ 183.333 mls/hr Q24H IVPB 01/04/20 12:00 01/09/20 11:59 01/08/20 12:51 Zinc Oxide (Zinc Oxide) 1 applic THREE TIMES A DAY PRN TOPIC g tube site wound 01/02/20 14:30 04/01/20 14:29 01/04/20 19:17 Assessment/Plan Assessment/Plan IMPRESSION: 1. Moderate malnutrition. 2. G-tube site cellulitis. 3. Chronic tracheostomy. 4. Chronic respiratory failure. 5. Dementia. 6. Parkinson's. 7. Diabetes mellitus. 8. Hypertension. DISCUSSION: Continue broad-spectrum antibiotics. Surgical evaluation noted. now on trach collar Continue Eliquis. I will follow carefully. DC planning to home Dakotah Villegas Omar Syed MD Jan 08, 2020 15:24
[2020-01-08 16:00] VITALS: BP 105/61
[2020-01-08] MEDS ORDERED: NS 275ml ONE (17:53)
[2020-01-08] MEDS ORDERED: Tubing IV Secondary IV ONE (17:53)
[2020-01-08 20:00] VITALS: BP 114/59
[2020-01-09] VITALS: BP 100/63
[2020-01-09 04:00] VITALS: BP 109/65
[2020-01-09 05:04] LABS: BASOPHILS % (AUTO) 0.8 % (0.0-2.0); EOSINOPHILS % (AUTO) 1.7 % (0.0-3.0); HEMATOCRIT 35.6 % (37.0-47.0); HEMOGLOBIN 11.4 G/DL (12.0-16.0); LYMPHOCYTES % (AUTO) 15.1 % (20.0-45.0); MEAN CORPUSCULAR VOLUME 99 FL (80-99); MONOCYTES % (AUTO) 7.4 % (1.0-10.0); PLATELET COUNT 206 K/UL (150-450); RED BLOOD COUNT 3.61 M/UL (4.20-5.40); RED CELL DISTRIBUTION WIDTH 13.6 % (11.6-14.8); WHITE BLOOD COUNT 7.6 K/UL (4.8-10.8)
[2020-01-09] MEDS: Metoclopramide 10mg/10ml Liq GT SCH ×2 (05:13→12:21)
[2020-01-09] MEDS: NovoLOG Insulin Flexpen SUBQ SCH ×2 (05:14→12:23)
[2020-01-09 05:20] LABS: ALANINE AMINOTRANSFERASE 8 U/L (12-78); ALBUMIN 1.8 G/DL (3.4-5.0); ALBUMIN/GLOBULIN RATIO 0.4 (1.0-2.7); ALKALINE PHOSPHATASE 124 U/L (46-116); ANION GAP 8 mmol/L (5-15); ASPARTATE AMINO TRANSFERASE 20 U/L (15-37); BILIRUBIN,TOTAL 0.2 MG/DL (0.2-1.0); BLOOD UREA NITROGEN 22 mg/dL (7-18); CALCIUM 8.5 MG/DL (8.5-10.1); CARBON DIOXIDE 28 MMOL/L (21-32); CHLORIDE 105 MMOL/L (98-107); CREATININE 0.7 MG/DL (0.55-1.30); POTASSIUM 4.3 MMOL/L (3.5-5.1); SODIUM 141 MMOL/L (136-145)
[2020-01-09 08:00] VITALS: BP 96/59
[2020-01-09] MEDS: Amiodarone 200mg tab GT SCH (08:37)
[2020-01-09] MEDS: Levodopa/Carbidopa 25/100 tab GT SCH (08:37)
[2020-01-09] MEDS: Topiramate 100mg tab GT SCH (08:38)
[2020-01-09] MEDS: Midodrine 10mg tab ORAL SCH ×2 (08:38→12:23)
[2020-01-09] MEDS: Lacosamide 50mg tablet ORAL SCH (08:38)
[2020-01-09] MEDS: levETIRAcetam 500mg/5ml Liquid GT SCH (08:38)
[2020-01-09] MEDS: Spironolactone 50mg tab ORAL SCH (08:38)
[2020-01-09] MEDS: Ascorbic Acid 500mg tab GT SCH (08:38)
[2020-01-09] MEDS: Eliquis 2.5mg tablet GT SCH (08:38)
[2020-01-09] MEDS: Insulin NPH SUBQ SCH (08:44)
--- NOTE | 2020-01-09 09:13 | General Progress Note ---
Assessment/Plan Status: stable Assessment/Plan: 1. History of dementia. 2. Parkinson disease. 3. CVA. 4. Dysphagia with G-tube. 5. Type 2 diabetes. 6. Hypertension. GT has been changed and now functioning with min discharge GTF monitor for residuals abx per ID monitor for labs Subjective ROS Limited/Unobtainable: No Allergies: Coded Allergies: No Known Allergies (Unverified , 03/03/18) Objective Last 24 Hour Vital Signs Date Time Temp Pulse Resp B/P (MAP) Pulse Ox O2 Delivery O2 Flow Rate FiO2 01/09/20 08:52 109 01/09/20 07:41 108 01/09/20 05:29 81 15 35 01/09/20 04:00 98.0 79 20 109/65 (80) 100 01/09/20 04:00 35 01/09/20 04:00 Trach Collar 01/09/20 03:30 90 18 35 01/09/20 03:30 81 01/09/20 01:30 77 15 35 01/09/20 00:00 35 01/09/20 00:00 Trach Collar 01/09/20 00:00 98.1 77 22 100/63 (75) 99 01/08/20 23:32 68 01/08/20 23:22 73 14 35 01/08/20 20:34 69 14 35 01/08/20 20:33 100 Mechanical Ventilator 35 01/08/20 20:00 Trach Collar 01/08/20 20:00 35 01/08/20 20:00 97.7 71 19 114/59 (77) 99 01/08/20 19:31 59 01/08/20 19:30 70 14 35 01/08/20 17:45 83 24 35 01/08/20 17:30 35 01/08/20 16:00 85 01/08/20 16:00 98.5 80 14 105/61 (76) 99 01/08/20 16:00 Trach Collar 01/08/20 16:00 35 01/08/20 15:05 83 01/08/20 13:40 77 01/08/20 12:00 82 01/08/20 12:00 Trach Collar 01/08/20 12:00 35 01/08/20 12:00 98.6 96 14 116/71 (86) 100 01/08/20 10:50 86 Intake and Output 01/08/20 01/09/20 19:00 07:00 Intake Total 750 ml 960 ml Output Total 700 ml Balance 50 ml 960 ml Intake Free Water 150 ml 300 ml Tube Feeding 600 ml 660 ml Output Urine Total 700 ml # Voids 2 # Bowel Movements 2 4 Laboratory Tests 01/08/20 12:18: POC Whole Blood Glucose [Pending] 01/08/20 18:06: POC Whole Blood Glucose [Pending] 01/08/20 20:23: POC Whole Blood Glucose [Pending] 01/08/20 23:06: POC Whole Blood Glucose [Pending] 01/09/20 02:55: White Blood Count 7.6, Red Blood Count 3.61L, Hemoglobin 11.4L, Hematocrit 35.6L , Mean Corpuscular Volume 99, Mean Corpuscular Hemoglobin 31.7H, Mean Corpuscular Hemoglobin Concent 32.2, Red Cell Distribution Width 13.6, Platelet Count 206, Mean Platelet Volume 7.5, Neutrophils (%) (Auto) 75.0, Lymphocytes (% ) (Auto) 15.1L, Monocytes (%) (Auto) 7.4, Eosinophils (%) (Auto) 1.7, Basophils (%) (Auto) 0.8, Sodium Level 141, Potassium Level 4.3, Chloride Level 105, Carbon Dioxide Level 28, Anion Gap 8, Blood Urea Nitrogen 22H, Creatinine 0.7, Estimat Glomerular Filtration Rate > 60, Glucose Level 212H, Calcium Level 8.5, Total Bilirubin 0.2, Aspartate Amino Transf (AST/SGOT) 20, Alanine Aminotransferase (ALT/SGPT) 8L, Alkaline Phosphatase 124H, Total Protein 6.3L, Albumin 1.8L, Globulin 4.5, Albumin/Globulin Ratio 0.4L 01/09/20 05:12: POC Whole Blood Glucose [Pending] Height (Feet): 5 Height (Inches): 2.00 Weight (Pounds): 168 General Appearance: no apparent distress EENT: normal ENT inspection Neck: supple Cardiovascular: normal rate Respiratory/Chest: decreased breath sounds Abdomen: normal bowel sounds, non tender, soft Extremities: non-tender Biju Ya MD Jan 09, 2020 09:13
--- NOTE | 2020-01-09 10:23 | Discharge Summary ---
Discharge Summary Hospital Course Date of Admission Jan 01, 2020 at 18:00 Date of Discharge 01/09/20 Admitting Diagnosis SEPSIS HPI his is an 89-year-old female chronically ill, lives in SNF, severe dementia from Parkinson's and prior CVA, now trach and PEG dependent, T2DM, HTN, who was brought in by ambulance due to concern for G-tube malfunction. Per chart review, the SNF caregivers started to notice malodorous discharge from G-tube although they were not able to quantify time period. They then called 911 to have patient be taken to ED. The patient upon arrival to ED was hypotensive with MAP in 40s requiring fluid boluses and she did respond with SBP improved from 80s to 100s. The patient's G- tube site appeared to have surrounding cellulitis and antibiotics were given. A CT abdomen was done to evaluate for source of sepsis and this showed a ventral abdominal wall hernia that contained a portion of the transverse colon. Given this, Surgery Dr. Sanches was consulted who did not recommend acute surgical procedure. The patient was then admitted for further evaluation of malfunctioning G-tube as well as sepsis. The patient at baseline has advanced dementia, trach dependent, with PEG placement, and not able to meaningfully participate in interview or questioning. Unable to obtain review of systems, PMH, past surgical, family history, or social history due to advanced dementia Consultations GI Dr. Maldonado Surgery Dr. Sanches Pulm Dr. Woodward ID Dr. Power Procedures G-tube replacement. Hospital Course This is an 89 year old chronically ill patient with severe dementia, dependent on trach and PEG, presented for G-tube malfunction, found to have sepsis d/t G- tube site cellulitis. #Sepsis d/t G-tube site cellulitis - resolved - S/p IVF resuscitation - Vanc/Cefepime/Flagyl (01/01 -01/08) - ID recs appreciated - Surgery recs appreciated - resumed Aldactone #G-tube malfunction, replaced by GI - Ok to use new G-tube #Hypokalemia -resolved - replace and monitor daily LABS #Chronic respiratory failure - resolved - vent weaning per pulm now on T piece #Atrial fibrillation: currently rate controlled - continue home Eliquis and amiodarone. hold metoprolol/diltiazem as above #Paranoid schizophrenia #Major depressive disorder #history of CVA #Advanced Parkinson's Dementia #history of seizures - continue home Carbidopa-Levodopa to prevent withdrawal/NMS - Consult Neurology to optimize regimen - continue home Keppra - continue home Topiramate - restarted Vimpat #Hypothyroidism - continue home Synthroid #T2DM, uncontrolled - Started NPH 20 units bid - contine sanjuanita e regime #s/p [employer] pacemaker placement - continue monitoring, no indication to re-interrogate #Abdominal hernia containing intestine - Seen by Surgery #Diarrhea, C. difficile negative - trial of Imodium I spent 39 minutes on this patient with 29 minutes on care coordination and counseling. Discussed with all consultants, RNs and pharmacy. Reviewed imaging. Discarge planning was difficlt due to trach care and home resources for family to be equipped to take care of patient. Discharge Medications Continued Medications: Amiodarone Hcl* (Pacerone*) 100 Mg Tablet 100 MG ORAL EVERY 8 HOURS for , TAB Apixaban (Eliquis) 2.5 Mg Tablet 2.5 MG PO for , TAB Ascorbic Acid* (Vitamin C*) 500 Mg Tablet 500 MG ORAL DAILY for , #30 TAB 0 Refills Calcium Carbonate (Calcium) 500 Mg Tab.chew 500 MG PO DAILY for supplement, TAB Carbidopa/Levodopa 25-100 Mg* (Sinemet 25-100 Mg Tablet*) 1 Each Tablet 1 TAB ORAL THREE TIMES A DAY for , TAB Chlorhexidine Gluconate* (Hibiclens*) 118 Ml Liquid 118 ML TP for , ML Diltiazem Hcl* (Cardizem*) 30 Mg Tablet 30 MG PO QID for , TAB Doxycycline Hyclate* (Vibramycin*) 100 Mg Capsule 100 MG GT EVERY 12 HOURS for , #14 CAP 0 Refills Famotidine* (Pepcid 20mg tablet*) 20 Mg Tablet 20 MG ORAL DAILY for , #30 TAB 0 Refills Insulin Lispro (Humalog) 100 Unit/1 Ml Cartridge 0 SUBQ PRN for Diabetes, #1 UNITS 0 Refills Ipratropium [place] 0.5MG/2.5ML (Ipratropium [place] 0.5MG/2.5ML) 0.2 Mg/1 Ml Solution 0.5 MG HHN Q6H PRN for Shortness of Breath, #28 EA Lacosamide (Vimpat) 150 Mg Tablet 150 MG PO for , TAB Lactobacillus Acidophilus (Acidophilus) 1 Each Capsule 1 EACH PO for , CAP Levetiracetam* (Levetiracetam*) 500 Mg Tablet 750 MG ORAL TWICE A DAY for , #60 TAB 0 Refills Levothyroxine Sodium* (Synthroid*) 100 Mcg Tablet 100 MCG ORAL DAILY for , TAB Take in the morning on an empty stomach, at least 30 minutes before food. Metoclopramide Hcl* (Metoclopramide Hcl*) 5 Mg Tablet 5 MG ORAL TID for , TAB Metoprolol Tartrate* (Metoprolol Tartrate*) 25 Mg Tablet Unknown Dose ORAL EVERY 12 HOURS PRN for For High Blood Pressure, TAB Midodrine (Midodrine HCl) 10 Mg Tablet 10 MG ORAL THREE TIMES A DAY for hypotension, TAB Nph, Human Insulin Isophane* (Novolin N*) 100 Unit/1 Ml Vial 24 SUBQ BID for , VIAL Sennosides (Senna Laxative) 8.6 Mg Tablet 8.6 MG PO for , TAB Spironolactone* (Spironolactone*) 100 Mg Tablet 100 MG ORAL DAILY for , TAB Topiramate* (Topamax*) 100 Mg Tablet 200 MG ORAL DAILY for , #60 TAB 0 Refills Zinc Amino Acid Chelate (Zinc) 50 Mg Tablet 50 MG ORAL for , TAB Discontinued Medications: Midodrine* (Proamatine*) 10 Mg Tablet 10 MG ORAL THREE TIMES A DAY for , TAB Discharge Condition Upon Discharge: stable Discharge Vital Signs Last Vital Signs Date Time Temp Pulse Resp B/P (MAP) Pulse Ox O2 Delivery O2 Flow Rate FiO2 01/09/20 08:52 109 01/09/20 08:52 100 01/09/20 08:00 Trach Collar 01/09/20 08:00 98.6 26 96/59 (71) 01/09/20 08:00 35 01/06/20 20:00 10.0 Discharge Disposition Patient was discharged to with HH with family. 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 Jan 09, 2020 10:23
--- NOTE | 2020-01-09 10:59 | Pulmonology Progress Note ---
Subjective ROS Limited/Unobtainable: No Interval Events: None new Constitutional: Reports: fatigue; Denies: fever HEENT: Repors: no symptoms Respiratory: Reports: no symptoms Gastrointestinal/Abdominal: Denies: nausea, vomiting, diarrhea Psychiatric: Denies: depression Skin: Denies: rash Musculoskeletal: Denies: pain Allergies: Coded Allergies: No Known Allergies (Unverified , 03/03/18) Objective Last 24 Hour Vital Signs Date Time Temp Pulse Resp B/P (MAP) Pulse Ox O2 Delivery O2 Flow Rate FiO2 01/09/20 10:54 91 01/09/20 08:52 109 01/09/20 08:52 100 01/09/20 08:00 Trach Collar 01/09/20 08:00 98.6 93 26 96/59 (71) 100 01/09/20 08:00 35 01/09/20 07:41 108 01/09/20 07:40 82 01/09/20 05:29 81 15 35 01/09/20 04:00 98.0 79 20 109/65 (80) 100 01/09/20 04:00 35 01/09/20 04:00 Trach Collar 01/09/20 03:30 90 18 35 01/09/20 03:30 81 01/09/20 01:30 77 15 35 01/09/20 00:00 35 01/09/20 00:00 Trach Collar 01/09/20 00:00 98.1 77 22 100/63 (75) 99 01/08/20 23:32 68 01/08/20 23:22 73 14 35 01/08/20 20:34 69 14 35 01/08/20 20:33 100 Mechanical Ventilator 35 01/08/20 20:00 Trach Collar 01/08/20 20:00 35 01/08/20 20:00 97.7 71 19 114/59 (77) 99 01/08/20 19:31 59 01/08/20 19:30 70 14 35 01/08/20 17:45 83 24 35 01/08/20 17:30 35 01/08/20 16:00 85 01/08/20 16:00 98.5 80 14 105/61 (76) 99 01/08/20 16:00 Trach Collar 01/08/20 16:00 35 01/08/20 15:05 83 01/08/20 13:40 77 01/08/20 12:00 82 01/08/20 12:00 Trach Collar 01/08/20 12:00 35 01/08/20 12:00 98.6 96 14 116/71 (86) 100 Intake and Output 01/08/20 01/09/20 19:00 07:00 Intake Total 750 ml 960 ml Output Total 700 ml Balance 50 ml 960 ml Intake Free Water 150 ml 300 ml Tube Feeding 600 ml 660 ml Output Urine Total 700 ml # Voids 2 # Bowel Movements 2 4 General Appearance: no acute distress HEENT: status post trach Respiratory: chest wall non-tender, lungs clear Cardiovascular: normal peripheral pulses, normal rate Abdomen: normal bowel sounds Laboratory Tests 01/08/20 12:18: POC Whole Blood Glucose [Pending] 01/08/20 18:06: POC Whole Blood Glucose [Pending] 01/08/20 20:23: POC Whole Blood Glucose [Pending] 01/08/20 23:06: POC Whole Blood Glucose [Pending] 01/09/20 02:55: White Blood Count 7.6, Red Blood Count 3.61L, Hemoglobin 11.4L, Hematocrit 35.6L , Mean Corpuscular Volume 99, Mean Corpuscular Hemoglobin 31.7H, Mean Corpuscular Hemoglobin Concent 32.2, Red Cell Distribution Width 13.6, Platelet Count 206, Mean Platelet Volume 7.5, Neutrophils (%) (Auto) 75.0, Lymphocytes (% ) (Auto) 15.1L, Monocytes (%) (Auto) 7.4, Eosinophils (%) (Auto) 1.7, Basophils (%) (Auto) 0.8, Sodium Level 141, Potassium Level 4.3, Chloride Level 105, Carbon Dioxide Level 28, Anion Gap 8, Blood Urea Nitrogen 22H, Creatinine 0.7, Estimat Glomerular Filtration Rate > 60, Glucose Level 212H, Calcium Level 8.5, Total Bilirubin 0.2, Aspartate Amino Transf (AST/SGOT) 20, Alanine Aminotransferase (ALT/SGPT) 8L, Alkaline Phosphatase 124H, Total Protein 6.3L, Albumin 1.8L, Globulin 4.5, Albumin/Globulin Ratio 0.4L 01/09/20 05:12: POC Whole Blood Glucose [Pending] Current Medications Medications (Trade) Dose Ordered Sig/Genaro Route PRN Reason Start Time Stop Time Status Last Admin Dose Admin Amiodarone HCl (Cordarone) 100 mg Q8H GT 01/02/20 00:00 04/01/20 00:00 01/09/20 08:37 Apixaban (Eliquis) 2.5 mg BID GT 01/02/20 09:00 04/01/20 08:59 01/09/20 08:38 Ascorbic Acid (Vitamin C) 500 mg DAILY GT 01/02/20 09:00 02/01/20 08:59 01/09/20 08:38 Carbidopa/Levodopa (Sinemet 25/100) 1 tab Q8H GT 01/02/20 00:00 02/01/20 00:00 01/09/20 08:37 Dextrose (Dextrose 50%) 25 ml Q30M PRN IV Hypoglycemia 01/01/20 19:30 03/31/20 19:29 01/02/20 05:43 Dextrose (Dextrose 50%) 50 ml Q30M PRN IV Hypoglycemia 01/01/20 19:30 03/31/20 19:29 Famotidine (Pepcid) 20 mg DAILY GT 01/02/20 09:00 04/01/20 08:59 01/09/20 08:38 Insulin Aspart (NovoLOG) Q6H SUBQ 01/02/20 06:00 04/01/20 05:59 01/09/20 05:14 Insulin Human NPH (Humulin N) 20 units Q12HR SUBQ 01/06/20 21:00 04/05/20 20:59 01/09/20 08:44 Lacosamide (Vimpat) 50 mg Q12HR ORAL 01/06/20 21:00 04/05/20 20:59 01/09/20 08:38 Levetiracetam (Keppra) 750 mg Q12HR GT 01/02/20 00:00 02/01/20 00:00 01/09/20 08:38 Levothyroxine Sodium (Synthroid) 100 mcg DAILY GT 01/02/20 09:00 02/01/20 08:59 01/09/20 08:38 Loperamide HCl (Imodium) 2 mg Q4H PRN ORAL Diarrhea 01/07/20 12:15 02/06/20 12:14 Metoclopramide HCl (Reglan) 5 mg EVERY 6 HOURS GT 01/02/20 00:00 02/01/20 00:00 01/09/20 05:13 Midodrine (Pro-Amatine) 10 mg THREE TIMES A DAY ORAL 01/02/20 09:00 04/01/20 08:59 01/09/20 08:38 Spironolactone (Aldactone) 50 mg DAILY ORAL 01/08/20 09:00 02/07/20 08:59 01/09/20 08:38 Topiramate (Topamax) 200 mg DAILY GT 01/02/20 09:00 02/01/20 08:59 01/09/20 08:38 Vancomycin HCl (Vanco pharmacy to dose) 1 ea DAILY PRN MISC Per rx protocol 01/01/20 19:30 01/31/20 19:29 Vancomycin/Sodium Chloride 275 ml @ 183.333 mls/hr Q24H IVPB 01/04/20 12:00 01/09/20 11:59 01/08/20 12:51 Zinc Oxide (Zinc Oxide) 1 applic THREE TIMES A DAY PRN TOPIC g tube site wound 01/02/20 14:30 04/01/20 14:29 01/04/20 19:17 Assessment/Plan Assessment/Plan IMPRESSION: 1. Moderate malnutrition. 2. G-tube site cellulitis. 3. Chronic tracheostomy. 4. Chronic respiratory failure. 5. Dementia. 6. Parkinson's. 7. Diabetes mellitus. 8. Hypertension. DISCUSSION: Continue broad-spectrum antibiotics. Surgical evaluation noted. now on trach collar Continue Eliquis. I will follow carefully. DC planning to home Dakotah Villegas Omar Syed MD Jan 09, 2020 10:59
[2020-01-09 12:00] VITALS: BP 105/72
[2020-01-09] MEDS ORDERED: NS 275ml ONE (13:09)
[2020-01-09] MEDS ORDERED: Tubing IV Secondary IV ONE (13:09)
--- NOTE | 2020-01-09 14:42 | Surgery Progress Note ---
Surgery Progress Note Subjective Additional Comments improved d/c planning labs improved comfortable hernia stable and reducible Objective Last 24 Hour Vital Signs Date Time Temp Pulse Resp B/P (MAP) Pulse Ox O2 Delivery O2 Flow Rate FiO2 01/09/20 13:07 88 01/09/20 12:00 97.7 87 21 105/72 (83) 97 01/09/20 12:00 28 01/09/20 12:00 Trach Collar 01/09/20 10:54 91 01/09/20 08:52 109 01/09/20 08:52 100 01/09/20 08:00 Trach Collar 01/09/20 08:00 98.6 93 26 96/59 (71) 100 01/09/20 08:00 35 01/09/20 07:41 108 01/09/20 07:40 82 01/09/20 05:29 81 15 35 01/09/20 04:00 98.0 79 20 109/65 (80) 100 01/09/20 04:00 35 01/09/20 04:00 Trach Collar 01/09/20 03:30 90 18 35 01/09/20 03:30 81 01/09/20 01:30 77 15 35 01/09/20 00:00 35 01/09/20 00:00 Trach Collar 01/09/20 00:00 98.1 77 22 100/63 (75) 99 01/08/20 23:32 68 01/08/20 23:22 73 14 35 01/08/20 20:34 69 14 35 01/08/20 20:33 100 Mechanical Ventilator 35 01/08/20 20:00 Trach Collar 01/08/20 20:00 35 01/08/20 20:00 97.7 71 19 114/59 (77) 99 01/08/20 19:31 59 01/08/20 19:30 70 14 35 01/08/20 17:45 83 24 35 01/08/20 17:30 35 01/08/20 16:00 85 01/08/20 16:00 98.5 80 14 105/61 (76) 99 01/08/20 16:00 Trach Collar 01/08/20 16:00 35 01/08/20 15:05 83 I&O Intake and Output 01/08/20 01/09/20 19:00 07:00 Intake Total 750 ml 1020 ml Output Total 700 ml Balance 50 ml 1020 ml Intake Free Water 150 ml 300 ml Tube Feeding 600 ml 720 ml Output Urine Total 700 ml # Voids 2 # Bowel Movements 2 4 Cardiovascular: RSR Respiratory: clear, decreased breath sounds Abdomen: soft, non-tender, present bowel sounds, non-distended Extremities: no edema, no tenderness, no cyanosis Laboratory Tests Test 01/08/20 18:06 01/08/20 20:23 01/08/20 23:06 01/09/20 02:55 POC Whole Blood Glucose Pending Pending Pending White Blood Count 7.6 K/UL (4.8-10.8) Red Blood Count 3.61 M/UL (4.20-5.40) L Hemoglobin 11.4 G/DL (12.0-16.0) L Hematocrit 35.6 % (37.0-47.0) L Mean Corpuscular Volume 99 FL (80-99) Mean Corpuscular Hemoglobin 31.7 PG (27.0-31.0) H Mean Corpuscular Hemoglobin Concent 32.2 G/DL (32.0-36.0) Red Cell Distribution Width 13.6 % (11.6-14.8) Platelet Count 206 K/UL (150-450) Mean Platelet Volume 7.5 FL (6.5-10.1) Neutrophils (%) (Auto) 75.0 % (45.0-75.0) Lymphocytes (%) (Auto) 15.1 % (20.0-45.0) L Monocytes (%) (Auto) 7.4 % (1.0-10.0) Eosinophils (%) (Auto) 1.7 % (0.0-3.0) Basophils (%) (Auto) 0.8 % (0.0-2.0) Sodium Level 141 MMOL/L (136-145) Potassium Level 4.3 MMOL/L (3.5-5.1) Chloride Level 105 MMOL/L (98-107) Carbon Dioxide Level 28 MMOL/L (21-32) Anion Gap 8 mmol/L (5-15) Blood Urea Nitrogen 22 mg/dL (7-18) H Creatinine 0.7 MG/DL (0.55-1.30) Estimat Glomerular Filtration Rate > 60 mL/min (>60) Glucose Level 212 MG/DL (74-106) H Calcium Level 8.5 MG/DL (8.5-10.1) Total Bilirubin 0.2 MG/DL (0.2-1.0) Aspartate Amino Transf (AST/SGOT) 20 U/L (15-37) Alanine Aminotransferase (ALT/SGPT) 8 U/L (12-78) L Alkaline Phosphatase 124 U/L (46-116) H Total Protein 6.3 G/DL (6.4-8.2) L Albumin 1.8 G/DL (3.4-5.0) L Globulin 4.5 g/dL Albumin/Globulin Ratio 0.4 (1.0-2.7) L Test 01/09/20 05:12 POC Whole Blood Glucose Pending Plan Problems: (1) Sepsis (2) Acute encephalopathy (3) Cellulitis (4) Hypotension (5) Malfunction of gastrostomy tube (6) Ventral hernia Assessment & Plan: 89-year-old female identified to have a large ventral hernia with bowel contents. Abdominal distention. G-tube site cellulitis malfunction. Patient is alert and responds to painful stimuli but she is unable to verbalize or give history or participate in exam I have reviewed the CT personally and discussed the care plan with emergency department physician and medical teams. I was able to easily reduce the hernia at bedside. It is a [place] hernia with bowel contents even considerably loss of domain. Patient is having multiple bowel movements and is not obstructed. She is not incarcerated No acute surgical intervention recommended for her hernia as is chronic and given her age and condition high risk Okay for tube feeds G-tube site evaluated silver nitrate applied Continue with local wound care Antibiotics per infectious disease We will follow with her abdominal examinations recommendations Thank you for let me participate in patient's care KUB noted improving +BM no acute surgical intervention planned d/c planning okay for outpatient f/u Liver: Unremarkable. No mass. Gallbladder and bile ducts: Unremarkable. No calcified stones. No ductal dilation. Pancreas: Unremarkable. No mass. No ductal dilation. Spleen: Unremarkable. No splenomegaly. Adrenals: Unremarkable. No mass. Kidneys and ureters: Kidneys show an inferior pole 1.8 cm cyst that does not require follow-up imaging. No hydronephrosis or hydroureter. No radiopaque stones identified. Stomach and bowel: Again evident is a ventral abdominal wall hernia containing a portion of the transverse colon. The hernia sac is 4.2 cm transverse and 3.9 cm craniocaudal. There is interval presence of a tract from a now since removed percutaneous gastrostomy. There is moderate stool throughout the large bowel with scattered colonic diverticuli. No findings of acute diverticulitis. PELVIS: Appendix: No findings to suggest acute appendicitis. Bladder: Unremarkable. No mass. Reproductive: Uterus is atrophic. ABDOMEN and PELVIS: Intraperitoneal space: Unremarkable. No free air. No significant fluid collection. Bones/joints: Bones show degenerative changes in the spine and fixation screws in the left femoral neck, similar to prior. No acute fracture. No dislocation. Soft tissues: See above. Vasculature: Abdominal aorta shows calcifications. No abdominal aortic aneurysm. Lymph nodes: Unremarkable. No enlarged lymph nodes. Tubes, lines and devices: Lung bases show left chest pacemaker. IMPRESSION: Abdominal distention could be a combination of patient body habitus and the presence of a ventral abdominal wall hernia that contains a portion of the transverse colon. There are no findings of bowel obstruction, or acute inflammation. . DAILY ESTIMATED NEEDS: Needs based on Critical care, wound/ 56.5kg abw 22-28 kcals/kg 0132-4669 total kcals 1.25-2 g protein/kg 70-113 g total protein 25-30 mL/kg 4366-2075 total fluid mLs NUTRITION DIAGNOSIS: * Increased kcal/prot needs R/T wound healing as evidenced by pt admitted w/ skin breakdown, including partial thickness wounds at R and L gluteal clefts. * Swallowing difficulty R/T dysphagia, respiratory status as evidenced by pt is trach/vent dep, PEG dep, admitted for GT malfunction, s/p GT replacement. CURRENT TF:Glucerna 1.2 @ 60ml/hr x 22 hrs ENTERAL NUTRITION RECOMMENDATIONS: Glucerna 1.2 @ 60ml/hr x 22 hrs to provide 1320ml, 1584kcal, 79g prot, 1063ml free water * Maintain current TF order, cont to increase to goal. 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
--- NOTE | 2020-01-09 15:04 | Infectious Diseases Prog Note ---
Assessment/Plan Assessment/Plan ASSESSMENT AND PLAN: 1. g-tube infection/cellulitis/abdominal wall cellulitis, ? sepsis, low bp better, ? aspiration pna/hcap, effusion - vancomycin, cefepime and flagyl - finish course - g-tube infection/cellulitis better - ? thoracentesis - monitor labs and chest x-ray - communicated with primary team about antibiotics and discharge - d/w RN 2. Dysphagia, G-tube, ventral hernia - reduced 3. Trach, vent, respiratory failure. 4. Parkinson's. 5. Dementia. 6. CVA. 7. Diabetes. 8. Hypertension. 9. Blood pressure and blood sugar treatment per primary care team. 10. Hypothyroidism. 11. No known drug allergies. 12. Social history is negative. 13. Family history is noncontributory. 14. MAR was noted. 15. Case was discussed with RN. 16. Case was discussed with primary care team and Surgery. 17. Continue treatment per primary consultants. 18. Skin care protocol. 19. Orders were noted and entered. 20. Vent care per Pulmonary Medicine. Subjective Constitutional: Reports: fatigue; Denies: fever HEENT: Reports: congestion Respiratory: Reports: shortness of breath Cardiovascular: Reports: other - no pressors Gastrointestinal/Abdominal: Denies: nausea, vomiting, diarrhea Genitourinary: Reports: other - no gray Neurologic: Reports: headache, other - lethargic Psychiatric: Reports: other - NA Skin: Denies: rash Hematologic: Denies: bleeding Musculoskeletal: Reports: other - NA Allergies: Coded Allergies: No Known Allergies (Unverified , 03/03/18) Objective Last 24 Hour Vital Signs Date Time Temp Pulse Resp B/P (MAP) Pulse Ox O2 Delivery O2 Flow Rate FiO2 01/09/20 13:07 88 01/09/20 12:00 97.7 87 21 105/72 (83) 97 01/09/20 12:00 28 01/09/20 12:00 Trach Collar 01/09/20 11:44 89 01/09/20 10:54 91 01/09/20 08:52 109 01/09/20 08:52 100 01/09/20 08:00 Trach Collar 01/09/20 08:00 98.6 93 26 96/59 (71) 100 01/09/20 08:00 35 8/18/20 07:41 108 01/09/20 07:40 82 01/09/20 05:29 81 15 35 01/09/20 04:00 98.0 79 20 109/65 (80) 100 01/09/20 04:00 35 01/09/20 04:00 Trach Collar 01/09/20 03:30 90 18 35 01/09/20 03:30 81 01/09/20 01:30 77 15 35 01/09/20 00:00 35 01/09/20 00:00 Trach Collar 01/09/20 00:00 98.1 77 22 100/63 (75) 99 01/08/20 23:32 68 01/08/20 23:22 73 14 35 01/08/20 20:34 69 14 35 01/08/20 20:33 100 Mechanical Ventilator 35 01/08/20 20:00 Trach Collar 01/08/20 20:00 35 01/08/20 20:00 97.7 71 19 114/59 (77) 99 01/08/20 19:31 59 01/08/20 19:30 70 14 35 01/08/20 17:45 83 24 35 01/08/20 17:30 35 01/08/20 16:00 85 01/08/20 16:00 98.5 80 14 105/61 (76) 99 01/08/20 16:00 Trach Collar 01/08/20 16:00 35 01/08/20 15:05 83 Height (Feet): 5 Height (Inches): 2.00 Weight (Pounds): 168 General Appearance: other - + trach and vent HEENT: normocephalic, atraumatic, anicteric, mucous membranes moist, status post trach Respiratory/Chest: crackles/rales, rhonchi - bilaterally, other - + vent Cardiovascular: normal rate, regular rhythm, no gallop/murmur, no JVD Abdomen: normal bowel sounds, soft, non tender, non distended, other - g-tube - no sig drainage and cellulitis Genitourinary: other - no gray Extremities: no cyanosis Skin: no rash Neurologic/Psychiatric: other - lethargic, weak Lymphatic: no neck adenopathy Musculoskeletal: no effusion Procedure: XRAY Chest 1v Chest x-ray - 01/04/20 - Indication: Shortness of breath Technique: One view of the chest Comparison: 01/01/2020 Findings: Increasing pleural fluid is seen on the left. The lungs and right pleural space are otherwise clear. Left chest pacemaker, tracheostomy again demonstrated. Impression: Increasing left pleural effusion, since prior exam of 3 days earlier Chest x-ray - 01/07/20 - COMPARISON: 01/04/20 FINDINGS: Lungs: There is unchanged mild left basilar infiltrate indeterminate between atelectasis and pneumonia. Pleural space: There is unchanged mild left pleural effusion. No pneumothorax. Heart: Unremarkable. No cardiomegaly. Mediastinum: Unremarkable. Bones/joints: Unremarkable. Tubes, lines and devices: There is a tracheostomy tube and left subclavian cardiac leads in unchanged position. IMPRESSION: There is unchanged small left pleural effusion and mild left basilar infiltrate indeterminate between atelectasis and pneumonia. Microbiology Date/Time Source Procedure Growth Status 01/01/20 17:30 Blood Blood Culture - Final NO GROWTH AFTER 5 DAYS Complete 01/01/20 17:56 Nasal Nares MRSA Culture - Final NO METHICILLIN RESISTANT STAPH AUREUS... Complete 01/04/20 10:00 Stool Clostridium difficile Toxin Assay - Final Complete 01/01/20 17:56 Indwelling Cath Urine Culture - Final NO GROWTH AFTER 48 HOURS Complete 01/01/20 17:56 Rectum - Final NO CARBAPENEM-RESISTANT ENTEROBACTERI... Complete Laboratory Tests Test 01/08/20 18:06 01/08/20 20:23 01/08/20 23:06 01/09/20 02:55 POC Whole Blood Glucose Pending Pending Pending White Blood Count 7.6 K/UL (4.8-10.8) Red Blood Count 3.61 M/UL (4.20-5.40) L Hemoglobin 11.4 G/DL (12.0-16.0) L Hematocrit 35.6 % (37.0-47.0) L Mean Corpuscular Volume 99 FL (80-99) Mean Corpuscular Hemoglobin 31.7 PG (27.0-31.0) H Mean Corpuscular Hemoglobin Concent 32.2 G/DL (32.0-36.0) Red Cell Distribution Width 13.6 % (11.6-14.8) Platelet Count 206 K/UL (150-450) Mean Platelet Volume 7.5 FL (6.5-10.1) Neutrophils (%) (Auto) 75.0 % (45.0-75.0) Lymphocytes (%) (Auto) 15.1 % (20.0-45.0) L Monocytes (%) (Auto) 7.4 % (1.0-10.0) Eosinophils (%) (Auto) 1.7 % (0.0-3.0) Basophils (%) (Auto) 0.8 % (0.0-2.0) Sodium Level 141 MMOL/L (136-145) Potassium Level 4.3 MMOL/L (3.5-5.1) Chloride Level 105 MMOL/L (98-107) Carbon Dioxide Level 28 MMOL/L (21-32) Anion Gap 8 mmol/L (5-15) Blood Urea Nitrogen 22 mg/dL (7-18) H Creatinine 0.7 MG/DL (0.55-1.30) Estimat Glomerular Filtration Rate > 60 mL/min (>60) Glucose Level 212 MG/DL (74-106) H Calcium Level 8.5 MG/DL (8.5-10.1) Total Bilirubin 0.2 MG/DL (0.2-1.0) Aspartate Amino Transf (AST/SGOT) 20 U/L (15-37) Alanine Aminotransferase (ALT/SGPT) 8 U/L (12-78) L Alkaline Phosphatase 124 U/L (46-116) H Total Protein 6.3 G/DL (6.4-8.2) L Albumin 1.8 G/DL (3.4-5.0) L Globulin 4.5 g/dL Albumin/Globulin Ratio 0.4 (1.0-2.7) L Test 01/09/20 05:12 POC Whole Blood Glucose Pending Current Medications Medications (Trade) Dose Ordered Sig/Genaro Route PRN Reason Start Time Stop Time Status Last Admin Dose Admin Amiodarone HCl (Cordarone) 100 mg Q8H GT 01/02/20 00:00 04/01/20 00:00 01/09/20 08:37 Apixaban (Eliquis) 2.5 mg BID GT 01/02/20 09:00 04/01/20 08:59 01/09/20 08:38 Ascorbic Acid (Vitamin C) 500 mg DAILY GT 01/02/20 09:00 02/01/20 08:59 01/09/20 08:38 Carbidopa/Levodopa (Sinemet 25/100) 1 tab Q8H GT 01/02/20 00:00 02/01/20 00:00 01/09/20 08:37 Dextrose (Dextrose 50%) 25 ml Q30M PRN IV Hypoglycemia 01/01/20 19:30 03/31/20 19:29 01/02/20 05:43 Dextrose (Dextrose 50%) 50 ml Q30M PRN IV Hypoglycemia 01/01/20 19:30 03/31/20 19:29 Famotidine (Pepcid) 20 mg DAILY GT 01/02/20 09:00 04/01/20 08:59 01/09/20 08:38 Insulin Aspart (NovoLOG) Q6H SUBQ 01/02/20 06:00 04/01/20 05:59 01/09/20 12:23 Insulin Human NPH (Humulin N) 20 units Q12HR SUBQ 01/06/20 21:00 04/05/20 20:59 01/09/20 08:44 Lacosamide (Vimpat) 50 mg Q12HR ORAL 01/06/20 21:00 04/05/20 20:59 01/09/20 08:38 Levetiracetam (Keppra) 750 mg Q12HR GT 01/02/20 00:00 02/01/20 00:00 01/09/20 08:38 Levothyroxine Sodium (Synthroid) 100 mcg DAILY GT 01/02/20 09:00 02/01/20 08:59 01/09/20 08:38 Loperamide HCl (Imodium) 2 mg Q4H PRN ORAL Diarrhea 01/07/20 12:15 02/06/20 12:14 Metoclopramide HCl (Reglan) 5 mg EVERY 6 HOURS GT 01/02/20 00:00 02/01/20 00:00 01/09/20 12:21 Midodrine (Pro-Amatine) 10 mg THREE TIMES A DAY ORAL 01/02/20 09:00 04/01/20 08:59 01/09/20 12:23 Spironolactone (Aldactone) 50 mg DAILY ORAL 01/08/20 09:00 02/07/20 08:59 01/09/20 08:38 Topiramate (Topamax) 200 mg DAILY GT 01/02/20 09:00 02/01/20 08:59 01/09/20 08:38 Vancomycin HCl (Vanco pharmacy to dose) 1 ea DAILY PRN MISC Per rx protocol 01/01/20 19:30 01/31/20 19:29 Zinc Oxide (Zinc Oxide) 1 applic THREE TIMES A DAY PRN TOPIC g tube site wound 01/02/20 14:30 04/01/20 14:29 01/04/20 19:17 Chanda Pop MD Jan 09, 2020 15:03
== END 2020-01-09 15:28 | disposition home or self-care (01) | DRG 393 ==
LOC: EDBD 16:38 → EMR 17:02 → 2W 18:00 → EDBEDREQ 18:02 → 2W 21:36
PROC: 5A1955Z Respiratory Ventilation, Greater than 96 Consecutive Hours (ICD-10-PCS; principal; 2020-01-01)
DX: K94.22 Gastrostomy infection (principal); A41.9 Sepsis, unspecified organism; L03.311 Cellulitis of abdominal wall; F20.0 Paranoid schizophrenia; J96.10 Chronic respiratory failure, unspecified whether with hypoxia or hypercapnia; E44.0 Moderate protein-calorie malnutrition; E46 Unspecified protein-calorie malnutrition; G20 Parkinson's disease; K94.23 Gastrostomy malfunction; F02.80 Dementia in other diseases classified elsewhere, unspecified severity, without behavioral disturbance, psychotic disturbance, mood disturbance, and anxiety; F32.9 Major depressive disorder, single episode, unspecified; E87.6 Hypokalemia; R19.7 Diarrhea, unspecified; Y83.3 Surgical operation with formation of external stoma as the cause of abnormal reaction of the patient, or of later complication, without mention of misadventure at the time of the procedure; Z43.0 Encounter for attention to tracheostomy; Z86.73 Personal history of transient ischemic attack (TIA), and cerebral infarction without residual deficits; E03.9 Hypothyroidism, unspecified; R13.10 Dysphagia, unspecified; K43.9 Ventral hernia without obstruction or gangrene; Z79.01 Long term (current) use of anticoagulants
CPT/HCPCS: 36415; 36600; 71045; 74018; 74177; 80048; 80053; 80202; 81003; 82533; 82550; 82553; 82803; 82962; 83605; 83690; 83735; 83880; 84100; 84439; 84443; 84484; 85025; 85610; 85730; 87040; 87081; 87086; 87324; 93005; 94002; 94003; 96365; 96368; 99291; J1815; J7030; J8499; U0002